=== PATIENT | male | born 1950 | race Caucasian/White ===

== ENCOUNTER → 2020-01-07 10:24 | Outpatient (BNVA) | payer MEDICARE, MEDICAID, SELFPAY | PROVIDERS: PCP Nurse Practitioner Family; Referring Provider Nurse Practitioner Family; Visit Provider Internal Medicine Cardiovascular Disease | DX: I48.0 Paroxysmal atrial fibrillation (principal); Z95.2 Presence of prosthetic heart valve; Z51.81 Encounter for therapeutic drug level monitoring; Z79.01 Long term (current) use of anticoagulants | CPT/HCPCS: 85610; 99211 ==

== ENCOUNTER → 2020-01-24 10:46 | Outpatient (BNVA) | payer MEDICARE, MEDICAID, SELFPAY | PROVIDERS: PCP Nurse Practitioner Family; Referring Provider Nurse Practitioner Family; Visit Provider Internal Medicine | DX: I48.0 Paroxysmal atrial fibrillation (principal); Z95.2 Presence of prosthetic heart valve; Z51.81 Encounter for therapeutic drug level monitoring; Z79.01 Long term (current) use of anticoagulants | CPT/HCPCS: 85610; 99211 ==

== ENCOUNTER → 2020-02-14 14:00 | Outpatient (REF) | payer MEDICARE, MEDICAID, SELFPAY ==
--- NOTE | 2020-02-14 12:16 | CA_ITS ---
Transthoracic Echocardiogram Patient (Last, First, Middle): Luca Hutson, Gender: Male Date of : 1950 Age: 69 Procedure Date: 02/14/2020 Procedure Type: Transthoracic Echocardiogram Location: OP Height: 175.26 cm Weight: 113.4 kg BSA: 2.27 m2 Heart Rate: bpm BP: 118 / 62 mmHg Hearing Health Technician: MARY Referring MD: Mario Esquivel MD Routing Clerk: Mario Esquivel MD Symptoms: Z95.2,I48.0 Study Quality: Technically Difficult ECG Rhythm: Sinus Conclusions: - 1. Normal LV systolic function with mild LVH 2. Mildly dilated left atrium 3. Stenosis of mechanical aortic prosthetic valve 4. Normally functioning mitral mechanical prosthesis 5. Normal RV systolic pressure 6. No gross pericardial effusion Findings Left Ventricle Normal left ventricular size and systolic function. There is mildly increased left ventricular wall thickness. The visually estimated ejection fraction is between 60-65%. Diastolic function is indeterminate on the basis of available data. Right Ventricle Normal right ventricular cavity size. There is low normal right ventricular systolic function. Atria The left atrium is mildly dilated. Interatrial shunt cannot be excluded. The right atrium was not well visualized. Aortic Valve A mechanical prosthetic aortic valve is present. The prosthetic aortic valve appears to be functioning abnormally. Echo findings are consistent with stenosis of the aortic valve prosthesis. The aortic valve was not well visualized. The mean gradient is 28 mmHg. The aortic valve area is 1.11 cm2. no valve leaflets are not well visualized, however the valve appears to be well seated without any abnormal rocking motion. There is no significant regurgitation noted. There is increased mean gradient of 28 mm of mercury across the mechanical prosthetic valve which is elevated, however compared to prior study this is lower. This could be secondary to underestimation. The calculated effective orifice area is 1.1 centimeters sq. There is also delayed aortic ejection time. Overall consistent with stenosis of the mechanical prosthesis. Mitral Valve A mechanical prosthetic mitral valve is present. The prosthetic mitral valve appears to be functioning normally. The mitral valve was not well visualized. The mean mitral valve gradient is 4.00 mmHg. Mechanical mitral prosthesis is well seated without abnormal rocking motion. Mitral regurgitation cannot be completely evaluated on this study. Mean gradient of 4 mm of mercury which is normal for a mechanical prosthesis Pulmonic Valve The pulmonic valve was not well visualized. Tricuspid Valve Likely normal tricuspid valve structure and function. There is mild tricuspid valve regurgitation. The right ventricular systolic pressure is normal. The right ventricular systolic pressure is 25 mmHg. There is no evidence of pulmonary hypertension. Great Vessels All visible segments of the aorta are normal in size. The pulmonary artery was not well visualized. Venous The inferior vena cava is normal in size and collapses greater than 50% with inspiration. Pericardium/Pleural There is no evidence of pericardial effusion. Prior Study Comparison Changes noted compared to prior study dated: 12/17/2018. RV systolic function has normalized on this study compared to prior study. Also the mean gradient across mechanical aortic prosthesis is lower, could be due to underestimation. LV systolic function appears to have normalized Measurements 2D Linear Measurements IVSd: 1.33 0.6-0.9/0.6-1.0 cm LVIDd: 4.59 3.9-5.3/4.2-5.9 cm LVIDd Index: 2.02 2.4-3.2/2.2-3.1 cm/m2 LVIDs: 3.11 2.0-3.6 cm LVPWd: 1.23 0.7-1.1 cm Ao Root: 2.90 2.1-3.5 cm LA Diam: 3.70 2.7-3.8/3.0-4.0 cm LAIDs Index: 1.63 1.5-2.3 cm/m2 LV Mass: 279.58 67-162/88-224 g LV Mass Index: 123.16 43-95/49-115 g/m2 LVOT Diam: 2.20 3.0+(-)1.3 cm 2D Systolic Function EF 4C: 73.70 >55% Mitral Valve MV VTI: 0.39 MV Pk Edgar: 1.62 MV Mn Edgar: 0.95 MV Pk Grad: 10.00 MV Mn Grad: 4.00 MV Pk E: 1.58 MV PK A: 0.74 MV Decel Time: 190.00 E/A: 2.10 E'Lateral: 7.25 E'Medial: 6.00 E/E' Med: 26.30 E/E' Lat: 21.80 PHT: 56.00 MVA PHT: 3.93 MVA Continuity: 1.93 Decel [place]: 8.30 Aortic Valve AoV Pk Edgar: 3.57 AoV Mn Edgar: 2.43 AoV VTI: 0.67 AoV Pk Grad: 51.00 Aov Mn Grad: 28.00 AIDEN Cont.VTI: 1.11 LVOT LVOT Pk Edgar: 0.91 LVOT Mn Edgar: 0.68 LVOT VTI: 0.20 LVOT Pk Grad: 3.00 LVOT Mn Grad: 2.00 LVOT Diam: 2.20 LVOT Area: 3.80 Diastolic Function MV Pk E: 1.58 MV Pk A: 0.74 E/A: 2.10 E'Medial: 6.00 E/E' Med: 26.30 E' Laterial: 7.25 E/E' Lat: 21.80 Tricuspid Valve TR Pk Edgar: 2.33 TR Pk Grad: 22.00 RA Press: 3.00 RVSP: 25.00 Great Vessels Aorta Ao Root-2D: 2.90 2.0-3.7 cm Ao Asc: 2.90 2.1-3.4 cm Updated in Other Vendor System with Status of Final Mario Esquivel MD electronically signed on 02/15/2020 11:47:08 AM with status of Final
== END ==
LOC: HO.CARD 14:00
PROVIDERS: Visit Provider Internal Medicine Cardiovascular Disease
DX: I48.0 Paroxysmal atrial fibrillation (principal); I10 Essential (primary) hypertension; Z95.2 Presence of prosthetic heart valve
CPT/HCPCS: 93306

== ENCOUNTER → 2020-02-21 11:05 | Outpatient (BNVA) | payer MEDICARE, MEDICAID, SELFPAY | PROVIDERS: PCP Nurse Practitioner Family; Visit Provider Internal Medicine | DX: I48.0 Paroxysmal atrial fibrillation (principal); Z95.2 Presence of prosthetic heart valve; Z51.81 Encounter for therapeutic drug level monitoring; Z79.01 Long term (current) use of anticoagulants | CPT/HCPCS: 85610; 99211 ==

== ENCOUNTER → 2020-03-07 10:38 | Outpatient (BNVA) | payer MEDICARE, MEDICAID, SELFPAY | PROVIDERS: Visit Provider Internal Medicine | DX: I48.0 Paroxysmal atrial fibrillation (principal); Z95.2 Presence of prosthetic heart valve; Z51.81 Encounter for therapeutic drug level monitoring; Z79.01 Long term (current) use of anticoagulants | CPT/HCPCS: 85610; 99211 ==

== ENCOUNTER → 2020-03-14 09:34 | Outpatient (BNVA) | payer MEDICARE, MEDICAID, SELFPAY | PROVIDERS: PCP Nurse Practitioner Family; Referring Provider Nurse Practitioner Family; Visit Provider Internal Medicine Cardiovascular Disease | DX: I50.9 Heart failure, unspecified (principal); I48.0 Paroxysmal atrial fibrillation; T82.09XA Other mechanical complication of heart valve prosthesis, initial encounter; Z95.2 Presence of prosthetic heart valve | CPT/HCPCS: 99212 ==

== ENCOUNTER → 2020-03-21 10:15 | Outpatient (BNVA) | payer MEDICARE, MEDICAID, SELFPAY | PROVIDERS: PCP Nurse Practitioner Family; Visit Provider Internal Medicine | DX: I48.0 Paroxysmal atrial fibrillation (principal); Z51.81 Encounter for therapeutic drug level monitoring; Z79.01 Long term (current) use of anticoagulants | CPT/HCPCS: 85610; 99211 ==

== ENCOUNTER → 2020-03-23 14:04 | Outpatient (BNVA) | payer MEDICARE, MEDICAID, SELFPAY | PROVIDERS: PCP Nurse Practitioner Family; Visit Provider Internal Medicine | DX: I48.0 Paroxysmal atrial fibrillation (principal); Z51.81 Encounter for therapeutic drug level monitoring; Z79.01 Long term (current) use of anticoagulants | CPT/HCPCS: 85610; 99211 ==

== ENCOUNTER → 2020-03-29 10:02 | Outpatient (BNVA) | payer MEDICARE, MEDICAID, SELFPAY | PROVIDERS: PCP Nurse Practitioner Family; Visit Provider Internal Medicine | DX: I48.0 Paroxysmal atrial fibrillation (principal); Z95.2 Presence of prosthetic heart valve; Z51.81 Encounter for therapeutic drug level monitoring; Z79.01 Long term (current) use of anticoagulants | CPT/HCPCS: 85610; 99211 ==

== ENCOUNTER → 2020-04-03 11:53 | Outpatient (BNVA) | payer MEDICARE, MEDICAID, SELFPAY | PROVIDERS: PCP Nurse Practitioner Family; Visit Provider Nurse Practitioner Gerontology | DX: E11.65 Type 2 diabetes mellitus with hyperglycemia (principal); E11.40 Type 2 diabetes mellitus with diabetic neuropathy, unspecified; Z79.4 Long term (current) use of insulin; E78.00 Pure hypercholesterolemia, unspecified; I10 Essential (primary) hypertension; E66.09 Other obesity due to excess calories; Z68.34 Body mass index [BMI] 34.0-34.9, adult | CPT/HCPCS: 82947; 99212 ==

== ENCOUNTER → 2020-04-13 10:16 | Outpatient (BNVA) | payer MEDICARE, MEDICAID, SELFPAY | PROVIDERS: PCP Nurse Practitioner Family; Visit Provider Internal Medicine | DX: I48.0 Paroxysmal atrial fibrillation (principal); Z51.81 Encounter for therapeutic drug level monitoring; Z79.01 Long term (current) use of anticoagulants | CPT/HCPCS: 85610; 99211 ==

== ENCOUNTER → 2020-04-27 10:32 | Outpatient (BNVA) | payer MEDICARE, MEDICAID, SELFPAY | PROVIDERS: PCP Nurse Practitioner Family; Visit Provider Internal Medicine | DX: I48.0 Paroxysmal atrial fibrillation (principal); Z95.2 Presence of prosthetic heart valve; Z51.81 Encounter for therapeutic drug level monitoring; Z79.01 Long term (current) use of anticoagulants | CPT/HCPCS: 85610; 99211 ==

== ENCOUNTER → 2020-05-11 10:40 | Outpatient (BNVA) | payer MEDICARE, MEDICAID, SELFPAY | PROVIDERS: PCP Nurse Practitioner Family; Visit Provider Internal Medicine | DX: I48.0 Paroxysmal atrial fibrillation (principal); Z51.81 Encounter for therapeutic drug level monitoring; Z79.01 Long term (current) use of anticoagulants | CPT/HCPCS: 85610; 99211 ==

== ENCOUNTER → 2020-05-19 13:05 | Outpatient (BNVA) | payer MEDICARE, MEDICAID, SELFPAY | PROVIDERS: PCP Nurse Practitioner Family; Visit Provider Internal Medicine | DX: I48.0 Paroxysmal atrial fibrillation (principal); Z95.2 Presence of prosthetic heart valve; Z51.81 Encounter for therapeutic drug level monitoring; Z79.01 Long term (current) use of anticoagulants | CPT/HCPCS: 85610; 99211 ==

== ENCOUNTER → 2020-05-31 11:19 | Outpatient (BNVA) | payer MEDICARE, MEDICAID, SELFPAY | PROVIDERS: PCP Nurse Practitioner Family; Visit Provider Internal Medicine | DX: I48.0 Paroxysmal atrial fibrillation (principal); Z95.2 Presence of prosthetic heart valve; Z51.81 Encounter for therapeutic drug level monitoring; Z79.01 Long term (current) use of anticoagulants | CPT/HCPCS: 85610; 99211 ==

== ENCOUNTER → 2020-06-05 07:21 | Outpatient (BNVA) | payer MEDICARE, MEDICAID, SELFPAY | PROVIDERS: PCP Nurse Practitioner Family; Visit Provider Nurse Practitioner Gerontology | DX: E11.65 Type 2 diabetes mellitus with hyperglycemia (principal); E11.40 Type 2 diabetes mellitus with diabetic neuropathy, unspecified; Z79.4 Long term (current) use of insulin; E78.00 Pure hypercholesterolemia, unspecified; I10 Essential (primary) hypertension; E66.09 Other obesity due to excess calories; Z68.34 Body mass index [BMI] 34.0-34.9, adult | CPT/HCPCS: 82947; 99212 ==

== ENCOUNTER 2020-06-05 08:41 | Outpatient (REF) | payer MEDICARE, MEDICAID, SELFPAY ==
[2020-06-05 11:39] LABS: Alanine Aminotransferase 22 U/L (0-40); Alkaline Phosphatase 77 U/L (39-117); Anion Gap 13 (12-20); Aspartate Amino Transferase 20 U/L (5-37); Bilirubin Total 0.8 mg/dL (0.0-1.0); Blood Urea Nitrogen 14 mg/dL (9-16); Carbon Dioxide 27 mmol/L (22-29); Chloride 104 mmol/L (96-108); Cholesterol 113 mg/dL; Estimated Average Glucose 192 mg/dL; Estimated Glomerular Filt Rate > 60; Glucose Fasting 122 mg/dL (60-99); HDL Cholesterol 34 mg/dL; Hemoglobin A1c % 8.3 %; LDL Cholesterol Calculated 62 mg/dl; Potassium 4.8 mmol/L (3.3-5.1); Sodium 139 mmol/L (135-145); Total Protein 7.1 g/dL (6.5-8.0); Triglycerides 85 mg/dL
== END 2020-06-05 08:42 | disposition home or self-care (01) ==
LOC: HO.10HDL 08:41
PROVIDERS: Visit Provider Nurse Practitioner Gerontology
DX: E11.65 Type 2 diabetes mellitus with hyperglycemia (principal); Z79.4 Long term (current) use of insulin
CPT/HCPCS: 36415; 80053; 80061; 83036

== ENCOUNTER → 2020-06-14 11:09 | Outpatient (BNVA) | payer MEDICARE, MEDICAID, SELFPAY | PROVIDERS: PCP Nurse Practitioner Family; Visit Provider Internal Medicine | DX: I48.0 Paroxysmal atrial fibrillation (principal); Z95.2 Presence of prosthetic heart valve; Z51.81 Encounter for therapeutic drug level monitoring; Z79.01 Long term (current) use of anticoagulants | CPT/HCPCS: 85610; 99211 ==

== ENCOUNTER → 2020-06-16 10:21 | Outpatient (BNVA) | payer MEDICARE, MEDICAID, SELFPAY | PROVIDERS: PCP Nurse Practitioner Family; Visit Provider Internal Medicine | DX: I48.0 Paroxysmal atrial fibrillation (principal); Z95.2 Presence of prosthetic heart valve; Z51.81 Encounter for therapeutic drug level monitoring; Z79.01 Long term (current) use of anticoagulants | CPT/HCPCS: 85610; 99211 ==

== ENCOUNTER → 2020-06-19 09:27 | Outpatient (BNVA) | payer MEDICARE, MEDICAID, SELFPAY | PROVIDERS: PCP Nurse Practitioner Family; Visit Provider Internal Medicine | DX: I48.0 Paroxysmal atrial fibrillation (principal); Z95.2 Presence of prosthetic heart valve; Z51.81 Encounter for therapeutic drug level monitoring; Z79.01 Long term (current) use of anticoagulants | CPT/HCPCS: 85610; 99211 ==

== ENCOUNTER → 2020-07-03 09:55 | Outpatient (BNVA) | payer MEDICARE, MEDICAID, SELFPAY | PROVIDERS: PCP Nurse Practitioner Family; Visit Provider Internal Medicine | DX: I48.0 Paroxysmal atrial fibrillation (principal); Z51.81 Encounter for therapeutic drug level monitoring; Z79.01 Long term (current) use of anticoagulants | CPT/HCPCS: 85610; 99211 ==

== ENCOUNTER → 2020-07-04 10:06 | Outpatient (BNVA) | payer MEDICARE, MEDICAID, SELFPAY | PROVIDERS: PCP Nurse Practitioner Family; Visit Provider Dietitian, Registered ==

== ENCOUNTER → 2020-07-19 09:54 | Outpatient (BNVA) | payer MEDICARE, MEDICAID, SELFPAY | PROVIDERS: PCP Nurse Practitioner Family; Visit Provider Internal Medicine | DX: I48.0 Paroxysmal atrial fibrillation (principal); Z95.2 Presence of prosthetic heart valve; Z79.01 Long term (current) use of anticoagulants; Z51.81 Encounter for therapeutic drug level monitoring | CPT/HCPCS: 85610; 99211 ==

== ENCOUNTER → 2020-08-02 10:13 | Outpatient (BNVA) | payer MEDICARE, MEDICAID, SELFPAY | PROVIDERS: PCP Nurse Practitioner Family; Visit Provider Internal Medicine | DX: I48.0 Paroxysmal atrial fibrillation (principal); Z95.2 Presence of prosthetic heart valve; Z51.81 Encounter for therapeutic drug level monitoring; Z79.01 Long term (current) use of anticoagulants | CPT/HCPCS: 85610; 99211 ==

== ENCOUNTER → 2020-08-03 10:42 | Outpatient (BNVA) | payer MEDICARE, MEDICAID, SELFPAY | PROVIDERS: PCP Nurse Practitioner Family; Visit Provider Dietitian, Registered | DX: E11.65 Type 2 diabetes mellitus with hyperglycemia (principal); Z79.4 Long term (current) use of insulin | CPT/HCPCS: 97803 ==

== ENCOUNTER → 2020-08-21 10:04 | Outpatient (BNVA) | payer MEDICARE, MEDICAID, SELFPAY | PROVIDERS: PCP Nurse Practitioner Family; Visit Provider Internal Medicine | DX: I48.0 Paroxysmal atrial fibrillation (principal); Z95.2 Presence of prosthetic heart valve; Z51.81 Encounter for therapeutic drug level monitoring; Z79.01 Long term (current) use of anticoagulants | CPT/HCPCS: 85610; 99211 ==

== ENCOUNTER → 2020-08-24 10:20 | Outpatient (BNVA) | payer MEDICARE, MEDICAID, SELFPAY | PROVIDERS: PCP Nurse Practitioner Family; Visit Provider Internal Medicine | DX: I48.0 Paroxysmal atrial fibrillation (principal); Z95.2 Presence of prosthetic heart valve; Z51.81 Encounter for therapeutic drug level monitoring; Z79.01 Long term (current) use of anticoagulants | CPT/HCPCS: 85610; 99211 ==

== ENCOUNTER → 2020-08-25 15:07 | Outpatient (BNVA) | payer MEDICARE, MEDICAID, SELFPAY | PROVIDERS: PCP Nurse Practitioner Family; Visit Provider Internal Medicine | DX: I48.0 Paroxysmal atrial fibrillation (principal); Z95.2 Presence of prosthetic heart valve; Z51.81 Encounter for therapeutic drug level monitoring; Z79.01 Long term (current) use of anticoagulants | CPT/HCPCS: 85610; 99211 ==

== ENCOUNTER → 2020-09-05 09:50 | Outpatient (BNVA) | payer MEDICARE, MEDICAID, SELFPAY | PROVIDERS: PCP Nurse Practitioner Family; Visit Provider Internal Medicine | DX: I48.0 Paroxysmal atrial fibrillation (principal); Z95.2 Presence of prosthetic heart valve; Z51.81 Encounter for therapeutic drug level monitoring; Z79.01 Long term (current) use of anticoagulants | CPT/HCPCS: 85610; 99211 ==

== ENCOUNTER → 2020-09-08 10:31 | Outpatient (BNVA) | payer MEDICARE, MEDICAID, SELFPAY | PROVIDERS: PCP Nurse Practitioner Family; Visit Provider Internal Medicine | DX: I48.0 Paroxysmal atrial fibrillation (principal); Z51.81 Encounter for therapeutic drug level monitoring; Z79.01 Long term (current) use of anticoagulants | CPT/HCPCS: 85610; 99211 ==

== ENCOUNTER → 2020-09-11 09:36 | Outpatient (BNVA) | payer MEDICARE, MEDICAID, SELFPAY | PROVIDERS: PCP Nurse Practitioner Family; Visit Provider Internal Medicine | DX: I48.0 Paroxysmal atrial fibrillation (principal); Z95.2 Presence of prosthetic heart valve; Z51.81 Encounter for therapeutic drug level monitoring; Z79.01 Long term (current) use of anticoagulants | CPT/HCPCS: 85610; 99211 ==

== ENCOUNTER → 2020-09-18 10:13 | Outpatient (BNVA) | payer MEDICARE, MEDICAID, SELFPAY | PROVIDERS: PCP Nurse Practitioner Family; Visit Provider Internal Medicine | DX: I48.0 Paroxysmal atrial fibrillation (principal); Z95.2 Presence of prosthetic heart valve; Z51.81 Encounter for therapeutic drug level monitoring; Z79.01 Long term (current) use of anticoagulants | CPT/HCPCS: 85610; 99211 ==

== ENCOUNTER → 2020-09-21 10:13 | Outpatient (BNVA) | payer MEDICARE, MEDICAID, SELFPAY | PROVIDERS: PCP Nurse Practitioner Family; Referring Provider Nurse Practitioner Family; Visit Provider Internal Medicine Cardiovascular Disease | DX: I50.9 Heart failure, unspecified (principal); I48.0 Paroxysmal atrial fibrillation; T82.09XA Other mechanical complication of heart valve prosthesis, initial encounter; Z95.2 Presence of prosthetic heart valve | CPT/HCPCS: 93005; 99212 ==

== ENCOUNTER → 2020-10-02 09:55 | Outpatient (BNVA) | payer MEDICARE, MEDICAID, SELFPAY | PROVIDERS: PCP Nurse Practitioner Family; Visit Provider Internal Medicine | DX: I48.0 Paroxysmal atrial fibrillation (principal); Z95.2 Presence of prosthetic heart valve; Z51.81 Encounter for therapeutic drug level monitoring; Z79.01 Long term (current) use of anticoagulants | CPT/HCPCS: 85610; 99211 ==

== ENCOUNTER → 2020-10-12 10:01 | Outpatient (BNVA) | payer MEDICARE, MEDICAID, SELFPAY | PROVIDERS: PCP Nurse Practitioner Family; Visit Provider Internal Medicine | DX: I48.0 Paroxysmal atrial fibrillation (principal); Z95.2 Presence of prosthetic heart valve; Z51.81 Encounter for therapeutic drug level monitoring; Z79.01 Long term (current) use of anticoagulants | CPT/HCPCS: 85610; 99211 ==

== ENCOUNTER → 2020-10-26 10:30 | Outpatient (BNVA) | payer MEDICARE, MEDICAID, SELFPAY | PROVIDERS: PCP Nurse Practitioner Family; Visit Provider Internal Medicine | DX: I48.20 Chronic atrial fibrillation, unspecified (principal); Z95.2 Presence of prosthetic heart valve; Z51.81 Encounter for therapeutic drug level monitoring; Z79.01 Long term (current) use of anticoagulants | CPT/HCPCS: 85610; 99211 ==

== ENCOUNTER → 2020-10-27 12:52 | Outpatient (BNVA) | payer MEDICARE, MEDICAID, SELFPAY | PROVIDERS: PCP Nurse Practitioner Family; Visit Provider Nurse Practitioner Gerontology | DX: E11.65 Type 2 diabetes mellitus with hyperglycemia (principal); E11.40 Type 2 diabetes mellitus with diabetic neuropathy, unspecified; E78.00 Pure hypercholesterolemia, unspecified; I10 Essential (primary) hypertension; E66.09 Other obesity due to excess calories; Z68.34 Body mass index [BMI] 34.0-34.9, adult; Z79.4 Long term (current) use of insulin | CPT/HCPCS: 82947; 99212 ==

== ENCOUNTER 2020-10-30 08:01 | Outpatient (REF) | payer MEDICARE, MEDICAID, SELFPAY ==
[2020-10-30 11:24] LABS: Estimated Average Glucose 194 mg/dL; Hemoglobin A1c % 8.4 %
[2020-10-30 11:37] LABS: Creatinine Urine 80.03 mg/dL; Microalbum/Creatinine Ratio Ur 113.7 ug/mg cr
[2020-10-30 11:43] LABS: Alanine Aminotransferase 29 U/L (0-40); Albumin Level 3.9 g/dL (3.5-5.0); Alkaline Phosphatase 78 U/L (39-117); Anion Gap 13 (12-20); Aspartate Amino Transferase 31 U/L (5-37); Bilirubin Total 0.6 mg/dL (0.0-1.0); Blood Urea Nitrogen 28 mg/dL (9-16); Calcium 8.8 mg/dL (8.4-10.2); Carbon Dioxide 22 mmol/L (22-29); Chloride 107 mmol/L (96-108); Cholesterol 135 mg/dL; Estimated Glomerular Filt Rate > 60; Glucose Fasting 133 mg/dL (60-99); HDL Cholesterol 37 mg/dL; LDL Cholesterol Calculated 79 mg/dl; Potassium 4.7 mmol/L (3.3-5.1); Sodium 137 mmol/L (135-145); Total Protein 7.3 g/dL (6.5-8.0); Triglycerides 98 mg/dL
[2020-10-30 11:47] LABS: TSH reflex Free T4 1.73 uIU/mL (0.32-4.0)
== END 2020-10-30 08:02 | disposition home or self-care (01) ==
LOC: HO.HMGCLDS 08:01
PROVIDERS: Nurse Practitioner Gerontology; PCP Nurse Practitioner Family; Visit Provider Nurse Practitioner Family
DX: Z12.5 Encounter for screening for malignant neoplasm of prostate (principal); E11.65 Type 2 diabetes mellitus with hyperglycemia; Z79.4 Long term (current) use of insulin
CPT/HCPCS: 36415; 80053; 80061; 82043; 83036; 84153; 84443

== ENCOUNTER → 2020-11-09 11:06 | Outpatient (BNVA) | payer MEDICARE, MEDICAID, SELFPAY | PROVIDERS: PCP Nurse Practitioner Family; Visit Provider Internal Medicine | DX: I48.0 Paroxysmal atrial fibrillation (principal); Z51.81 Encounter for therapeutic drug level monitoring; Z79.01 Long term (current) use of anticoagulants | CPT/HCPCS: 85610; 99211 ==

== ENCOUNTER → 2020-11-16 09:24 | Outpatient (BNVA) | payer MEDICARE, MEDICAID, SELFPAY | PROVIDERS: PCP Nurse Practitioner Family; Visit Provider Internal Medicine | DX: I48.0 Paroxysmal atrial fibrillation (principal); Z79.01 Long term (current) use of anticoagulants; Z51.81 Encounter for therapeutic drug level monitoring | CPT/HCPCS: 85610; 99211 ==

== ENCOUNTER → 2020-11-29 10:56 | Outpatient (BNVA) | payer MEDICARE, MEDICAID, SELFPAY | PROVIDERS: PCP Nurse Practitioner Family; Visit Provider Internal Medicine | DX: I48.0 Paroxysmal atrial fibrillation (principal); Z51.81 Encounter for therapeutic drug level monitoring; Z79.01 Long term (current) use of anticoagulants | CPT/HCPCS: 85610; 99211 ==

== ENCOUNTER → 2020-12-13 10:25 | Outpatient (BNVA) | payer MEDICARE, MEDICAID, SELFPAY | PROVIDERS: PCP Nurse Practitioner Family; Visit Provider Internal Medicine | DX: I48.0 Paroxysmal atrial fibrillation (principal); Z51.81 Encounter for therapeutic drug level monitoring; Z79.01 Long term (current) use of anticoagulants | CPT/HCPCS: 85610; 99211 ==

== ENCOUNTER → 2021-01-29 13:47 | Outpatient (BNVA) | payer MEDICARE, MEDICAID, SELFPAY | PROVIDERS: PCP Nurse Practitioner Family; Visit Provider Internal Medicine | DX: I48.0 Paroxysmal atrial fibrillation (principal); Z51.81 Encounter for therapeutic drug level monitoring; Z79.01 Long term (current) use of anticoagulants | CPT/HCPCS: 85610; 99211 ==

== ENCOUNTER → 2021-01-30 07:22 | Outpatient (BNVA) | payer MEDICARE, MEDICAID, SELFPAY | PROVIDERS: PCP Nurse Practitioner Family; Visit Provider Nurse Practitioner Gerontology | DX: E11.65 Type 2 diabetes mellitus with hyperglycemia (principal); E11.40 Type 2 diabetes mellitus with diabetic neuropathy, unspecified; E78.00 Pure hypercholesterolemia, unspecified; I10 Essential (primary) hypertension; E66.09 Other obesity due to excess calories; Z79.4 Long term (current) use of insulin; Z68.34 Body mass index [BMI] 34.0-34.9, adult | CPT/HCPCS: 82947; 99212 ==

== ENCOUNTER → 2021-02-02 07:52 | Outpatient (BNVA) | payer MEDICARE, MEDICAID, SELFPAY | PROVIDERS: PCP Nurse Practitioner Family; Visit Provider Registered Nurse Diabetes Educator | DX: E11.65 Type 2 diabetes mellitus with hyperglycemia (principal); Z79.4 Long term (current) use of insulin | CPT/HCPCS: 99211 ==

== ENCOUNTER → 2021-02-09 10:42 | Outpatient (BNVA) | payer MEDICARE, MEDICAID, SELFPAY | PROVIDERS: PCP Nurse Practitioner Family; Visit Provider Internal Medicine | DX: I48.0 Paroxysmal atrial fibrillation (principal); Z51.81 Encounter for therapeutic drug level monitoring; Z79.01 Long term (current) use of anticoagulants | CPT/HCPCS: 85610; 99211 ==

== ENCOUNTER → 2021-02-23 09:21 | Outpatient (BNVA) | payer MEDICARE, MEDICAID, SELFPAY | PROVIDERS: PCP Nurse Practitioner Family; Visit Provider Internal Medicine | DX: I48.0 Paroxysmal atrial fibrillation (principal); Z51.81 Encounter for therapeutic drug level monitoring; Z79.01 Long term (current) use of anticoagulants | CPT/HCPCS: 85610; 99211 ==

== ENCOUNTER → 2021-03-12 08:57 | Outpatient (BNVA) | payer MEDICARE, MEDICAID, SELFPAY | PROVIDERS: PCP Nurse Practitioner Family; Visit Provider Registered Nurse Diabetes Educator | DX: E11.9 Type 2 diabetes mellitus without complications (principal) | CPT/HCPCS: 99211 ==

== ENCOUNTER → 2021-03-15 13:54 | Outpatient (REF) | payer MEDICARE, MEDICAID, SELFPAY ==
--- NOTE | 2021-03-15 13:56 | CA_ITS ---
Transthoracic Echocardiogram Patient (Last, First, Middle): Luca Hutson, Gender: Male Date of : 1950 Age: 70 Procedure Date: 03/15/2021 Procedure Type: Transthoracic Echocardiogram Location: OP Height: 175.26 cm Weight: 107.5 kg BSA: 2.22 m2 Heart Rate: bpm BP: 120 / 70 mmHg Wheel Alignment Mechanic: JAROD Referring MD: Mario Esquivel MD Cabinet Finisher: Mario Esquivel MD Symptoms: T82.09XA - Other mechanical complication of heart valve p... Study Quality: Fair/Contrast ECG Rhythm: Sinus Conclusions: - 1. Normal LV systolic function 2. Mildly dilated left atrium 3. Normally functioning mechanical prosthesis in mitral position with mean gradient of 4 mmHg 4. Normally functioning mechanical prosthesis in aortic position with mean gradient of 32 mmHg consistent with patient prosthesis mismatch 5. Mildly dilated right ventricle with reduced systolic function 6. Normal RV systolic pressure 7. No gross pericardial effusion Findings Procedure Information Contrast agent, definity, is being given per protocol without apparent complications. Left Ventricle Normal left ventricular size, thickness, and systolic function. The visually estimated ejection fraction is between 60-65%. There is no evidence of regional wall motion abnormalities. There is paradoxical septal motion consistent with post-operative status. Diastolic function is indeterminate on the basis of available data. Right Ventricle Mildly increased right ventricular cavity size. There is moderately decreased right ventricular systolic function. Atria The left atrium is mildly dilated. Interatrial shunt cannot be excluded. The right atrium is likely dilated. Aortic Valve A mechanical prosthetic aortic valve is present. The mean gradient is 32 mmHg. There is no aortic valve regurgitation. Mean gradient across aortic valve are 32 mmHg, similar to past study last year with aortic ejection time at 69 milliseconds, findings most consistent with patient prosthesis mismatch. Calculated effective orifice area is 1.31 centimeters sq which is in reasonable range for a prosthetic aortic valve Mitral Valve A mechanical prosthetic mitral valve is present. The prosthetic mitral valve appears to be functioning normally. The mean mitral valve gradient is 4.00 mmHg. The valve is well seated without abnormal rocking motion. The leaflet mobility is not well visualized Pulmonic Valve The pulmonic valve is likely normal. Tricuspid Valve Likely normal tricuspid valve structure and function. There is trace tricuspid valve regurgitation. The right ventricular systolic pressure is normal. The right ventricular systolic pressure is 19 mmHg. Normal right atrial pressure. There is no evidence of pulmonary hypertension. Great Vessels All visible segments of the aorta are normal in size. The pulmonary artery was not well visualized. Venous The inferior vena cava is normal in size and collapses greater than 50% with inspiration. Pericardium/Pleural There is no evidence of pericardial effusion. Prior Study Comparison No significant change compared to prior study dated: 02/14/2020. Measurements 2D Linear Measurements IVSd: 1.15 0.6-0.9/0.6-1.0 cm LVIDd: 4.70 3.9-5.3/4.2-5.9 cm LVIDd Index: 2.12 2.4-3.2/2.2-3.1 cm/m2 LVIDs: 3.27 2.0-3.6 cm LVPWd: 1.06 0.7-1.1 cm LA Diam: 4.90 2.7-3.8/3.0-4.0 cm LAIDs Index: 2.21 1.5-2.3 cm/m2 LV Mass: 235.16 67-162/88-224 g LV Mass Index: 105.93 43-95/49-115 g/m2 LVOT Diam: 2.20 3.0+(-)1.3 cm 2D Systolic Function EF 4C: 57.10 >55% EF 2C: 61.10 >55% EF BiP: 60.40 >55% Mitral Valve MV VTI: 0.37 MV Pk Edgar: 1.44 MV Mn Edgar: 1.04 MV Pk Grad: 8.00 MV Mn Grad: 5.00 MV Pk E: 1.31 MV PK A: 0.80 MV Decel Time: 264.00 E/A: 1.60 E'Lateral: 7.40 E'Medial: 5.22 E/E' Med: 25.10 E/E' Lat: 17.70 PHT: 89.00 MVA PHT: 2.47 MVA Continuity: 2.15 Decel [place]: 4.15 Aortic Valve AoV Pk Edgar: 3.77 AoV Mn Edgar: 2.71 AoV VTI: 0.62 AoV Pk Grad: 57.00 Aov Mn Grad: 32.00 AIDEN Cont.VTI: 1.31 LVOT LVOT Pk Edgar: 1.09 LVOT Mn Edgar: 0.81 LVOT VTI: 0.21 LVOT Pk Grad: 5.00 LVOT Mn Grad: 3.00 LVOT Diam: 2.20 LVOT Area: 3.80 Diastolic Function MV Pk E: 1.31 MV Pk A: 0.80 E/A: 1.60 E'Medial: 5.22 E/E' Med: 25.10 E' Laterial: 7.40 E/E' Lat: 17.70 Right Ventricle TAPSE (mm): 1.16 TVS' Edgar: 5.77 Tricuspid Valve TR Pk Edgar: 2.01 TR Pk Grad: 16.00 RA Press: 3.00 RVSP: 19.00 Great Vessels Aorta Ao Asc: 2.90 2.1-3.4 cm Updated in Other Vendor System with Status of Final Mario Esquivel MD electronically signed on 03/15/2021 4:36:47 PM with status of Final
== END ==
LOC: HO.CARD 13:54
PROVIDERS: PCP Nurse Practitioner Family; Visit Provider Internal Medicine Cardiovascular Disease
DX: T82.09XD Other mechanical complication of heart valve prosthesis, subsequent encounter (principal)
CPT/HCPCS: 93306; Q9957

== ENCOUNTER → 2021-03-20 09:39 | Outpatient (BNVA) | payer MEDICARE, MEDICAID, SELFPAY | PROVIDERS: PCP Nurse Practitioner Family; Visit Provider Internal Medicine | DX: I48.0 Paroxysmal atrial fibrillation (principal); Z51.81 Encounter for therapeutic drug level monitoring; Z79.01 Long term (current) use of anticoagulants | CPT/HCPCS: 85610; 99211 ==

== ENCOUNTER → 2021-04-03 10:27 | Outpatient (BNVA) | payer MEDICARE, MEDICAID, SELFPAY | PROVIDERS: PCP Nurse Practitioner Family; Visit Provider Internal Medicine | DX: I48.0 Paroxysmal atrial fibrillation (principal); Z51.81 Encounter for therapeutic drug level monitoring; Z79.01 Long term (current) use of anticoagulants | CPT/HCPCS: 85610; 99211 ==

== ENCOUNTER → 2021-04-11 13:02 | Outpatient (BNVA) | payer MEDICARE, MEDICAID, SELFPAY | PROVIDERS: PCP Nurse Practitioner Family; Referring Provider Nurse Practitioner Family; Visit Provider Nurse Practitioner Family | DX: I48.0 Paroxysmal atrial fibrillation (principal); I11.0 Hypertensive heart disease with heart failure; I50.9 Heart failure, unspecified; Z95.2 Presence of prosthetic heart valve; Z79.01 Long term (current) use of anticoagulants | CPT/HCPCS: 99212 ==

== ENCOUNTER 2021-04-25 13:25 | Emergency (ER) | payer MEDICARE, MEDICAID, SELFPAY ==
[2021-04-25 14:45] VITALS: BP 189/97; PULSE 90; RESP 18; TEMP 36.8; O2SAT 98; BMI 28.6
--- NOTE | 2021-04-25 16:44 | ED.MALEGU ---
HPI - Male Genitourinary General Chief complaint: Urogenital-Male Stated complaint: Genital pain/swelling Time Seen by Provider: 04/25/21 15:32 Source: patient Mode of arrival: ambulatory Limitations: no limitations History of Present Illness HPI Narrative: 70-year-old male with a history of IDDM here with reports of irritation to the end of his penis with some scant light discoloration noted for the last 4-5 days. Patient denies any dysuria, urinary frequency, testicular pain, abdominal pain, back pain, fevers, chills. Related Data Home Medications Medication Instructions Recorded Confirmed albuterol sulfate 90 mcg/actuation 2 puff INHALATION Q6H PRN 03/14/20 04/11/21 aerosol inhaler glucagon 3 mg/actuation nasal spray mg INTRANASAL ONCE 04/03/20 04/11/21 blood sugar diagnostic #10 ea 04/10/20 04/11/21 lisinopril 20 mg tablet 20 mg PO DAILY 06/05/20 04/11/21 insulin lispro protamine-lispro See Rx Instructions SUBCUT BID ml 04/11/21 04/11/21 100 unit/mL (75-25) subcutaneous pen Previous Rx's Medication Instructions Recorded blood sugar diagnostic (OneTouch 1 strip MISCELLANEOUS BID 50 Days 05/17/20 Verio test strips) #100 strip atorvastatin 40 mg tablet 40 mg PO DAILY 90 Days #90 tab 10/16/20 lancets 33 gauge (OneTouch Delica #100 ea 01/30/21 Lancets) pen needle, diabetic 31 gauge x #100 ea 02/08/2108/20 levothyroxine 50 mcg tablet 50 mcg PO DAILY #90 tab 02/15/21 empagliflozin 25 mg tablet 25 mg PO QAM #30 tab 03/19/21 (Jardiance) allopurinol 100 mg tablet 100 mg PO BID 90 Days #180 tab 03/20/21 warfarin 2 mg tablet 2 mg PO .COMPLEX 90 Days #360 tab 04/17/21 clotrimazole 1 % topical cream 1 appl TOPICAL BID #45 g 04/25/21 mupirocin 2 % topical ointment 1 appl TOPICAL BID #22 g 04/25/21 nystatin 100,000 unit/gram topical 1 appl TOPICAL BID #60 g 04/25/21 powder Allergies Allergy/AdvReac Type Severity Reaction Status Date / Time exenatide [From BYETTA] Allergy Intermediate AFFECTED Verified 04/11/21 13:14 PANCREAS Review of Systems Review of Systems: Yes all other systems are reviewed and are negative Constitutional: Constitutional: Reports no additional constitutional complaints, Denies body ache(s), Denies chills, Denies fever(s), Denies headache(s) and Denies weakness Eyes: Eyes: Reports no additional eye complaints and Denies change in vision ENT: Reports system reviewed and no additional complaints, except as documented, Denies dizziness, Denies headache(s), Denies nasal congestion, Denies nasal discharge and Denies neck pain Cardiovascular: Cardiovascular: Reports no additional cardiovascular complaints, Denies chest pain, Denies leg edema and Denies dyspnea Respiratory: Respiratory: Reports no additional respiratory complaints, Denies cough and Denies dyspnea Gastrointestinal: Gastrointestinal: Reports no additional gastrointestinal complaints, Denies abdominal pain, Denies diarrhea, Denies nausea and Denies vomiting Genitourinary: Genitourinary: Denies urinary incontinence Musculoskeletal: Musculoskeletal: Reports no additional musculoskeletal complaints, Denies back pain, Denies arthralgias, Denies joint swelling, Denies neck pain, Denies numbness and Denies tingling Integumentary/Breasts: Skin/Breast: Reports system reviewed and no additional complaints, except as docu and Reports rash Neurologic: Reports system reviewed and no additional complaints, except as documented, Denies Abnormal speech present, Denies dizziness, Denies headache(s), Denies numbness, Denies tingling and Denies weakness PMFSH Past Medical History Attestation statement: The following information was validated with the patient. Source: old records reviewed and nursing notes reviewed Medical History BMI 34.0-34.9,adult BPH (benign prostatic hyperplasia) Chronic kidney disease Diabetes mellitus Gallstones Gout Heart failure, unspecified HTN (hypertension) Hyperlipidemia Obesity due to excess calories Osteomyelitis Paroxysmal atrial fibrillation Prosthetic valve dysfunction Spinal stenosis, lumbar Type 2 diabetes mellitus with diabetic neuropathy, unspecified Type 2 diabetes mellitus with hyperglycemia, with long-term current use of insulin Surgical History Hx of aortic valve replacement Hx of colonoscopy Hx of endoscopy Hx of exploratory laparotomy Hx of laparoscopy Mitral valve replaced Family History Family History Father CVD (cardiovascular disease) Mother CVD (cardiovascular disease) Social History Social History Household Members: None Alcohol intake: never Patient Tobacco Use Status: Never used Tobacco Advance Directives: No Advance Directives Information Provided: No Physical Exam Vital Signs: Vital Signs: Last Vital Signs Temp 98.2 F 04/25/21 14:45 Pulse 90 04/25/21 14:45 Resp 18 04/25/21 14:45 BP 189/97 H 04/25/21 14:45 Pulse Ox 98 04/25/21 14:45 BMI result Body Mass Index 28.6 Const: General: cooperative, healthy appearing, comfortable and no acute distress Orientation/consciousness: patient oriented x3 Limitations: no limitations HENMT: Head: Yes normal to inspection Ears: hearing grossly normal bilaterally General nose exam: Normal external nose present Face and sinus: Yes normal facial exam Mouth: Normal oral and palatal mucosa present Throat: Yes posterior oropharynx normal Eyes: General: appearance normal, both eyes and all related structures Pupils: Equal, round and reactive pupils present Neck: Neck: Yes normal visual inspection Chest: Chest palpation & inspection: normal inspection of the chest Resp: Effort & Inspection: normal respiratory effort Auscultation: clear to auscultation bilaterally Cardio: Rate: regular rate Rhythm: regular rhythm Peripheral pulses: Peripheral pulses 2+ throughout GI: Inspection: Yes normal to inspection Palpation (GI): Soft to palpation and nontender Auscultation: normal bowel sounds : Other: To the glans, meatus and around the urethra there is erythema, irritation, mild swelling To the folds of the skin groin there is irritation with erythema Penis: uncircumcised Scrotum: scrotum normal Testes: Testes normal Back/Spine/Pelvis: Thoracic/Lumbar Spine: thoracic and lumbar spine normal to inspection Skin: General skin exam: no rashes or lesions noted Neuro: General: patient oriented x3, no focal motor deficits and normal sensation to monofilament Cranial nerves: Yes Equal, round and reactive pupils present Cognition (Neuro): normal cognition Speech: No Abnormal speech present Gait exam (Neuro): Normal gait present Motor exam (neuro): 5/5 motor strength present throughout Extrem: General: Yes normal to inspection Course Course Course Narrative: Exam is consistent with balanitis. Will treat with topical antifungal and antibacterial. We discussed hygiene at home. On exam the patient also has some mild skin Sonja of the folds of the groin. Prescribe topical nystatin for this. Reviewed worrisome signs and symptoms of when to return to the emergency department. Comfortable discharge home. MDM - Male Genitourinary Medical Records Attestation: I reviewed the patient's medical records. Lab Data Attestation: I reviewed the patient's lab results. Discharge Plan Discharge Clinical Impression: Balanitis, Candidiasis Patient Disposition: Home, Self-Care Instructions: Balanitis (ED) Additional Instructions: Use the powder in the folds of the groin Mix both creams to gather and applied to the penis twice daily Follow-up with your primary care doctor as needed Daily retract the foreskin and clean the end of your penis with soap and water gently. Pat dry Prescriptions: New nystatin 100,000 unit/gram powder 1 appl topical BID Qty: 60 RF: 0 clotrimazole 1 % cream 1 appl topical BID Qty: 45 RF: 0 mupirocin 2 % ointment 1 appl topical BID Qty: 22 RF: 0 No Action (DME) blood sugar diagnostic Strip See Rx Instructions ea Not Applicable BID Qty: 10 RF: 0 blood sugar diagnostic [OneTouch Verio test strips] Strip 1 strip miscellaneous BID 50 Days Qty: 100 RF: 7 atorvastatin 40 mg tablet 40 mg PO DAILY 90 Days Qty: 90 RF: 4 (DME) lancets [OneTouch Delica Lancets] 33 gauge misc See Rx Instructions .ROUTE .MEDSUPPLY Qty: 100 RF: 11 (DME) pen needle, diabetic 31 gauge x 5/16 needle See Rx Instructions ea subcut BID Qty: 100 RF: 11 levothyroxine 50 mcg tablet 50 mcg PO DAILY Qty: 90 RF: 0 Jardiance 25 mg tablet 25 mg PO QAM Qty: 30 RF: 4 allopurinol 100 mg tablet 100 mg PO BID 90 Days Qty: 180 RF: 1 warfarin 2 mg tablet 2 mg PO .COMPLEX 90 Days Qty: 360 RF: 0 Baqsimi 3 mg/actuation spray,non-aerosol intranasal ONCE RF: 0 albuterol sulfate 90 mcg/actuation HFA aerosol inhaler 2 puff inhalation Q6H PRNRF: 0 lisinopril 20 mg tablet 20 mg PO DAILY RF: 0 insulin lispro protamin-lispro 100 unit/mL (75-25) insulin pen See Rx Instructions subcut BID RF: 0 Referrals: Matt Avendaño FNP-BARI [Primary Care Provider] - 2 days Interventions: ED Discharge Assessment Last Done: 04/25/21 16:54 Discharge Date/Time: 04/25/21 16:54
== END 2021-04-25 16:54 | disposition home or self-care (01) ==
PROVIDERS: Emergency Provider Emergency Medicine Emergency Medical Services; PCP Nurse Practitioner Family
DX: B37.42 Candidal balanitis (principal); R30.0 Dysuria; Z79.899 Other long term (current) drug therapy
CPT/HCPCS: 99283

== ENCOUNTER 2021-05-01 11:44 | Emergency (ER) | payer MEDICARE, MEDICAID, SELFPAY ==
--- NOTE | ~2021-05-01 | XR_ITS ---
EXAMINATION: XR CHEST CLINICAL INFORMATION: Covid positive COMPARISON: Previous chest x-rays most recent 05/06/2019 TECHNIQUE: Frontal view of the chest was obtained. FINDINGS: The cardiac silhouette is slightly enlarged but stable. There are 2 heart valve rings and median sternotomy wires. There is blunting at the left lateral costophrenic angle suggestive of small left pleural effusion or pleural thickening and round masslike density adjacent to the lateral sixth rib that measures approximately 1.5 x 3 cm that appears unchanged. There is atelectasis or consolidation in the left lower lobe that appears unchanged. The right lung is clear. There is no right pleural effusion. There are degenerative changes of the spine. XR/XR chest 1V IMPRESSION: Stable pleural and parenchymal disease at the left lung base. Stable enlargement of the cardiac silhouette and postoperative change.
[2021-05-01 11:49] VITALS: BP 142/75; PULSE 89; RESP 19; TEMP 36.6; O2SAT 96; BMI 36.9
[2021-05-01 12:14] LABS: MANUAL DIFF FLAG NO
[2021-05-01 12:15] LABS: Basophils Percent Auto 0.4 % (0-2); Eosinophils Absolute Auto 0.1 X10*3/uL (0.0-0.4); Eosinophils Percent Auto 0.7 % (0-4); Hematocrit 43.7 % (42.0-52.0); Hemoglobin 14.5 g/dl (14.0-18.0); Imm Gran Abs Auto 0.02 X10*3/uL (0.00-0.03); Imm Gran Pct Auto 0.2 % (0.0-0.4); Lymphocytes Absolute Auto 1.3 X10*3/uL (1.2-4.9); Lymphocytes Percent Auto 15.1 % (20-40); Mean Corpuscular HGB Conc 33.2 g/dl (31.0-36.0); Mean Corpuscular Volume 93.6 fL (80.0-98.0); Mean Platelet Volume 10.3 fL (9.4-12.4); Monocytes Absolute Auto 1.1 X10*3/uL (0.1-1.2); Monocytes Percent Auto 12.4 % (2-11); Neutrophils Absolute Auto 6.1 x10*3/uL (2.0-8.3); Neutrophils Percent Auto 71.2 % (45-73); Platelet Count 238 X10*3/uL (160-400); Red Blood Count 4.67 X10*6/uL (4.60-5.80); Red Cell Distribution Width 15.1 % (11.0-16.0); White Blood Count 8.6 X10*3/uL (4.8-10.8)
[2021-05-01 12:16] LABS: Appearance Urine CLEAR; Color Urine YELLOW; Glucose Urine UA >=1000 MG/DL (NEG); Leukocyte Esterase Urine NEG (NEG); Nitrite Urine NEG (NEG); Specific Gravity - Urine 1.025 (1.005-1.025); UACC Culture Trigger NO; Urine Blood 2+ (NEG); Urine Ketones NEG (NEG); Urine Protein 2+ MG/DL (NEG-TRACE)
[2021-05-01 12:23] LABS: COVID-19 Test Positive (Negative)
[2021-05-01 12:31] LABS: Alanine Aminotransferase 21 U/L (0-40); Alkaline Phosphatase 72 U/L (39-117); Anion Gap 11 (12-20); Aspartate Amino Transferase 27 U/L (5-37); Bilirubin Direct 0.5 mg/dL (0.0-0.5); Bilirubin Total 1.3 mg/dL (0.0-1.0); Blood Urea Nitrogen 20 mg/dL (9-16); Calcium 9.5 mg/dL (8.4-10.2); Carbon Dioxide 25 mmol/L (22-29); Chloride 105 mmol/L (96-108); Creatinine Clr Calc Pharmacy 78.9; Estimated Glomerular Filt Rate > 60; Glucose Random 142 mg/dL (60-115); Lipase 121 U/L (8-78); Potassium 4.1 mmol/L (3.3-5.1); Sodium 137 mmol/L (135-145); Total Protein 7.5 g/dL (6.5-8.0)
[2021-05-01 12:36] LABS: RBC Urine 0-2 /HPF (0); WBC Urine 0-2 /HPF (0-4)
[2021-05-01 15:28] VITALS: BP 169/79; PULSE 95; RESP 15; TEMP 36.9; O2SAT 99
[2021-05-01 16:09] VITALS: BP 172/76; PULSE 89; RESP 16; TEMP 37; O2SAT 99
--- NOTE | 2021-05-01 16:46 | ED_ITS ---
HPI - General Adult General Chief complaint: Nausea/Vomiting/Diarrhea <BRIGETTE Gates - Last Filed: 05/01/21 18:17> Stated complaint: Lightheaded-multiple complaints <BRIGETTE Gates - Last Filed: 05/01/21 18:17> Time Seen by Provider: 05/01/21 16:46 <BRIGETTE Gates - Last Filed: 05/01/21 18:17> Source: patient <BRIGETTE Gates Last Filed: 05/01/21 18:17> Mode of arrival: ambulatory <BRIGETTE Gates - Last Filed: 05/01/21 18:17> Limitations: no limitations <BRIGETTE Gates Last Filed: 05/01/21 18:17> History of Present Illness HPI narrative: Patient is a 70 year old male presenting to the emergency department today feeling generally unwell. Patient states that the last few days, he has been feeling unwell. Patient denies any current dizziness, lightheadedness, abdominal pain, nausea, vomiting, fever, chills, blurry vision, double vision, loss of vision, chest pain, difficulty breathing, shortness of breath, back pain, night sweats, pain with urination, increased urinary frequency, increased urinary urgency, blood in his urine or stool, syncope or a near syncopal episode, recent trauma or falls, bowel incontinence, bladder incontinence, bowel retention, bladder retention, or any other complaints at this time. <BRIGETTE Gates - Last Filed: 05/01/21 18:17> Onset (ago): day(s) <BRIGETTE Gates - Last Filed: 05/01/21 18:17> Severity: mild <BRIGETTE Gates - Last Filed: 05/01/21 18:17> Relieving factors: none <BRIGETTE Gates Last Filed: 05/01/21 18:17> Exacerbating factors: none <BRIGETTE Gates Last Filed: 05/01/21 18:17> Associated symptoms: denies other symptoms <BRIGETTE Gates Last Filed: 05/01/21 18:17> Related Data Home medications: Home Medications Medication Instructions Recorded Confirmed albuterol sulfate 90 2 puff INHALATION Q6H PRN 03/14/20 04/11/21 mcg/actuation aerosol inhaler glucagon 3 mg/actuation mg INTRANASAL ONCE 04/03/20 04/11/21 nasal spray blood sugar diagnostic #10 ea 04/10/20 04/11/21 lisinopril 20 mg tablet 20 mg PO DAILY 06/05/20 04/11/21 insulin lispro See Rx Instructions SUBCUT 04/11/21 04/11/21 protamine-lispro BID ml 100 unit/mL (75-25) subcutaneous pen Previous Rx's Medication Instructions Recorded blood sugar diagnostic (OneTouch 1 strip MISCELLANEOUS BID 50 Days 05/17/20 Verio test strips) #100 strip atorvastatin 40 mg tablet 40 mg PO DAILY 90 Days #90 tab 10/16/20 lancets 33 gauge (OneTouch Delica #100 ea 01/30/21 Lancets) pen needle, diabetic 31 gauge x #100 ea 02/08/2108/20 levothyroxine 50 mcg tablet 50 mcg PO DAILY #90 tab 02/15/21 empagliflozin 25 mg tablet 25 mg PO QAM #30 tab 03/19/21 (Jardiance) allopurinol 100 mg tablet 100 mg PO BID 90 Days #180 tab 03/20/21 warfarin 2 mg tablet 2 mg PO .COMPLEX 90 Days #360 tab 04/17/21 clotrimazole 1 % topical cream 1 appl TOPICAL BID #45 g 04/25/21 mupirocin 2 % topical ointment 1 appl TOPICAL BID #22 g 04/25/21 nystatin 100,000 unit/gram topical 1 appl TOPICAL BID #60 g 04/25/21 powder <BRIGETTE Gates - Last Filed: 05/01/21 18:17> Allergies/adverse reactions: Allergies Allergy/AdvReac Type Severity Reaction Status Date / Time exenatide [From Allergy Intermediate AFFECTED Verified 04/11/21 13:14 BYETTA] PANCREAS <BRIGETTE Gates - Last Filed: 05/01/21 18:17> Review of Systems Verdana 4l Constitutional: Verdana 4d Verdana 4d Constitutional: Verdana 4d Reports no additional constitutional complaints, Denies chills, Denies fever(s) and Denies night sweats Verdana 4Il <BRIGETTE Gates - Last Filed: 05/01/21 18:17> Verdana 4d Verdana 4l Eyes: Verdana 4d Verdana 4d Eyes: Verdana 4d Reports no additional eye complaints, Denies blurry vision, Denies change in vision, Denies diplopia, Denies eye discharge, Denies loss of vision and Denies eye pain Verdana 4Il <BRIGETTE Gates - Last Filed: 18:17> ENT: Denies dizziness <BRIGETTE Gates - Last Filed: 05/01/21 18:17> Cardiovascular: Cardiovascular: Reports no additional cardiovascular complaints, Denies chest pain, Denies lightheadedness, Denies Loss of Consciousness and Denies dyspnea <BRIGETTE Gates - Last Filed: 05/01/21 18:17> Respiratory: Respiratory: Reports no additional respiratory complaints and Denies dyspnea <BRIGETTE Gates - Last Filed: 05/01/21 18:17> Gastrointestinal: Gastrointestinal: Reports no additional gastrointestinal complaints, Denies abdominal pain, Denies melena, Denies hematochezia, Denies change in bowel habits and Denies change in stool character <BRIGETTE Gates - Last Filed: 05/01/21 18:17> Genitourinary: Genitourinary: Reports no additional male genitourinary complaints, Denies hematuria, Denies oliguria, Denies difficulty urinating, Denies dysuria, Denies urinary frequency, Denies urinary hesitancy, Denies urinary incontinence and Denies urinary urgency <BRIGETTE Gates - Last Filed: 05/01/21 18:17> Musculoskeletal: Musculoskeletal: Reports no additional musculoskeletal complaints, Denies numbness and Denies tingling <BRIGETTE Gates - Last Filed: 05/01/21 18:17> Neurologic: Denies dizziness, Denies loss of vision, Denies numbness and Denies tingling <BRIGETTE Gates - Last Filed: 05/01/21 18:17> Psychiatric: Psychiatric: Reports no additional psychiatric complaints <BRIGETTE Gates - Last Filed: 05/01/21 18:17> Endocrine: Endocrine: Reports no additional endocrine complaints <BRIGETTE Gates - Last Filed: 05/01/21 18:17> Hematologic/Lymphatic: Hematologic/Lymphatic: Reports no additional hematologic/lymphatic complaints <BRIGETTE Gates - Last Filed: 05/01/21 18:17> Allergic/Immunologic: Allergic/Immunologic: Reports no additional allergic/immunologic complaints <BRIGETTE Gates - Last Filed: 05/01/21 18:17> [facility] Past Medical History Attestation statement: The following information was validated with the patient. <BRIGETTE Gates - Last Filed: 05/01/21 18:17> Source: old records reviewed <BRIGETTE Gates - Last Filed: 05/01/21 18:17> Medical History: Medical History BMI 34.0-34.9,adult BPH (benign prostatic hyperplasia) Chronic kidney disease Diabetes mellitus Gallstones Gout Heart failure, unspecified HTN (hypertension) Hyperlipidemia Obesity due to excess calories Osteomyelitis Paroxysmal atrial fibrillation Prosthetic valve dysfunction Spinal stenosis, lumbar Type 2 diabetes mellitus with diabetic neuropathy, unspecified Type 2 diabetes mellitus with hyperglycemia, with long-term current use of insulin <BRIGETTE Gates - Last Filed: 05/01/21 18:17> Surgical History: Surgical History Hx of aortic valve replacement Hx of colonoscopy Hx of endoscopy Hx of exploratory laparotomy Hx of laparoscopy Mitral valve replaced <BRIGETTE Gates - Last Filed: 05/01/21 18:17> Family History Family History: Family History Father CVD (cardiovascular disease) Mother CVD (cardiovascular disease) <BRIGETTE Gates - Last Filed: 05/01/21 18:17> Social History Social History: Social History Household Members: None Alcohol intake: never Patient Tobacco Use Status: Never used Tobacco Smoked in Last 30 Days: No Use of substances other than those prescribed or required for medical reasons: No Advance Directives: No Advance Directives Information Provided: No <BRIGETTE Gates - Last Filed: 05/01/21 18:17> Physical Exam Verdana 4l Vital Signs: Verdana 4d Verdana 4d Vital Signs: Verdana 4d Verdana 4Bd Last Vital Signs Verdana 4d Structural Designer New 4d Structural Designer New 4d Temp 98.6 F 05/01/21 16:09 Structural Designer New 4d Pulse 89 05/01/21 16:09 Structural Designer New 4d Resp 16 05/01/21 16:09 BP 172/76 H 05/01/21 16:09 Pulse Ox 99 05/01/21 16:09 BMI result Body Mass Index 36.9 <BRIGETTE Gates - Last Filed: 05/01/21 18:17> Const: General: cooperative, no acute distress, alert and awake <BRIGETTE Gates - Last Filed: 05/01/21 18:17> Nutritional Appearance: well nourished <BRIGETTE Gates - Last Filed: 05/01/21 18:17> Orientation/consciousness: patient oriented x3 <BRIGETTE Gates - Last Filed: 05/01/21 18:17> Limitations: no limitations <BRIGETTE Gates - Last Filed: 05/01/21 18:17> HENMT: Head: Yes normal to inspection and Yes atraumatic <Ellen Coley PA - Last Filed: 05/01/21 18:17> Ears: hearing grossly normal bilaterally and external ears normal <BRIGETTE Gates - Last Filed: 05/01/21 18:17> General nose exam: Normal external nose present, no nasal discharge noted and no epistaxis <BRIGETTE Gates - Last Filed: 05/01/21 18:17> Face and sinus: Yes normal facial exam, No abrasion and No laceration <BRIGETTE Gates - Last Filed: 05/01/21 18:17> Mouth: Normal oral and palatal mucosa present, no drooling and no muffled voice <BRIGETTE Gates - Last Filed: 05/01/21 18:17> Eyes: General: appearance normal, both eyes and all related structures <BRIGETTE Gates - Last Filed: 05/01/21 18:17> Periorbital: periorbital findings normal <BRIGETTE Gates - Last Filed: 05/01/21 18:17> Eyelids: Yes eyelids normal <BRIGETTE Gates - Last Filed: 05/01/21 18:17> Conjunctivae: conjunctivae normal <Ellen Coley PA - Last Filed: 18:17> Pupils: Equal, round and reactive pupils present <Ellen Coley PA - Last Filed: 05/01/21 18:17> EOM: EOMs intact bilaterally <Ellen Coley PA - Last Filed: 05/01/21 18:17> Neck: Neck: Yes normal visual inspection, Yes full ROM and Yes no lymphadenopathy <Ellen Coley, PA - Last Filed: 05/01/21 18:17> Chest: Chest palpation & inspection: normal inspection of the chest <Ellen Coley PA - Last Filed: 05/01/21 18:17> Resp: Effort & Inspection: normal respiratory effort and able to speak in complete sentences <Ellen Coley, PA - Last Filed: 05/01/21 18:17> Auscultation: clear to auscultation bilaterally <Ellen Coley PA - Last Filed: 05/01/21 18:17> Cardio: Rate: regular rate <Ellen Coley PA - Last Filed: 05/01/21 18:17> Rhythm: regular rhythm <Ellen Coley PA - Last Filed: 05/01/21 18:17> GI: Inspection: Yes normal to inspection <Ellen Coley PA - Last Filed: 05/01/21 18:17> Neuro: General: patient oriented x3 and moves all extremities <Ellen Coley PA - Last Filed: 05/01/21 18:17> Cranial nerves: Yes Equal, round and reactive pupils present <Ellen Coley PA - Last Filed: 05/01/21 18:17> Cognition (Neuro): normal cognition <Ellen Coley PA - Last Filed: 05/01/21 18:17> Motor exam (neuro): 5/5 motor strength present throughout <Ellen Coley, PA - Last Filed: 05/01/21 18:17> Sensory Exam: Normal double simultaneous stimulation for sensation <Ellen Coley PA - Last Filed: 05/01/21 18:17> Coordination: [id number] test normal <Ellen Coley PA - Last Filed: 05/01/21 18:17> Extrem: General: Yes normal to inspection, Yes full ROM and Yes capillary refill normal <Ellen ColeyBRIGETTE - Last Filed: 05/01/21 18:17> Psych: Appearance: grossly normal <Ellen ColeyBRIGETTE - Last Filed: 05/01/21 18:17> Mental Status: mental status grossly normal <Ellen ColeyBRIGETTE - Last Filed: 05/01/21 18:17> Affect: normal affect <Ellen ColeyBRIGETTE - Last Filed: 05/01/21 18:17> Attitude: cooperative <Ellen ColeyBRIGETTE - Last Filed: 05/01/21 18:17> Thought process: Normal thought process present <Ellen ColeyBRIGETTE - Last Filed: 05/01/21 18:17> Thought content: Normal thought content present <Ellen ColeyBRIGETTE - Last Filed: 05/01/21 18:17> Insight: Good insight present (Psych) <Ellen ColeyBRIGETTE - Last Filed: 05/01/21 18:17> Course Course Course Narrative: Patient's chest x-ray was interpreted by the radiologist as stable pleural and parenchymal disease the left lung base with a stable enlargement of the cardiac silhouette and postoperative change. <Ellen ColeyBRIGETTE - Last Filed: 05/01/21 18:17> Medical Decision Making MDM Narrative Medical decision making narrative: Patient is a 70 year old male presenting to the emergency department today feeling generally unwell. Patient's physical exam was unremarkable. Patient's blood work was unremarkable. Patient's chest x-ray showed stable pleural and parenchymal disease the left lung base with stable margin of the cardiac silhouette and positive change. Patient's rapid COVID test was positive. I explained my physical exam findings as well as all test results to the patient. I answered all questions asked by the patient. I stressed the importance of the patient taking his medication as prescribed. I stressed the importance of the patient following all quarantine and isolation guidelines, per the CDC. I s tressed the importance of the patient following up with his primary care provider. I stressed the importance of the patient returning to the emergency department immediately if his symptoms were to worsen or if he were to develop any dizziness, shortness of breath, difficulty breathing, chest pain, blurry vision, loss of vision, nausea, vomiting, abdominal pain, fever, chills, back pain, or any other complaints. Patient verbalized agreement and understanding with this treatment plan and discharge. <BRIGETTE Gates - Last Filed: 05/01/21 18:17> Differential Diagnosis Differential Diagnosis: COVID-19, generalized weakness, medical examination <BRIGETTE Gates - Last Filed: 05/01/21 18:17> Medical Records Medical records reviewed: Yes I reviewed the patient's medical records. <BRIGETTE Gates - Last Filed: 05/01/21 18:17> Lab Data Lab results reviewed: Yes I reviewed the patient's lab results. <BRIGETTE Gates - Last Filed: 05/01/21 18:17> Result diagrams: : 05/01/21 12:06 05/01/21 12:06 <BRIGETTE Gates - Last Filed: 05/01/21 18:17> Labs: Lab Results 05/01/21 05/01/21 05/01/21 Range/Units 12:06 12:06 12:06 WBC 8.6 (4.8-10.8) X10*3/uL RBC 4.67 (4.60-5.80) X10*6/uL Hgb 14.5 (14.0-18.0) g/dl Hct 43.7 (42.0-52.0) % MCV 93.6 (80.0-98.0) fL MCH 31.0 (27.0-33.0) pg MCHC 33.2 (31.0-36.0) g/dl RDW 15.1 (11.0-16.0) % Plt Count 238 (160-400) X10*3/uL MPV 10.3 (9.4-12.4) fL Immature Gran % (Auto) 0.2 (0.0-0.4) % Neut % (Auto) 71.2 (45-73) % Lymph % (Auto) 15.1 L (20-40) % Denali % (Auto) 12.4 H (2-11) % Eos % (Auto) 0.7 (0-4) % Baso % (Auto) 0.4 (0-2) % Lymph # (Auto) 1.3 (1.2-4.9) X10*3/uL Den[place] # (Auto) 1.1 (0.1-1.2) X10*3/uL Eos # (Auto) 0.1 (0.0-0.4) X10*3/uL Baso # (Auto) 0.0 (0.0-0.2) X10*3/uL Abs Immat Gran (auto) 0.02 (0.00-0.03) X10*3/uL Absolute Neuts (auto) 6.1 (2.0-8.3) x10*3/uL Absolute Nucleated RBC 0.000 (0.0-0.012) X10*3/uL Nucleated RBC % (auto) 0.0 (0.0-0.2) /100WBC Sodium 137 (135-145) mmol/L Potassium 4.1 (3.3-5.1) mmol/L Chloride 105 (96-108) mmol/L Carbon Dioxide 25 (22-29) mmol/L Anion Gap 11 L (12-20) BUN 20 H (9-16) mg/dL Creatinine 1.05 (0.5-1.4) mg/dL Estim Creat Clear Calc 78.9 Estimated GFR > 60 Random Glucose 142 H (60-115) mg/dL Calcium 9.5 D (8.4-10.2) mg/dL Total Bilirubin 1.3 H (0.0-1.0) mg/dL Direct Bilirubin 0.5 (0.0-0.5) mg/dL AST 27 (5-37) U/L ALT 21 (0-40) U/L Alkaline Phosphatase 72 (39-117) U/L Total Protein 7.5 (6.5-8.0) g/dL Albumin 4.0 (3.5-5.0) g/dL Lipase 121 H (8-78) U/L Urine Color Urine Appearance Urine pH (5.0-8.0) Ur Specific [place] (1.005-1.025) Urine Protein (NEG-TRACE) MG/DL Urine Glucose (UA) (NEG) MG/DL Urine Ketones (NEG) MG/DL Urine Blood (NEG) Urine Nitrite (NEG) Ur Leukocyte Esterase (NEG) Urine RBC (0) /HPF Urine WBC (0-4) /HPF Ur Squamous Epith Cells /LPF Urine Bacteria /LPF COVID-19 (DYLAN) Positive A (Negative) COVID-19 Clin Com See Note 05/01/21 Range/Units 12:06 WBC (4.8-10.8) X10*3/uL RBC (4.60-5.80) X10*6/uL Hgb (14.0-18.0) g/dl Hct (42.0-52.0) % MCV (80.0-98.0) fL MCH (27.0-33.0) pg MCHC (31.0-36.0) g/dl RDW (11.0-16.0) % Plt Count (160-400) X10*3/uL MPV (9.4-12.4) fL Immature Gran % (Auto) (0.0-0.4) % Neut % (Auto) (45-73) % Lymph % (Auto) (20-40) % Den[place] % (Auto) (2-11) % Eos % (Auto) (0-4) % Baso % (Auto) (0-2) % Lymph # (Auto) (1.2-4.9) X10*3/uL Denali # (Auto) (0.1-1.2) X10*3/uL Eos # (Auto) (0.0-0.4) X10*3/uL Baso # (Auto) (0.0-0.2) X10*3/uL Abs Immat Gran (auto) (0.00-0.03) X10*3/uL Absolute Neuts (auto) (2.0-8.3) x10*3/uL Absolute Nucleated RBC (0.0-0.012) X10*3/uL Nucleated RBC % (auto) (0.0-0.2) /100WBC Sodium (135-145) mmol/L Potassium (3.3-5.1) mmol/L Chloride (96-108) mmol/L Carbon Dioxide (22-29) mmol/L Anion Gap (12-20) BUN (9-16) mg/dL Creatinine (0.5-1.4) mg/dL Estim Creat Clear Calc Estimated GFR Random Glucose (60-115) mg/dL Calcium (8.4-10.2) mg/dL Total Bilirubin (0.0-1.0) mg/dL Direct Bilirubin (0.0-0.5) mg/dL AST (5-37) U/L ALT (0-40) U/L Alkaline Phosphatase (39-117) U/L Total Protein (6.5-8.0) g/dL Albumin (3.5-5.0) g/dL Lipase (8-78) U/L Urine Color YELLOW Urine Appearance CLEAR Urine pH 6.0 (5.0-8.0) Ur Specific [place] 1.025 (1.005-1.025) Urine Protein 2+ H (NEG-TRACE) MG/DL Urine Glucose (UA) >=1000 H (NEG) MG/DL Urine Ketones NEG (NEG) MG/DL Urine Blood 2+ H (NEG) Urine Nitrite NEG (NEG) Ur Leukocyte Esterase NEG (NEG) Urine RBC 0-2 (0) /HPF Urine WBC 0-2 (0-4) /HPF Ur Squamous Epith Cells NONE /LPF Urine Bacteria NONE /LPF COVID-19 (DYLAN) (Negative) COVID-19 Clin Com <BRIGETTE Gates - Last Filed: 05/01/21 18:17> Discharge Plan Discharge Clinical Impression: COVID-19 <BRIGETTE Gates - Last Filed: 05/01/21 18:17> Patient Disposition: Home, Self-Care <BRIGETTE Gates - Last Filed: 05/01/21 18:17> Instructions: COVID-19 (Coronavirus Disease 2019) (ED) <BRIGETTE Gates - Last Filed: 05/01/21 18:17> Prescriptions: No Action (DME) blood sugar diagnostic Strip See Rx Instructions ea Not Applicable BID Qty: 10 0RF Rx Instructions: one touch verio test strips, check sugar twice a day blood sugar diagnostic [OneTouch Verio test strips] Strip 1 strip miscellaneous BID 50 Days Qty: 100 7RF atorvastatin 40 mg tablet 40 mg PO DAILY 90 Days Qty: 90 4RF (DME) lancets [OneTouch Delica Lancets] 33 gauge misc See Rx Instructions .ROUTE .MEDSUPPLY Qty: 100 11RF Rx Instructions: Three times a day (DME) pen needle, diabetic 31 gauge x 5/16 needle See Rx Instructions ea subcut BID Qty: 100 11RF Rx Instructions: As directed levothyroxine 50 mcg tablet 50 mcg PO DAILY Qty: 90 0RF Jardiance 25 mg tablet 25 mg PO QAM Qty: 30 4RF allopurinol 100 mg tablet 100 mg PO BID 90 Days Qty: 180 1RF warfarin 2 mg tablet 2 mg PO .COMPLEX 90 Days Qty: 360 0RF Protocol: Dose Management Condition: Friday (Week One) Dose/Route: 4 mg Instruction: 2 x 2 mg tablets Condition: Friday Dose/Route: 4 mg Instruction: 2 x 2 mg tablets Condition: Friday Dose/Route: 4 mg Instruction: 2 x 2 mg tablets Condition: Friday Dose/Route: 6 mg Instruction: 3 x 2 mg tablets Condition: Dose/Route: 4 mg Instruction: 2 x 2 mg tablets Condition: Friday Dose/Route: 4 mg Instruction: 2 x 2 mg tablets Condition: Friday Dose/Route: 4 mg Instruction: 2 x 2 mg tablets Condition: Friday (Week Two) Dose/Route: 4 mg Instruction: 2 x 2 mg tablets Condition: Friday Dose/Route: 4 mg Instruction: 2 x 2 mg tablets Condition: Friday Dose/Route: 4 mg Instruction: 2 x 2 mg tablets Condition: Friday Dose/Route: 6 mg Instruction: 3 x 2 mg tablets Condition: Dose/Route: 4 mg Instruction: 2 x 2 mg tablets Condition: Friday Dose/Route: 4 mg Instruction: 2 x 2 mg tablets Condition: Friday Dose/Route: 4 mg Instruction: 2 x 2 mg tablets Protocol Text: Adjustment Start Date: Friday04/03/21 INR Value: 3.6 INR Date: 04/03/21 Recheck Date: 04/13/21 Additional Instructions: CONT REG DOSING EAT DARK [place] TO LOWER INR Rx Instructions: 2 mg PO 2 to 4 tablets adjust according to inr; nystatin 100,000 unit/gram powder 1 appl topical BID Qty: 60 0RF clotrimazole 1 % cream 1 appl topical BID Qty: 45 0RF mupirocin 2 % ointment 1 appl topical BID Qty: 22 0RF Baqsimi 3 mg/actuation spray,non-aerosol intranasal ONCE 0RF albuterol sulfate 90 mcg/actuation HFA aerosol inhaler 2 puff inhalation Q6H PRN0RF lisinopril 20 mg tablet 20 mg PO DAILY 0RF insulin lispro protamin-lispro 100 unit/mL (75-25) insulin pen See Rx Instructions subcut BID 0RF Rx Instructions: 62 units in the morning, 44 units at nights subcut 2 times a day; <BRIGETTE Gates - Last Filed: 05/01/21 18:17> Referrals: Matt Avendaño, PRESS LEADER- [Primary Care Provider] - 2 days <BRIGETTE Gates - Last Filed: 05/01/21 18:17> Interventions: ED Discharge Assessment Last Done: 05/01/21 17:01 <BRIGETTE Gates - Last Filed: 05/01/21 18:17> Discharge Date/Time: 05/01/21 17:02 <BRIGETTE Gates - Last Filed: 05/01/21 18:17> Print Language: Welsh <BRIGETTE Gates - Last Filed: 05/01/21 18:17>
== END 2021-05-01 17:02 | disposition home or self-care (01) ==
PROVIDERS: Emergency Provider Emergency Medicine; PCP Nurse Practitioner Family
DX: U07.1 COVID-19 (principal); R11.2 Nausea with vomiting, unspecified; R42 Dizziness and giddiness; Z79.899 Other long term (current) drug therapy
CPT/HCPCS: 71045; 80048; 80076; 81001; 83690; 85025; 87635; 99283; 99284

== ENCOUNTER 2021-05-11 14:00 | Observation (INO) | payer MEDICARE, MEDICAID, SELFPAY ==
--- NOTE | ~2021-05-11 | XR_ITS ---
EXAMINATION: XR CHEST CLINICAL INFORMATION: Confusion COMPARISON: Chest radiograph 05/01/2021, CT chest 05/07/2019 TECHNIQUE: Frontal view of the chest was obtained. FINDINGS: There are chronic pleural parenchymal changes at the left base which are overall similar to the prior. No new focal opacities are identified. Cardiomediastinal contours are unchanged. Sternal wires remain intact. Structures of the chest wall are intact. XR/XR chest 1V IMPRESSION: Chronic left basilar changes without acute superimposed process.
--- NOTE | ~2021-05-11 | CT_ITS ---
EXAMINATION: CT HEAD WITHOUT CONTRAST CLINICAL INFORMATION: Increased confusion for 3 days COMPARISON: Head CT 12/01/2019 TECHNIQUE: Contiguous axial imaging was performed from the skull base to vertex without intravenous administration of contrast. This CT examination was performed using dose optimization techniques as appropriate, variously including the following: *Automated exposure control *Adjustment of mA and/or kV according to patient size (this includes techniques or standardized protocols for targeted exams where dose is matched to indication/reason for exam; i.e. extremities or head) *Use of iterative reconstruction technique DLP: 877 mGy-cm FINDINGS: There is no evidence of acute intracranial hemorrhage or territorial infarction. No abnormal mass effect or midline shift is seen. [place] to white matter differentiation is well preserved. No extra-axial fluid collections are identified. The ventricles are normal in size. There is no abnormal attenuation within the brain parenchyma. Mild basal ganglia calcifications are noted bilaterally. The osseous structures and soft tissues are normal. The mastoid air cells and visualized portions of the paranasal sinuses are well aerated. CT/CT head/brain wo con IMPRESSION: No acute intracranial pathology.
--- NOTE | 2021-05-11 14:04 | ED_ITS ---
HPI - Neuro Symptoms/Deficit General Chief Complaint: General Medical Stated Complaint: MEMORY LOSS X 2 DAYS Time Seen by Provider: 05/11/21 14:04 Source: patient Mode of arrival: EMS Limitations: no limitations History of Present Illness HPI Narrative: confusion - Onset (ago): week(s) (1) Timing confirmed by: family member Location: altered (confused thinks his daughter needs a ride who lives in [place], looking for things ) History of same: No Severity: moderate Quality: intermittent Relieving factors: none Exacerbating factors: none Context: gradual onset On Anticoagulants: Yes Associated symptoms: confusion Treatments Prior to Arrival: none Related Data Home Medications Medication Instructions Recorded Confirmed albuterol sulfate 90 2 puff INHALATION Q6H PRN 03/14/20 04/11/21 mcg/actuation aerosol inhaler glucagon 3 mg/actuation mg INTRANASAL ONCE 04/03/20 04/11/21 nasal spray blood sugar diagnostic #10 ea 04/10/20 04/11/21 lisinopril 20 mg tablet 20 mg PO DAILY 06/05/20 04/11/21 insulin lispro See Rx Instructions SUBCUT 04/11/21 04/11/21 protamine-lispro BID ml 100 unit/mL (75-25) subcutaneous pen Previous Rx's Medication Instructions Recorded atorvastatin 40 mg tablet 40 mg PO DAILY 90 Days #90 tab 10/16/20 lancets 33 gauge (OneTouch Delica #100 ea 01/30/21 Lancets) pen needle, diabetic 31 gauge x #100 ea 02/08/2108/20 levothyroxine 50 mcg tablet 50 mcg PO DAILY #90 tab 02/15/21 empagliflozin 25 mg tablet 25 mg PO QAM #30 tab 03/19/21 (Jardiance) allopurinol 100 mg tablet 100 mg PO BID 90 Days #180 tab 03/20/21 warfarin 2 mg tablet 2 mg PO .COMPLEX 90 Days #360 tab 04/17/21 clotrimazole 1 % topical cream 1 appl TOPICAL BID #45 g 04/25/21 mupirocin 2 % topical ointment 1 appl TOPICAL BID #22 g 04/25/21 nystatin 100,000 unit/gram topical 1 appl TOPICAL BID #60 g 04/25/21 powder blood sugar diagnostic (OneTouch 1 strip MISCELLANEOUS BID 50 Days 05/07/21 Verio test strips) #100 strip Allergies Allergy/AdvReac Type Severity Reaction Status Date / Time exenatide [From Allergy Intermediate AFFECTED Verified 04/11/21 13:14 BYETTA] PANCREAS Review of Systems Verdana 4l Review of Systems: Verdana 4d Verdana 4d Constitutional : No Weight loss, No Fever, No Chills, No Fatigue, No Malaise ENT/Mouth : No sore throat, No Rhinorrhea Eyes: No Eye Pain, No Swelling, No Redness Cardiovascular : No Chest Pain, No SOB, No Dyspnea on Exertion, No Orthopnea,, No Edema, No Palpitations Respiratory : No Cough, No Sputum, No Wheezing Gastrointestinal : No Nausea, No Vomiting, No Diarrhea, No Constipation, No abdominal Pain, No Hematochezia, No Melena Genitourinary : No Dysuria, No Urinary Frequency, No Hematuria, Musculoskeletal : No joint pain, No Myalgias, No Joint Swelling Skin : No Skin Lesions, No rash Neuro : No Weakness, No Numbness, No Dizziness, No Headache Psych : No Anxiety/Panic, No Depression Heme/Lymph: No Bruising, No Bleeding,No Lymphadenopathy Endocrine : No Polyuria, No Polydipsia All other systems reviewed and are negative [facility] Past Medical History Attestation statement: The following information was validated with the patient. Medical History BMI 34.0-34.9,adult BPH (benign prostatic hyperplasia) Chronic kidney disease Diabetes mellitus Gallstones Gout Heart failure, unspecified HTN (hypertension) Hyperlipidemia Obesity due to excess calories Osteomyelitis Paroxysmal atrial fibrillation Prosthetic valve dysfunction Spinal stenosis, lumbar Type 2 diabetes mellitus with diabetic neuropathy, unspecified Type 2 diabetes mellitus with hyperglycemia, with long-term current use of insulin Surgical History Hx of aortic valve replacement Hx of colonoscopy Hx of endoscopy Hx of exploratory laparotomy Hx of laparoscopy Mitral valve replaced Family History Family History Father CVD (cardiovascular disease) Mother CVD (cardiovascular disease) Social History Social History Household Members: None Alcohol intake: never Patient Tobacco Use Status: Never used Tobacco Use of substances other than those prescribed or required for medical reasons: No Advance Directives: No Advance Directives Information Provided: No Physical Exam Verdana 4l Vital Signs: Verdana 4d Verdana 4d Vital Signs: Verdana 4d Verdana 4Bd Last Vital Signs Verdana 4d Plastic Sheets Supervisor New 4d Plastic Sheets Supervisor New 4d Temp 98.1 F 05/11/21 14:13 Plastic Sheets Supervisor New 4d Pulse 84 05/11/21 14:13 Plastic Sheets Supervisor New 4d Resp 20 05/11/21 14:13 BP 139/70 05/11/21 14:13 Pulse Ox 98 05/11/21 14:13 BMI result Body Mass Index 35.4 Appearance: Alert. Oriented X2 (TIME). No acute distress. Eyes: [place] pupils ENT: Pharynx normal. Neck: Normal inspection. Neck supple. CVS: Normal heart rate and rhythm. Pulses normal. Respiratory: No respiratory distress. Breath sounds normal. Abdomen: Soft and non-tender. Skin: Skin warm and dry. Normal skin color. Normal skin turgor. Extremities: No lower extremity edema. No calf ttp Neuro: Oriented X 2 (time). No motor deficit. No sensory deficit. Course Course Course Narrative: [place] his friend that he lives with notes for 1 week - he has been getting more confused that he has to get his daughter but she lives in [place]. She notes that his booster from [employer] was a couple of weeks ago. After he was diagnosed with C OVID - 2 days after started to act unusual - did slip down the back stairs. Treated for gout recently but she does not think he was given any narcotics - she is not aware of him taking any narcotics. [place] does not seem to be able to take care of him right now as she is unwell herself at this moment. when asked about his drug screen he states I only took what was given to me. He denies heroin use, he is very vague and will not answer if he takes narcotics. Still has pinpoint pupils. May need to watch overnight until he clears. afebrile, WBC count normal INR 2.[address] and CXR normal, not retaining, UA negative - will hold overnight until clear, maybe involve case management in the AM Patient placed in physician observation at 417pm. The indication for observation is that the patient needs more time to see if his confusion improves and to monitor suspected opiate adverse reaction. At this time the patient is well developed well nourished, lungs clear, CV RRR, abd nontender, neuro is intact other than confusion around time. MDM - Neuro Symptoms/Deficit MDM Narrative Medical decision making narrative: 70 yo male with hx of mechanical heart valve on coumadin, DM, COVID -19 05/01, HLD, HTN here after his spouse notes increased confusion for 1 week - he comes in with confusion to time but otherwise no signs of trauma no infectious complaints. He denies injury. He has pinpoint pupils and was treated for gout but he denies narcotic use to me. Will obtain basic labs, UA, CXR for infection. CT head for ICH - dispo per results and findings. Lab Data Result diagrams: 05/11/21 14:55 05/11/21 14:55 Labs: Lab Results 05/11/21 05/11/21 05/11/21 Range/Units 14:44 14:45 14:45 WBC (4.8-10.8) X10*3/uL RBC (4.60-5.80) X10*6/uL Hgb (14.0-18.0) g/dl Hct (42.0-52.0) % MCV (80.0-98.0) fL MCH (27.0-33.0) pg MCHC (31.0-36.0) g/dl RDW (11.0-16.0) % Plt Count (160-400) X10*3/uL MPV (9.4-12.4) fL Immature Gran % (0.0-0.4) % (Auto) Neut % (Auto) (45-73) % Lymph % (Auto) (20-40) % [place] % (Auto) (2-11) % Eos % (Auto) (0-4) % Baso % (Auto) (0-2) % Lymph # (Auto) (1.2-4.9) X10*3/uL [place] # (Auto) (0.1-1.2) X10*3/uL Eos # (Auto) (0.0-0.4) X10*3/uL Baso # (Auto) (0.0-0.2) X10*3/uL Abs Immat Gran (auto) (0.00-0.03) X10*3/uL Absolute Neuts (auto) (2.0-8.3) x10*3/uL Absolute Nucleated (0.0-0.012) RBC X10*3/uL Nucleated RBC % (0.0-0.2) /100WBC (auto) PT (9.9-13.0) SEC INR (0.9-1.1) O2 Saturation % ABG pH at Pt Temp (7.35-7.45) ABG pH (Temp Correct) (7.35-7.45) ABG pCO2 at Pt Temp (32-45) mmHg ABG pO2 at Pt Temp (83-108) mmHg ABG HCO3 (22-26) mmol/L ABG Base Excess mmol/L (Actual) Sodium (135-145) mmol/L Potassium (3.3-5.1) mmol/L Chloride (96-108) mmol/L Carbon Dioxide (22-29) mmol/L Anion Gap (12-20) BUN (9-16) mg/dL Creatinine (0.5-1.4) mg/dL Estim Creat Clear Calc Estimated GFR Random Glucose (60-115) mg/dL Calcium (8.4-10.2) mg/dL Magnesium (1.6-2.6) mg/dL Total Bilirubin (0.0-1.0) mg/dL Direct Bilirubin (0.0-0.5) mg/dL AST (5-37) U/L ALT (0-40) U/L Alkaline Phosphatase (39-117) U/L Ammonia (13-55) umol/L Troponin I High Sens (<3.5-35.0) ng/L Total Protein (6.5-8.0) g/dL Albumin (3.5-5.0) g/dL Lipase (8-78) U/L Urine Color STRAW Urine Appearance CLEAR Urine pH 6.0 (5.0-8.0) Ur Specific [place] 1.010 (1.005-1.025) Urine Protein NEG (NEG-TRACE) MG/DL Urine Glucose (UA) >=1000 H (NEG) MG/DL Urine Ketones NEG (NEG) MG/DL Urine Blood NEG (NEG) Urine Nitrite NEG (NEG) Ur Leukocyte Esterase NEG (NEG) Urine RBC 0-2 (0) /HPF Urine WBC 0-2 (0-4) /HPF Ur Squamous Epith TRACE /LPF Cells Urine Bacteria NONE /LPF Urine Mucus 1+ /LPF Urine Opiates Screen POSITIVE H (Not Detect) Urine Fentanyl Screen Not Detected (Not Detect) Ur Barbiturates Not Detected (Not Detect) Screen Ur Phencyclidine Scrn Not Detected (Not Detect) Ur Amphetamines Not Detected (Not Detect) Screen U Benzodiazepines Not Detected (Not Detect) Scrn Urine Cocaine Screen Not Detected (Not Detect) U Marijuana (THC) Not Detected (Not Detect) Screen Ethyl Alcohol mg/dL COVID-19 (DYLAN) Negative (Negative) COVID-19 Clin Com See Note 05/11/21 05/11/21 05/11/21 Range/Units 14:55 14:55 14:55 WBC 9.3 (4.8-10.8) X10*3/uL RBC 3.96 L (4.60-5.80) X10*6/uL Hgb 12.4 L (14.0-18.0) g/dl Hct 36.5 L (42.0-52.0) % MCV 92.2 (80.0-98.0) fL MCH 31.3 (27.0-33.0) pg MCHC 34.0 (31.0-36.0) g/dl RDW 14.0 (11.0-16.0) % Plt Count 207 (160-400) X10*3/uL MPV 10.9 (9.4-12.4) fL Immature Gran % (Auto) 0.2 (0.0-0.4) % Neut % (Auto) 66.8 (45-73) % Lymph % (Auto) 18.9 L (20-40) % [place] % (Auto) 10.8 (2-11) % Eos % (Auto) 3.0 (0-4) % Baso % (Auto) 0.3 (0-2) % Lymph # (Auto) 1.8 (1.2-4.9) X10*3/uL [place] # (Auto) 1.0 (0.1-1.2) X10*3/uL Eos # (Auto) 0.3 (0.0-0.4) X10*3/uL Baso # (Auto) 0.0 (0.0-0.2) X10*3/uL Abs Immat Gran (auto) 0.02 (0.00-0.03) X10*3/uL Absolute Neuts (auto) 6.2 (2.0-8.3) x10*3/uL Absolute Nucleated RBC 0.000 (0.0-0.012) X10*3/uL Nucleated RBC % (auto) 0.0 (0.0-0.2) /100WBC PT (9.9-13.0) SEC INR (0.9-1.1) O2 Saturation % ABG pH at Pt Temp (7.35-7.45) ABG pH (Temp Correct) (7.35-7.45) ABG pCO2 at Pt Temp (32-45) mmHg ABG pO2 at Pt Temp (83-108) mmHg ABG HCO3 (22-26) mmol/L ABG Base Excess (Actual) mmol/L Sodium 134 L (135-145) mmol/L Potassium 4.3 (3.3-5.1) mmol/L Chloride 104 (96-108) mmol/L Carbon Dioxide 24 (22-29) mmol/L Anion Gap 10 L (12-20) BUN 13 (9-16) mg/dL Creatinine 0.89 (0.5-1.4) mg/dL Estim Creat Clear Calc 91.2 Estimated GFR > 60 Random Glucose 142 H (60-115) mg/dL Calcium 8.9 D (8.4-10.2) mg/dL Magnesium 1.9 (1.6-2.6) mg/dL Total Bilirubin 0.6 (0.0-1.0) mg/dL Direct Bilirubin 0.2 (0.0-0.5) mg/dL AST 28 (5-37) U/L ALT 24 (0-40) U/L Alkaline Phosphatase 72 (39-117) U/L Ammonia 42 (13-55) umol/L Troponin I High Sens (<3.5-35.0) ng/L Total Protein 6.7 (6.5-8.0) g/dL Albumin 3.6 (3.5-5.0) g/dL Lipase 39 (8-78) U/L Urine Color Urine Appearance Urine pH (5.0-8.0) Ur Specific [place] (1.005-1.025) Urine Protein (NEG-TRACE) MG/DL Urine Glucose (UA) (NEG) MG/DL Urine Ketones (NEG) MG/DL Urine Blood (NEG) Urine Nitrite (NEG) Ur Leukocyte Esterase (NEG) Urine RBC (0) /HPF Urine WBC (0-4) /HPF Ur Squamous Epith Cells /LPF Urine Bacteria /LPF Urine Mucus /LPF Urine Opiates Screen (Not Detect) Urine Fentanyl Screen (Not Detect) Ur Barbiturates Screen (Not Detect) Ur Phencyclidine Scrn (Not Detect) Ur Amphetamines Screen (Not Detect) U Benzodiazepines Scrn (Not Detect) Urine Cocaine Screen (Not Detect) U Marijuana (THC) Screen (Not Detect) Ethyl Alcohol mg/dL COVID-19 (DYLAN) (Negative) COVID-19 Clin Com 05/11/21 05/11/21 05/11/21 Range/Units 14:55 14:55 14:55 WBC (4.8-10.8) X10*3/uL RBC (4.60-5.80) X10*6/uL Hgb (14.0-18.0) g/dl Hct (42.0-52.0) % MCV (80.0-98.0) fL MCH (27.0-33.0) pg MCHC (31.0-36.0) g/dl RDW (11.0-16.0) % Plt Count (160-400) X10*3/uL MPV (9.4-12.4) fL Immature Gran % (Auto) (0.0-0.4) % Neut % (Auto) (45-73) % Lymph % (Auto) (20-40) % [place] % (Auto) (2-11) % Eos % (Auto) (0-4) % Baso % (Auto) (0-2) % Lymph # (Auto) (1.2-4.9) X10*3/uL [place] # (Auto) (0.1-1.2) X10*3/uL Eos # (Auto) (0.0-0.4) X10*3/uL Baso # (Auto) (0.0-0.2) X10*3/uL Abs Immat Gran (auto) (0.00-0.03) X10*3/uL Absolute Neuts (auto) (2.0-8.3) x10*3/uL Absolute Nucleated RBC (0.0-0.012) X10*3/uL Nucleated RBC % (auto) (0.0-0.2) /100WBC PT 30.1 H (9.9-13.0) SEC INR 2.6 H (0.9-1.1) O2 Saturation % ABG pH at Pt Temp (7.35-7.45) ABG pH (Temp Correct) (7.35-7.45) ABG pCO2 at Pt Temp (32-45) mmHg ABG pO2 at Pt Temp (83-108) mmHg ABG HCO3 (22-26) mmol/L ABG Base Excess (Actual) mmol/L Sodium (135-145) mmol/L Potassium (3.3-5.1) mmol/L Chloride (96-108) mmol/L Carbon Dioxide (22-29) mmol/L Anion Gap (12-20) BUN (9-16) mg/dL Creatinine (0.5-1.4) mg/dL Estim Creat Clear Calc Estimated GFR Random Glucose (60-115) mg/dL Calcium (8.4-10.2) mg/dL Magnesium (1.6-2.6) mg/dL Total Bilirubin (0.0-1.0) mg/dL Direct Bilirubin (0.0-0.5) mg/dL AST (5-37) U/L ALT (0-40) U/L Alkaline Phosphatase (39-117) U/L Ammonia (13-55) umol/L Troponin I High Sens 37.8 H (<3.5-35.0) ng/L Total Protein (6.5-8.0) g/dL Albumin (3.5-5.0) g/dL Lipase (8-78) U/L Urine Color Urine Appearance Urine pH (5.0-8.0) Ur Specific [place] (1.005-1.025) Urine Protein (NEG-TRACE) MG/DL Urine Glucose (UA) (NEG) MG/DL Urine Ketones (NEG) MG/DL Urine Blood (NEG) Urine Nitrite (NEG) Ur Leukocyte Esterase (NEG) Urine RBC (0) /HPF Urine WBC (0-4) /HPF Ur Squamous Epith Cells /LPF Urine Bacteria /LPF Urine Mucus /LPF Urine Opiates Screen (Not Detect) Urine Fentanyl Screen (Not Detect) Ur Barbiturates Screen (Not Detect) Ur Phencyclidine Scrn (Not Detect) Ur Amphetamines Screen (Not Detect) U Benzodiazepines Scrn (Not Detect) Urine Cocaine Screen (Not Detect) U Marijuana (THC) Screen (Not Detect) Ethyl Alcohol < 10 mg/dL COVID-19 (DYLAN) (Negative) COVID-19 Clin Com 05/11/21 Range/Units 15:02 WBC (4.8-10.8) X10*3/uL RBC (4.60-5.80) X10*6/uL Hgb (14.0-18.0) g/dl Hct (42.0-52.0) % MCV (80.0-98.0) fL MCH (27.0-33.0) pg MCHC (31.0-36.0) g/dl RDW (11.0-16.0) % Plt Count (160-400) X10*3/uL MPV (9.4-12.4) fL Immature Gran % (Auto) (0.0-0.4) % Neut % (Auto) (45-73) % Lymph % (Auto) (20-40) % [place] % (Auto) (2-11) % Eos % (Auto) (0-4) % Baso % (Auto) (0-2) % Lymph # (Auto) (1.2-4.9) X10*3/uL [place] # (Auto) (0.1-1.2) X10*3/uL Eos # (Auto) (0.0-0.4) X10*3/uL Baso # (Auto) (0.0-0.2) X10*3/uL Abs Immat Gran (auto) (0.00-0.03) X10*3/uL Absolute Neuts (auto) (2.0-8.3) x10*3/uL Absolute Nucleated RBC (0.0-0.012) X10*3/uL Nucleated RBC % (auto) (0.0-0.2) /100WBC PT (9.9-13.0) SEC INR (0.9-1.1) O2 Saturation 100.0 % ABG pH at Pt Temp 7.51 H (7.35-7.45) ABG pH (Temp Correct) (7.35-7.45) ABG pCO2 at Pt Temp 30 L (32-45) mmHg ABG pO2 at Pt Temp 141 H (83-108) mmHg ABG HCO3 24 (22-26) mmol/L ABG Base Excess (Actual) 2.7 mmol/L Sodium (135-145) mmol/L Potassium (3.3-5.1) mmol/L Chloride (96-108) mmol/L Carbon Dioxide (22-29) mmol/L Anion Gap (12-20) BUN (9-16) mg/dL Creatinine (0.5-1.4) mg/dL Estim Creat Clear Calc Estimated GFR Random Glucose (60-115) mg/dL Calcium (8.4-10.2) mg/dL Magnesium (1.6-2.6) mg/dL Total Bilirubin (0.0-1.0) mg/dL Direct Bilirubin (0.0-0.5) mg/dL AST (5-37) U/L ALT (0-40) U/L Alkaline Phosphatase (39-117) U/L Ammonia (13-55) umol/L Troponin I High Sens (<3.5-35.0) ng/L Total Protein (6.5-8.0) g/dL Albumin (3.5-5.0) g/dL Lipase (8-78) U/L Urine Color Urine Appearance Urine pH (5.0-8.0) Ur Specific [place] (1.005-1.025) Urine Protein (NEG-TRACE) MG/DL Urine Glucose (UA) (NEG) MG/DL Urine Ketones (NEG) MG/DL Urine Blood (NEG) Urine Nitrite (NEG) Ur Leukocyte Esterase (NEG) Urine RBC (0) /HPF Urine WBC (0-4) /HPF Ur Squamous Epith Cells /LPF Urine Bacteria /LPF Urine Mucus /LPF Urine Opiates Screen (Not Detect) Urine Fentanyl Screen (Not Detect) Ur Barbiturates Screen (Not Detect) Ur Phencyclidine Scrn (Not Detect) Ur Amphetamines Screen (Not Detect) U Benzodiazepines Scrn (Not Detect) Urine Cocaine Screen (Not Detect) U Marijuana (THC) Screen (Not Detect) Ethyl Alcohol mg/dL COVID-19 (DYLAN) (Negative) COVID-19 Clin Com ECG Data Attestation: I personally reviewed and interpreted this ECG as follows: ECG interpretation date: 05/11/21 ECG interpretation time: 15:21 Interpretation: Rate: 83 Rhythm: NSR Miles: normal Normal P waves. Normal YIN. Normal QRS complex. ST T wave : normal no SINCERE qTC: normal prior studies: no acute ischemia The study has been interpreted contemporaneously by me. . Discharge Plan Discharge Clinical Impression: Acute confusion, Adv eff opiates Patient Disposition: Still a Patient Prescriptions: No Action (DME) blood sugar diagnostic Strip See Rx Instructions ea Not Applicable BID Qty: 10 0RF Rx Instructions: one touch verio test strips, check sugar twice a day atorvastatin 40 mg tablet 40 mg PO DAILY 90 Days Qty: 90 4RF (DME) lancets [OneTouch Delica Lancets] 33 gauge misc See Rx Instructions .ROUTE .MEDSUPPLY Qty: 100 11RF Rx Instructions: Three times a day (DME) pen needle, diabetic 31 gauge x 5/16 needle See Rx Instructions ea subcut BID Qty: 100 11RF Rx Instructions: As directed levothyroxine 50 mcg tablet 50 mcg PO DAILY Qty: 90 0RF Jardiance 25 mg tablet 25 mg PO QAM Qty: 30 4RF allopurinol 100 mg tablet 100 mg PO BID 90 Days Qty: 180 1RF warfarin 2 mg tablet 2 mg PO .COMPLEX 90 Days Qty: 360 0RF Protocol: Dose Management Condition: Friday (Week One) Dose/Route: 4 mg Instruction: 2 x 2 mg tablets Condition: Friday Dose/Route: 4 mg Instruction: 2 x 2 mg tablets Condition: Friday Dose/Route: 4 mg Instruction: 2 x 2 mg tablets Condition: Friday Dose/Route: 6 mg Instruction: 3 x 2 mg tablets Condition: Dose/Route: 4 mg Instruction: 2 x 2 mg tablets Condition: Friday Dose/Route: 4 mg Instruction: 2 x 2 mg tablets Condition: Friday Dose/Route: 4 mg Instruction: 2 x 2 mg tablets Condition: Friday (Week Two) Dose/Route: 4 mg Instruction: 2 x 2 mg tablets Condition: Friday Dose/Route: 4 mg Instruction: 2 x 2 mg tablets Condition: Friday Dose/Route: 4 mg Instruction: 2 x 2 mg tablets Condition: Friday Dose/Route: 6 mg Instruction: 3 x 2 mg tablets Condition: Dose/Route: 4 mg Instruction: 2 x 2 mg tablets Condition: Friday Dose/Route: 4 mg Instruction: 2 x 2 mg tablets Condition: Friday Dose/Route: 4 mg Instruction: 2 x 2 mg tablets Protocol Text: Adjustment Start Date: Friday04/03/21 INR Value: 3.6 INR Date: 04/03/21 Recheck Date: 04/13/21 Additional Instructions: CONT REG DOSING EAT DARK [place] TO LOWER INR Rx Instructions: 2 mg PO 2 to 4 tablets adjust according to inr; OneTouch Verio test strips Strip 1 strip miscellaneous BID 50 Days Qty: 100 7RF nystatin 100,000 unit/gram powder 1 appl topical BID Qty: 60 0RF clotrimazole 1 % cream 1 appl topical BID Qty: 45 0RF mupirocin 2 % ointment 1 appl topical BID Qty: 22 0RF Baqsimi 3 mg/actuation spray,non-aerosol intranasal ONCE 0RF albuterol sulfate 90 mcg/actuation HFA aerosol inhaler 2 puff inhalation Q6H PRN0RF lisinopril 20 mg tablet 20 mg PO DAILY 0RF insulin lispro protamin-lispro 100 unit/mL (75-25) insulin pen See Rx Instructions subcut BID 0RF Rx Instructions: 62 units in the morning, 44 units at nights subcut 2 times a day;
[2021-05-11 14:13] VITALS: BP 139/70; BP 170/70; PULSE 84; PULSE 96; RESP 20; TEMP 36.7; O2SAT 98; BMI 35.4
--- NOTE | 2021-05-11 14:15 | ECG_ITS ---
Test Reason : confusion Blood Pressure : / mmHG Vent. Rate : 083 BPM Atrial Rate : 083 BPM P-R Int : 154 ms QRS Dur : 088 ms QT Int : 380 ms P-R-T Axes : 075 013 055 degrees QTc Int : 446 ms Normal sinus rhythm Normal ECG When compared with ECG of 01-DEC-2019 14:21, No significant change was found Referred By: Love Rodriguez Electronically Signed By:TAYLOR FELIPE
[2021-05-11 15:01] LABS: MANUAL DIFF FLAG NO
[2021-05-11 15:03] LABS: Venous Blood Gas Refer to POC result
[2021-05-11 15:05] LABS: Basophils Percent Auto 0.3 % (0-2); Eosinophils Absolute Auto 0.3 X10*3/uL (0.0-0.4); Hematocrit 36.5 % (42.0-52.0); Hemoglobin 12.4 g/dl (14.0-18.0); Imm Gran Abs Auto 0.02 X10*3/uL (0.00-0.03); Imm Gran Pct Auto 0.2 % (0.0-0.4); Lymphocytes Absolute Auto 1.8 X10*3/uL (1.2-4.9); Lymphocytes Percent Auto 18.9 % (20-40); Mean Corpuscular Hemoglobin 31.3 pg (27.0-33.0); Mean Corpuscular Volume 92.2 fL (80.0-98.0); Mean Platelet Volume 10.9 fL (9.4-12.4); Monocytes Percent Auto 10.8 % (2-11); Neutrophils Absolute Auto 6.2 x10*3/uL (2.0-8.3); Neutrophils Percent Auto 66.8 % (45-73); Platelet Count 207 X10*3/uL (160-400); Red Blood Count 3.96 X10*6/uL (4.60-5.80); White Blood Count 9.3 X10*3/uL (4.8-10.8)
[2021-05-11 15:07] LABS: Appearance Urine CLEAR; Color Urine STRAW; Glucose Urine UA >=1000 MG/DL (NEG); Leukocyte Esterase Urine NEG (NEG); Nitrite Urine NEG (NEG); Urine Blood NEG (NEG); Urine Ketones NEG (NEG); Urine Protein NEG (NEG-TRACE)
[2021-05-11 15:08] LABS: ABG Base Excess 2.7 mmol/L; ABG HCO3 24 mmol/L (22-26); ABG pCO2 30 mmHg (32-45); ABG pH 7.51 (7.35-7.45); ABG pO2 141 mmHg (83-108)
[2021-05-11 15:10] LABS: INTERNATIONAL NORM RATIO 2.6 (0.9-1.1); Prothrombin Time 30.1 SEC (9.9-13.0)
[2021-05-11 15:13] LABS: Ammonia 42 umol/L (13-55)
[2021-05-11 15:23] LABS: Amphetamine Screen Urine Not Detected (Not Detect); Barbiturates, Urine Not Detected (Not Detect); Benzodiazepines Screen Urine Not Detected (Not Detect); Cannabinoid Screen Urine Not Detected (Not Detect); Cocaine Screen Urine Not Detected (Not Detect); Fentanyl, urine Not Detected (Not Detect); Opiate Screen Urine POSITIVE (Not Detect); Phencyclidine Screen Urine Not Detected (Not Detect)
[2021-05-11 15:23] LABS: Ethanol < 10 mg/dL
[2021-05-11 15:25] LABS: Troponin-I High Sensitivity 37.8 ng/L (<3.5-35.0)
[2021-05-11 15:26] LABS: Mucus Urine 1+ /LPF; RBC Urine 0-2 /HPF (0); Squamous Epithelial Cell Urine TRACE /LPF; WBC Urine 0-2 /HPF (0-4)
[2021-05-11 15:27] LABS: Alanine Aminotransferase 24 U/L (0-40); Albumin Level 3.6 g/dL (3.5-5.0); Alkaline Phosphatase 72 U/L (39-117); Anion Gap 10 (12-20); Aspartate Amino Transferase 28 U/L (5-37); Bilirubin Direct 0.2 mg/dL (0.0-0.5); Bilirubin Total 0.6 mg/dL (0.0-1.0); Blood Urea Nitrogen 13 mg/dL (9-16); Calcium 8.9 mg/dL (8.4-10.2); Carbon Dioxide 24 mmol/L (22-29); Chloride 104 mmol/L (96-108); Creatinine Clr Calc Pharmacy 91.2; Estimated Glomerular Filt Rate > 60; Glucose Random 142 mg/dL (60-115); Lipase 39 U/L (8-78); Magnesium 1.9 mg/dL (1.6-2.6); Potassium 4.3 mmol/L (3.3-5.1); Sodium 134 mmol/L (135-145); Total Protein 6.7 g/dL (6.5-8.0)
[2021-05-11 15:30] LABS: COVID-19 Test Negative (Negative); IDNOW Serial# 9DD0AD1C
--- NOTE | 2021-05-11 16:11 | MHC.CM.PN ---
Addendum entered by Kierra Frederick 05/11/21 16:25: CM CALLED PTS , PAOLA ([phone]) WHO REPORTS SHE WAS JUST WORRIED ABOUT THE PT DUE TO HIS MEMORY ISSUES OVER THE LAST WEEK OR TWO AND WANTED HIM TO STAY OVERNIGHT JUST TO MAKE SURE HE WAS OK. SHE REPORTS SHE HOPES THAT HE IMPROVES AND CAN COME HOME TOMORROW Original Note: PT LIKELY TO NEED PLACEMENT, WILL HAVE PHYSICAL THERAPY EVAL Friday.
[2021-05-11 16:18] VITALS: BP 153/79; PULSE 85; RESP 16; TEMP 36.7; O2SAT 98
[2021-05-11 16:47] LABS: TSH reflex Free T4 0.82 uIU/mL (0.32-4.0)
[2021-05-11 17:39] LABS: Troponin-I High Sensitivity 37.9 ng/L (<3.5-35.0)
--- NOTE | 2021-05-11 17:47 | ED_ITS ---
HPI - General Adult General Chief complaint: General Medical Stated complaint: MEMORY LOSS X 2 DAYS Time Seen by Provider: 05/11/21 14:04 Source: patient Mode of arrival: EMS Limitations: no limitations Related Data Home Medications Medication Instructions Recorded Confirmed albuterol sulfate 90 2 puff INHALATION Q6H PRN 03/14/20 05/11/21 mcg/actuation aerosol inhaler lisinopril 20 mg tablet 20 mg PO DAILY 06/05/20 05/11/21 insulin lispro See Rx Instructions SUBCUT 04/11/21 05/11/21 protamine-lispro BID ml 100 unit/mL (75-25) subcutaneous pen atorvastatin 40 mg tablet 40 mg PO BEDTIME 05/11/21 05/11/21 warfarin 2 mg tablet 4 mg PO DAILY 05/11/21 05/11/21 Previous Rx's Medication Instructions Recorded pen needle, diabetic 31 gauge x #100 ea 02/08/2108/20 levothyroxine 50 mcg tablet 50 mcg PO DAILY #90 tab 02/15/21 empagliflozin 25 mg tablet 25 mg PO QAM #30 tab 03/19/21 (Jardiance) warfarin 2 mg tablet 2 mg PO .COMPLEX 90 Days #360 tab 04/17/21 clotrimazole 1 % topical cream 1 appl TOPICAL BID #45 g 04/25/21 mupirocin 2 % topical ointment 1 appl TOPICAL BID #22 g 04/25/21 nystatin 100,000 unit/gram topical 1 appl TOPICAL BID #60 g 04/25/21 powder Allergies Allergy/AdvReac Type Severity Reaction Status Date / Time exenatide [From Allergy Intermediate AFFECTED Verified 04/11/21 13:14 BYETTA] PANCREAS [facility] Past Medical History Medical History BMI 34.0-34.9,adult BPH (benign prostatic hyperplasia) Chronic kidney disease Diabetes mellitus Gallstones Gout Heart failure, unspecified HTN (hypertension) Hyperlipidemia Obesity due to excess calories Osteomyelitis Paroxysmal atrial fibrillation Prosthetic valve dysfunction Spinal stenosis, lumbar Type 2 diabetes mellitus with diabetic neuropathy, unspecified Type 2 diabetes mellitus with hyperglycemia, with long-term current use of insulin Surgical History Hx of aortic valve replacement Hx of colonoscopy Hx of endoscopy Hx of exploratory laparotomy Hx of laparoscopy Mitral valve replaced Family History Family History Father CVD (cardiovascular disease) Mother CVD (cardiovascular disease) Social History Social History Household Members: None Alcohol intake: never Patient Tobacco Use Status: Never used Tobacco Use of substances other than those prescribed or required for medical reasons: No Advance Directives: No Advance Directives Information Provided: No Physical Exam Verdana 4l Vital Signs: Verdana 4d Verdana 4d Vital Signs: Verdana 4d Verdana 4Bd Last Vital Signs Verdana 4d Refined Syrup Operator New 4d Refined Syrup Operator New 4d Temp 98.0 F 05/11/21 20:00 Refined Syrup Operator New 4d Pulse 107 H 05/11/21 20:00 Refined Syrup Operator New 4d Resp 18 05/11/21 20:00 BP 128/69 05/11/21 20:00 Pulse Ox 100 05/11/21 20:00 BMI result Body Mass Index 35.4 Course Reevaluation(s) Reevaluation #1: Patient's TSH within normal limit, troponin flat. Patient alert to person not time or situation, I noted that patient is having hard time putting words together to make a sentence, he slow to respond he tells me that this is new in making him very frustrated. On exam he is noted to have a shuffling gait he has a normal [id number], [id number]. At this time I do not feel as though an emergent MRI is necessary however I do feel as though patient should be admited for observation and [facility] neuro consult with MRI. Time: 21:37 Medical Decision Making Lab Data Result diagrams: 05/11/21 14:55 05/11/21 14:55 Labs: Lab Results 05/11/21 05/11/21 05/11/21 Range/Units 14:44 14:45 14:45 WBC (4.8-10.8) X10*3/uL RBC (4.60-5.80) X10*6/uL Hgb (14.0-18.0) g/dl Hct (42.0-52.0) % MCV (80.0-98.0) fL MCH (27.0-33.0) pg MCHC (31.0-36.0) g/dl RDW (11.0-16.0) % Plt Count (160-400) X10*3/uL MPV (9.4-12.4) fL Immature Gran % (0.0-0.4) % (Auto) Neut % (Auto) (45-73) % Lymph % (Auto) (20-40) % Carlton % (Auto) (2-11) % Eos % (Auto) (0-4) % Baso % (Auto) (0-2) % Lymph # (Auto) (1.2-4.9) X10*3/uL Carlton # (Auto) (0.1-1.2) X10*3/uL Eos # (Auto) (0.0-0.4) X10*3/uL Baso # (Auto) (0.0-0.2) X10*3/uL Abs Immat Gran (auto) (0.00-0.03) X10*3/uL Absolute Neuts (auto) (2.0-8.3) x10*3/uL Absolute Nucleated (0.0-0.012) RBC X10*3/uL Nucleated RBC % (0.0-0.2) /100WBC (auto) PT (9.9-13.0) SEC INR (0.9-1.1) O2 Saturation % ABG pH at Pt Temp (7.35-7.45) ABG pH (Temp Correct) (7.35-7.45) ABG pCO2 at Pt Temp (32-45) mmHg ABG pO2 at Pt Temp (83-108) mmHg ABG HCO3 (22-26) mmol/L ABG Base Excess mmol/L (Actual) Sodium (135-145) mmol/L Potassium (3.3-5.1) mmol/L Chloride (96-108) mmol/L Carbon Dioxide (22-29) mmol/L Anion Gap (12-20) BUN (9-16) mg/dL Creatinine (0.5-1.4) mg/dL Estim Creat Clear Calc Estimated GFR Random Glucose (60-115) mg/dL Calcium (8.4-10.2) mg/dL Magnesium (1.6-2.6) mg/dL Total Bilirubin (0.0-1.0) mg/dL Direct Bilirubin (0.0-0.5) mg/dL AST (5-37) U/L ALT (0-40) U/L Alkaline Phosphatase (39-117) U/L Ammonia (13-55) umol/L Troponin I High Sens (<3.5-35.0) ng/L Total Protein (6.5-8.0) g/dL Albumin (3.5-5.0) g/dL Lipase (8-78) U/L TSH (0.32-4.0) uIU/mL Urine Color STRAW Urine Appearance CLEAR Urine pH 6.0 (5.0-8.0) Ur Specific Henderson 1.010 (1.005-1.025) Urine Protein NEG (NEG-TRACE) MG/DL Urine Glucose (UA) >=1000 H (NEG) MG/DL Urine Ketones NEG (NEG) MG/DL Urine Blood NEG (NEG) Urine Nitrite NEG (NEG) Ur Leukocyte Esterase NEG (NEG) Urine RBC 0-2 (0) /HPF Urine WBC 0-2 (0-4) /HPF Ur Squamous Epith TRACE /LPF Cells Urine Bacteria NONE /LPF Urine Mucus 1+ /LPF Urine Opiates Screen POSITIVE H (Not Detect) Urine Fentanyl Screen Not Detected (Not Detect) Ur Barbiturates Not Detected (Not Detect) Screen Ur Phencyclidine Scrn Not Detected (Not Detect) Ur Amphetamines Not Detected (Not Detect) Screen U Benzodiazepines Not Detected (Not Detect) Scrn Urine Cocaine Screen Not Detected (Not Detect) U Marijuana (THC) Not Detected (Not Detect) Screen Ethyl Alcohol mg/dL COVID-19 (DYLAN) Negative (Negative) COVID-19 Clin Com See Note 05/11/21 05/11/21 05/11/21 Range/Units 14:55 14:55 14:55 WBC 9.3 (4.8-10.8) X10*3/uL RBC 3.96 L (4.60-5.80) X10*6/uL Hgb 12.4 L (14.0-18.0) g/dl Hct 36.5 L (42.0-52.0) % MCV 92.2 (80.0-98.0) fL MCH 31.3 (27.0-33.0) pg MCHC 34.0 (31.0-36.0) g/dl RDW 14.0 (11.0-16.0) % Plt Count 207 (160-400) X10*3/uL MPV 10.9 (9.4-12.4) fL Immature Gran % (Auto) 0.2 (0.0-0.4) % Neut % (Auto) 66.8 (45-73) % Lymph % (Auto) 18.9 L (20-40) % Carlton % (Auto) 10.8 (2-11) % Eos % (Auto) 3.0 (0-4) % Baso % (Auto) 0.3 (0-2) % Lymph # (Auto) 1.8 (1.2-4.9) X10*3/uL Carlton # (Auto) 1.0 (0.1-1.2) X10*3/uL Eos # (Auto) 0.3 (0.0-0.4) X10*3/uL Baso # (Auto) 0.0 (0.0-0.2) X10*3/uL Abs Immat Gran (auto) 0.02 (0.00-0.03) X10*3/uL Absolute Neuts (auto) 6.2 (2.0-8.3) x10*3/uL Absolute Nucleated RBC 0.000 (0.0-0.012) X10*3/uL Nucleated RBC % (auto) 0.0 (0.0-0.2) /100WBC PT (9.9-13.0) SEC INR (0.9-1.1) O2 Saturation % ABG pH at Pt Temp (7.35-7.45) ABG pH (Temp Correct) (7.35-7.45) ABG pCO2 at Pt Temp (32-45) mmHg ABG pO2 at Pt Temp (83-108) mmHg ABG HCO3 (22-26) mmol/L ABG Base Excess (Actual) mmol/L Sodium 134 L (135-145) mmol/L Potassium 4.3 (3.3-5.1) mmol/L Chloride 104 (96-108) mmol/L Carbon Dioxide 24 (22-29) mmol/L Anion Gap 10 L (12-20) BUN 13 (9-16) mg/dL Creatinine 0.89 (0.5-1.4) mg/dL Estim Creat Clear Calc 91.2 Estimated GFR > 60 Random Glucose 142 H (60-115) mg/dL Calcium 8.9 D (8.4-10.2) mg/dL Magnesium 1.9 (1.6-2.6) mg/dL Total Bilirubin 0.6 (0.0-1.0) mg/dL Direct Bilirubin 0.2 (0.0-0.5) mg/dL AST 28 (5-37) U/L ALT 24 (0-40) U/L Alkaline Phosphatase 72 (39-117) U/L Ammonia 42 (13-55) umol/L Troponin I High Sens (<3.5-35.0) ng/L Total Protein 6.7 (6.5-8.0) g/dL Albumin 3.6 (3.5-5.0) g/dL Lipase 39 (8-78) U/L TSH 0.82 (0.32-4.0) uIU/mL Urine Color Urine Appearance Urine pH (5.0-8.0) Ur Specific Henderson (1.005-1.025) Urine Protein (NEG-TRACE) MG/DL Urine Glucose (UA) (NEG) MG/DL Urine Ketones (NEG) MG/DL Urine Blood (NEG) Urine Nitrite (NEG) Ur Leukocyte Esterase (NEG) Urine RBC (0) /HPF Urine WBC (0-4) /HPF Ur Squamous Epith Cells /LPF Urine Bacteria /LPF Urine Mucus /LPF Urine Opiates Screen (Not Detect) Urine Fentanyl Screen (Not Detect) Ur Barbiturates Screen (Not Detect) Ur Phencyclidine Scrn (Not Detect) Ur Amphetamines Screen (Not Detect) U Benzodiazepines Scrn (Not Detect) Urine Cocaine Screen (Not Detect) U Marijuana (THC) Screen (Not Detect) Ethyl Alcohol mg/dL COVID-19 (DYLAN) (Negative) COVID-19 Clin Com 05/11/21 05/11/21 05/11/21 Range/Units 14:55 14:55 14:55 WBC (4.8-10.8) X10*3/uL RBC (4.60-5.80) X10*6/uL Hgb (14.0-18.0) g/dl Hct (42.0-52.0) % MCV (80.0-98.0) fL MCH (27.0-33.0) pg MCHC (31.0-36.0) g/dl RDW (11.0-16.0) % Plt Count (160-400) X10*3/uL MPV (9.4-12.4) fL Immature Gran % (Auto) (0.0-0.4) % Neut % (Auto) (45-73) % Lymph % (Auto) (20-40) % Carlton % (Auto) (2-11) % Eos % (Auto) (0-4) % Baso % (Auto) (0-2) % Lymph # (Auto) (1.2-4.9) X10*3/uL Carlton # (Auto) (0.1-1.2) X10*3/uL Eos # (Auto) (0.0-0.4) X10*3/uL Baso # (Auto) (0.0-0.2) X10*3/uL Abs Immat Gran (auto) (0.00-0.03) X10*3/uL Absolute Neuts (auto) (2.0-8.3) x10*3/uL Absolute Nucleated RBC (0.0-0.012) X10*3/uL Nucleated RBC % (auto) (0.0-0.2) /100WBC PT 30.1 H (9.9-13.0) SEC INR 2.6 H (0.9-1.1) O2 Saturation % ABG pH at Pt Temp (7.35-7.45) ABG pH (Temp Correct) (7.35-7.45) ABG pCO2 at Pt Temp (32-45) mmHg ABG pO2 at Pt Temp (83-108) mmHg ABG HCO3 (22-26) mmol/L ABG Base Excess (Actual) mmol/L Sodium (135-145) mmol/L Potassium (3.3-5.1) mmol/L Chloride (96-108) mmol/L Carbon Dioxide (22-29) mmol/L Anion Gap (12-20) BUN (9-16) mg/dL Creatinine (0.5-1.4) mg/dL Estim Creat Clear Calc Estimated GFR Random Glucose (60-115) mg/dL Calcium (8.4-10.2) mg/dL Magnesium (1.6-2.6) mg/dL Total Bilirubin (0.0-1.0) mg/dL Direct Bilirubin (0.0-0.5) mg/dL AST (5-37) U/L ALT (0-40) U/L Alkaline Phosphatase (39-117) U/L Ammonia (13-55) umol/L Troponin I High Sens 37.8 H (<3.5-35.0) ng/L Total Protein (6.5-8.0) g/dL Albumin (3.5-5.0) g/dL Lipase (8-78) U/L TSH (0.32-4.0) uIU/mL Urine Color Urine Appearance Urine pH (5.0-8.0) Ur Specific Henderson (1.005-1.025) Urine Protein (NEG-TRACE) MG/DL Urine Glucose (UA) (NEG) MG/DL Urine Ketones (NEG) MG/DL Urine Blood (NEG) Urine Nitrite (NEG) Ur Leukocyte Esterase (NEG) Urine RBC (0) /HPF Urine WBC (0-4) /HPF Ur Squamous Epith Cells /LPF Urine Bacteria /LPF Urine Mucus /LPF Urine Opiates Screen (Not Detect) Urine Fentanyl Screen (Not Detect) Ur Barbiturates Screen (Not Detect) Ur Phencyclidine Scrn (Not Detect) Ur Amphetamines Screen (Not Detect) U Benzodiazepines Scrn (Not Detect) Urine Cocaine Screen (Not Detect) U Marijuana (THC) Screen (Not Detect) Ethyl Alcohol < 10 mg/dL COVID-19 (DYLAN) (Negative) COVID-19 Clin Com 05/11/21 05/11/21 Range/Units 15:02 16:59 WBC (4.8-10.8) X10*3/uL RBC (4.60-5.80) X10*6/uL Hgb (14.0-18.0) g/dl Hct (42.0-52.0) % MCV (80.0-98.0) fL MCH (27.0-33.0) pg MCHC (31.0-36.0) g/dl RDW (11.0-16.0) % Plt Count (160-400) X10*3/uL MPV (9.4-12.4) fL Immature Gran % (Auto) (0.0-0.4) % Neut % (Auto) (45-73) % Lymph % (Auto) (20-40) % Carlton % (Auto) (2-11) % Eos % (Auto) (0-4) % Baso % (Auto) (0-2) % Lymph # (Auto) (1.2-4.9) X10*3/uL Carlton # (Auto) (0.1-1.2) X10*3/uL Eos # (Auto) (0.0-0.4) X10*3/uL Baso # (Auto) (0.0-0.2) X10*3/uL Abs Immat Gran (auto) (0.00-0.03) X10*3/uL Absolute Neuts (auto) (2.0-8.3) x10*3/uL Absolute Nucleated RBC (0.0-0.012) X10*3/uL Nucleated RBC % (auto) (0.0-0.2) /100WBC PT (9.9-13.0) SEC INR (0.9-1.1) O2 Saturation 100.0 % ABG pH at Pt Temp 7.51 H (7.35-7.45) ABG pH (Temp Correct) (7.35-7.45) ABG pCO2 at Pt Temp 30 L (32-45) mmHg ABG pO2 at Pt Temp 141 H (83-108) mmHg ABG HCO3 24 (22-26) mmol/L ABG Base Excess (Actual) 2.7 mmol/L Sodium (135-145) mmol/L Potassium (3.3-5.1) mmol/L Chloride (96-108) mmol/L Carbon Dioxide (22-29) mmol/L Anion Gap (12-20) BUN (9-16) mg/dL Creatinine (0.5-1.4) mg/dL Estim Creat Clear Calc Estimated GFR Random Glucose (60-115) mg/dL Calcium (8.4-10.2) mg/dL Magnesium (1.6-2.6) mg/dL Total Bilirubin (0.0-1.0) mg/dL Direct Bilirubin (0.0-0.5) mg/dL AST (5-37) U/L ALT (0-40) U/L Alkaline Phosphatase (39-117) U/L Ammonia (13-55) umol/L Troponin I High Sens 37.9 H (<3.5-35.0) ng/L Total Protein (6.5-8.0) g/dL Albumin (3.5-5.0) g/dL Lipase (8-78) U/L TSH (0.32-4.0) uIU/mL Urine Color Urine Appearance Urine pH (5.0-8.0) Ur Specific Henderson (1.005-1.025) Urine Protein (NEG-TRACE) MG/DL Urine Glucose (UA) (NEG) MG/DL Urine Ketones (NEG) MG/DL Urine Blood (NEG) Urine Nitrite (NEG) Ur Leukocyte Esterase (NEG) Urine RBC (0) /HPF Urine WBC (0-4) /HPF Ur Squamous Epith Cells /LPF Urine Bacteria /LPF Urine Mucus /LPF Urine Opiates Screen (Not Detect) Urine Fentanyl Screen (Not Detect) Ur Barbiturates Screen (Not Detect) Ur Phencyclidine Scrn (Not Detect) Ur Amphetamines Screen (Not Detect) U Benzodiazepines Scrn (Not Detect) Urine Cocaine Screen (Not Detect) U Marijuana (THC) Screen (Not Detect) Ethyl Alcohol mg/dL COVID-19 (DYLAN) (Negative) COVID-19 Clin Com Critical Care Time Critical Care Time Critical Care Time: No Discharge Plan Discharge Clinical Impression: Acute confusion, Adv eff opiates Patient Disposition: Still a Patient Prescriptions: No Action (DME) pen needle, diabetic 31 gauge x 5/16 needle See Rx Instructions ea subcut BID Qty: 100 11RF Rx Instructions: As directed levothyroxine 50 mcg tablet 50 mcg PO DAILY Qty: 90 0RF Jardiance 25 mg tablet 25 mg PO QAM Qty: 30 4RF warfarin 2 mg tablet 2 mg PO .COMPLEX 90 Days Qty: 360 0RF Protocol: Dose Management Condition: Friday (Week One) Dose/Route: 4 mg Instruction: 2 x 2 mg tablets Condition: Friday Dose/Route: 4 mg Instruction: 2 x 2 mg tablets Condition: Friday Dose/Route: 4 mg Instruction: 2 x 2 mg tablets Condition: Friday Dose/Route: 6 mg Instruction: 3 x 2 mg tablets Condition: Dose/Route: 4 mg Instruction: 2 x 2 mg tablets Condition: Friday Dose/Route: 4 mg Instruction: 2 x 2 mg tablets Condition: Friday Dose/Route: 4 mg Instruction: 2 x 2 mg tablets Condition: Friday (Week Two) Dose/Route: 4 mg Instruction: 2 x 2 mg tablets Condition: Friday Dose/Route: 4 mg Instruction: 2 x 2 mg tablets Condition: Friday Dose/Route: 4 mg Instruction: 2 x 2 mg tablets Condition: Friday Dose/Route: 6 mg Instruction: 3 x 2 mg tablets Condition: Dose/Route: 4 mg Instruction: 2 x 2 mg tablets Condition: Friday Dose/Route: 4 mg Instruction: 2 x 2 mg tablets Condition: Friday Dose/Route: 4 mg Instruction: 2 x 2 mg tablets Protocol Text: Adjustment Start Date: Friday04/03/21 INR Value: 3.6 INR Date: 04/03/21 Recheck Date: 04/13/21 Additional Instructions: CONT REG DOSING EAT [place] TO LOWER INR Rx Instructions: 2 mg PO 2 to 4 tablets adjust according to inr; nystatin 100,000 unit/gram powder 1 appl topical BID Qty: 60 0RF clotrimazole 1 % cream 1 appl topical BID Qty: 45 0RF mupirocin 2 % ointment 1 appl topical BID Qty: 22 0RF warfarin 2 mg Tablet 4 mg PO DAILY 0RF atorvastatin 40 mg tablet 40 mg PO BEDTIME 0RF albuterol sulfate 90 mcg/actuation HFA aerosol inhaler 2 puff inhalation Q6H PRN (Reason: Wheezing) 0RF lisinopril 20 mg tablet 20 mg PO DAILY 0RF insulin lispro protamin-lispro 100 unit/mL (75-25) insulin pen See Rx Instructions subcut BID 0RF Rx Instructions: 62 units in the morning, 44 units at nights subcut 2 times a day;
[2021-05-11 18:49] VITALS: BP 130/96; PULSE 107; RESP 18; TEMP 36.7; O2SAT 100
[2021-05-11 20:00] VITALS: BP 128/69; PULSE 107; RESP 18; TEMP 36.7; O2SAT 100
--- NOTE | 2021-05-11 20:25 | PHA.MEDREC ---
Pharmacy Consult ? Medication Reconciliation Pharmacy has completed the medication reconciliation. Patient no longer takes allopurinol. He reports taking warfarin 4mg daily (dose adjusted from 4mg QD; 6 mg on friday) Thanks Cj Calloway
[2021-05-11 21:56] VITALS: BP 142/74; PULSE 95; RESP 16; TEMP 37.1; O2SAT 96
[2021-05-11 22:00] VITALS: BP 142/74; PULSE 90; RESP 20; O2SAT 98
[2021-05-11] MEDS: Warfarin Sodium 4 MG TABLET PO (22:58)
--- NOTE | 2021-05-11 23:05 | P.HPHOSP_ITS ---
History of Present Illness Date of Service: 05/11/21 Chief Complaint: confusion 70-year-old male with a past medical history of hypertension, hyperlipidemia, diabetes, CHF, obesity, paroxysmal AFib, history of off mitral valve replacement/ aortic valve replacement-on Coumadin; history of COVID-19 infection; presented to the hospital today with a chief complaint of confusion. Most of the history obtained from the records and patient's. At the time of my interview patient is more alert and awake, answering most of the questions fairly okay. Patient denies any chest pain or palpitations. He reports he has been little spaced out Today. Denies any fever chills cough. Denies any urinary symptoms. Denies taking drugs or excessive pain medications. Denies taking any oxycodone. Review of all other systems is negative except mentioned above ER course: Per ER team patient on presentation noted to be confused, noted to have pinpoint pupils, U tox positive for opiates; exam was nonfocal, CT head showed no acute findings, labs essentially benign, urinalysis negative, chest x-ray negative. When they tried to walk the patient patient had shuffling gait. ER team mentioned that the also discussed with Neurology. Admitted to the hospital for further management., [facility] Medical History BMI 34.0-34.9,adult BPH (benign prostatic hyperplasia) Chronic kidney disease Diabetes mellitus Gallstones Gout Heart failure, unspecified HTN (hypertension) Hyperlipidemia Obesity due to excess calories Osteomyelitis Paroxysmal atrial fibrillation Prosthetic valve dysfunction Spinal stenosis, lumbar Type 2 diabetes mellitus with diabetic neuropathy, unspecified Type 2 diabetes mellitus with hyperglycemia, with long-term current use of insulin Family History Father CVD (cardiovascular disease) Mother CVD (cardiovascular disease) Surgical History Hx of aortic valve replacement Hx of colonoscopy Hx of endoscopy Hx of exploratory laparotomy Hx of laparoscopy Mitral valve replaced Social History Household Members: None Alcohol intake: never Patient Tobacco Use Status: Never used Tobacco Use of substances other than those prescribed or required for medical reasons: No Advance Directives: No Advance Directives Information Provided: No Meds Allergies Allergy/AdvReac Type Severity Reaction Status Date / Time exenatide [From Allergy Intermediate AFFECTED Verified 04/11/21 13:14 BYETTA] PANCREAS Active Medications: Current Medications Acetaminophen (Acetaminophen 325 Mg Tablet) 650 mg PO Q6H PRN PRN Reason: Pain, Mild (Pain Scale 1-3) Albuterol Sulfate (Albuterol Sulfate 90 Mcg 8 Gm Inhaler) 2 puff INHALE Q6H PRN PRN Reason: Wheezing Atorvastatin Calcium (Atorvastatin Calcium 40 Mg Tablet) 40 mg PO BEDTIME LOPEZ Clotrimazole (Clotrimazole 1 % Cream 15 Gm Tube) 1 appl TOPICAL BID [facility]; Protocol Glucose (Glucose Gel 15 Gm Gel..Gram.) 15 gm PO Q15M PRN; Protocol PRN Reason: per Hypoglycemia Standing Ord. Insulin Human Lispro (Insulin Lispro 100 Unit/Ml 3 Ml Vial) 0 unit SUBCUT QIDACHS [facility]; Protocol Levothyroxine Sodium (Levothyroxine Sodium 50 Mcg Tablet) 50 mcg PO DAILY@0600 [facility] Lisinopril (Lisinopril 20 Mg Tablet) 20 mg PO DAILY [facility]; Protocol Melatonin (Melatonin 3 Mg Tablet) 6 mg PO BEDTIME PRN PRN Reason: Insomnia Mupirocin (Mupirocin 2 % Oint 22 Gm Tube) 1 appl TOPICAL BID [facility]; Protocol Non-Formulary Medication (Empagliflozin [Jardiance]) 25 mg PO DAILY [facility] Nystatin (Nystatin Powder 15 Gm Bottle) 1 appl TOPICAL BID [facility]; Protocol Pharmacy Consult (Consult Rx Perform Med Rec) 1 each MISCELLANE ONCE PRN PRN Reason: Consult order Senna (Sennosides 8.6 Mg Tablet) 17.2 mg PO BEDTIME PRN PRN Reason: Constipation Sodium Chloride (0.9 % Sodium Chloride Flush 3 Ml Syringe) 3 ml IVFLUSH QSHIFT [facility] Warfarin Sodium (Warfarin Sodium 4 Mg Tablet) 4 mg PO DAILY@1800 [facility] Home Medications Medication Instructions Recorded Confirmed Last Taken Type albuterol sulfate 2 puff 03/14/20 05/11/21 Unknown History 90 mcg/actuation INHALATION Q6H PRN aerosol inhaler lisinopril 20 mg 20 mg PO DAILY 06/05/20 05/11/21 05/10/21 History tablet insulin lispro See Rx 04/11/21 05/11/21 05/11/21 History protamine-lispro Instructions SUBCUT BID ml 100 unit/mL (75-25) subcutaneous pen atorvastatin 40 40 mg PO BEDTIME 05/11/21 05/11/21 05/10/21 History mg tablet warfarin 2 mg 4 mg PO DAILY 05/11/21 05/11/21 05/10/21 History tablet Physical Exam Verdana 4l Vital Signs and Narrative: Verdana 4d Verdana 4d Vital Signs: Verdana 4d Verdana 4Bd Last Vital Signs Verdana 4d [employer] New 4d [employer]ician New 4d Temp 98.7 F 05/11/21 21:56 [employer] Technician New 4d Pulse 90 05/11/21 22:00 [employer] Technician New 4d Resp 20 05/11/21 22:00 BP 142/74 H 05/11/21 22:00 Pulse Ox 98 05/11/21 22:00 BMI result Body Mass Index 35.4 Gen: Appears be in no acute distress HEENT: NCAT, Moist mucosa. Pulmonary: Vesicular breath sounds, fair air entry CVS: Normal S1-S2 Abdomen: BS+, Soft, Nontender Extremities: Warm well perfused Neuro: Alert and awake. Oriented times 2-3 ;grossly nonfocal Results Labs CBC and Chem 7: 05/11/21 14:55 05/11/21 14:55 Labs: Laboratory Results - last 24 hr 05/11/21 05/11/21 05/11/21 14:44 14:45 14:45 MCV MCH MCHC RDW Plt Count MPV Immature Gran % (Auto) Neut % (Auto) Lymph % (Auto) Stokes % (Auto) Eos % (Auto) Baso % (Auto) Lymph # (Auto) Stokes # (Auto) Eos # (Auto) Baso # (Auto) Abs Immat Gran (auto) Absolute Neuts (auto) Absolute Nucleated RBC Nucleated RBC % (auto) PT INR O2 Saturation ABG pH at Pt Temp ABG pH (Temp Correct) ABG pCO2 at Pt Temp ABG pO2 at Pt Temp ABG HCO3 ABG Base Excess (Actual) Anion Gap Estim Creat Clear Calc Estimated GFR Random Glucose Calcium Magnesium Total Bilirubin Direct Bilirubin AST ALT Alkaline Phosphatase Ammonia Total Protein Albumin Lipase TSH Urine Color STRAW Urine Appearance CLEAR Urine pH 6.0 Ur Specific [place] 1.010 Urine Protein NEG Urine Glucose (UA) >=1000 H Urine Ketones NEG Urine Blood NEG Urine Nitrite NEG Ur Leukocyte Esterase NEG Urine RBC 0-2 Urine WBC 0-2 Ur Squamous Epith Cells TRACE Urine Bacteria NONE Urine Mucus 1+ Urine Opiates Screen POSITIVE H Urine Fentanyl Screen Not Detected Ur Barbiturates Screen Not Detected Ur Phencyclidine Scrn Not Detected Ur Amphetamines Screen Not Detected U Benzodiazepines Scrn Not Detected Urine Cocaine Screen Not Detected U Marijuana (THC) Screen Not Detected Ethyl Alcohol COVID-19 (DYLAN) Negative COVID-19 Clin Com See Note 05/11/21 05/11/21 05/11/21 14:55 14:55 14:55 MCV 92.2 MCH 31.3 MCHC 34.0 RDW 14.0 Plt Count 207 MPV 10.9 Immature Gran % (Auto) 0.2 Neut % (Auto) 66.8 Lymph % (Auto) 18.9 L Stokes % (Auto) 10.8 Eos % (Auto) 3.0 Baso % (Auto) 0.3 Lymph # (Auto) 1.8 Stokes # (Auto) 1.0 Eos # (Auto) 0.3 Baso # (Auto) 0.0 Abs Immat Gran (auto) 0.02 Absolute Neuts (auto) 6.2 Absolute Nucleated RBC 0.000 Nucleated RBC % (auto) 0.0 PT INR O2 Saturation ABG pH at Pt Temp ABG pH (Temp Correct) ABG pCO2 at Pt Temp ABG pO2 at Pt Temp ABG HCO3 ABG Base Excess (Actual) Anion Gap 10 L Estim Creat Clear Calc 91.2 Estimated GFR > 60 Random Glucose 142 H Calcium 8.9 D Magnesium 1.9 Total Bilirubin 0.6 Direct Bilirubin 0.2 AST 28 ALT 24 Alkaline Phosphatase 72 Ammonia 42 Total Protein 6.7 Albumin 3.6 Lipase 39 TSH 0.82 Urine Color Urine Appearance Urine pH Ur Specific [place] Urine Protein Urine Glucose (UA) Urine Ketones Urine Blood Urine Nitrite Ur Leukocyte Esterase Urine RBC Urine WBC Ur Squamous Epith Cells Urine Bacteria Urine Mucus Urine Opiates Screen Urine Fentanyl Screen Ur Barbiturates Screen Ur Phencyclidine Scrn Ur Amphetamines Screen U Benzodiazepines Scrn Urine Cocaine Screen U Marijuana (THC) Screen Ethyl Alcohol COVID-19 (DYLAN) COVID-19 Clin Com 05/11/21 05/11/21 05/11/21 14:55 14:55 15:02 MCV MCH MCHC RDW Plt Count MPV Immature Gran % (Auto) Neut % (Auto) Lymph % (Auto) Stokes % (Auto) Eos % (Auto) Baso % (Auto) Lymph # (Auto) Stokes # (Auto) Eos # (Auto) Baso # (Auto) Abs Immat Gran (auto) Absolute Neuts (auto) Absolute Nucleated RBC Nucleated RBC % (auto) PT 30.1 H INR 2.6 H O2 Saturation 100.0 ABG pH at Pt Temp 7.51 H ABG pH (Temp Correct) ABG pCO2 at Pt Temp 30 L ABG pO2 at Pt Temp 141 H ABG HCO3 24 ABG Base Excess (Actual) 2.7 Anion Gap Estim Creat Clear Calc Estimated GFR Random Glucose Calcium Magnesium Total Bilirubin Direct Bilirubin AST ALT Alkaline Phosphatase Ammonia Total Protein Albumin Lipase TSH Urine Color Urine Appearance Urine pH Ur Specific [place] Urine Protein Urine Glucose (UA) Urine Ketones Urine Blood Urine Nitrite Ur Leukocyte Esterase Urine RBC Urine WBC Ur Squamous Epith Cells Urine Bacteria Urine Mucus Urine Opiates Screen Urine Fentanyl Screen Ur Barbiturates Screen Ur Phencyclidine Scrn Ur Amphetamines Screen U Benzodiazepines Scrn Urine Cocaine Screen U Marijuana (THC) Screen Ethyl Alcohol < 10 COVID-19 (DYLAN) COVID-19 Clin Com Imaging Radiologist's Impressions: Impressions Chest X-Ray 05/11/21 14:32 IMPRESSION: Chronic left basilar changes without acute superimposed process. Head CT 05/11/21 14:40 IMPRESSION: No acute intracranial pathology. Assessment and Plan (1) Confusion: Status: Acute Plan 70-year-old male with a past medical history of hypertension, hyperlipidemia, diabetes, CHF, obesity, paroxysmal AFib, history of off mitral valve replacement/ aortic valve replacement-on Coumadin; history of COVID-19 infection; presented to the hospital today with a chief complaint of confusion. confusion: Unclear etiology. No obvious signs of infection. Will obtain folate B12, TSH, RPR. Neurology for further recommendations Mental status up appears to be slightly creating. Patient on presentation noted to have pinpoint pupils but improved. History of diabetes: Insulin sliding scale History of AFib / metal replacement: Patient on Coumadin. INR 2.6. Continue home Coumadin. will defer to the day team to confirm the patient's Coumadin dose with [facility]. History of hypertension /hyperlipidemia: Continue home medications. DVT prophylaxis: Patient on Coumadin Code status: Full code Quality Stroke Does the patient have a stroke diagnosis?: No VTE Prior VTE?: No VTE Risk Level:: Medical - moderate - high VTE Device Contraindication: Treatment Not Indicated VTE Drug Contraindication: N/A - Med Ordered
[2021-05-12] VITALS: BP 177/85; PULSE 91; RESP 18; TEMP 36.2; O2SAT 96
[2021-05-12 00:15] VITALS: BMI 33.3
[2021-05-12] MEDS: 0.9 % Sodium Chloride Flush 3 ML SYRINGE IVFLUSH ×4 (00:29→20:02)
[2021-05-12 04:00] VITALS: BP 152/75; PULSE 83; RESP 18; TEMP 36.2; O2SAT 98
[2021-05-12 04:22] VITALS: BMI 33.3
[2021-05-12] MEDS: Levothyroxine Sodium 50 MCG TABLET PO (05:33)
[2021-05-12 06:20] LABS: MANUAL DIFF FLAG NO
[2021-05-12 06:27] LABS: Basophils Percent Auto 0.3 % (0-2); Eosinophils Absolute Auto 0.3 X10*3/uL (0.0-0.4); Eosinophils Percent Auto 2.7 % (0-4); Hematocrit 36.4 % (42.0-52.0); Hemoglobin 12.2 g/dl (14.0-18.0); Imm Gran Abs Auto 0.03 X10*3/uL (0.00-0.03); Imm Gran Pct Auto 0.3 % (0.0-0.4); Lymphocytes Absolute Auto 2.2 X10*3/uL (1.2-4.9); Lymphocytes Percent Auto 22.4 % (20-40); Mean Corpuscular HGB Conc 33.5 g/dl (31.0-36.0); Mean Corpuscular Hemoglobin 31.6 pg (27.0-33.0); Mean Corpuscular Volume 94.3 fL (80.0-98.0); Mean Platelet Volume 11.2 fL (9.4-12.4); Monocytes Absolute Auto 1.2 X10*3/uL (0.1-1.2); Monocytes Percent Auto 12.3 % (2-11); Neutrophils Absolute Auto 5.9 x10*3/uL (2.0-8.3); Platelet Count 206 X10*3/uL (160-400); Red Blood Count 3.86 X10*6/uL (4.60-5.80); Red Cell Distribution Width 14.2 % (11.0-16.0); White Blood Count 9.6 X10*3/uL (4.8-10.8)
[2021-05-12 06:40] LABS: Anion Gap 10 (12-20); Blood Urea Nitrogen 13 mg/dL (9-16); Calcium 9.1 mg/dL (8.4-10.2); Carbon Dioxide 27 mmol/L (22-29); Chloride 104 mmol/L (96-108); Creatinine Clr Calc Pharmacy 92.6; Estimated Glomerular Filt Rate > 60; Glucose Random 126 mg/dL (60-115); Potassium 4.1 mmol/L (3.3-5.1); Sodium 137 mmol/L (135-145)
[2021-05-12 07:22] VITALS: BP 139/63; PULSE 83; RESP 18; TEMP 36.7; O2SAT 97
[2021-05-12] MEDS: lisinopriL 20 MG TABLET PO (07:51)
[2021-05-12 07:53] LABS: Glucose, Whole Blood 122 mg/dL (60-115)
[2021-05-12 10:19] LABS: INTERNATIONAL NORM RATIO 2.6 (0.9-1.1); Prothrombin Time 30.1 SEC (9.9-13.0)
--- NOTE | 2021-05-12 11:08 | P.PNIM_ITS ---
Subjective Subjective Date of Service: 05/13/21 Interval History: patient presented to emergency room with confusion, offers no other complaints of headache, lightheadedness, dizziness, no weakness, no slurred speech, no word-finding difficulty, as per patient's symptoms are going on for several months, denies fever chills no urinary frequency or urgency no cough or sputum production recently diagnosed to have COVID-19 infection. Review of Systems Review of Systems: Yes all other systems are reviewed and are negative Physical Exam Verdana 4l Vital Signs: Verdana 4d Verdana 4d Vital Signs: Verdana 4d Verdana 4Bd Last Vital Signs Verdana 4d [facility] Nurse Practitioner New 4d [facility] Nurse Practitioner New 4d Temp 98.1 F 05/12/21 07:22 Women'S [facility] Care Nurse Practitioner New 4d Pulse 83 05/12/21 07:22 Women'S [facility] Care Nurse Practitioner New 4d Resp 18 05/12/21 07:22 BP 139/63 05/12/21 07:22 Pulse Ox 97 05/12/21 07:22 BMI result Body Mass Index 33.3 Const: Other: General Sitting comfortably, in no acute distress. oral mucosa moist Neck supple no JVD. CVS regular rate rhythm, Respiratory lungs clear to auscultation, no respiratory distress, no wheeze, no rhonchi. Gastrointestinal abdomen soft, nontender, bowel sounds audible, no no guarding , no rigidity. Extremities no edema. Neuro nonfocal ,speech clear, cranial nerve 2-12 intact. no pronator drift, gait not assessed, not aware of place or time Skin no rash Objective Data Active Medications Acetaminophen (Acetaminophen 325 Mg Tablet) 650 mg PO Q6H PRN PRN Reason: Pain, Mild (Pain Scale 1-3) Albuterol Sulfate (Albuterol Sulfate 90 Mcg 8 Gm Inhaler) 2 puff INHALE Q6H PRN PRN Reason: Wheezing Atorvastatin Calcium (Atorvastatin Calcium 40 Mg Tablet) 40 mg PO BEDTIME [facility] Clotrimazole (Clotrimazole 1 % Cream 15 Gm Tube) 1 appl TOPICAL BID [facility]; Protocol Last Admin: 05/12/21 07:51 Dose: Not Given Documented by: ROMEO Non-Admin Reason: not available Dextrose (Dextrose 50 % 25 Gm/50 Ml Syringe) 25 gm IVPUSH Q15M PRN; Protocol PRN Reason: per Hypoglycemia Standing Ord. Glucose (Glucose Gel 15 Gm Gel..Gram.) 15 gm PO Q15M PRN; Protocol PRN Reason: per Hypoglycemia Standing Ord. Insulin Human Lispro (Insulin Lispro 100 Unit/Ml 3 Ml Vial) 0 unit SUBCUT QIDACHS PENDING SALE TO [facility]; Protocol Last Admin: 05/12/21 07:50 Dose: Not Given Documented by: ROMEO Non-Admin Reason: No Insulin Coverage Levothyroxine Sodium (Levothyroxine Sodium 50 Mcg Tablet) 50 mcg PO DAILY@0600 [facility] Last Admin: 05/12/21 05:33 Dose: 50 mcg Documented by: DUKE Lisinopril (Lisinopril 20 Mg Tablet) 20 mg PO DAILY [facility]; Protocol Last Admin: 05/12/21 07:51 Dose: 20 mg Documented by: ROMEO Melatonin (Melatonin 3 Mg Tablet) 6 mg PO BEDTIME PRN PRN Reason: Insomnia Mupirocin (Mupirocin 2 % Oint 22 Gm Tube) 1 appl TOPICAL BID [facility]; Protocol Last Admin: 05/12/21 07:52 Dose: Not Given Documented by: ROMEO Non-Admin Reason: not available Non-Formulary Medication (Empagliflozin [Jardiance]) 25 mg PO DAILY [facility] Nystatin (Nystatin Powder 15 Gm Bottle) 1 appl TOPICAL BID [facility]; Protocol Last Admin: 05/12/21 07:52 Dose: Not Given Documented by: ROMEO Non-Admin Reason: not available Pharmacy Consult (Consult Rx Perform Med Rec) 1 each MISCELLANE ONCE PRN PRN Reason: Consult order Senna (Sennosides 8.6 Mg Tablet) 17.2 mg PO BEDTIME PRN PRN Reason: Constipation Sodium Chloride (0.9 % Sodium Chloride Flush 3 Ml Syringe) 3 ml IVFLUSH QSHIFT [facility] Last Admin: 05/12/21 07:51 Dose: 3 ml Documented by: ROMEO Warfarin Sodium (Warfarin Sodium 4 Mg Tablet) 4 mg PO DAILY@1800 [facility] Labs CBC & Chem 7: 05/12/21 05:56 05/12/21 05:56 Labs: Laboratory Results - last 24 hr 05/11/21 05/11/21 05/11/21 14:44 14:45 14:45 MCV MCH MCHC RDW Plt Count MPV Immature Gran % (Auto) Neut % (Auto) Lymph % (Auto) [place] % (Auto) Eos % (Auto) Baso % (Auto) Lymph # (Auto) [place] # (Auto) Eos # (Auto) Baso # (Auto) Abs Immat Gran (auto) Absolute Neuts (auto) Absolute Nucleated RBC Nucleated RBC % (auto) PT INR O2 Saturation ABG pH at Pt Temp ABG pH (Temp Correct) ABG pCO2 at Pt Temp ABG pO2 at Pt Temp ABG HCO3 ABG Base Excess (Actual) Anion Gap Estim Creat Clear Calc Estimated GFR POC Glucose Random Glucose Calcium Magnesium Total Bilirubin Direct Bilirubin AST ALT Alkaline Phosphatase Ammonia Total Protein Albumin Lipase TSH Urine Color STRAW Urine Appearance CLEAR Urine pH 6.0 Ur Specific [place] 1.010 Urine Protein NEG Urine Glucose (UA) >=1000 H Urine Ketones NEG Urine Blood NEG Urine Nitrite NEG Ur Leukocyte Esterase NEG Urine RBC 0-2 Urine WBC 0-2 Ur Squamous Epith Cells TRACE Urine Bacteria NONE Urine Mucus 1+ Urine Opiates Screen POSITIVE H Urine Fentanyl Screen Not Detected Ur Barbiturates Screen Not Detected Ur Phencyclidine Scrn Not Detected Ur Amphetamines Screen Not Detected U Benzodiazepines Scrn Not Detected Urine Cocaine Screen Not Detected U Marijuana (THC) Screen Not Detected Ethyl Alcohol COVID-19 (DYLAN) Negative COVID-19 Clin Com See Note 05/11/21 05/11/21 05/11/21 14:55 14:55 14:55 MCV 92.2 MCH 31.3 MCHC 34.0 RDW 14.0 Plt Count 207 MPV 10.9 Immature Gran % (Auto) 0.2 Neut % (Auto) 66.8 Lymph % (Auto) 18.9 L [place] % (Auto) 10.8 Eos % (Auto) 3.0 Baso % (Auto) 0.3 Lymph # (Auto) 1.8 [place] # (Auto) 1.0 Eos # (Auto) 0.3 Baso # (Auto) 0.0 Abs Immat Gran (auto) 0.02 Absolute Neuts (auto) 6.2 Absolute Nucleated RBC 0.000 Nucleated RBC % (auto) 0.0 PT INR O2 Saturation ABG pH at Pt Temp ABG pH (Temp Correct) ABG pCO2 at Pt Temp ABG pO2 at Pt Temp ABG HCO3 ABG Base Excess (Actual) Anion Gap 10 L Estim Creat Clear Calc 91.2 Estimated GFR > 60 POC Glucose Random Glucose 142 H Calcium 8.9 D Magnesium 1.9 Total Bilirubin 0.6 Direct Bilirubin 0.2 AST 28 ALT 24 Alkaline Phosphatase 72 Ammonia 42 Total Protein 6.7 Albumin 3.6 Lipase 39 TSH 0.82 Urine Color Urine Appearance Urine pH Ur Specific [place] Urine Protein Urine Glucose (UA) Urine Ketones Urine Blood Urine Nitrite Ur Leukocyte Esterase Urine RBC Urine WBC Ur Squamous Epith Cells Urine Bacteria Urine Mucus Urine Opiates Screen Urine Fentanyl Screen Ur Barbiturates Screen Ur Phencyclidine Scrn Ur Amphetamines Screen U Benzodiazepines Scrn Urine Cocaine Screen U Marijuana (THC) Screen Ethyl Alcohol COVID-19 (DYLAN) COVID-19 [facility] 05/11/21 05/11/21 05/11/21 14:55 14:55 15:02 MCV MCH MCHC RDW Plt Count MPV Immature Gran % (Auto) Neut % (Auto) Lymph % (Auto) [place] % (Auto) Eos % (Auto) Baso % (Auto) Lymph # (Auto) [place] # (Auto) Eos # (Auto) Baso # (Auto) Abs Immat Gran (auto) Absolute Neuts (auto) Absolute Nucleated RBC Nucleated RBC % (auto) PT 30.1 H INR 2.6 H O2 Saturation 100.0 ABG pH at Pt Temp 7.51 H ABG pH (Temp Correct) ABG pCO2 at Pt Temp 30 L ABG pO2 at Pt Temp 141 H ABG HCO3 24 ABG Base Excess (Actual) 2.7 Anion Gap Estim Creat Clear Calc Estimated GFR POC Glucose Random Glucose Calcium Magnesium Total Bilirubin Direct Bilirubin AST ALT Alkaline Phosphatase Ammonia Total Protein Albumin Lipase TSH Urine Color Urine Appearance Urine pH Ur Specific [place] Urine Protein Urine Glucose (UA) Urine Ketones Urine Blood Urine Nitrite Ur Leukocyte Esterase Urine RBC Urine WBC Ur Squamous Epith Cells Urine Bacteria Urine Mucus Urine Opiates Screen Urine Fentanyl Screen Ur Barbiturates Screen Ur Phencyclidine Scrn Ur Amphetamines Screen U Benzodiazepines Scrn Urine Cocaine Screen U Marijuana (THC) Screen Ethyl Alcohol < 10 COVID-19 (DYLAN) COVID-19 Tidal 05/12/21 05/12/21 05/12/21 05:56 05:56 07:21 MCV 94.3 MCH 31.6 MCHC 33.5 RDW 14.2 Plt Count 206 MPV 11.2 Immature Gran % (Auto) 0.3 Neut % (Auto) 62.0 Lymph % (Auto) 22.4 [place] % (Auto) 12.3 H Eos % (Auto) 2.7 Baso % (Auto) 0.3 Lymph # (Auto) 2.2 [place] # (Auto) 1.2 Eos # (Auto) 0.3 Baso # (Auto) 0.0 Abs Immat Gran (auto) 0.03 Absolute Neuts (auto) 5.9 Absolute Nucleated RBC 0.000 Nucleated RBC % (auto) 0.0 PT INR O2 Saturation ABG pH at Pt Temp ABG pH (Temp Correct) ABG pCO2 at Pt Temp ABG pO2 at Pt Temp ABG HCO3 ABG Base Excess (Actual) Anion Gap 10 L Estim Creat Clear Calc 92.6 Estimated GFR > 60 POC Glucose 122 H Random Glucose 126 H Calcium 9.1 Magnesium Total Bilirubin Direct Bilirubin AST ALT Alkaline Phosphatase Ammonia Total Protein Albumin Lipase TSH Urine Color Urine Appearance Urine pH Ur Specific [place] Urine Protein Urine Glucose (UA) Urine Ketones Urine Blood Urine Nitrite Ur Leukocyte Esterase Urine RBC Urine WBC Ur Squamous Epith Cells Urine Bacteria Urine Mucus Urine Opiates Screen Urine Fentanyl Screen Ur Barbiturates Screen Ur Phencyclidine Scrn Ur Amphetamines Screen U Benzodiazepines Scrn Urine Cocaine Screen U Marijuana (THC) Screen Ethyl Alcohol COVID-19 (DYLAN) COVID-19 Clin Com 05/12/21 08:47 MCV MCH MCHC RDW Plt Count MPV Immature Gran % (Auto) Neut % (Auto) Lymph % (Auto) [place] % (Auto) Eos % (Auto) Baso % (Auto) Lymph # (Auto) [place] # (Auto) Eos # (Auto) Baso # (Auto) Abs Immat Gran (auto) Absolute Neuts (auto) Absolute Nucleated RBC Nucleated RBC % (auto) PT 30.1 H INR 2.6 H O2 Saturation ABG pH at Pt Temp ABG pH (Temp Correct) ABG pCO2 at Pt Temp ABG pO2 at Pt Temp ABG HCO3 ABG Base Excess (Actual) Anion Gap Estim Creat Clear Calc Estimated GFR POC Glucose Random Glucose Calcium Magnesium Total Bilirubin Direct Bilirubin AST ALT Alkaline Phosphatase Ammonia Total Protein Albumin Lipase TSH Urine Color Urine Appearance Urine pH Ur Specific [place] Urine Protein Urine Glucose (UA) Urine Ketones Urine Blood Urine Nitrite Ur Leukocyte Esterase Urine RBC Urine WBC Ur Squamous Epith Cells Urine Bacteria Urine Mucus Urine Opiates Screen Urine Fentanyl Screen Ur Barbiturates Screen Ur Phencyclidine Scrn Ur Amphetamines Screen U Benzodiazepines Scrn Urine Cocaine Screen U Marijuana (THC) Screen Ethyl Alcohol COVID-19 (DYLAN) COVID-19 Clin Com Assessment and Plan (1) Hx of aortic valve replacement: Status: Acute (2) Type 2 diabetes mellitus with hyperglycemia, with long-term current use of insulin: Status: Acute (3) Cognitive impairment: Status: Acute Plan 70-year-old male with a past medical history of hypertension, hyperlipidemia, diabetes, CHF, obesity, paroxysmal AFib, history of off mitral valve replacement/ aortic valve replacement-on Coumadin; history of COVID-19 infecti on; presented to the hospital today with a chief complaint of confusion.? Cognitive impairment likely undiagnosed dementia? worsening confusion likely due to use of opiates, however patient unable to recall if he took oxycodone,but urine toxicology positive for opiates, he did receive a prescription of oxycodone several months ago question related to recent COVID infection May 01 no head injury or trauma, no fevers normal WBC no neck stiffness/ troponin are flat CT head unremarkable no evidence of vascular events/ no evidence of infection with normal urine analysis, normal chest x-ray, normal renal function LFTs TSH normal,folate/ B12, pending TSH patient unable to recall the name of place /name of current and past president/ not aware of all of his medication/ as per patient has been forgetful for > 6 months will try to talk to patient's friend Orlandonataliya Wrightner [phone] Neurology for further recommendations History of diabetes:? blood sugars stable around 120 , on Jardiance 25 mg daily, continue insulin sliding scale and diabetic diet History of AFib / status post mitral and aortic valve replacement, goal of INR 2.5-3.5 continue Coumadin 4 mg daily inr 2.6 History of hypertension BP stable on Zestril hyperlipidemia: Continue Lipitor hypothyroidism continue Synthroid? DVT prophylaxis:? Patient on Coumadin Code status: Full code disposition will observe patient for clearance of confusion, await Neurology input for further recommendation Quality Stroke Does the patient have a stroke diagnosis?: No VTE Prior VTE?: No VTE Risk Level:: Medical - moderate - high VTE Device Contraindication: Treatment Not Indicated VTE Drug Contraindication: N/A - Med Ordered
[2021-05-12 11:09] VITALS: BP 125/60; PULSE 82; RESP 18; TEMP 37.1; O2SAT 93
--- NOTE | 2021-05-12 11:40 | P.CNNE_ITS ---
History of Present Illness Data of Consult Service Date: 05/12/21 Primary Care Provider: Unknown Physician HPI Reason for consult: Confusion 70 years old man came to hospital with confusion. Underlying history was positive for atrial fibrillation but he was anticoagulated. He said that he enjoyed a spiritual group in the past but was unable to join that group due to COVID related restrictions. Recently he developed gout related symptoms and was prescribed a medicine. He said that that medicine might have caused the problem. He denied taking any drug of abuse or any medicine other than prescription medicine but his tox screen was put positive for opiates. He was also noted to have pinpoint pupil in emergency room. He did not have recollection of what had happened. There was no focal weakness or any sign of infection in emergency room. Review of Systems Verdana 4l Review of Systems: Verdana 4d No recent cold or flu-like Verdana 4d illness Verdana 4d PMFSH Past Medical History Medical History BMI 34.0-34.9,adult BPH (benign prostatic hyperplasia) Chronic kidney disease Diabetes mellitus Gallstones Gout Heart failure, unspecified HTN (hypertension) Hyperlipidemia Obesity due to excess calories Osteomyelitis Paroxysmal atrial fibrillation Prosthetic valve dysfunction Spinal stenosis, lumbar Type 2 diabetes mellitus with diabetic neuropathy, unspecified Type 2 diabetes mellitus with hyperglycemia, with long-term current use of insulin Family History Family History Father CVD (cardiovascular disease) Mother CVD (cardiovascular disease) Surgical History Surgical History Hx of aortic valve replacement Hx of colonoscopy Hx of endoscopy Hx of exploratory laparotomy Hx of laparoscopy Mitral valve replaced Social History Social History Household Members: None Alcohol intake: never Patient Tobacco Use Status: Never used Tobacco Use of substances other than those prescribed or required for medical reasons: No Advance Directives: No Advance Directives Information Provided: No Meds Allergies Allergy/AdvReac Type Severity Reaction Status Date / Time exenatide [From Allergy Intermediate AFFECTED Verified 04/11/21 13:14 BYETTA] PANCREAS Active Medications: Current Medications Acetaminophen (Acetaminophen 325 Mg Tablet) 650 mg PO Q6H PRN PRN Reason: Pain, Mild (Pain Scale 1-3) Albuterol Sulfate (Albuterol Sulfate 90 Mcg 8 Gm Inhaler) 2 puff INHALE Q6H PRN PRN Reason: Wheezing Atorvastatin Calcium (Atorvastatin Calcium 40 Mg Tablet) 40 mg PO BEDTIME [facility] Clotrimazole (Clotrimazole 1 % Cream 15 Gm Tube) 1 appl TOPICAL BID [facility]; Protocol Last Admin: 05/12/21 07:51 Dose: Not Given Documented by: Dextrose (Dextrose 50 % 25 Gm/50 Ml Syringe) 25 gm IVPUSH Q15M PRN; Protocol PRN Reason: per Hypoglycemia Standing Ord. Glucose (Glucose Gel 15 Gm Gel..Gram.) 15 gm PO Q15M PRN; Protocol PRN Reason: per Hypoglycemia Standing Ord. Insulin Human Lispro (Insulin Lispro 100 Unit/Ml 3 Ml Vial) 0 unit SUBCUT QIDACHS [facility]; Protocol Last Admin: 05/12/21 07:50 Dose: Not Given Documented by: Levothyroxine Sodium (Levothyroxine Sodium 50 Mcg Tablet) 50 mcg PO DAILY@0600 [facility] Last Admin: 05/12/21 05:33 Dose: 50 mcg Documented by: Lisinopril (Lisinopril 20 Mg Tablet) 20 mg PO DAILY [facility]; Protocol Last Admin: 05/12/21 07:51 Dose: 20 mg Documented by: Melatonin (Melatonin 3 Mg Tablet) 6 mg PO BEDTIME PRN PRN Reason: Insomnia Mupirocin (Mupirocin 2 % Oint 22 Gm Tube) 1 appl TOPICAL BID [facility]; Protocol Last Admin: 05/12/21 07:52 Dose: Not Given Documented by: Non-Formulary Medication (Empagliflozin [Jardiance]) 25 mg PO DAILY [facility] Nystatin (Nystatin Powder 15 Gm Bottle) 1 appl TOPICAL BID [facility]; Protocol Last Admin: 05/12/21 07:52 Dose: Not Given Documented by: Pharmacy Consult (Consult Rx Perform Med Rec) 1 each MISCELLANE ONCE PRN PRN Reason: Consult order Senna (Sennosides 8.6 Mg Tablet) 17.2 mg PO BEDTIME PRN PRN Reason: Constipation Sodium Chloride (0.9 % Sodium Chloride Flush 3 Ml Syringe) 3 ml IVFLUSH QSHIFT [facility] Last Admin: 05/12/21 07:51 Dose: 3 ml Documented by: Warfarin Sodium (Warfarin Sodium 4 Mg Tablet) 4 mg PO DAILY@1800 [facility] Home Medications Medication Instructions Recorded Confirmed Last Taken Type albuterol sulfate 2 puff 03/14/20 05/11/21 Unknown History 90 mcg/actuation INHALATION Q6H PRN aerosol inhaler lisinopril 20 mg 20 mg PO DAILY 06/05/20 05/11/21 05/10/21 History tablet insulin lispro See Rx 04/11/21 05/11/21 05/11/21 History protamine-lispro Instructions SUBCUT BID ml 100 unit/mL (75-25) subcutaneous pen atorvastatin 40 40 mg PO BEDTIME 05/11/21 05/11/21 05/10/21 History mg tablet warfarin 2 mg 4 mg PO DAILY 05/11/21 05/11/21 05/10/21 History tablet Physical Exam Verdana 4l Vital Signs: Verdana 4d Verdana 4d Vital Signs: Verdana 4d Verdana 4Bd Last Vital Signs Verdana 4d Zone Manager New 4d Zone Manager New 4d Temp 98.7 F 05/12/21 11:09 Zone Manager New 4d Pulse 82 05/12/21 11:09 Zone Manager New 4d Resp 18 05/12/21 11:09 BP 125/60 05/12/21 11:09 Pulse Ox 93 05/12/21 11:09 BMI result Body Mass Index 33.3 Neuro: Other: He is alert and awake with normal spontaneity of speech fluency comprehension and affect. Face is symmetrical. There is no tremor. Deep tendon reflexes are absent. Extraocular muscles were intact. Visual briones are full. Results Labs CBC & Chem 7: 05/12/21 05:56 05/12/21 05:56 Labs: Short CBC 05/11/21 05/12/21 Range/Units 14:55 05:56 WBC 9.3 9.6 (4.8-10.8) X10*3/uL Hgb 12.4 L 12.2 L (14.0-18.0) g/dl Hct 36.5 L 36.4 L (42.0-52.0) % Plt Count 207 206 (160-400) X10*3/uL BMP 05/11/21 05/12/21 14:55 05:56 Sodium 134 L 137 Potassium 4.3 4.1 Chloride 104 104 Carbon Dioxide 24 27 BUN 13 13 Creatinine 0.89 0.85 Calcium 8.9 D 9.1 Liver Function 05/11/21 Range/Units 14:55 Total Bilirubin 0.6 (0.0-1.0) mg/dL Direct Bilirubin 0.2 (0.0-0.5) mg/dL AST 28 (5-37) U/L ALT 24 (0-40) U/L Alkaline Phosphatase 72 (39-117) U/L Albumin 3.6 (3.5-5.0) g/dL Urine 05/11/21 Range/Units 14:45 Urine Color STRAW Urine Appearance CLEAR Urine pH 6.0 (5.0-8.0) Ur Specific [place] 1.010 (1.005-1.025) Urine Protein NEG (NEG-TRACE) MG/DL Urine Glucose (UA) >=1000 H (NEG) MG/DL Noncontrast head CT did not reveal any acute abnormality. Mild diffuse cerebral atrophy was noted Assessment and Plan (1) Encephalopathy: Status: Acute Encephalopathy that might have been triggered by a medicine. Differential mayra gnosis may also include complex partial seizure disorder or a stroke but for stroke he was already anticoagulated with having history of atrial fibrillation. At this time my recommendation is to guide him about complications of different medicines including opioids, and arrange an outpatient EEG. As far as the possibility of stroke is concerned, even if you find it on MRI, it will not change the management of continuing anticoagulation Procedures Date of Service Date of Service: 05/12/21
[2021-05-12 11:46] LABS: Glucose, Whole Blood 182 mg/dL (60-115)
[2021-05-12 12:07] LABS: Folate 14.7 ng/mL (> or = 4.0); Vitamin B12 405 pg/mL (200-900)
[2021-05-12] MEDS: Insulin Lispro 100 UNIT/ML 3 ML VIAL SUBCUT ×3 (12:11→20:35)
--- NOTE | 2021-05-12 15:21 | MHC.CM.PN ---
Addendum entered by Joceline Waite 05/12/21 15:44: UPON REVISIT TO ROOM ,PATIENT STATES THAT HE IS BEING DISCHARGED HOME TOMORROW. NO NEED FOR DEBIT CARD TO BE MAILED PATIENT'S FRIEND WILL PROVIDE TRANSPORTATION Original Note: THIS DRIER OPERATOR HELPER RECEIVED REQUEST FOR PATIENT TO RETURN A DEBIT CARD TO AN ADDRESS THAT WAS GIVEN TO THIS DRIER OPERATOR HELPER (PATIENT'S GIRLFRIEND PAOLA BRAND. WHEN THIS DRIER OPERATOR HELPER ASKED PATIENT, HE DECLINED, STATING I WILL CALL HER WITH THE NUMBER. SHE WANTS TO ORDER FOOD PATIENT HAS HIS WALLET AND WAS MAKING THE PHONE CALL CASE MANAGEMENT TO RETURN IN THE EVENT THAT HE DOES WANT THE DEBIT CARD MAILED ADDRESS WOULD BE [address] [place] [id number]
[2021-05-12 15:55] VITALS: BP 132/67; PULSE 87; RESP 17; TEMP 36.9; O2SAT 95
[2021-05-12 16:32] LABS: Glucose, Whole Blood 209 mg/dL (60-115)
[2021-05-12] MEDS: Warfarin Sodium 4 MG TABLET PO (16:55)
[2021-05-12] MEDS: Nystatin Powder 15 GM BOTTLE 1 APPL TOPICAL ×2 (16:56→20:02)
[2021-05-12 19:26] VITALS: BP 153/72; PULSE 76; RESP 17; TEMP 36.4; O2SAT 97
[2021-05-12] MEDS: Atorvastatin Calcium 40 MG TABLET PO (20:02)
[2021-05-12] MEDS: Mupirocin 2 % Oint 22 GM TUBE 1 APPL TOPICAL (20:02)
[2021-05-12] MEDS: Clotrimazole 1 % Cream 15 GM TUBE 1 APPL TOPICAL (20:02)
[2021-05-12 20:04] LABS: Glucose, Whole Blood 206 mg/dL (60-115)
[2021-05-13] VITALS (7 sets, daily range): BP systolic 123–161; BP diastolic 56–74; PULSE 73–88; RESP 16–18; TEMP 36.4–37; O2SAT 95–97
--- NOTE | 2021-05-13 | EEG_ITS ---
This is a 16-channel EEG with an EKG lead. The patient is reported awake and drowsy during the tracing. Background EEG rhythm is low to medium amplitude, mixed theta, beta with no obvious asymmetry or paroxysmal tendency. Photic stimulation does not produce any significant driving. Hyperventilation is not performed. Cardiac lead does not reveal any significant abnormality. No sharp wave spikes or paroxysmal tendency noted. IMPRESSION: Generalized slowing with no evidence of seizure disorder. MD GOVIND Whelan/MAGGIE / [id number]
[2021-05-13] MEDS: Levothyroxine Sodium 50 MCG TABLET PO (05:14)
[2021-05-13 06:12] LABS: INTERNATIONAL NORM RATIO 3.2 (0.9-1.1); Prothrombin Time 36.9 SEC (9.9-13.0)
[2021-05-13] MEDS: Insulin Lispro 100 UNIT/ML 3 ML VIAL SUBCUT ×4 (07:52→22:49)
[2021-05-13] MEDS: lisinopriL 20 MG TABLET PO (07:52)
[2021-05-13] MEDS: Clotrimazole 1 % Cream 15 GM TUBE 1 APPL TOPICAL ×2 (07:53→19:51)
[2021-05-13] MEDS: Nystatin Powder 15 GM BOTTLE 1 APPL TOPICAL ×2 (07:53→19:52)
[2021-05-13] MEDS: Mupirocin 2 % Oint 22 GM TUBE 1 APPL TOPICAL ×2 (07:54→19:52)
[2021-05-13] MEDS: 0.9 % Sodium Chloride Flush 3 ML SYRINGE IVFLUSH ×3 (07:54→19:50)
[2021-05-13 08:44] LABS: Glucose, Whole Blood 165 mg/dL (60-115)
--- NOTE | 2021-05-13 12:06 | P.PNIM_ITS ---
Subjective Subjective Date of Service: 05/13/21 Interval History: more awake alert this morning, aware of place person and time, vague historian feels symptoms started 1-2 weeks ago after starting a new medication, unable to recall the name of the medication that was given to him by his PCP, he denies headache lightheadedness dizziness no chest pain, no fever, no chills, no other acute issues overnight, denies history of seizures, or seizure-like activity at home. Physical Exam Verdana 4l Vital Signs: Verdana 4d Verdana 4d Vital Signs: Verdana 4d Verdana 4Bd Last Vital Signs Verdana 4d Non Destructive Testing Specialist New 4d Non Destructive Testing Specialist New 4d Temp 98.4 F 05/13/21 11:23 Non Destructive Testing Specialist New 4d Pulse 79 05/13/21 11:23 Non Destructive Testing Specialist New 4d Resp 18 05/13/21 11:23 BP 161/74 H 05/13/21 11:23 Pulse Ox 96 05/13/21 11:23 BMI result Body Mass Index 33.3 Const: Other: General ?no acute distress. oral mucosa moist Neck? supple no JVD. CVS? regular rate rhythm, Respiratory lungs clear to auscultation, no respiratory distress, no wheeze, no rhonchi. Gastrointestinal abdomen soft, nontender, bowel sounds audible, no no guarding , no rigidity. Extremities no? edema. Neuro nonfocal ,speech clear, cranial nerve 2-12 intact. no pronator drift, gait not assessed, awake alert x3 Skin no rash Objective Data Active Medications Acetaminophen (Acetaminophen 325 Mg Tablet) 650 mg PO Q6H PRN PRN Reason: Pain, Mild (Pain Scale 1-3) Albuterol Sulfate (Albuterol Sulfate 90 Mcg 8 Gm Inhaler) 2 puff INHALE Q6H PRN PRN Reason: Wheezing Atorvastatin Calcium (Atorvastatin Calcium 40 Mg Tablet) 40 mg PO BEDTIME [facility] Last Admin: 05/12/21 20:02 Dose: 40 mg Documented by: DUKE Clotrimazole (Clotrimazole 1 % Cream 15 Gm Tube) 1 appl TOPICAL BID [facility]; Protocol Last Admin: 05/13/21 07:53 Dose: 1 appl Documented by: ROMEO Dextrose (Dextrose 50 % 25 Gm/50 Ml Syringe) 25 gm IVPUSH Q15M PRN; Protocol PRN Reason: per Hypoglycemia Standing Ord. Glucose (Glucose Gel 15 Gm Gel..Gram.) 15 gm PO Q15M PRN; Protocol PRN Reason: per Hypoglycemia Standing Ord. Insulin Human Lispro (Insulin Lispro 100 Unit/Ml 3 Ml Vial) 0 unit SUBCUT QIDACHS [facility]; Protocol Last Admin: 05/13/21 07:52 Dose: 2 unit Documented by: ROMEO Levothyroxine Sodium (Levothyroxine Sodium 50 Mcg Tablet) 50 mcg PO DAILY@0600 [facility] Last Admin: 05/13/21 05:14 Dose: 50 mcg Documented by: DUKE Lisinopril (Lisinopril 20 Mg Tablet) 20 mg PO DAILY [facility]; Protocol Last Admin: 05/13/21 07:52 Dose: 20 mg Documented by: ROMEO Melatonin (Melatonin 3 Mg Tablet) 6 mg PO BEDTIME PRN PRN Reason: Insomnia Mupirocin (Mupirocin 2 % Oint 22 Gm Tube) 1 appl TOPICAL BID [facility]; Protocol Last Admin: 05/13/21 07:54 Dose: 1 appl Documented by: ROMEO Non-Formulary Medication (Empagliflozin [Jardiance]) 25 mg PO DAILY [facility] Nystatin (Nystatin Powder 15 Gm Bottle) 1 appl TOPICAL BID [facility]; Protocol Last Admin: 05/13/21 07:53 Dose: 1 appl Documented by: ROMEO Pharmacy Consult (Consult Rx Perform Med Rec) 1 each MISCELLANE ONCE PRN PRN Reason: Consult order Senna (Sennosides 8.6 Mg Tablet) 17.2 mg PO BEDTIME PRN PRN Reason: Constipation Sodium Chloride (0.9 % Sodium Chloride Flush 3 Ml Syringe) 3 ml IVFLUSH QSHIFT [facility] Last Admin: 05/13/21 07:54 Dose: 3 ml Documented by: ROMEO Warfarin Sodium (Warfarin Sodium 4 Mg Tablet) 4 mg PO DAILY@1800 [facility] Last Admin: 05/12/21 16:55 Dose: 4 mg Documented by: ROMEO Labs CBC & Chem 7: 05/12/21 05:56 05/12/21 05:56 Labs: Laboratory Results - last 24 hr 05/11/21 05/12/21 05/12/21 22:24 15:57 19:30 PT INR POC Glucose 209 H 206 H Vitamin B12 405 Folate 14.7 05/13/21 05/13/21 05:13 07:43 PT 36.9 H INR 3.2 H POC Glucose 165 H Vitamin B12 Folate Assessment and Plan (1) Hx of aortic valve replacement: Status: Acute (2) Type 2 diabetes mellitus with hyperglycemia, with long-term current use of insulin: Status: Acute (3) Cognitive impairment: Status: Acute Plan 70-year-old male with a past medical history of hypertension, hyperlipidemia, diabetes, CHF, obesity, paroxysmal AFib, history of off mitral valve replaceme nt/ aortic valve replacement-on Coumadin; history of COVID-19 infection; presented to the hospital today with a chief complaint of confusion.? Acute metabolic encephalopathy confusion resolved patient awake alert answering questions appropriately remains weak and unable to recall what medicines he took at home likely mild underlying cognitive impairment worsening confusion likely due to use of opiates, however patient unable to recall if he took oxycodone,but urine toxicology positive for opiates, he did receive a prescription of oxycodone several months ago zahnna took it in place of other meds question related to recent COVID infection May 01 no head injury or trauma, no fevers normal WBC no neck stiffness/ troponin are flat CT head unremarkable no evidence of vascular events/ no evidence of infection with normal urine analysis, normal chest x-ray, normal renal function LFTs TSH normal,folate/ B12, TSH all within normal range spoke with patient's friend Orlando Nam [phone] she agrees that patient has been confused for last 1-2 weeks but denies any confusion prior to that she is not aware of patient's medications call patient pharmacy [facility] no new prescriptions were given to him in last 2 weeks ,last new prescriptions was Allopurinol in March seen by Neurology they rec EEG and medication managmenet to avoid use of narcotics. History of diabetes:? blood sugars stable around 120 , on Jardiance 25 mg daily, continue insulin sliding scale and diabetic diet History of AFib / status post mitral and aortic valve replacement, goal of INR 2.5-3.5 continue Coumadin 4 mg daily inr 3.2 today History of hypertension BP stable on Zestril hyperlipidemia: Continue Lipitor hypothyroidism continue Synthroid? DVT prophylaxis:? Patient on Coumadin Code status: Full code disposition observe for 24 hours obtain EEG at a.m. discharge patient home if mental status cleared, encourage out of bed and ambulation Quality Stroke Does the patient have a stroke diagnosis?: No VTE Prior VTE?: No VTE Risk Level:: Medical - moderate - high VTE Device Contraindication: Treatment Not Indicated VTE Drug Contraindication: N/A - Med Ordered
[2021-05-13 12:39] LABS: Glucose, Whole Blood 222 mg/dL (60-115)
[2021-05-13 16:27] LABS: Glucose, Whole Blood 179 mg/dL (60-115)
[2021-05-13] MEDS: Warfarin Sodium 4 MG TABLET PO (16:49)
[2021-05-13] MEDS: Atorvastatin Calcium 40 MG TABLET PO (19:50)
[2021-05-13 20:18] LABS: Glucose, Whole Blood 226 mg/dL (60-115)
[2021-05-14 03:59] VITALS: BP 129/48; PULSE 83; RESP 18; TEMP 36.7; O2SAT 99
[2021-05-14] MEDS: Levothyroxine Sodium 50 MCG TABLET PO (05:33)
[2021-05-14 06:18] LABS: INTERNATIONAL NORM RATIO 3.4 (0.9-1.1)
[2021-05-14 06:50] LABS: Cholesterol 144 mg/dL; HDL Cholesterol 41 mg/dL; LDL Cholesterol Calculated 86 mg/dl; Triglycerides 87 mg/dL
[2021-05-14 07:15] VITALS: BP 136/84; PULSE 94; RESP 20; TEMP 36; O2SAT 98
[2021-05-14 07:22] LABS: Glucose, Whole Blood 189 mg/dL (60-115)
[2021-05-14] MEDS: lisinopriL 20 MG TABLET PO (07:50)
[2021-05-14] MEDS: Clotrimazole 1 % Cream 15 GM TUBE 1 APPL TOPICAL (07:50)
[2021-05-14] MEDS: 0.9 % Sodium Chloride Flush 3 ML SYRINGE IVFLUSH (07:50)
[2021-05-14] MEDS: Insulin Lispro 100 UNIT/ML 3 ML VIAL SUBCUT ×2 (07:50→11:19)
[2021-05-14] MEDS: Nystatin Powder 15 GM BOTTLE 1 APPL TOPICAL (07:51)
[2021-05-14] MEDS: Mupirocin 2 % Oint 22 GM TUBE 1 APPL TOPICAL (07:52)
[2021-05-14 08:29] LABS: Syphilis Screen Nonreactive (Nonreactive)
[2021-05-14 11:03] VITALS: BP 138/68; PULSE 94; RESP 19; TEMP 36.6; O2SAT 96
[2021-05-14 11:10] LABS: Glucose, Whole Blood 248 mg/dL (60-115)
--- NOTE | 2021-05-14 11:48 | PC.NURSE ---
Skin assessment completed. Patient has fungal rash in groin and in armpits from moisture. Nystatin applied to areas.
--- NOTE | 2021-05-14 11:58 | MHC.CM.PN ---
PATIENT WAS ABLE TO IDENTIFY HIS FRIEND IRASEMA AND DAUGHTER AURELIO TWO PEOPLE HE TRUSTS TO BE HCP AGENTS. CALL TO DAUGHTER AURELIO WITH PATIENT ([phone] WHO IS AGREEABLE AND ASKS FOR A COPY TO BE MAILED TO HER ADDRESS. COPY TO BE MAILED.HCP UPLOADED INTO [employer] AND PLACED IN CHART
--- NOTE | 2021-05-14 13:50 | HO.PM.IMPN ---
Subjective Subjective Date of Service: 05/14/21 Interval History: patient awake alert this morning, he is aware that he is at [facility], waiting for EEG scheduled for this morning, offers no acute complaints, still very vague about his medications, unable to recall the name of his PCP, unable to recall what new medicines he was prescribed by PCP Review of Systems Review of Systems: Yes all other systems are reviewed and are negative Physical Exam Vital Signs: Vital Signs: Last Vital Signs Temp 97.8 F 05/14/21 11:03 Pulse 94 05/14/21 11:03 Resp 19 05/14/21 11:03 BP 138/68 05/14/21 11:03 Pulse Ox 96 05/14/21 11:03 BMI result Body Mass Index 33.3 Const: Other: General ?no acute distress. oral muc mindi moist Neck? dolan pple no JVD. CVS? regular rate rhyth m, Respiratory xiomy gs clear to auscul tation, no respira tory distress, no wheeze, no rhonchi . Gastrointestinal abdomen soft, non tender, bowel soun ds audible, no gua rding , no rigidit y. Extremities no? edema. Neuro nonf ocal ,speech clear , cranial nerve 2- 12 intact. no pron ator drift, gait n ot assessed,? awak e alert x3 Skin no rash Objective Data Active Medications Acetaminophen (Acetaminophen 325 Mg Tablet) 650 mg PO Q6H PRN PRN Reason: Pain, Mild (Pain Scale 1-3) Albuterol Sulfate (Albuterol Sulfate 90 Mcg 8 Gm Inhaler) 2 puff INHALE Q6H PRN PRN Reason: Wheezing Atorvastatin Calcium (Atorvastatin Calcium 40 Mg Tablet) 40 mg PO BEDTIME [facility] Last Admin: 05/13/21 19:50 Dose: 40 mg Documented by: CASTILM Clotrimazole (Clotrimazole 1 % Cream 15 Gm Tube) 1 appl TOPICAL BID [facility]; Protocol Last Admin: 05/14/21 07:50 Dose: 1 appl Documented by: COTEMA Dextrose (Dextrose 50 % 25 Gm/50 Ml Syringe) 25 gm IVPUSH Q15M PRN; Protocol PRN Reason: per Hypoglycemia Standing Ord. Glucose (Glucose Gel 15 Gm Gel..Gram.) 15 gm PO Q15M PRN; Protocol PRN Reason: per Hypoglycemia Standing Ord. Insulin Human Lispro (Insulin Lispro 100 Unit/Ml 3 Ml Vial) 0 unit SUBCUT QIDACHS [facility]; Protocol Last Admin: 05/14/21 11:19 Dose: 4 unit Documented by: COTEMA Levothyroxine Sodium (Levothyroxine Sodium 50 Mcg Tablet) 50 mcg PO DAILY@0600 [facility] Last Admin: 05/14/21 05:33 Dose: 50 mcg Documented by: CASTILM Lisinopril (Lisinopril 20 Mg Tablet) 20 mg PO DAILY [facility]; Protocol Last Admin: 05/14/21 07:50 Dose: 20 mg Documented by: KEVENEMA Melatonin (Melatonin 3 Mg Tablet) 6 mg PO BEDTIME PRN PRN Reason: Insomnia Mupirocin (Mupirocin 2 % Oint 22 Gm Tube) 1 appl TOPICAL BID [facility]; Protocol Last Admin: 05/14/21 07:52 Dose: 1 appl Documented by: COTEMA Non-Formulary Medication (Empagliflozin [Jardiance]) 25 mg PO DAILY [facility] Nystatin (Nystatin Powder 15 Gm Bottle) 1 appl TOPICAL BID [facility]; Protocol Last Admin: 05/14/21 07:51 Dose: 1 appl Documented by: STACI Pharmacy Consult (Consult Rx Perform Med Rec) 1 each MISCELLANE ONCE PRN PRN Reason: Consult order Senna (Sennosides 8.6 Mg Tablet) 17.2 mg PO BEDTIME PRN PRN Reason: Constipation Sodium Chloride (0.9 % Sodium Chloride Flush 3 Ml Syringe) 3 ml IVFLUSH QSHIFT [facility] Last Admin: 05/14/21 07:50 Dose: 3 ml Documented by: STACI Warfarin Sodium (Warfarin Sodium 3 Mg Tablet) 3 mg PO DAILY@1800 [facility] Labs CBC & Chem 7: 05/12/21 05:56 05/12/21 05:56 Labs: Laboratory Results - last 24 hr 05/11/21 05/13/21 05/13/21 22:24 15:43 19:45 PT INR POC Glucose 179 H 226 H Triglycerides Cholesterol LDL Cholesterol, Calc HDL Cholesterol T.pallidum Ab (EIA) Nonreactive 05/14/21 05/14/21 05/14/21 05:51 05:51 07:15 PT 40.0 H INR 3.4 H POC Glucose 189 H Triglycerides 87 Cholesterol 144 LDL Cholesterol, Calc 86 HDL Cholesterol 41 T.pallidum Ab (EIA) 05/14/21 11:03 PT INR POC Glucose 248 H Triglycerides Cholesterol LDL Cholesterol, Calc HDL Cholesterol T.pallidum Ab (EIA) Assessment and Plan (1) Hx of aortic valve replacement: Status: Acute (2) Type 2 diabetes mellitus with hyperglycemia, with long-term current use of insulin: Status: Acute (3) Cognitive impairment: Status: Acute Plan 70-year-old male with a past medical history of hypertension, hyperlipidemia, diabetes, CHF, obesity, paroxysmal AFib, history of off mitral valve replacement/ aortic valve replacement-on Coumadin; history of COVID-19 infection; presented to the hospital today with a chief complaint of confusion.? Acute metabolic encephalopathy confusion resolved patient awake alert answering questions appropriately remains weak and unable to recall what medicines he took at home, unable to recall name of his PCP likely mild underlying cognitive impairment worsening confusion likely due to use of opiates, however patient unable to recall if he took oxycodone,but urine toxicology positive for opiates, he did receive a prescription of oxycodone several months ago eufemiamita took it in place of other meds question related to recent COVID infection May 01 no head injury or trauma, no fevers normal WBC no neck stiffness/ troponin are flat CT head unremarkable no evidence of vascular events/ no evidence of infection with normal urine analysis, normal chest x-ray, normal renal function LFTs TSH normal,folate/ B12, TSH all within normal range lives with friend Orlando Nam [phone] she agrees that patient has been confused for last 1-2 weeks but denies any confusion prior to that she is not aware of patient's medications [facility] pharmacy verified no new prescriptions were given to him in last 2 weeks ,last new prescriptions was Allopurinol in March seen by Neurology they rec EEG patient scheduled for EEG today/ will arrange for home VNA for medication management recommend close outpatient follow-up with PCP History of diabetes:? blood sugars elevated on Jardiance 25 mg daily, take scheduled insulin at home, will resume home medications upon discharge continue insulin sliding scale and diabetic diet History of AFib / status post mitral and aortic valve replacement, goal of INR 2.5-3.5 continue Coumadin 4 mg daily inr 3.4 today History of hypertension BP stable on Zestril hyperlipidemia: Continue Lipitor hypothyroidism continue Synthroid? DVT prophylaxis:? on Coumadin Code status: Full code disposition EEG scheduled for today, dispo plan is Home with VNA. Quality Stroke Does the patient have a stroke diagnosis?: No VTE Prior VTE?: No VTE Risk Level:: Medical - moderate - high VTE Device Contraindication: Treatment Not Indicated VTE Drug Contraindication: N/A - Med Ordered
--- NOTE | 2021-05-14 14:43 | P.DS_ITS ---
DS: Providers Provider Date of Service: 05/14/21 Date of admission: 05/11/21 23:03 Primary care physician: EMERALD Street Consults: 05/12/21 11:03 Consult to Neurology Routine Consulting Provider: [facility] Reason for consultation: confusion Has provider been notified: No DS: Diagnosis Discharge Diagnosis (1) Hx of aortic valve replacement: Status: Acute (2) Type 2 diabetes mellitus with hyperglycemia, with long-term current use of insulin: Status: Acute (3) Cognitive impairment: Status: Acute DS: Summary Hospital Course Hospital Course: Chief Complaint:? confusion ?70-year-old male with a past medical history of hypertension, hyperlipidemia, diabetes, CHF, obesity, paroxysmal AFib, history of off mitral valve replacement/ aortic valve replacement-on Coumadin; history of COVID-19 infection; presented to the hospital today with a chief complaint of confusion.? Most of the history obtained from the records and patient's.? At the time of my interview patient is more alert and awake, answering most of the questions fairly okay.? Patient denies any chest pain or palpitations.? He reports he has been little spaced out? Today.? Denies any fever chills cough.? Denies any urinary symptoms.? Denies taking drugs or excessive pain medications.? Denies taking any oxycodone .? ? Review of all other systems is negative except mentioned above ER course: Per ER team patient on presentation noted to be confused, noted to have pinpoint pupils, U tox positive for opiates; exam was nonfocal, CT head showed no acute findings, labs essentially benign, urinalysis negative, chest x-ray negative.? When they tried to walk the patient patient had shuffling gait.? ER team mentioned that the also discussed with Neurology.? Admitted to the hospital for further management., hospital course 70-year-old male with a past medical history of hypertension, hyperlipidemia, diabetes, CHF, obesity, paroxysmal AFib, history of off mitral valve replacement/ aortic valve replacement-on Coumadin; history of COVID-19 infection; presented to the hospital today with a chief complaint of confusion.? Acute metabolic encephalopathy admitted with confusion question etiology likely related to use of opiates however patient unable to?recall if he took oxycodone,but urine toxicology positive for opiates, he did receive a prescription of oxycodone several months ago,zhanna took it in place of other meds,question related to recent COVID infection May 01,no head injury or trauma, no fevers normal WBC no neck stiffness/ troponin are flat,CT head unremarkable no evidence of vascular events/ no evidence of infection with normal urine analysis, normal chest x-ray, normal renal function LFTs TSH normal,folate/ B12, TSH? all within normal range,lives with friend Orlando Nam [phone] she agrees that patient has been confused for last 1-2 weeks but denies any confusion prior to that she is not aware of patient's medications,[facility]? pharmacy verified no new prescriptions were given to him in last 2 weeks ,last new prescriptions was Allopurinol in March, seen by neurology they recommended EEG has been obtained, since patient confusion has improved he is being discharged home to have close outpatient follow-up with PCP and to obtain result of EEG, patient is being discharged with VNA services for medication management. History of diabetes: Recommend to continue home medication History of AFib /? status post mitral and aortic valve replacement, goal of INR 2.5-3.5 continue Coumadin 4 mg daily inr 3.4 today, verify dose of [facility] patient takes 4 mg daily and 6 mg on Wednesdays will recommend to recheck INR in 2 days. History of hypertension BP stable on Zestril hyperlipidemia: Continue? Lipitor hypothyroidism continue Synthroid? Time Spent with Patient Time attestation: Total time spent providing and/or coordinating discharge services: Discharge coordination time: Greater than 30 minutes Quality: Stroke Does the patient have a stroke diagnosis?: No Physical Exam Verdana 4l Vital Signs: Verdana 4d Verdana 4d Vital Signs: Verdana 4d Verdana 4Bd Last Vital Signs Verdana 4d Lopper New 4d Lopper New 4d Temp 97.8 F 05/14/21 11:03 Lopper New 4d Pulse 94 05/14/21 11:03 Lopper New 4d Resp 19 05/14/21 11:03 BP 138/68 05/14/21 11:03 Pulse Ox 96 05/14/21 11:03 BMI result Body Mass Index 33.3 Const: Other: General ?no acute distress. oral mucosa moist Neck? supple no JVD. CVS? regular rate rhythm, Respiratory lungs clear to auscultation, no respiratory distress, no wheeze, no rhonchi. Gastrointestinal abdomen soft, nontender, bowel sounds audible, no no guarding , no rigidity. Extremities no? edema. Neuro nonfocal ,speech clear, cranial nerve 2-12 intact. no pronator drift, gait not assessed,? awake alert x3 Skin no rash DS: Data Data Completed and Pending Labs on day of discharge: Laboratory Results - last 24 hr 05/11/21 05/13/21 05/13/21 22:24 15:43 19:45 PT INR POC Glucose 179 H 226 H Triglycerides Cholesterol LDL Cholesterol, Calc HDL Cholesterol T.pallidum Ab (EIA) Nonreactive 05/14/21 05/14/21 05/14/21 05:51 05:51 07:15 PT 40.0 H INR 3.4 H POC Glucose 189 H Triglycerides 87 Cholesterol 144 LDL Cholesterol, Calc 86 HDL Cholesterol 41 T.pallidum Ab (EIA) 05/14/21 11:03 PT INR POC Glucose 248 H Triglycerides Cholesterol LDL Cholesterol, Calc HDL Cholesterol T.pallidum Ab (EIA) Discharge Plan Discharge Patient Disposition: Home Health Service Discharge Diagnosis: acute metabolic encephalopathy Referrals: Felix Gutierrez MD [Physician] - 1 Week Discharge Medications: Continued (DME) pen needle, diabetic 31 gauge x 5/16 needle See Rx Instructions ea subcut BID Qty: 100 11RF Rx Instructions: As directed levothyroxine 50 mcg tablet 50 mcg PO DAILY Qty: 90 0RF Jardiance 25 mg tablet 25 mg PO QAM Qty: 30 4RF nystatin 100,000 unit/gram powder 1 appl topical BID Qty: 60 0RF clotrimazole 1 % cream 1 appl topical BID Qty: 45 0RF mupirocin 2 % ointment 1 appl topical BID Qty: 22 0RF warfarin 2 mg Tablet 4 mg PO DAILY 0RF Protocol: Dose Management Condition: Friday Dose/Route: 4 mg Instruction: 2 x 2 mg tablets Condition: Friday Dose/Route: 4 mg Instruction: 2 x 2 mg tablets Condition: Friday Dose/Route: 4 mg Instruction: 2 x 2 mg tablets Condition: Friday Dose/Route: 4 mg Instruction: 2 x 2 mg tablets Condition: Dose/Route: 4 mg Instruction: 2 x 2 mg tablets Condition: Friday Dose/Route: 4 mg Instruction: 2 x 2 mg tablets Condition: Friday Dose/Route: 4 mg Instruction: 2 x 2 mg tablets Protocol Text: Adjustment Start Date: Friday05/14/21 INR Value: 3.4 INR Date: 05/14/21 Additional Instructions: pt d/c to home with VNA services will have repeat INR this week schedule for 05/17/21 atorvastatin 40 mg tablet 40 mg PO BEDTIME 0RF albuterol sulfate 90 mcg/actuation HFA aerosol inhaler 2 puff inhalation Q6H PRN (Reason: Wheezing) 0RF lisinopril 20 mg tablet 20 mg PO DAILY 0RF insulin lispro protamin-lispro 100 unit/mL (75-25) insulin pen See Rx Instructions subcut BID 0RF Rx Instructions: 62 units in the morning, 44 units at nights subcut 2 times a day; Discontinued warfarin 2 mg tablet 2 mg PO .COMPLEX 90 Days Qty: 360 0RF Protocol: Dose Management Condition: Friday Dose/Route: 4 mg Instruction: 2 x 2 mg tablets Condition: Friday Dose/Route: 4 mg Instruction: 2 x 2 mg tablets Condition: Friday Dose/Route: 4 mg Instruction: 2 x 2 mg tablets Condition: Friday Dose/Route: 4 mg Instruction: 2 x 2 mg tablets Condition: Dose/Route: 4 mg Instruction: 2 x 2 mg tablets Condition: Friday Dose/Route: 4 mg Instruction: 2 x 2 mg tablets Condition: Friday Dose/Route: 4 mg Instruction: 2 x 2 mg tablets Protocol Text: Adjustment Start Date: Friday05/14/21 INR Value: 3.4 INR Date: 05/14/21 Additional Instructions: pt d/c to home with VNA services will have repeat INR this week schedule for 05/17/21 Rx Instructions: 2 mg PO 2 to 4 tablets adjust according to inr; Discharge Orders: Discharge Order (Routine); Ordered 05/14/21 Ordered By: Vandana Abraham Diet: diabetic diet Activity on Discharge: As tolerated Stand Alone Forms: Patient Portal Discharge page Other Ambulatory Orders: Prothrombin Time INR (Routine) Timeframe: [id number] Facility: [facility] - Location: Laboratory Ordered By: Vandana Abraham Care Plan Goals: acute encephalopathy resolved question related to a opiate use, question early mild cognitive impairment, being discharged with VNA services for medication management Health Concerns: diabetes mellitus/hypertension / hyperlipidemia / mechanical mitral/aortic valve replacement continue to take Coumadin 4 mg by mouth daily and repeat PT INR on 05/17/21 and follow-up with Coumadin clinic Plan of Treatment: outpatient follow-up with PCP in 1 week Assessment: as per discharge summary
--- NOTE | 2021-05-14 15:23 | W.MHC.F2F ---
Service Date Service Date: 05/14/21 Encounter Date of encounter: 05/14/21 Encounter: acute encephalopathy Reasons for Services Signs and symptoms assessed: acute confusion improved, need to review all home medications, need close outpatient clinical follow-up with concern for mild cognitive impairment. Reason for senior living: diabetic teaching and medication management Homebound: Leaving the home is medically contraindicated at this time without the asist of a device and/or another person due th the listed conditions above and below. Reason homebound: weakness related to hospital stay Certification: Based on the above findings, I certify that this patient is confined to the home and needs intermittent senior living care, physical therapy and/or speech therapy, or continues to need occupational therapy. The patient is under my care, and I have initiated the establishment of the plan of care. The patient will be followed by a physician who will periodically review the plan of care.
--- NOTE | 2021-05-15 13:42 | MHC.CM.PN ---
POST DC NOTE- PATIENT CALLED THIS CLIENT SERVICE EXECUTIVE TO ASK ABOUT DISCHARGE MEDICATIONS. IT WAS EXPLAINED THAT HE HAS NO NEW MEDS. PATIENT THEN ASKED WHEN [facility] WOULD ARRIVE, AND [facility] PATIENT REPEATED [phone] TO THIS CLIENT SERVICE EXECUTIVE NO FURTHER QUESTIONS
--- NOTE | 2021-06-02 13:14 | MHC.CM.PN ---
Patient is here with Encephalopathy; CM left a message for Daughter/Alternate HCP at [phone] and CM spoke with Primary HCP/Trevon @ [phone]. Patient lives in a house with his Girlfriend/[place] and he has been driving and requiring no services nor DME [employer]PR[employer]ICE HAND. Patient has been experiencing some issues with Memory/confusion,for example, was unable to find his way to [place], where he goes often. Patient's Daughter/Risa will be in from [place] on 06/04/21. Home new services vs STR pending PT eval is the temporary plan and CM has initiated and will follow for dc planning.Patient has been Covid vaccinated and his PCP is DR. Matt Avendaño.
== END 2021-05-14 17:35 | disposition home health service (06) ==
LOC: HO.ED 22:07 → HO.EDOVER 23:07 → HO.S3 23:29
PROVIDERS: Physician Assistant; Admitting Provider Hospitalist; Emergency Provider Emergency Medicine; PCP Nurse Practitioner Family; Visit Provider Hospitalist
DX: G93.40 Encephalopathy, unspecified (principal); G31.84 Mild cognitive impairment of uncertain or unknown etiology; E11.65 Type 2 diabetes mellitus with hyperglycemia; E11.42 Type 2 diabetes mellitus with diabetic polyneuropathy; E11.22 Type 2 diabetes mellitus with diabetic chronic kidney disease; I13.0 Hypertensive heart and chronic kidney disease with heart failure and stage 1 through stage 4 chronic kidney disease, or unspecified chronic kidney disease; I50.9 Heart failure, unspecified; N18.9 Chronic kidney disease, unspecified; M86.9 Osteomyelitis, unspecified; E78.00 Pure hypercholesterolemia, unspecified; E78.5 Hyperlipidemia, unspecified; I48.0 Paroxysmal atrial fibrillation; R21 Rash and other nonspecific skin eruption; E66.01 Morbid (severe) obesity due to excess calories; T82.09XA Other mechanical complication of heart valve prosthesis, initial encounter; Z95.2 Presence of prosthetic heart valve; Z20.822 Contact with and (suspected) exposure to COVID-19; Z68.34 Body mass index [BMI] 34.0-34.9, adult; Z86.16 Personal history of COVID-19; Z88.8 Allergy status to other drugs, medicaments and biological substances; Z79.4 Long term (current) use of insulin; Z79.01 Long term (current) use of anticoagulants; Z79.899 Other long term (current) drug therapy
CPT/HCPCS: 36415; 70450; 71045; 80048; 80061; 80076; 80307; 81001; 82077; 82140; 82607; 82746; 82803; 82947; 83690; 83735; 84443; 84484; 85025; 85610; 86780; 87635; 93005; 95816; 96374; 99218; 99285

== ENCOUNTER → 2021-05-14 14:56 | Outpatient (BNVA) | payer MEDICARE, MEDICAID, SELFPAY | PROVIDERS: PCP Nurse Practitioner Family; Visit Provider Internal Medicine | DX: I48.0 Paroxysmal atrial fibrillation (principal); Z51.81 Encounter for therapeutic drug level monitoring; Z79.01 Long term (current) use of anticoagulants | CPT/HCPCS: Q3014 ==

== ENCOUNTER 2021-05-23 12:15 | Emergency (ER) | payer OTHER, SELFPAY ==
--- NOTE | ~2021-05-23 | CT_ITS ---
EXAMINATION: CT HEAD WITHOUT CONTRAST CLINICAL INFORMATION: Dizziness, off balance, rule out bleed, stroke, or mass effect. COMPARISON: CT head dated from 05/11/2021. TECHNIQUE: Contiguous axial imaging was performed from the skull base to vertex without intravenous administration of contrast. This CT examination was performed using dose optimization techniques as appropriate, variously including the following: *Automated exposure control *Adjustment of mA and/or kV according to patient size (this includes techniques or standardized protocols for targeted exams where dose is matched to indication/reason for exam; i.e. extremities or head) *Use of iterative reconstruction technique DLP: 771 mGy-cm FINDINGS: There is no evidence of acute intracranial hemorrhage or edematous territorial infarction. A few foci of hypoattenuation in the periventricular and deep white matter are consistent with mild microangiopathy. Daigle-white matter differentiation is preserved. Proportional prominence of the ventricles and sulcal spaces. No evidence for obstructive hydrocephalus. No abnormal mass effect or midline shift. No extra-axial fluid collections. No acute soft tissue or osseous abnormalities. The mastoid air cells and paranasal sinuses are clear. CT/CT head/brain wo con IMPRESSION: No evidence of acute intracranial hemorrhage or edematous territorial infarction. It is important to note that CT has decreased sensitivity for evaluation of small infarcts in the posterior fossa and midbrain for which correlation with an MR of the brain could be obtained if indicated.
--- NOTE | ~2021-05-23 | XR_ITS ---
EXAMINATION: XR CHEST CLINICAL INFORMATION: Weakness. Cough. COMPARISON: Chest x-ray 05/11/2021, 05/01/2021. CT chest 05/07/2019 TECHNIQUE: 2 views of the chest were obtained. FINDINGS: Persistent density at the left lung base. This is due to pleural and parenchymal disease that is chronic stable in appearance since CT chest 05/07/2019. No acute airspace disease. Status post median sternotomy for cardiac valve repair. No pulmonary vascular congestion. Embolization material in the upper abdomen. XR/XR chest 2V IMPRESSION: Chronic density at the left lung base unchanged since prior studies. No acute abnormality of chest.
[2021-05-23 12:46] VITALS: BP 130/67; PULSE 90; RESP 18; TEMP 36.6; O2SAT 99; BMI 37.2
[2021-05-23 15:43] VITALS: BP 149/76; PULSE 95; RESP 18; TEMP 36.8; O2SAT 100
--- NOTE | 2021-05-23 16:31 | ECG_ITS ---
Test Reason : DIZZINESS Blood Pressure : / mmHG Vent. Rate : 090 BPM Atrial Rate : 090 BPM P-R Int : 158 ms QRS Dur : 088 ms QT Int : 366 ms P-R-T Axes : 074 017 044 degrees QTc Int : 447 ms Normal sinus rhythm Normal ECG When compared with ECG of 11-MAY-2021 14:19, No significant change was found Referred By: Nilay Montejo Electronically Signed By:MARITA OLIVIER MD
--- NOTE | 2021-05-23 16:33 | ED.GENADULT ---
HPI - General Adult General Chief complaint: General Medical Stated complaint: HBS - 220 Time Seen by Provider: 05/23/21 15:27 Source: patient Mode of arrival: ambulatory Limitations: no limitations History of Present Illness HPI narrative: 70-year-old male who presents emergency department for evaluation lightheadedness and dizziness. He states he has been having the symptoms for approximately 4 months and they have been getting worse. He describes the dizziness as an off-balance situation and occasionally he feels like he is falling to the left. He states that the dizziness is constant and is worse with movement. He believes that the dizziness started when he started his new diabetic medication, Jardiance. States initially he was taking 10 mg daily and then his dose was up to 25 mg 2 months ago. He believes that this medication was making him dizzy and lethargic so he went back down to the 10 mg dose without consulting his provider. He denied headache, vomiting but he does have nausea. He denied abdominal pain. He states that he has an occasional cough. He denied chest pain. He states that he has noticed occasional black stools. States that he has diarrhea for many years any has 3-4 loose stools per day. The patient had 2 [employer] COVID-19 vaccinations and his booster shot. He states that he had a COVID test 10 days prior at an urgent care clinic and this was positive but he was asymptomatic. Related Data Home Medications Medication Instructions Recorded Confirmed albuterol sulfate 90 mcg/actuation 2 puff INHALATION Q6H PRN 03/14/20 05/11/21 aerosol inhaler lisinopril 20 mg tablet 20 mg PO DAILY 06/05/20 05/11/21 insulin lispro protamine-lispro See Rx Instructions SUBCUT BID ml 04/11/21 05/11/21 100 unit/mL (75-25) subcutaneous pen atorvastatin 40 mg tablet 40 mg PO BEDTIME 05/11/21 05/11/21 warfarin 2 mg tablet 4 mg PO DAILY 05/11/21 05/11/21 Previous Rx's Medication Instructions Recorded pen needle, diabetic 31 gauge x #100 ea 02/08/2108/20 empagliflozin 25 mg tablet 25 mg PO QAM #30 tab 03/19/21 (Jardiance) clotrimazole 1 % topical cream 1 appl TOPICAL BID #45 g 04/25/21 mupirocin 2 % topical ointment 1 appl TOPICAL BID #22 g 04/25/21 nystatin 100,000 unit/gram topical 1 appl TOPICAL BID #60 g 04/25/21 powder levothyroxine 50 mcg tablet 50 mcg PO DAILY #90 tab 05/15/21 Allergies Allergy/AdvReac Type Severity Reaction Status Date / Time exenatide [From BYETTA] Allergy Intermediate AFFECTED Verified 04/11/21 13:14 PANCREAS Review of Systems Review of Systems: Yes all other systems are reviewed and are negative [facility] Past Medical History Medical History BMI 34.0-34.9,adult BPH (benign prostatic hyperplasia) Chronic kidney disease Cognitive impairment Diabetes mellitus Gallstones Gout Heart failure, unspecified HTN (hypertension) Hyperlipidemia Obesity due to excess calories Osteomyelitis Paroxysmal atrial fibrillation Prosthetic valve dysfunction Spinal stenosis, lumbar Type 2 diabetes mellitus with diabetic neuropathy, unspecified Type 2 diabetes mellitus with hyperglycemia, with long-term current use of insulin Surgical History Hx of aortic valve replacement Hx of colonoscopy Hx of endoscopy Hx of exploratory laparotomy Hx of laparoscopy Mitral valve replaced Family History Family History Father CVD (cardiovascular disease) Mother CVD (cardiovascular disease) Social History Social History Household Members: None Alcohol intake: never Patient Tobacco Use Status: Never used Tobacco Advance Directives: Yes Advance Directives Information Provided: No Advance Directives on File: No Physical Exam ED Vital Signs: Vital Signs - 24 hr 05/23/21 12:46 05/23/21 15:43 05/23/21 18:19 Temperature 97.9 F 98.2 F 98.4 F Pulse Rate 90 95 77 Respiratory Rate 18 18 16 Blood Pressure 130/67 149/76 H 121/68 Pulse Oximetry 99 100 100 05/23/21 19:55 Temperature 98.2 F Pulse Rate 88 Respiratory Rate 18 Blood Pressure 123/84 Pulse Oximetry 98 BMI result Body Mass Index 37.2 Const General: cooperative and no acute distress Orientation/consciousness: oriented to person and oriented to place Limitations: no limitations HENMT Head: Yes normal to inspection, Yes normocephalic and Yes atraumatic Ears: external ears normal General nose exam: Normal external nose present Face and sinus: Yes normal facial exam Mouth: Normal oral and palatal mucosa present Throat: Yes posterior oropharynx normal Eyes General: appearance normal, both eyes and all related structures Pupils: Equal, round and reactive pupils present Neck Neck: Yes normal visual inspection, Yes no lymphadenopathy, Yes trachea midline and Yes supple Chest Chest palpation & inspection: normal inspection of the chest and normal palpation of entire chest wall Resp Effort & Inspection: normal respiratory effort and able to speak in complete sentences Auscultation: clear to auscultation bilaterally Cardio Rate: regular rate Rhythm: regular rhythm Heart sounds: S1 normal heart sound present, S2 normal heart sound present and no murmurs GI Inspection: Yes normal to inspection Palpation (GI): Soft to palpation, nontender and no guarding Auscultation: normal bowel sounds General: Yes no CVA tenderness Back/Spine/Pelvis Back: no CVA tenderness Skin General skin exam: no rashes or lesions noted Neuro General: oriented to person and oriented to place Cranial nerves: Yes CN's II-XII intact bilaterally and Yes Equal, round and reactive pupils present Cognition (Neuro): normal cognition Motor exam (neuro): 5/5 motor strength present throughout Coordination: esadic-xb-[id number] test normal, xjze-sd-[id number] test normal, sways with eyes open, Romberg test negative and other (Normal gait) Extrem General: Yes normal to inspection Psych Appearance: grossly normal Speech and movement: Normal speech and movement present Affect: normal affect Attitude: cooperative Thought process: Normal thought process present Thought content: Normal thought content present Course Course Course Narrative: 70-year-old male who presents emergency department for evaluation of dizziness and off balance sensation x4 months. He states that is gotten progressively worse. He also states that he feels weak, has had diarrhea and has also noticed dark stools. Patient attributes his symptoms to starting any new medication for his diabetes, Jardiance. He states that he started this medication 4 months ago at 10 mg and in 2 months prior he was increased to 25 mg. He states that he reduced his dose back to 10 mg since E felt that it was making him feel bad. Vital signs revealed an elevated blood pressure of 149/76 otherwise unremarkable. Patient's exam was unremarkable, he had a normal neurologi exam including a cerebellar exam. I did order laboratory evaluation to include CBC, CMP, troponin, EKG, chest x-ray, CT scan of the brain, urinalysis. Patient has hypothyroidism non also check a TSH on him. 1954: Patient's laboratory evaluation was unremarkable. Patient's COVID-[address] scan of the brain revealed no acute abnormality to explain the patient's symptoms. TSH was normal. Chest x-ray was unchanged from previous x-rays. This time I do not have a clear etiology for the patient's symptoms. I did advise him to contact his provider to discuss stopping his Jardiance for 1 month to see if this improves his symptoms. The patient was discharged home with printed and verbal instructions. Medical Decision Making Lab Data Result diagrams: 05/23/21 16:57 05/23/21 16:57 Labs: Lab Results 05/23/21 05/23/21 05/23/21 Range/Units 16:57 16:57 16:57 WBC 9.8 (4.8-10.8) X10*3/uL RBC 4.41 L (4.60-5.80) X10*6/uL Hgb 13.7 L (14.0-18.0) g/dl Hct 40.4 L (42.0-52.0) % MCV 91.6 (80.0-98.0) fL MCH 31.1 (27.0-33.0) pg MCHC 33.9 (31.0-36.0) g/dl RDW 14.0 (11.0-16.0) % Plt Count 245 (160-400) X10*3/uL MPV 10.7 (9.4-12.4) fL Immature Gran % (Auto) 0.5 H (0.0-0.4) % Neut % (Auto) 64.0 (45-73) % Lymph % (Auto) 18.7 L (20-40) % Runnels % (Auto) 11.7 H (2-11) % Eos % (Auto) 4.6 H (0-4) % Baso % (Auto) 0.5 (0-2) % Lymph # (Auto) 1.8 (1.2-4.9) X10*3/uL Runnels # (Auto) 1.1 (0.1-1.2) X10*3/uL Eos # (Auto) 0.5 H (0.0-0.4) X10*3/uL Baso # (Auto) 0.1 (0.0-0.2) X10*3/uL Abs Immat Gran (auto) 0.05 H (0.00-0.03) X10*3/uL Absolute Neuts (auto) 6.3 (2.0-8.3) x10*3/uL Absolute Nucleated RBC 0.000 (0.0-0.012) X10*3/uL Nucleated RBC % (auto) 0.0 (0.0-0.2) /100WBC Sodium 136 (135-145) mmol/L Potassium 4.6 (3.3-5.1) mmol/L Chloride 103 (96-108) mmol/L Carbon Dioxide 24 (22-29) mmol/L Anion Gap 14 (12-20) BUN 17 H (9-16) mg/dL Creatinine 1.01 (0.5-1.4) mg/dL Estim Creat Clear Calc 82.4 Estimated GFR > 60 Random Glucose 101 (60-115) mg/dL Lactic Acid 1.2 (0.5-2.0) mmol/L Calcium 9.5 (8.4-10.2) mg/dL Total Bilirubin 0.8 (0.0-1.0) mg/dL AST 29 (5-37) U/L ALT 24 (0-40) U/L Alkaline Phosphatase 77 (39-117) U/L Troponin I High Sens (<3.5-35.0) ng/L Total Protein 7.8 (6.5-8.0) g/dL Albumin 4.2 (3.5-5.0) g/dL Lipase 76 (8-78) U/L TSH (0.32-4.0) uIU/mL Urine Color Urine Appearance Urine pH (5.0-8.0) Ur Specific Jessup (1.005-1.025) Urine Protein (NEG-TRACE) MG/DL Urine Glucose (UA) (NEG) MG/DL Urine Ketones (NEG) MG/DL Urine Blood (NEG) Urine Nitrite (NEG) Ur Leukocyte Esterase (NEG) Urine RBC (0) /HPF Urine WBC (0-4) /HPF Ur Squamous Epith Cells /LPF Amorphous Sediment /LPF Urine Bacteria /LPF Urine Mucus /LPF COVID-19 (DYLAN) (Negative) COVID-19 Clin Com 05/23/21 05/23/21 05/23/21 Range/Units 16:57 16:57 16:57 WBC (4.8-10.8) X10*3/uL RBC (4.60-5.80) X10*6/uL Hgb (14.0-18.0) g/dl Hct (42.0-52.0) % MCV (80.0-98.0) fL MCH (27.0-33.0) pg MCHC (31.0-36.0) g/dl RDW (11.0-16.0) % Plt Count (160-400) X10*3/uL MPV (9.4-12.4) fL Immature Gran % (Auto) (0.0-0.4) % Neut % (Auto) (45-73) % Lymph % (Auto) (20-40) % Runnels % (Auto) (2-11) % Eos % (Auto) (0-4) % Baso % (Auto) (0-2) % Lymph # (Auto) (1.2-4.9) X10*3/uL Runnels # (Auto) (0.1-1.2) X10*3/uL Eos # (Auto) (0.0-0.4) X10*3/uL Baso # (Auto) (0.0-0.2) X10*3/uL Abs Immat Gran (auto) (0.00-0.03) X10*3/uL Absolute Neuts (auto) (2.0-8.3) x10*3/uL Absolute Nucleated RBC (0.0-0.012) X10*3/uL Nucleated RBC % (auto) (0.0-0.2) /100WBC Sodium (135-145) mmol/L Potassium (3.3-5.1) mmol/L Chloride (96-108) mmol/L Carbon Dioxide (22-29) mmol/L Anion Gap (12-20) BUN (9-16) mg/dL Creatinine (0.5-1.4) mg/dL Estim Creat Clear Calc Estimated GFR Random Glucose (60-115) mg/dL Lactic Acid (0.5-2.0) mmol/L Calcium (8.4-10.2) mg/dL Total Bilirubin (0.0-1.0) mg/dL AST (5-37) U/L ALT (0-40) U/L Alkaline Phosphatase (39-117) U/L Troponin I High Sens 12.8 D (<3.5-35.0) ng/L Total Protein (6.5-8.0) g/dL Albumin (3.5-5.0) g/dL Lipase (8-78) U/L TSH 0.91 (0.32-4.0) uIU/mL Urine Color Urine Appearance Urine pH (5.0-8.0) Ur Specific [place] (1.005-1.025) Urine Protein (NEG-TRACE) MG/DL Urine Glucose (UA) (NEG) MG/DL Urine Ketones (NEG) MG/DL Urine Blood (NEG) Urine Nitrite (NEG) Ur Leukocyte Esterase (NEG) Urine RBC (0) /HPF Urine WBC (0-4) /HPF Ur Squamous Epith Cells /LPF Amorphous Sediment /LPF Urine Bacteria /LPF Urine Mucus /LPF COVID-19 (DYLAN) Negative (Negative) COVID-19 Clin Com See Note 05/23/21 Range/Units 18:21 WBC (4.8-10.8) X10*3/uL RBC (4.60-5.80) X10*6/uL Hgb (14.0-18.0) g/dl Hct (42.0-52.0) % MCV (80.0-98.0) fL MCH (27.0-33.0) pg MCHC (31.0-36.0) g/dl RDW (11.0-16.0) % Plt Count (160-400) X10*3/uL MPV (9.4-12.4) fL Immature Gran % (Auto) (0.0-0.4) % Neut % (Auto) (45-73) % Lymph % (Auto) (20-40) % Runnels % (Auto) (2-11) % Eos % (Auto) (0-4) % Baso % (Auto) (0-2) % Lymph # (Auto) (1.2-4.9) X10*3/uL Runnels # (Auto) (0.1-1.2) X10*3/uL Eos # (Auto) (0.0-0.4) X10*3/uL Baso # (Auto) (0.0-0.2) X10*3/uL Abs Immat Gran (auto) (0.00-0.03) X10*3/uL Absolute Neuts (auto) (2.0-8.3) x10*3/uL Absolute Nucleated RBC (0.0-0.012) X10*3/uL Nucleated RBC % (auto) (0.0-0.2) /100WBC Sodium (135-145) mmol/L Potassium (3.3-5.1) mmol/L Chloride (96-108) mmol/L Carbon Dioxide (22-29) mmol/L Anion Gap (12-20) BUN (9-16) mg/dL Creatinine (0.5-1.4) mg/dL Estim Creat Clear Calc Estimated GFR Random Glucose (60-115) mg/dL Lactic Acid (0.5-2.0) mmol/L Calcium (8.4-10.2) mg/dL Total Bilirubin (0.0-1.0) mg/dL AST (5-37) U/L ALT (0-40) U/L Alkaline Phosphatase (39-117) U/L Troponin I High Sens (<3.5-35.0) ng/L Total Protein (6.5-8.0) g/dL Albumin (3.5-5.0) g/dL Lipase (8-78) U/L TSH (0.32-4.0) uIU/mL Urine Color YELLOW Urine Appearance CLEAR Urine pH 6.0 (5.0-8.0) Ur Specific [place] 1.015 (1.005-1.025) Urine Protein 1+ H (NEG-TRACE) MG/DL Urine Glucose (UA) >=1000 H (NEG) MG/DL Urine Ketones NEG (NEG) MG/DL Urine Blood 1+ H (NEG) Urine Nitrite NEG (NEG) Ur Leukocyte Esterase NEG (NEG) Urine RBC 0-2 (0) /HPF Urine WBC 0 (0-4) /HPF Ur Squamous Epith Cells TRACE /LPF Amorphous Sediment TRACE /LPF Urine Bacteria NONE /LPF Urine Mucus TRACE /LPF COVID-19 (DYLAN) (Negative) COVID-19 Clin Com ECG Data Interpretation: Seventeen 10: Normal sinus rhythm with a rate of 90, normal VA interval, QRS duration QTC interval, no ST segment elevation, no ST segment depression, no PACs, no PVCs, this is a normal EKG. Discharge Plan Discharge Clinical Impression: Dizziness Patient Disposition: Home, Self-Care Additional Instructions: The CT scan of your brain was normal. Your chest x-ray was unchanged from previous chest x-ray is with no findings to explain your dizziness. Your EKG was normal. Your laboratory evaluation included a complete blood count, comprehensive metabolic panel , TSH and troponin. These tests were all normal which is reassuring. Your COVID-19 test was negative. At this time, I do not have a good explanation for your dizziness. It is possible that your dizziness may be related to the Jardiance that you started 4 months ago. I suggest that you stop this medication for 1 month to see if your symptoms improve.. However, you should discuss this plan to stop the medication with the doctor that prescribed this medication to make sure that this provider agrees with the plan. Please return to the emergency department if your symptoms get worse or if you develop any symptoms that are concerning to you. Prescriptions: No Action (DME) pen needle, diabetic 31 gauge x 5/16 needle See Rx Instructions ea subcut BID Qty: 100 11RF Rx Instructions: As directed Jardiance 25 mg tablet 25 mg PO QAM Qty: 30 4RF levothyroxine 50 mcg tablet 50 mcg PO DAILY Qty: 90 0RF nystatin 100,000 unit/gram powder 1 appl topical BID Qty: 60 0RF clotrimazole 1 % cream 1 appl topical BID Qty: 45 0RF mupirocin 2 % ointment 1 appl topical BID Qty: 22 0RF warfarin 2 mg Tablet 4 mg PO DAILY 0RF Protocol: Dose Management Condition: Friday Dose/Route: 4 mg Instruction: 2 x 2 mg tablets Condition: Friday Dose/Route: 4 mg Instruction: 2 x 2 mg tablets Condition: Friday Dose/Route: 4 mg Instruction: 2 x 2 mg tablets Condition: Friday Dose/Route: 4 mg Instruction: 2 x 2 mg tablets Condition: Dose/Route: 4 mg Instruction: 2 x 2 mg tablets Condition: Friday Dose/Route: 4 mg Instruction: 2 x 2 mg tablets Condition: Friday Dose/Route: 4 mg Instruction: 2 x 2 mg tablets Protocol Text: Adjustment Start Date: Friday05/14/21 INR Value: 3.4 INR Date: 05/14/21 Additional Instructions: pt d/c to home with [facility] services will have repeat INR this week schedule for 05/17/21 atorvastatin 40 mg tablet 40 mg PO BEDTIME 0RF albuterol sulfate 90 mcg/actuation HFA aerosol inhaler 2 puff inhalation Q6H PRN (Reason: Wheezing) 0RF lisinopril 20 mg tablet 20 mg PO DAILY 0RF insulin lispro protamin-lispro 100 unit/mL (75-25) insulin pen See Rx Instructions subcut BID 0RF Rx Instructions: 62 units in the morning, 44 units at nights subcut 2 times a day;
[2021-05-23 17:03] LABS: MANUAL DIFF FLAG NO
[2021-05-23 17:07] LABS: Basophils Absolute Auto 0.1 X10*3/uL (0.0-0.2); Basophils Percent Auto 0.5 % (0-2); Eosinophils Absolute Auto 0.5 X10*3/uL (0.0-0.4); Eosinophils Percent Auto 4.6 % (0-4); Hematocrit 40.4 % (42.0-52.0); Hemoglobin 13.7 g/dl (14.0-18.0); Imm Gran Abs Auto 0.05 X10*3/uL (0.00-0.03); Imm Gran Pct Auto 0.5 % (0.0-0.4); Lymphocytes Absolute Auto 1.8 X10*3/uL (1.2-4.9); Lymphocytes Percent Auto 18.7 % (20-40); Mean Corpuscular HGB Conc 33.9 g/dl (31.0-36.0); Mean Corpuscular Hemoglobin 31.1 pg (27.0-33.0); Mean Corpuscular Volume 91.6 fL (80.0-98.0); Mean Platelet Volume 10.7 fL (9.4-12.4); Monocytes Absolute Auto 1.1 X10*3/uL (0.1-1.2); Monocytes Percent Auto 11.7 % (2-11); Neutrophils Absolute Auto 6.3 x10*3/uL (2.0-8.3); Platelet Count 245 X10*3/uL (160-400); Red Blood Count 4.41 X10*6/uL (4.60-5.80); White Blood Count 9.8 X10*3/uL (4.8-10.8)
[2021-05-23 17:14] LABS: Lactic Acid 1.2 mmol/L (0.5-2.0)
[2021-05-23 17:24] LABS: Alanine Aminotransferase 24 U/L (0-40); Albumin Level 4.2 g/dL (3.5-5.0); Alkaline Phosphatase 77 U/L (39-117); Anion Gap 14 (12-20); Aspartate Amino Transferase 29 U/L (5-37); Bilirubin Total 0.8 mg/dL (0.0-1.0); Blood Urea Nitrogen 17 mg/dL (9-16); Calcium 9.5 mg/dL (8.4-10.2); Carbon Dioxide 24 mmol/L (22-29); Chloride 103 mmol/L (96-108); Creatinine Clr Calc Pharmacy 82.4; Estimated Glomerular Filt Rate > 60; Glucose Random 101 mg/dL (60-115); Lipase 76 U/L (8-78); Potassium 4.6 mmol/L (3.3-5.1); Sodium 136 mmol/L (135-145); Total Protein 7.8 g/dL (6.5-8.0)
[2021-05-23 17:25] LABS: Troponin-I High Sensitivity 12.8 ng/L (<3.5-35.0)
[2021-05-23 17:44] LABS: COVID-19 Test Negative (Negative)
[2021-05-23 17:53] LABS: TSH reflex Free T4 0.91 uIU/mL (0.32-4.0)
[2021-05-23 18:19] VITALS: BP 121/68; PULSE 77; RESP 16; TEMP 36.9; O2SAT 100
[2021-05-23 18:29] LABS: Appearance Urine CLEAR; Color Urine YELLOW; Glucose Urine UA >=1000 MG/DL (NEG); Leukocyte Esterase Urine NEG (NEG); Nitrite Urine NEG (NEG); Specific Gravity - Urine 1.015 (1.005-1.025); UACC Culture Trigger NO; Urine Blood 1+ (NEG); Urine Ketones NEG (NEG); Urine Protein 1+ MG/DL (NEG-TRACE)
[2021-05-23 18:39] LABS: Amorphous Sediment Urine TRACE /LPF; Mucus Urine TRACE /LPF; RBC Urine 0-2 /HPF (0); Squamous Epithelial Cell Urine TRACE /LPF; WBC Urine 0 /HPF (0-4)
[2021-05-23 19:55] VITALS: BP 123/84; PULSE 88; RESP 18; TEMP 36.8; O2SAT 98
== END 2021-05-23 20:08 | disposition home or self-care (01) ==
PROVIDERS: Emergency Provider Emergency Medicine Emergency Medical Services; PCP Nurse Practitioner Family
DX: R42 Dizziness and giddiness (principal); Z20.822 Contact with and (suspected) exposure to COVID-19; E11.9 Type 2 diabetes mellitus without complications; I10 Essential (primary) hypertension; E78.5 Hyperlipidemia, unspecified; I48.0 Paroxysmal atrial fibrillation; Z79.02 Long term (current) use of antithrombotics/antiplatelets; Z79.4 Long term (current) use of insulin; Z79.01 Long term (current) use of anticoagulants; Z95.2 Presence of prosthetic heart valve
CPT/HCPCS: 36415; 70450; 71046; 80053; 81001; 83605; 83690; 84443; 84484; 85025; 87635; 93005; 99284

== ENCOUNTER 2021-05-31 10:45 | Inpatient (IN) | payer OTHER, SELFPAY ==
--- NOTE | ~2021-05-31 | CT_ITS ---
EXAMINATION: CT HEAD WITHOUT CONTRAST (STROKE PROTOCOL) CLINICAL INFORMATION: Stroke protocol. COMPARISON: May 23, 2021 and December 01, 2019 TECHNIQUE: Contiguous axial imaging was performed from the skull base to vertex without intravenous administration of contrast. This CT examination was performed using dose optimization techniques as appropriate, variously including the following: *Automated exposure control *Adjustment of mA and/or kV according to patient size (this includes techniques or standardized protocols for targeted exams where dose is matched to indication/reason for exam; i.e. extremities or head) *Use of iterative reconstruction technique DLP: 794 mGy-cm FINDINGS: There is no intracranial hemorrhage, hematoma, or extra-axial fluid collection. The ventricles are normal in size. There is no hydrocephalus, edema, or mass effect. The paulino-white matter differentiation appears symmetric. There is no acute infarct or mass lesion. The calvarium appears intact. There is no pneumocephalus or orbital emphysema. The visualized sinuses and middle ears and mastoid air cells show no significant mucosal thickening. There are no air-fluid levels. CT/CT head for stroke IMPRESSION: No acute intracranial pathology. This critical result was discussed with Dr. Ken at 11:15 AM hours on May 31, 2021. It was ascertained that the content and urgency of the report was understood at the time of direct communication.
--- NOTE | ~2021-05-31 | CT_ITS ---
EXAMINATION: CT CHEST, ABDOMEN PELVIS WITHOUT CONTRAST. CLINICAL INFORMATION: Paraneoplastic process. COMPARISON: CT chest 05/07/2019 TECHNIQUE: 5 mm thin axial and reformatted 3 mm thin sagittal and coronal images of chest, abdomen and pelvis were obtained without contrast. DLP 892. FINDINGS: Chest: The lungs are well-expanded with left lower lobe rounded atelectasis with punctate calcification. No acute pneumonic consolidation seen. There are scattered 1 mm calcified nodules throughout the right lung likely calcified granulomas. There are a few scattered 4 mm groundglass nodules right upper lobe axial image 230/6, 211/6, 8mm groundglass nodule superior segment right lower lobe. No large mass or new consolidation seen. There is a loculated left along the lung base and I lateral lower chest. Punctate calcifications within the pleura unchanged. There is no right pleural effusion. Heart size and great vessels are normal caliber. There are coronary artery calcifications. No pericardial effusion seen. There is mitral valve prosthesis. The thyroid lobes are symmetrical and normal. The axilla and chest wall appears unremarkable. Abdomen and pelvis: Is the liver is normal size, shape and density. No focal lesion or intrahepatic ductal dilatation seen. There are dependent radiopaque gallstones without wall thickening. Visualized spleen, pancreas and bilateral adrenal glands are unremarkable. There is bilateral perinephric stranding with an exophytic cyst upper pole left kidney. Both kidneys are normal size, shape and position. There are extensive vascular calcifications in the renal hilum. The abdominal aorta is of normal caliber. No aneurysmal dilatation seen. No retroperitoneal lymph nodes or mass. There are postsurgical mahesh in the peripancreatic bed from previous intervention. There is scattered stool and gas seen throughout the colon with moderate constipation. The small bowel loops are normal caliber. Appendix is not visualized with certainty. The stomach and the GE junction is normal. Abdominal wall appears unremarkable. Imaging to the pelvis reveals normal prostate gland with central gland calcification. The urinary bladder is nondistended and appears unremarkable. Bone windows reveal no lytic or sclerotic process. There is mild ventral spondylosis lower dorsal spine. CT/CT abdomen pelvis wo con IMPRESSION: Loculated left pleural effusion with left lower lobe round atelectasis and/or chronic scarring is stable. Scattered small calcified pulmonary nodules are stable. There are few new groundglass nodules in the upper lobe but no new consolidation or mass seen. No abnormal mediastinal or axillary lymphadenopathy. Cholelithiasis without wall thickening. Moderate to severe constipation. Bilateral moderate perinephric stranding with left renal exophytic cysts. Postsurgical coils/embolization changes are noted along the peripancreatic soft tissues/mesentery from previous intervention. They are stable to previous study.
--- NOTE | ~2021-05-31 | FL_ITS ---
EXAMINATION: FLUOROSCOPY GUIDED LUMBAR PUNCTURE CLINICAL INFORMATION: Encephalopathy COMPARISON: None TECHNIQUE: Following explaining fluoroscopy-guided lumbar puncture procedure, benefits and risks, a written consent was obtained. Patient was placed prone on fluoroscopy table and low back area was cleaned and draped in usual sterile manner. 1% lidocaine was injected at the puncture site. A 22-gauge short spinal needle was advanced from the skin intrathecally at the L3-L4 disc level in the left para midline pathway. The stylet was removed and CSF return was noted. Fluid was then collected in 4 test tubes. Postprocedure stylet was reintroduced and needle withdrawn. Complete hemostasis achieved at puncture site. Patient tolerated procedure extremely well. FINDINGS: On the visualized images there is normal lumbar lordosis. The vertebral heights from L3 through L5 vertebra is normal. The alignment is normal. The disc spaces are maintained normal. Approximately 4.5 mL of clear CSF fluid was collected. The first tube may be blood tinged due to initial traumatic tap. It cleared with time. FLUOROSCOPY TIME: 1.7 minutes DOSE AREA PRODUCT: 21.6-0 Gycm2 (microgray-meter squared) FL/FL guided lumbar puncture LP IMPRESSION: Successful fluoroscopy-guided L3-L4 lumbar puncture performed without immediate complications.
--- NOTE | ~2021-05-31 | XR_ITS ---
EXAMINATION: XR CHEST CLINICAL INFORMATION: Change in mental status COMPARISON: May 23, 2021 and studies dating back to CT scan of May 07, 2019 TECHNIQUE: AP portable view of the chest was obtained. FINDINGS: There are are chronic changes in the left hemithorax with the appearance of loculated effusion and lobular densities. No new acute parenchymal disease is appreciated. No pneumothorax. Heart normal size. No evidence of pulmonary edema. Status post previous mitral and what appears to be aortic valve surgery. Status post median sternotomy. XR/XR chest 1V IMPRESSION: Left hemithorax chronic disease with no definite acute parenchymal disease.
--- NOTE | ~2021-05-31 | MR_ITS ---
EXAMINATION: MR BRAIN WITHOUT CONTRAST CLINICAL INFORMATION: Right arm weakness. Encephalopathy. COMPARISON: Head CT from 05/31/2021. TECHNIQUE: Multiplanar, multisequence imaging of the brain was performed without contrast. Slightly limited study with motion artifacts. FINDINGS: There is cortically-based diffusion signal abnormality and T2 hyperintensity within the right hippocampus laterally abutting the temporal horn of the right lateral ventricle. No evidence of hydrocephalus. No mass effect or midline shift is seen. Mild scattered white matter signal changes may be due to chronic microangiopathy. There are small chronic lacunar infarcts in the cerebellum. Mild to moderate small vessel ischemic changes evident within the esthela. Small chronic cortically-based infarct in the left occipital lobe noted. No extra-axial fluid collections are seen. The gradient refocused acquisition is normal. The craniovertebral junction, marrow signal, and midline structures are normal. The left vertebral artery flow-void is not well visualized. The remaining major intracranial flow voids at the level of the makah of [place] are preserved. The dural venous sinus flow voids are maintained. The mastoid air cells are well aerated. There is mild mucosal thickening in the maxillary ethmoid sinuses. MR/MR head/brain wo con IMPRESSION: Diffusion signal abnormality and mild edema in the right hippocampus which can be seen in the setting of post ictal changes. Autoimmune encephalitis, though typically more common with bilateral imaging findings is a differential diagnostic consideration. Clinically correlate. Scattered small chronic infarcts and mild to moderate chronic white matter microangiopathy. Poor visualization of the left vertebral artery flow-void which is otherwise age indeterminate.
--- NOTE | ~2021-05-31 | MR_ITS ---
EXAMINATION: MRI BRAIN WITH CONTRAST CLINICAL INFORMATION: Encephalopathy. COMPARISON: Recent MRI dated 06/01/2021. TECHNIQUE: Following intravenous administration of 10 mL of Gadavist, axial and coronal T1 postcontrast images acquired. FINDINGS: There is no pathologic parenchymal or leptomeningeal enhancement. No new mass effect or midline shift. Small chronic infarct in the left cerebellar hemisphere again noted. No hydrocephalus or extra-axial fluid collections. Clear paranasal sinuses and mastoid air cells. MR/MR head/brain w con IMPRESSION: No abnormal enhancement with particular attention to the sites of signal abnormality on prior MRI in the right hippocampus.
--- NOTE | 2021-05-31 10:54 | ECG_ITS ---
Test Reason : STROKE Blood Pressure : / mmHG Vent. Rate : 095 BPM Atrial Rate : 095 BPM P-R Int : 120 ms QRS Dur : 098 ms QT Int : 374 ms P-R-T Axes : 086 013 072 degrees QTc Int : 469 ms Sinus rhythm with Premature supraventricular complexes Otherwise normal ECG When compared with ECG of 23-MAY-2021 17:10, Premature supraventricular complexes are now Present Referred By: Chel Ken Electronically Signed By:TAYLOR FELIPE
[2021-05-31 11:05] LABS: Prothrombin Time Whole Bld POC 59.9 sec (11.1-13.5)
[2021-05-31 11:14] VITALS: BP 114/49; PULSE 93; RESP 17; TEMP 36.6; O2SAT 98; BMI 31.1
[2021-05-31 11:19] LABS: Glucose, Whole Blood 50 mg/dL (60-115)
--- NOTE | 2021-05-31 11:23 | PC.NURSE ---
patient glucose noted to be low at this time. patient provided oral OJ. patient took without issue. no distress. denies any additional needs. alert and oriented
[2021-05-31 11:34] LABS: Basophils Percent Auto 0.3 % (0-2); Eosinophils Absolute Auto 0.1 X10*3/uL (0.0-0.4); Eosinophils Percent Auto 0.9 % (0-4); Hemoglobin 12.7 g/dl (14.0-18.0); Imm Gran Abs Auto 0.07 X10*3/uL (0.00-0.03); Imm Gran Pct Auto 0.5 % (0.0-0.4); Lymphocytes Absolute Auto 2.8 X10*3/uL (1.2-4.9); Lymphocytes Percent Auto 21.7 % (20-40); MANUAL DIFF FLAG SCAN; Mean Corpuscular HGB Conc 34.3 g/dl (31.0-36.0); Mean Corpuscular Hemoglobin 31.6 pg (27.0-33.0); Mean Platelet Volume 10.3 fL (9.4-12.4); Monocytes Absolute Auto 1.6 X10*3/uL (0.1-1.2); Monocytes Percent Auto 12.3 % (2-11); Neutrophils Absolute Auto 8.2 x10*3/uL (2.0-8.3); Neutrophils Percent Auto 64.3 % (45-73); Platelet Count 283 X10*3/uL (160-400); Red Blood Count 4.02 X10*6/uL (4.60-5.80); Red Cell Distribution Width 14.2 % (11.0-16.0); SCAN SMEAR FLAG 1; White Blood Count 12.8 X10*3/uL (4.8-10.8)
[2021-05-31 11:35] LABS: Partial Thromboplastin Time 58.9 SEC (24.1-38.0)
[2021-05-31 11:39] LABS: Prothrombin Time 61.8 SEC (9.9-13.0)
[2021-05-31 11:40] LABS: INTERNATIONAL NORM RATIO 5.2 (0.9-1.1)
[2021-05-31 11:41] LABS: Stroke Lab Use COMPLETE
--- NOTE | 2021-05-31 11:42 | ED_ITS ---
HPI - Altered Mental Status General Chief Complaint: Altered Mental Status Stated Complaint: L WEAKNESS,STROKE ALERT Time Seen by Provider: 05/31/21 10:53 Source: patient, EMS and old records reviewed Mode of arrival: EMS Limitations: no limitations History of Present Illness HPI narrative: 70 years old male came in by EMS as a stroke alert. Past medical history of hypertension, hyperlipidemia, CHF, paroxysmal AFib, mitral/aortic valve replacement on Coumadin. Came in by EMS for acute change mental status for the past couple days, and possible left upper extremity weakness. Patient also found to be aggressive and belligerent with his neighbor 2 days ago, patient in the emergency department is calm and cooperative. Patient stated that he noted for the past 2 days slight weakness of his left side, but patient is able to still walk and function at home as he normally does (patient live independently). Patient stated that he realized that he is not taking his medication for the past 2 days. Related Data Home Medications Medication Instructions Recorded Confirmed lisinopril 20 mg tablet 20 mg PO DAILY 06/05/20 05/31/21 insulin lispro protamine-lispro 62 unit SUBCUT DAILY ml 04/11/21 05/31/21 100 unit/mL (75-25) subcutaneous pen atorvastatin 40 mg tablet 40 mg PO BEDTIME 05/11/21 05/31/21 warfarin 2 mg tablet 4 mg PO DAILY 05/11/21 05/31/21 insulin lispro protamine-lispro 44 unit SUBCUT BEDTIME 05/31/21 05/31/21 100 unit/mL (75-25) subcutaneous pen (Humalog Mix 75-25 KwikPen) Previous Rx's Medication Instructions Recorded pen needle, diabetic 31 gauge x #100 ea 02/08/2108/20 empagliflozin 25 mg tablet 25 mg PO QAM #30 tab 03/19/21 (Jardiance) levothyroxine 50 mcg tablet 50 mcg PO DAILY #90 tab 05/15/21 Allergies Allergy/AdvReac Type Severity Reaction Status Date / Time exenatide [From BYETTA] Allergy Intermediate AFFECTED Verified 04/11/21 13:14 PANCREAS Review of Systems Review of Systems: All other systems are reviewed and are negative Constitutional: Reports as per HPI and Reports no additional constitutional co mplaints Eyes: Reports as per HPI and Reports no additional eye complaints Reports system reviewed and no additional complaints, except as documented Cardiovascular: Reports as per HPI and Reports no additional cardiovascular complaints Respiratory: Reports as per HPI and Reports no additional respiratory complaints Gastrointestinal: Reports as per HPI and Reports no additional gastrointestinal complaints Genitourinary: Reports no additional female genitourinary complaints Musculoskeletal: Reports no additional musculoskeletal complaints Skin/Breast: Reports system reviewed and no additional complaints, except as docu Psychiatric: Reports no additional psychiatric complaints Endocrine: Reports no additional endocrine complaints Hematologic/Lymphatic: Reports no additional hematologic/lymphatic complaints Allergic/Immunologic: Reports no additional allergic/immunologic complaints Reports system reviewed and no additional complaints, except as documented and Reports Abnormal speech present [facility] Past Medical History Medical History BMI 34.0-34.9,adult BPH (benign prostatic hyperplasia) Chronic kidney disease Cognitive impairment Diabetes mellitus Gallstones Gout Heart failure, unspecified HTN (hypertension) Hyperlipidemia Obesity due to excess calories Osteomyelitis Paroxysmal atrial fibrillation Prosthetic valve dysfunction Spinal stenosis, lumbar Type 2 diabetes mellitus with diabetic neuropathy, unspecified Type 2 diabetes mellitus with hyperglycemia, with long-term current use of insulin Surgical History Hx of aortic valve replacement Hx of colonoscopy Hx of endoscopy Hx of exploratory laparotomy Hx of laparoscopy Mitral valve replaced Family History Family History Father CVD (cardiovascular disease) Mother CVD (cardiovascular disease) Social History Social History Household Members: None Alcohol intake: never Patient Tobacco Use Status: Never used Tobacco Advance Directives: No Advance Directives Information Provided: No Physical Exam ED Vital Signs: Vital Signs - 24 hr 05/31/21 11:14 05/31/21 13:57 Temperature 98 F Pulse Rate 93 99 Respiratory Rate 17 18 Blood Pressure 114/49 L 125/60 Pulse Oximetry 98 96 BMI result Body Mass Index 31.1 Vital signs have been reviewed as appeared to be correct. Blood pressure normal. Heart rate normal. Respiration rate normal. Temperature normal. Oxygen saturation normal. Appearance: Alert. Oriented X3. No acute distress. Head: Normal external exam. Normocephalic. Atraumatic. No Medrano signs noted. No raccoon eyes noted Eyes: PERRLA. EOMI. Conjunctiva and sclera normal. Eyelids normal. ENT: TM's Normal. Pharynx normal. Uvula midline. Moist mucous membranes. No trismus noted. No drooling noted. No muffled voice noted. Neck: Normal inspection. Neck supple. FROM. No adenopathy. Thyroid Normal. No meningeal signs. No neck mass noted. CVS: Normal heart rate and rhythm. Heart sound normal. No murmurs noted. Pulses normal throughout. Respiratory: No respiratory distress. Painless inspiration. Breath sounds normal. No wheezes/rales/rhonchi noted. Chest nontender. No accessory muscle usage noted or decreased air movement noted. Abdomen: Soft and nontender. Bowel sounds normal in all 4 quadrants. No distention noted. No organomegaly noted. No visible injury noted. Back: No CVA tenderness. Full range of motion noted. Skin: Skin warm and dry. Normal skin color. Normal skin turgor. No rashes/lesions/lacerations noted. Extremities: No lower extremity edema. Extremities exhibit normal range of motion. Extremities nontender. Neuro: Oriented X 3. Cranial nerve exam: II-XII are grossly intact No motor deficit. No sensory deficit. Reflexes normal. Patient is able to walk with a walker in the emergency department at his normal gait, as documented in the old records patient has shuffling gait. NIH Stroke Scale Internal: Initial- Upon Arrival Level of Consciousness: Alert Level of Consciousness Questions: Answers both questions correctly Level of Consciousness Commands: Performs both tasks correctly Best Gaze: Normal Visual: No visual loss Facial Palsy: Normal Motor Arm (Right): No drift Motor Arm (Left): Drift Motor Leg (Right): No drift Motor Leg (Left): Drift Limb Ataxia: Absent Sensory: Normal Best Language: No aphasia Dysarthia: Normal Extinction and Inattention: No abnormality Score: 2 Course Course Course Narrative: Assessment and plan. 70 years old male history of insulin-dependent diabetes came in for 2 days of change of mental status, and today noticed to have left-sided weakness, most of the patient's symptoms has improved. Patient also found to be hypoglycemic improved with D50 IV administration. Admit the patient for overnight monitoring. MDM - Altered Mental Status Medical Records Attestation: I reviewed the patient's medical records. Lab Data Attestation: I reviewed the patient's lab results. Result diagrams: 05/31/21 11:19 05/31/21 11:19 Labs: Lab Results 05/31/21 05/31/21 05/31/21 Range/Units 11:00 11:15 11:19 WBC 12.8 H (4.8-10.8) X10*3/uL RBC 4.02 L (4.60-5.80) X10*6/uL Hgb 12.7 L (14.0-18.0) g/dl Hct 37.0 L (42.0-52.0) % MCV 92.0 (80.0-98.0) fL MCH 31.6 (27.0-33.0) pg MCHC 34.3 (31.0-36.0) g/dl RDW 14.2 (11.0-16.0) % Plt Count 283 (160-400) X10*3/uL MPV 10.3 (9.4-12.4) fL Immature Gran % (Auto) 0.5 H (0.0-0.4) % Neut % (Auto) 64.3 (45-73) % Lymph % (Auto) 21.7 (20-40) % Patrick % (Auto) 12.3 H (2-11) % Eos % (Auto) 0.9 (0-4) % Baso % (Auto) 0.3 (0-2) % Lymph # (Auto) 2.8 (1.2-4.9) X10*3/uL Patrick # (Auto) 1.6 H (0.1-1.2) X10*3/uL Eos # (Auto) 0.1 (0.0-0.4) X10*3/uL Baso # (Auto) 0.0 (0.0-0.2) X10*3/uL Abs Immat Gran (auto) 0.07 H (0.00-0.03) X10*3/uL Absolute Neuts (auto) 8.2 (2.0-8.3) x10*3/uL Absolute Nucleated RBC 0.000 (0.0-0.012) X10*3/uL Nucleated RBC % (auto) 0.0 (0.0-0.2) /100WBC Smear Tech's Comments VERIFIED PT (9.9-13.0) SEC Whole Blood PT 59.9 H (11.1-13.5) sec INR (0.9-1.1) Whole Blood INR 5.0 H* (0.9-1.1) APTT (24.1-38.0) SEC Sodium (135-145) mmol/L Potassium (3.3-5.1) mmol/L Chloride (96-108) mmol/L Carbon Dioxide (22-29) mmol/L Anion Gap (12-20) BUN (9-16) mg/dL Creatinine (0.5-1.4) mg/dL Estim Creat Clear Calc Estimated GFR POC Glucose 50 L* (60-115) mg/dL Random Glucose (60-115) mg/dL Calcium (8.4-10.2) mg/dL Total Creatine Kinase (38-174) U/L Troponin I High Sens (<3.5-35.0) ng/L COVID-19 (DYLAN) (Negative) COVID-19 Clin Com 05/31/21 05/31/21 05/31/21 Range/Units 11:19 11:19 11:19 WBC (4.8-10.8) X10*3/uL RBC (4.60-5.80) X10*6/uL Hgb (14.0-18.0) g/dl Hct (42.0-52.0) % MCV (80.0-98.0) fL MCH (27.0-33.0) pg MCHC (31.0-36.0) g/dl RDW (11.0-16.0) % Plt Count (160-400) X10*3/uL MPV (9.4-12.4) fL Immature Gran % (Auto) (0.0-0.4) % Neut % (Auto) (45-73) % Lymph % (Auto) (20-40) % Patrick % (Auto) (2-11) % Eos % (Auto) (0-4) % Baso % (Auto) (0-2) % Lymph # (Auto) (1.2-4.9) X10*3/uL Patrick # (Auto) (0.1-1.2) X10*3/uL Eos # (Auto) (0.0-0.4) X10*3/uL Baso # (Auto) (0.0-0.2) X10*3/uL Abs Immat Gran (auto) (0.00-0.03) X10*3/uL Absolute Neuts (auto) (2.0-8.3) x10*3/uL Absolute Nucleated RBC (0.0-0.012) X10*3/uL Nucleated RBC % (auto) (0.0-0.2) /100WBC Smear Tech's Comments PT 61.8 H (9.9-13.0) SEC Whole Blood PT (11.1-13.5) sec INR 5.2 H* (0.9-1.1) Whole Blood INR (0.9-1.1) APTT 58.9 H (24.1-38.0) SEC Sodium 135 (135-145) mmol/L Potassium 3.5 D (3.3-5.1) mmol/L Chloride 103 (96-108) mmol/L Carbon Dioxide 23 (22-29) mmol/L Anion Gap 13 (12-20) BUN 13 (9-16) mg/dL Creatinine 1.11 (0.5-1.4) mg/dL Estim Creat Clear Calc 75.0 Estimated GFR > 60 POC Glucose (60-115) mg/dL Random Glucose 46 L* (60-115) mg/dL Calcium 9.1 (8.4-10.2) mg/dL Total Creatine Kinase 269 H (38-174) U/L Troponin I High Sens 10.7 (<3.5-35.0) ng/L COVID-19 (DYLAN) (Negative) COVID-19 Clin Com 05/31/21 05/31/21 05/31/21 Range/Units 11:19 11:56 12:18 WBC (4.8-10.8) X10*3/uL RBC (4.60-5.80) X10*6/uL Hgb (14.0-18.0) g/dl Hct (42.0-52.0) % MCV (80.0-98.0) fL MCH (27.0-33.0) pg MCHC (31.0-36.0) g/dl RDW (11.0-16.0) % Plt Count (160-400) X10*3/uL MPV (9.4-12.4) fL Immature Gran % (Auto) (0.0-0.4) % Neut % (Auto) (45-73) % Lymph % (Auto) (20-40) % Patrick % (Auto) (2-11) % Eos % (Auto) (0-4) % Baso % (Auto) (0-2) % Lymph # (Auto) (1.2-4.9) X10*3/uL Patrick # (Auto) (0.1-1.2) X10*3/uL Eos # (Auto) (0.0-0.4) X10*3/uL Baso # (Auto) (0.0-0.2) X10*3/uL Abs Immat Gran (auto) (0.00-0.03) X10*3/uL Absolute Neuts (auto) (2.0-8.3) x10*3/uL Absolute Nucleated RBC (0.0-0.012) X10*3/uL Nucleated RBC % (auto) (0.0-0.2) /100WBC Smear Tech's Comments PT (9.9-13.0) SEC Whole Blood PT (11.1-13.5) sec INR (0.9-1.1) Whole Blood INR (0.9-1.1) APTT (24.1-38.0) SEC Sodium (135-145) mmol/L Potassium (3.3-5.1) mmol/L Chloride (96-108) mmol/L Carbon Dioxide (22-29) mmol/L Anion Gap (12-20) BUN (9-16) mg/dL Creatinine (0.5-1.4) mg/dL Estim Creat Clear Calc Estimated GFR POC Glucose 63 (60-115) mg/dL Random Glucose (60-115) mg/dL Calcium (8.4-10.2) mg/dL Total Creatine Kinase (38-174) U/L Troponin I High Sens (<3.5-35.0) ng/L COVID-19 (DYLAN) Invalid Negative (Negative) COVID-19 Clin Com See Note See Note 05/31/21 Range/Units 12:27 WBC (4.8-10.8) X10*3/uL RBC (4.60-5.80) X10*6/uL Hgb (14.0-18.0) g/dl Hct (42.0-52.0) % MCV (80.0-98.0) fL MCH (27.0-33.0) pg MCHC (31.0-36.0) g/dl RDW (11.0-16.0) % Plt Count (160-400) X10*3/uL MPV (9.4-12.4) fL Immature Gran % (Auto) (0.0-0.4) % Neut % (Auto) (45-73) % Lymph % (Auto) (20-40) % Patrick % (Auto) (2-11) % Eos % (Auto) (0-4) % Baso % (Auto) (0-2) % Lymph # (Auto) (1.2-4.9) X10*3/uL Patrick # (Auto) (0.1-1.2) X10*3/uL Eos # (Auto) (0.0-0.4) X10*3/uL Baso # (Auto) (0.0-0.2) X10*3/uL Abs Immat Gran (auto) (0.00-0.03) X10*3/uL Absolute Neuts (auto) (2.0-8.3) x10*3/uL Absolute Nucleated RBC (0.0-0.012) X10*3/uL Nucleated RBC % (auto) (0.0-0.2) /100WBC Smear Tech's Comments PT (9.9-13.0) SEC Whole Blood PT (11.1-13.5) sec INR (0.9-1.1) Whole Blood INR (0.9-1.1) APTT (24.1-38.0) SEC Sodium (135-145) mmol/L Potassium (3.3-5.1) mmol/L Chloride (96-108) mmol/L Carbon Dioxide (22-29) mmol/L Anion Gap (12-20) BUN (9-16) mg/dL Creatinine (0.5-1.4) mg/dL Estim Creat Clear Calc Estimated GFR POC Glucose 78 (60-115) mg/dL Random Glucose (60-115) mg/dL Calcium (8.4-10.2) mg/dL Total Creatine Kinase (38-174) U/L Troponin I High Sens (<3.5-35.0) ng/L COVID-19 (DYLAN) (Negative) COVID-19 Clin Com Imaging Data Chest x-ray: Attestation: I personally reviewed and interpreted this imaging study as follows: Radiologist's impression: Left hemithorax chronic disease with no definite acute parenchymal disease. ? CT scan - head: Attestation: I personally reviewed and interpreted this imaging study as follows: Radiologist's impression: No acute intracranial pathology. ECG Data ECG #1: Attestation: I personally reviewed and interpreted this ECG as follows: Interpretation: Sinus rhythm at 95 beats per minutes with PACs, normal intervals, no ST-T changes. Discharge Plan Discharge Clinical Impression: Brain TIA, Hypoglycemia Patient Disposition: Admitted As Inpatient Prescriptions: No Action (DME) pen needle, diabetic 31 gauge x 5/16 needle See Rx Instructions ea subcut BID Qty: 100 11RF Rx Instructions: As directed Jardiance 25 mg tablet 25 mg PO QAM Qty: 30 4RF levothyroxine 50 mcg tablet 50 mcg PO DAILY Qty: 90 0RF warfarin 2 mg Tablet 4 mg PO DAILY 0RF Protocol: Dose Management Condition: Friday Dose/Route: 4 mg Instruction: 2 x 2 mg tablets Condition: Friday Dose/Route: 4 mg Instruction: 2 x 2 mg tablets Condition: Friday Dose/Route: 4 mg Instruction: 2 x 2 mg tablets Condition: Friday Dose/Route: 4 mg Instruction: 2 x 2 mg tablets Condition: Dose/Route: 4 mg Instruction: 2 x 2 mg tablets Condition: Friday Dose/Route: 4 mg Instruction: 2 x 2 mg tablets Condition: Friday Dose/Route: 4 mg Instruction: 2 x 2 mg tablets Protocol Text: Adjustment Start Date: Friday05/14/21 INR Value: 3.4 INR Date: 05/14/21 Additional Instructions: pt d/c to home with VNA services will have repeat INR this week schedule for 05/17/21 atorvastatin 40 mg tablet 40 mg PO BEDTIME 0RF insulin lispro protamin-lispro [Humalog Mix 75-25 KwikPen] 100 unit/mL (75-25) insulin pen 44 unit subcut BEDTIME 0RF lisinopril 20 mg tablet 20 mg PO DAILY 0RF insulin lispro protamin-lispro 100 unit/mL (75-25) insulin pen 62 unit subcut DAILY 0RF
[2021-05-31 11:49] LABS: Troponin-I High Sensitivity 10.7 ng/L (<3.5-35.0)
[2021-05-31 11:58] LABS: Anion Gap 13 (12-20); Blood Urea Nitrogen 13 mg/dL (9-16); Calcium 9.1 mg/dL (8.4-10.2); Carbon Dioxide 23 mmol/L (22-29); Chloride 103 mmol/L (96-108); Estimated Glomerular Filt Rate > 60; Glucose Random 46 mg/dL (60-115); Potassium 3.5 mmol/L (3.3-5.1); Sodium 135 mmol/L (135-145)
[2021-05-31 12:02] LABS: Glucose, Whole Blood 63 mg/dL (60-115)
[2021-05-31 12:03] LABS: COVID-19 Test Invalid (Negative)
--- NOTE | 2021-05-31 12:06 | MHC.STROKE ---
Addendum entered by Tammy Palumbo RN 05/31/21 13:44: ROUNDED ON PATIENT AND PROVIDE STROKE EDUCATION TO THE PATIENT DUE TO ALL OF HIS STROKE RISK FACTORS. HE ALSO PASSED THE NURSING SWALLOW SCREEN PRIOR TO PO. Original Note: [address] [facility] PRE-NOTIFIED STROKE ALERT , ARRIVED AT 1045, EXAMINED BY DR AGUILAR NIHSS = 2 FOR MILD LEFT WEAKNESS, PATIENT SAID HE FELT WEAK FOR 2 DAYS. WHEN I ASKED HIM HE WAS VAGUE MAYBE 2 DAYS SINCE FRIDAY, HE SAID HE WAS ON WARFARIN BUT DIDN'T KNOW WHY. HE SAID HE HASN'T BEEN TAKING HIS PILLS REGULARLY, HE TOOK WARFARIN THIS AM. STROKE PROTOCOL ACTIVATED DUE TO WARFARIN USE, ?BLEED. POC INR 5.0. STAT CT HEAD, NO BLEED. SEE DR AGUILAR'S NOTE, SIGNIFICANT MEDICAL HISTORY. I WILL CONTINUE TO FOLLOW.
[2021-05-31 12:09] LABS: SLIDE REVIEW VERIFIED
[2021-05-31 12:31] LABS: Glucose, Whole Blood 78 mg/dL (60-115)
[2021-05-31 12:38] LABS: COVID-19 Test Negative (Negative)
--- NOTE | 2021-05-31 13:41 | PHA.MEDREC ---
Pharmacy Consult ? Medication Reconciliation Pharmacy has completed the medication reconciliation. Patient had a note book with all medication adminstered each day. Confirm with coag clinic note on 05/14/21 that current warfarin dose is 4 mg daily. Farida Mcguire, SaiD
[2021-05-31 13:57] VITALS: BP 125/60; PULSE 99; RESP 18; O2SAT 96
--- NOTE | 2021-05-31 14:30 | PM.EVENT ---
Event Note Date of Service: 05/31/21 Event Note: Patient is seen and examined-patient seems to be confuse and unable to give much history but otherwise awake, knows his name and his care management associate ?, seems noncompliant to meds? answers few questions Found to have hypoglycemia from 30-[address] head negative INR is around 5 Denies any trauma or any new neurological symptom but there is questionable left upper extremity mild weakness Physical exam: Please see H&P. Lab imaging reviewed, EKG sinus rhythm Chest x-ray looks similar as before. Assessment and plan coordinated in H&P note-agree with APC note in addition Toxic metabolic encephalopathy -multifactorial possible related to hypoglycemia versus ? Use of any medication( opiods) versus possible cognitive impairment Urine drug screen UA Neuro checks Neurology evaluation
[2021-05-31 14:44] LABS: Glucose, Whole Blood 30 mg/dL (60-115)
[2021-05-31] MEDS: Dextrose 50 % 25 GM/50 ML SYRINGE IVPUSH (14:45)
[2021-05-31 14:47] LABS: Alanine Aminotransferase 19 U/L (0-40); Albumin Level 3.8 g/dL (3.5-5.0); Alkaline Phosphatase 69 U/L (39-117); Aspartate Amino Transferase 25 U/L (5-37); Bilirubin Direct 0.4 mg/dL (0.0-0.5); Total Protein 6.9 g/dL (6.5-8.0)
--- NOTE | 2021-05-31 14:48 | PM.IMHP ---
History of Present Illness Date of Service: 05/31/21 <BRIGETTE Feliz - Last Filed: 05/31/21 15:22> Attending physician on admission: Margot Ring <BRIGETTE Feliz - Last Filed: 05/31/21 15:22> Chief Complaint: confusion <BRIGETTE Feliz - Last Filed: 05/31/21 15:22> This is a 70-year-old male who presents to the emergency department with confusion and question of left-sided weakness. He is awake, alert but is a vague historian and unable to provide any significant history including why he came to the emergency room. He is unsure if he has been taking his medication. He has no specific complaints at this time. Brain CT was obtained showing no acute intracranial abnormalities. Lab work was significant for leukocytosis of 12.8, point of care glucose of 50. He was given OJ and repeat POCs were obtained and were 63, 78. Chest xray showed chronic changes and no UA was obtained at this time. The hospitalists were asked to see him for evaluation and admission for further management. <BRIGETTE Feliz - Last Filed: 05/31/21 15:22> Review of Systems Review of Systems: Yes Unobtainable due to mental condition <BRIGETTE Feliz - Last Filed: 05/31/21 15:22> [facility] Medical History: Medical History BMI 34.0-34.9,adult BPH (benign prostatic hyperplasia) Chronic kidney disease Cognitive impairment Diabetes mellitus Gallstones Gout Heart failure, unspecified HTN (hypertension) Hyperlipidemia Obesity due to excess calories Osteomyelitis Paroxysmal atrial fibrillation Prosthetic valve dysfunction Spinal stenosis, lumbar Type 2 diabetes mellitus with diabetic neuropathy, unspecified Type 2 diabetes mellitus with hyperglycemia, with long-term current use of insulin <BRIGETTE Feliz - Last Filed: 05/31/21 15:22> Family History: Family History Father CVD (cardiovascular disease) Mother CVD (cardiovascular disease) <BRIGETTE Feliz - Last Filed: 05/31/21 15:22> Surgical History: Surgical History Hx of aortic valve replacement Hx of colonoscopy Hx of endoscopy Hx of exploratory laparotomy Hx of laparoscopy Mitral valve replaced <BRIGETTE Feliz - Last Filed: 05/31/21 15:22> Social History: Social History Household Members: None Alcohol intake: never Patient Tobacco Use Status: Never used Tobacco Advance Directives: No Advance Directives Information Provided: No <BRIGETTE Feliz - Last Filed: 05/31/21 15:22> Meds Allergies/Adverse reactions: Allergies Allergy/AdvReac Type Severity Reaction Status Date / Time exenatide [From BYETTA] Allergy Intermediate AFFECTED Verified 04/11/21 13:14 PANCREAS <BRIGETTE Feliz - Last Filed: 05/31/21 15:22> Active Medications: Current Medications Acetaminophen (Acetaminophen 325 Mg Tablet) 650 mg PO Q6H PRN PRN Reason: Pain, Mild (Pain Scale 1-3) Atorvastatin Calcium (Atorvastatin Calcium 40 Mg Tablet) 40 mg PO BEDTIME [facility] Dextrose (Dextrose 50 % 25 Gm/50 Ml Syringe) 25 gm IVPUSH Q15M PRN; Protocol PRN Reason: per Hypoglycemia Standing Ord. Docusate Sodium (Docusate Sodium 100 Mg Capsule) 100 mg PO DAILY PRN PRN Reason: Constipation Glucose (Glucose Gel 15 Gm Gel..Gram.) 15 gm PO Q15M PRN; Protocol PRN Reason: per Hypoglycemia Standing Ord. Dextrose/Sodium Chloride (D5ns) 1,000 mls @ 80 mls/hr IVCONT .[id number] LOPEZ Levothyroxine Sodium (Levothyroxine Sodium 50 Mcg Tablet) 50 mcg PO DAILY [facility] Lisinopril (Lisinopril 20 Mg Tablet) 20 mg PO DAILY LOPEZ; Protocol Ondansetron HCl (Ondansetron Hcl 4 Mg/2 Ml Vial) 4 mg IVPUSH Q8H PRN PRN Reason: Nausea and Vomiting Sodium Chloride (0.9 % Sodium Chloride Flush 3 Ml Syringe) 3 ml IVFLUSH QSHIFT LOPEZ <BRIGETTE Feliz - Last Filed: 05/31/21 15:22> Home medications: Home Medications Medication Instructions Recorded Confirmed Last Taken Type lisinopril 20 mg tablet 20 mg PO DAILY 06/05/20 05/31/21 05/31/21 History insulin lispro protamine-lispro 62 unit SUBCUT DAILY ml 04/11/21 05/31/21 05/31/21 History 100 unit/mL (75-25) subcutaneous pen atorvastatin 40 mg tablet 40 mg PO BEDTIME 05/11/21 05/31/21 05/10/21 History warfarin 2 mg tablet 4 mg PO DAILY 05/11/21 05/31/21 05/31/21 History insulin lispro protamine-lispro 44 unit SUBCUT BEDTIME 05/31/21 05/31/21 Unknown History 100 unit/mL (75-25) subcutaneous pen (Humalog Mix 75-25 KwikPen) <BRIGETTE Feliz - Last Filed: 05/31/21 15:22> Physical Exam Vital Signs and Narrative: Vital Signs: Last Vital Signs Temp 98 F 05/31/21 11:14 Pulse 99 05/31/21 13:57 Resp 18 05/31/21 13:57 BP 125/60 05/31/21 13:57 Pulse Ox 96 05/31/21 13:57 BMI result Body Mass Index 31.1 <BRIGETTE Feliz - Last Filed: 05/31/21 15:22> Const: General: cooperative, comfortable, no acute distress, alert and awake <BRIGETTE Feliz Last Filed: 05/31/21 15:22> Nutritional Appearance: overweight <BRIGETTE Feliz - Last Filed: 05/31/21 15:22> Resp: Effort & Inspection: normal respiratory effort and able to speak in complete sentences <BRIGETTE Feliz Last Filed: 05/31/21 15:22> Cardio: Rate: regular rate <BRIGETTE Feliz Last Filed: 05/31/21 15:22> Rhythm: regular rhythm <BRIGETTE Feliz Last Filed: 05/31/21 15:22> Heart sounds: Clicking heart sound present and Murmur heart sound present <BRIGETTE Feliz Last Filed: 05/31/21 15:22> GI: Inspection: No distended <BRIGETTE Feliz - Last Filed: 05/31/21 15:22> Palpation (GI): Soft to palpation and nontender <BRIGETTE Feliz - Last Filed: 05/31/21 15:22> Neuro: Other: mild left side arm, soft top installer weakness as compared to right tongue midline, face symmetrical <BRIGETTE Feliz - Last Filed: 05/31/21 15:22> Extrem: Other: moving all 4 extremities spontaneously <BRIGETTE Feliz - Last Filed: 05/31/21 15:22> Results Labs CBC and Chem 7: : 06/01/21 07:37 06/01/21 07:37 <BRIGETTE Feliz - Last Filed: 05/31/21 15:22> Labs: Laboratory Results - last 24 hr 05/31/21 05/31/21 05/31/21 11:00 11:15 11:19 MCV 92.0 MCH 31.6 MCHC 34.3 RDW 14.2 Plt Count 283 MPV 10.3 Immature Gran % (Auto) 0.5 H Neut % (Auto) 64.3 Lymph % (Auto) 21.7 [place] % (Auto) 12.3 H Eos % (Auto) 0.9 Baso % (Auto) 0.3 Lymph # (Auto) 2.8 [place] # (Auto) 1.6 H Eos # (Auto) 0.1 Baso # (Auto) 0.0 Abs Immat Gran (auto) 0.07 H Absolute Neuts (auto) 8.2 Absolute Nucleated RBC 0.000 Nucleated RBC % (auto) 0.0 Smear Tech's Comments VERIFIED PT Whole Blood PT 59.9 H INR Whole Blood INR 5.0 H* APTT Anion Gap Estim Creat Clear Calc Estimated GFR POC Glucose 50 L* Random Glucose Calcium Total Bilirubin Direct Bilirubin AST ALT Alkaline Phosphatase Total Creatine Kinase Total Protein Albumin COVID-19 (DYLAN) COVID-19 Clin Com 05/31/21 05/31/21 05/31/21 11:19 11:19 11:19 MCV MCH MCHC RDW Plt Count MPV Immature Gran % (Auto) Neut % (Auto) Lymph % (Auto) [place] % (Auto) Eos % (Auto) Baso % (Auto) Lymph # (Auto) [place] # (Auto) Eos # (Auto) Baso # (Auto) Abs Immat Gran (auto) Absolute Neuts (auto) Absolute Nucleated RBC Nucleated RBC % (auto) Smear Tech's Comments PT 61.8 H Whole Blood PT INR 5.2 H* Whole Blood INR APTT 58.9 H Anion Gap 13 Estim Creat Clear Calc 75.0 Estimated GFR > 60 POC Glucose Random Glucose 46 L* Calcium 9.1 Total Bilirubin 1.0 Direct Bilirubin 0.4 AST 25 ALT 19 Alkaline Phosphatase 69 Total Creatine Kinase 269 H Total Protein 6.9 Albumin 3.8 COVID-19 (DYLAN) Invalid COVID-19 Clin Com See Note 05/31/21 05/31/21 05/31/21 11:56 12:18 12:27 MCV MCH MCHC RDW Plt Count MPV Immature Gran % (Auto) Neut % (Auto) Lymph % (Auto) [place] % (Auto) Eos % (Auto) Baso % (Auto) Lymph # (Auto) [place] # (Auto) Eos # (Auto) Baso # (Auto) Abs Immat Gran (auto) Absolute Neuts (auto) Absolute Nucleated RBC Nucleated RBC % (auto) Smear Tech's Comments PT Whole Blood PT INR Whole Blood INR APTT Anion Gap Estim Creat Clear Calc Estimated GFR POC Glucose 63 78 Random Glucose Calcium Total Bilirubin Direct Bilirubin AST ALT Alkaline Phosphatase Total Creatine Kinase Total Protein Albumin COVID-19 (DYLAN) Negative COVID-[facility] Clin Com See Note 05/31/21 14:40 MCV MCH MCHC RDW Plt Count MPV Immature Gran % (Auto) Neut % (Auto) Lymph % (Auto) [place] % (Auto) Eos % (Auto) Baso % (Auto) Lymph # (Auto) [place] # (Auto) Eos # (Auto) Baso # (Auto) Abs Immat Gran (auto) Absolute Neuts (auto) Absolute Nucleated RBC Nucleated RBC % (auto) Smear Tech's Comments PT Whole Blood PT INR Whole Blood INR APTT Anion Gap Estim Creat Clear Calc Estimated GFR POC Glucose 30 L* Random Glucose Calcium Total Bilirubin Direct Bilirubin AST ALT Alkaline Phosphatase Total Creatine Kinase Total Protein Albumin COVID-19 (DYLAN) COVID-[facility] Clin Com <BRIGETTE Feliz - Last Filed: 05/31/21 15:22> Imaging Radiologist's Impressions: Impressions Head CT 05/31/21 11:09 IMPRESSION: No acute intracranial pathology. This critical result was discussed with Dr. Ken at 11:15 AM hours on May 31, 2021. It was ascertained that the content and urgency of the report was understood at the time of direct communication. Chest X-Ray 05/31/21 11:25 IMPRESSION: Left hemithorax chronic disease with no definite acute parenchymal disease. <BRIGETTE Feliz - Last Filed: 05/31/21 15:22> Assessment and Plan (1) Hypoglycemia: Status: Acute <BRIGETTE Feliz - Last Filed: 05/31/21 15:22> (2) Encephalopathy: Status: Acute <BRIGETTE Feliz - Last Filed: 05/31/21 15:22> Plan This is a 70-year-old male with a past medical history of hypertension, hyperlipidemia, diabetes, CHF, obesity, paroxysmal AFib, history of off mitral valve replacement/ aortic valve replacement-on Coumadin; history of COVID-19 infection who presented to the hospital today with a chief complaint of confusion found to have hypoglycemia. Encephalopathy likely metabolic r/t hypoglycemia. Repeat POC 30 - treated with dextrose, OJ although mild left arm weakness, seems less likely acute stroke given that is he fully anticoagulated with coumadin brain CT negative previous admission for encephalopathy earlier this month, TSH wnl; eeg showed generalized slowing no seizure activity -treat hypoglycemia -neurology consult -tele monitoring type 2 DM with hypoglycemia unclear if pt eating or taking meds appropriately at home outpatient notes indicated inconsistent insulin use pt d/c with [facility] on last admission - but pt declined their services -hold home insulin -q1h POC until POC stable, hold off on sliding scale until POC stable -D5NS for now Coagulopathy secondary to Coumadin use INR 5.2, no evidence acute bleeding -hold Coumadin -monitor INR daily Mechanical mitral/aortic valves INR supratherapeutic goal INR 2-3 -hold coumadin -follow INR daily HLD continue statin Hypothyroidism TSH within normal limits Continue levothyroxine Hypertension Blood pressure control Continue lisinopril dvt ppx - coumadin (inr elevated) boots code status - presumed full code attending - dr. ring <BRIGETTE Feliz - Last Filed: 05/31/21 15:22> Quality Stroke Does the patient have a stroke diagnosis?: No <BRIGETTE Feliz Last Filed: 05/31/21 15:22> VTE Prior VTE?: No <BRIGETTE Feliz - Last Filed: 05/31/21 15:22> VTE Risk Level:: Medical - moderate - high <BRIGETTE Feliz - Last Filed: 05/31/21 15:22> VTE Device Contraindication: N/A - Device Ordered <BRIGETTE Feliz - Last Filed: 05/31/21 15:22> VTE Drug Contraindication: N/A - Med Ordered <BRIGETTE Feliz - Last Filed: 05/31/21 15:22>
[2021-05-31 15:29] LABS: Glucose, Whole Blood 132 mg/dL (60-115)
[2021-05-31 16:17] LABS: Folate 11.4 ng/mL (> or = 4.0); Vitamin B12 440 pg/mL (200-900)
[2021-05-31 16:38] LABS: Glucose, Whole Blood 90 mg/dL (60-115)
[2021-05-31 18:20] VITALS: BP 141/72; PULSE 102; RESP 12; TEMP 37.1; O2SAT 99
[2021-05-31] MEDS: Dextrose 5 % and 0.9 % NaCl 1,000 ML 80 ML IVCONT (18:22)
[2021-05-31 18:28] LABS: Glucose, Whole Blood 99 mg/dL (60-115)
[2021-05-31] MEDS: Atorvastatin Calcium 40 MG TABLET PO (21:45)
[2021-06-01 00:03] VITALS: BP 124/78; PULSE 92; RESP 16; TEMP 36.3; O2SAT 99
[2021-06-01 06:25] VITALS: BP 124/60; PULSE 88; RESP 14; TEMP 36.4; O2SAT 96
--- NOTE | 2021-06-01 07:41 | PC.NURSE ---
Pt recevied from date night caregiver: Pt AOX4 and offers no complaints. NSR noted and lungs diminished. Pt abd soft and non-tender. Pt sitting up and eating breakfast independantly.
[2021-06-01 07:51] LABS: Hematocrit 37.6 % (42.0-52.0); Hemoglobin 12.7 g/dl (14.0-18.0); Mean Corpuscular HGB Conc 33.8 g/dl (31.0-36.0); Mean Corpuscular Hemoglobin 31.7 pg (27.0-33.0); Mean Corpuscular Volume 93.8 fL (80.0-98.0); Mean Platelet Volume 10.4 fL (9.4-12.4); Platelet Count 232 X10*3/uL (160-400); Red Blood Count 4.01 X10*6/uL (4.60-5.80); Red Cell Distribution Width 14.6 % (11.0-16.0); White Blood Count 9.3 X10*3/uL (4.8-10.8)
[2021-06-01 08:03] LABS: Prothrombin Time 73.9 SEC (9.9-13.0)
[2021-06-01 08:06] LABS: INTERNATIONAL NORM RATIO 6.2 (0.9-1.1)
[2021-06-01 08:08] LABS: Anion Gap 10 (12-20); Blood Urea Nitrogen 14 mg/dL (9-16); Calcium 8.9 mg/dL (8.4-10.2); Carbon Dioxide 24 mmol/L (22-29); Chloride 104 mmol/L (96-108); Creatinine Clr Calc Pharmacy 99.1; Estimated Glomerular Filt Rate > 60; Glucose Random 153 mg/dL (60-115); Potassium 4.7 mmol/L (3.3-5.1); Sodium 133 mmol/L (135-145)
[2021-06-01] MEDS: Levothyroxine Sodium 50 MCG TABLET PO (08:15)
[2021-06-01] MEDS: lisinopriL 20 MG TABLET PO (08:16)
[2021-06-01 08:30] LABS: Appearance Urine CLEAR; Color Urine YELLOW; Glucose Urine UA 500 MG/DL (NEG); Leukocyte Esterase Urine NEG (NEG); Nitrite Urine NEG (NEG); UACC Culture Trigger NO; Urine Blood TRACE (NEG); Urine Ketones NEG (NEG); Urine Protein TRACE MG/DL (NEG-TRACE)
[2021-06-01 08:41] LABS: Amphetamine Screen Urine Not Detected (Not Detect); Barbiturates, Urine Not Detected (Not Detect); Benzodiazepines Screen Urine Not Detected (Not Detect); Cannabinoid Screen Urine Not Detected (Not Detect); Cocaine Screen Urine Not Detected (Not Detect); Fentanyl, urine Not Detected (Not Detect); Opiate Screen Urine Not Detected (Not Detect); Phencyclidine Screen Urine Not Detected (Not Detect)
[2021-06-01 08:42] LABS: WBC Urine 0 /HPF (0-4)
[2021-06-01 10:37] VITALS: BP 133/76; PULSE 86; RESP 18; O2SAT 97
[2021-06-01 12:33] LABS: Glucose, Whole Blood 159 mg/dL (60-115)
[2021-06-01 12:33] LABS: Glucose, Whole Blood 58 mg/dL (60-115)
[2021-06-01 12:33] LABS: Glucose, Whole Blood 87 mg/dL (60-115)
[2021-06-01 12:33] LABS: Glucose, Whole Blood 136 mg/dL (60-115)
--- NOTE | 2021-06-01 14:32 | PC.NURSE ---
Pt update status given to pt's gf Kali Nam, with pt's permission. Gene currently at rehab facility in [place], and can be reached directly: [phone]
[2021-06-01 15:01] VITALS: BP 107/73; PULSE 100; RESP 16; O2SAT 94
--- NOTE | 2021-06-01 15:42 | HO.PM.IMPN ---
Subjective Subjective Date of Service: 06/01/21 Interval History: seen and examined this morning pleasantly confused knows his name and who he lives with but otherwise unable to provide any history no specific complaints at this time Review of Systems Review of Systems: Yes all other systems are reviewed and are negative Constitutional Constitutional: Denies chills and Denies fever(s) Cardiovascular Cardiovascular: Denies chest pain, Denies palpitations and Denies dyspnea Respiratory Respiratory: Denies cough and Denies dyspnea Gastrointestinal Gastrointestinal: Denies abdominal pain and Denies vomiting Endocrine Endocrine: Denies palpitations Physical Exam Vital Signs: Vital Signs: Last Vital Signs Temp 97.6 F 06/01/21 06:25 Pulse 100 06/01/21 15:01 Resp 16 06/01/21 15:01 BP 107/73 06/01/21 15:01 Pulse Ox 94 06/01/21 15:01 BMI result Body Mass Index 31.1 Const: General: cooperative, comfortable, no acute distress, alert and awake Nutritional Appearance: overweight Resp: Effort & Inspection: normal respiratory effort and able to speak in complete sentences Cardio: Rate: regular rate Rhythm: regular rhythm Heart sounds: Clicking heart sound present and Murmur heart sound present GI: Inspection: No distended Palpation (GI): Soft to palpation and nontender Neuro: Other: mild left side arm, configuration management specialist weakness as compared to right tongue midline, face symmetrical Extrem: Other: moving all 4 extremities spontaneously Objective Data Active Medications Acetaminophen (Acetaminophen 325 Mg Tablet) 650 mg PO Q6H PRN PRN Reason: Pain, Mild (Pain Scale 1-3) Atorvastatin Calcium (Atorvastatin Calcium 40 Mg Tablet) 40 mg PO BEDTIME [facility] Last Admin: 05/31/21 21:45 Dose: 40 mg Documented by: SMITHA Dextrose (Dextrose 50 % 25 Gm/50 Ml Syringe) 25 gm IVPUSH Q15M PRN; Protocol PRN Reason: per Hypoglycemia Standing Ord. Docusate Sodium (Docusate Sodium 100 Mg Capsule) 100 mg PO DAILY PRN PRN Reason: Constipation Glucose (Glucose Gel 15 Gm Gel..Gram.) 15 gm PO Q15M PRN; Protocol PRN Reason: per Hypoglycemia Standing Ord. Levothyroxine Sodium (Levothyroxine Sodium 50 Mcg Tablet) 50 mcg PO DAILY [facility] Last Admin: 06/01/21 08:15 Dose: 50 mcg Documented by: THIERNO Lisinopril (Lisinopril 20 Mg Tablet) 20 mg PO DAILY [facility]; Protocol Last Admin: 06/01/21 08:16 Dose: 20 mg Documented by: THIERNO Ondansetron HCl (Ondansetron Hcl 4 Mg/2 Ml Vial) 4 mg IVPUSH Q8H PRN PRN Reason: Nausea and Vomiting Sodium Chloride (0.9 % Sodium Chloride Flush 3 Ml Syringe) 3 ml IVFLUSH QSHIFT [facility] Last Admin: 06/01/21 07:25 Dose: Not Given Documented by: THIERNO Non-Admin Reason: Med Not Available Labs CBC & Chem 7: 06/01/21 07:37 06/01/21 07:37 Labs: Laboratory Results - last 24 hr 05/31/21 05/31/21 05/31/21 11:19 16:33 18:25 MCV MCH MCHC RDW Plt Count MPV Absolute Nucleated RBC Nucleated RBC % (auto) PT INR Anion Gap Estim Creat Clear Calc Estimated GFR POC Glucose 90 99 Random Glucose Calcium Vitamin B12 440 Folate 11.4 Urine Color Urine Appearance Urine pH Ur Specific [place] Urine Protein Urine Glucose (UA) Urine Ketones Urine Blood Urine Nitrite Ur Leukocyte Esterase Urine RBC Urine WBC Ur Squamous Epith Cells Urine Bacteria Urine Opiates Screen Urine Fentanyl Screen Ur Barbiturates Screen Ur Phencyclidine Scrn Ur Amphetamines Screen U Benzodiazepines Scrn Urine Cocaine Screen U Marijuana (THC) Screen 06/01/21 06/01/21 06/01/21 03:17 03:49 07:07 MCV MCH MCHC RDW Plt Count MPV Absolute Nucleated RBC Nucleated RBC % (auto) PT INR Anion Gap Estim Creat Clear Calc Estimated GFR POC Glucose 58 L* 87 159 H Random Glucose Calcium Vitamin B12 Folate Urine Color Urine Appearance Urine pH Ur Specific [place] Urine Protein Urine Glucose (UA) Urine Ketones Urine Blood Urine Nitrite Ur Leukocyte Esterase Urine RBC Urine WBC Ur Squamous Epith Cells Urine Bacteria Urine Opiates Screen Urine Fentanyl Screen Ur Barbiturates Screen Ur Phencyclidine Scrn Ur Amphetamines Screen U Benzodiazepines Scrn Urine Cocaine Screen U Marijuana (THC) Screen 06/01/21 06/01/21 06/01/21 07:37 07:37 07:37 MCV 93.8 MCH 31.7 MCHC 33.8 RDW 14.6 Plt Count 232 MPV 10.4 Absolute Nucleated RBC 0.000 Nucleated RBC % (auto) 0.0 PT 73.9 H INR 6.2 H* Anion Gap 10 L Estim Creat Clear Calc 99.1 Estimated GFR > 60 POC Glucose Random Glucose 153 H D Calcium 8.9 Vitamin B12 Folate Urine Color Urine Appearance Urine pH Ur Specific [place] Urine Protein Urine Glucose (UA) Urine Ketones Urine Blood Urine Nitrite Ur Leukocyte Esterase Urine RBC Urine WBC Ur Squamous Epith Cells Urine Bacteria Urine Opiates Screen Urine Fentanyl Screen Ur Barbiturates Screen Ur Phencyclidine Scrn Ur Amphetamines Screen U Benzodiazepines Scrn Urine Cocaine Screen U Marijuana (THC) Screen 06/01/21 06/01/21 06/01/21 08:21 08:21 12:08 MCV MCH MCHC RDW Plt Count MPV Absolute Nucleated RBC Nucleated RBC % (auto) PT INR Anion Gap Estim Creat Clear Calc Estimated GFR POC Glucose 136 H Random Glucose Calcium Vitamin B12 Folate Urine Color YELLOW Urine Appearance CLEAR Urine pH 6.0 Ur Specific [place] 1.020 Urine Protein TRACE Urine Glucose (UA) 500 H Urine Ketones NEG Urine Blood TRACE Urine Nitrite NEG Ur Leukocyte Esterase NEG Urine RBC 5-9 H Urine WBC 0 Ur Squamous Epith Cells NONE Urine Bacteria NONE Urine Opiates Screen Not Detected Urine Fentanyl Screen Not Detected Ur Barbiturates Screen Not Detected Ur Phencyclidine Scrn Not Detected Ur Amphetamines Screen Not Detected U Benzodiazepines Scrn Not Detected Urine Cocaine Screen Not Detected U Marijuana (THC) Screen Not Detected Assessment and Plan (1) Encephalopathy: Status: Acute (2) Hypoglycemia: Status: Acute Plan This is a 70-year-old male with a past medical history of hypertension, hyperlipidemia, diabetes, CHF, obesity, paroxysmal AFib, history of off mitral valve replacement/ aortic valve replacement-on Coumadin; history of COVID-19 infection who presented to the hospital today with a chief complaint of confusion found to have hypoglycemia. Encephalopathy possible dementia rather than encephalopathy initially thought to be related to encephalopathy related to hypoglycemia, but sugar has improved, pt remains the same. mild left arm weakness, seems less likely acute stroke given that is he fully anticoagulated with coumadin no evidence of infection, UA, CXR negative brain CT negative tox screen negative previous admission for encephalopathy earlier this month, TSH, B12, folate wnl; eeg showed generalized slowing no seizure activity d/w neurology, plan for brain MRI, repeat EEG -will try to get in touch with patient's friend and roommate for collateral information type 2 DM with hypoglycemia unclear if pt eating or taking meds appropriately at home outpatient notes indicated inconsistent insulin use pt d/c with [facility] on last admission - but pt declined their services -hold home insulin -POC stable overnight, will d/c D5NS -follow POC hyponatremia, mild likely r/t IVf -d/c IVF -follow BMP Coagulopathy secondary to Coumadin use INR 6.2, no evidence acute bleeding -hold Coumadin -monitor INR daily Mechanical mitral/aortic valves INR supratherapeutic goal INR 2-3 -hold coumadin -follow INR daily HLD continue statin Hypothyroidism TSH within normal limits Continue levothyroxine Hypertension Blood pressure control Continue lisinopril dvt ppx - coumadin (inr elevated) boots code status - presumed full code attending - dr. Marte Quality Stroke Does the patient have a stroke diagnosis?: No VTE Prior VTE?: No VTE Risk Level:: Medical - moderate - high VTE Device Contraindication: N/A - Device Ordered VTE Drug Contraindication: N/A - Med Ordered
[2021-06-01 16:18] LABS: Glucose, Whole Blood 249 mg/dL (60-115)
--- NOTE | 2021-06-01 16:48 | PC.NURSE ---
Pt becoming increasingly more confused- pulled out IV and continuously takes off hospital gown and redown home clothes, stating he needs to make sometype of appointment. Pt easily redirectable and placed back in bed after having all home belongings moved from pt's bedside. BRIGETTE Faria made aware. BRIGETTE states MRI will continue to be attempted, and if pt cannot tolerate, IM haldol can be given, but would rather not be used. Pt remains plesantly confused but stays in bed. Pt at MRI now with PCT. RN will continue to monitor.
--- NOTE | 2021-06-01 19:30 | PC.NURSE ---
pt is alert and oriented to self. Pt does not know the appropriate year, president, or month. Pt has pleasant affect. Strength equal bilaterally. pupils are perrl. LS are clear no difficulty breathing. pt is PWD and normal sinus on the monitor. Resp even unlabored. abd is soft non-tender. pt states he is going to the bathroom ok, states no pain.
[2021-06-01 19:50] VITALS: BP 133/65; PULSE 91; RESP 14; TEMP 37.3; O2SAT 95
[2021-06-01] MEDS: Insulin Lispro 100 UNIT/ML 3 ML VIAL SUBCUT (20:18)
[2021-06-01] MEDS: Atorvastatin Calcium 40 MG TABLET PO (20:19)
[2021-06-01] MEDS: 0.9 % Sodium Chloride Flush 3 ML SYRINGE IVFLUSH (23:57)
[2021-06-02 01:15] VITALS: BP 139/74; PULSE 88; RESP 18; TEMP 36.6; O2SAT 95
[2021-06-02 05:57] VITALS: BP 161/87; PULSE 95; RESP 17; TEMP 36.8; O2SAT 98
[2021-06-02 07:57] LABS: INTERNATIONAL NORM RATIO 4.5 (0.9-1.1)
[2021-06-02 08:09] LABS: Anion Gap 13 (12-20); Blood Urea Nitrogen 14 mg/dL (9-16); Carbon Dioxide 26 mmol/L (22-29); Chloride 100 mmol/L (96-108); Creatinine Clr Calc Pharmacy 95.7; Estimated Glomerular Filt Rate > 60; Glucose Random 198 mg/dL (60-115); Potassium 4.5 mmol/L (3.3-5.1); Sodium 134 mmol/L (135-145)
--- NOTE | 2021-06-02 09:30 | PC.NURSE ---
pt a&ox3, vss, pt reports that he spoke with sister who is planning on picking him up today, resting comfortably, medicated per provider order.
[2021-06-02] MEDS: Insulin Lispro 100 UNIT/ML 3 ML VIAL SUBCUT ×4 (09:32→20:56)
[2021-06-02] MEDS: lisinopriL 20 MG TABLET PO (09:33)
[2021-06-02] MEDS: levETIRAcetam 500 MG TABLET PO ×2 (09:33→20:56)
[2021-06-02] MEDS: Levothyroxine Sodium 50 MCG TABLET PO (09:33)
[2021-06-02] MEDS: 0.9 % Sodium Chloride Flush 3 ML SYRINGE IVFLUSH ×2 (09:34→14:58)
--- NOTE | 2021-06-02 11:25 | PC.NURSE ---
pt alert and oriented to place, but seems confused as to his situation, pt attempting to get out of bed and walking around, vss, will continue to monitor.
[2021-06-02 11:29] VITALS: BP 119/75; PULSE 93; RESP 16; TEMP 36.5; O2SAT 97
--- NOTE | 2021-06-02 11:29 | HO.PM.IMPN ---
Subjective Subjective Date of Service: 06/02/21 Interval History: seen and examined this morning no overnight events no complaints this morning continues to be confused. thinks his sister is coming to pick him up. easily redirectable at this time. Review of Systems Review of Systems: Yes all other systems are reviewed and are negative Constitutional Constitutional: Denies chills and Denies fever(s) Cardiovascular Cardiovascular: Denies chest pain and Denies dyspnea Respiratory Respiratory: Denies dyspnea Gastrointestinal Gastrointestinal: Denies abdominal pain Physical Exam Vital Signs: Vital Signs: Last Vital Signs Temp 98.3 F 06/02/21 05:57 Pulse 95 06/02/21 05:57 Resp 17 06/02/21 05:57 BP 161/87 H 06/02/21 05:57 Pulse Ox 98 06/02/21 05:57 BMI result Body Mass Index 31.1 Const: General: cooperative, comfortable, no acute distress, alert and awake Nutritional Appearance: overweight Resp: Effort & Inspection: normal respiratory effort and able to speak in complete sentences Cardio: Rate: regular rate Rhythm: regular rhythm Heart sounds: Clicking heart sound present and Murmur heart sound present GI: Inspection: No distended Palpation (GI): Soft to palpation and nontender Neuro: Other: strength seems equal bilaterally in upper and lower extremities Extrem: Other: moving all 4 extremities spontaneously Objective Data Active Medications Acetaminophen (Acetaminophen 325 Mg Tablet) 650 mg PO Q6H PRN PRN Reason: Pain, Mild (Pain Scale 1-3) Atorvastatin Calcium (Atorvastatin Calcium 40 Mg Tablet) 40 mg PO BEDTIME [facility] Last Admin: 06/01/21 20:19 Dose: 40 mg Documented by: TERRANCE Dextrose (Dextrose 50 % 25 Gm/50 Ml Syringe) 25 gm IVPUSH Q15M PRN; Protocol PRN Reason: per Hypoglycemia Standing Ord. Docusate Sodium (Docusate Sodium 100 Mg Capsule) 100 mg PO DAILY PRN PRN Reason: Constipation Glucose (Glucose Gel 15 Gm Gel..Gram.) 15 gm PO Q15M PRN; Protocol PRN Reason: per Hypoglycemia Standing Ord. Insulin Human Lispro (Insulin Lispro 100 Unit/Ml 3 Ml Vial) [facility]; Protocol Last Admin: 06/02/21 09:32 Dose: 4 unit Documented by: COTY Levetiracetam (Levetiracetam 500 Mg Tablet) 500 mg PO BID [facility] Last Admin: 06/02/21 09:33 Dose: 500 mg Documented by: COTY Levothyroxine Sodium (Levothyroxine Sodium 50 Mcg Tablet) 50 mcg PO DAILY [facility] Last Admin: 06/02/21 09:33 Dose: 50 mcg Documented by: COTY Lisinopril (Lisinopril 20 Mg Tablet) 20 mg PO DAILY [facility]; Protocol Last Admin: 06/02/21 09:33 Dose: 20 mg Documented by: COTY Ondansetron HCl (Ondansetron Hcl 4 Mg/2 Ml Vial) 4 mg IVPUSH Q8H PRN PRN Reason: Nausea and Vomiting Sodium Chloride (0.9 % Sodium Chloride Flush 3 Ml Syringe) 3 ml IVFLUSH QSHIFT [facility] [place] Last Admin: 06/02/21 09:34 Dose: 3 ml Documented by: COTY Labs CBC & Chem 7: 06/01/21 07:37 06/02/21 07:25 Labs: Laboratory Results - last 24 hr 06/01/21 06/01/21 06/01/21 03:17 03:49 07:07 PT INR Anion Gap Estim Creat Clear Calc Estimated GFR POC Glucose 58 L* 87 159 H Random Glucose Calcium 06/01/21 06/01/21 06/02/21 12:08 16:14 07:25 PT 53.0 H INR 4.5 H Anion Gap Estim Creat Clear Calc Estimated GFR POC Glucose 136 H 249 H Random Glucose Calcium 06/02/21 07:25 PT INR Anion Gap 13 Estim Creat Clear Calc 95.7 Estimated GFR > 60 POC Glucose Random Glucose 198 H Calcium 9.0 Assessment and Plan (1) Encephalopathy: Status: Acute Plan This is a 70-year-old male with a past medical history of hypertension, hyperlipidemia, diabetes, CHF, obesity, paroxysmal AFib, history of off mitral valve replacement/ aortic valve replacement-on Coumadin; history of COVID-19 infection who presented to the hospital today with a chief complaint of confusion found to have hypoglycemia. Encephalopathy possible superimposed on underlying dementia initially thought to be related to hypoglycemia, but sugar has improved and pt remains the same. no evidence of infection, UA, CXR negative; brain CT negative for acute intracranial pathology tox screen negative previous admission for encephalopathy earlier this month, TSH, B12, folate wnl; eeg showed generalized slowing no seizure activity brain MRI showing ?post ictal changes vs autoimmune encephalitis as well as scattered small chronic infarcts and mild to moderate chronic microangiopathy d/w neurology, plan to start keprra 500 mg bid, repeat EEG and obtain LP -LP ordered tentatively for Friday (INR supratherapeutic at this time); will need menigoencephalitis panel and autoimmune panel in addition to regular LP labs -psych consult for competency evaluation Was able to speak with Patient's friend Trevon who reports change in pt behavior, confusion 2-3 weeks ago type 2 DM with hypoglycemia unclear if pt eating or taking meds appropriately at home outpatient notes indicated inconsistent insulin use pt d/c with [facility] on last admission - but pt declined their services -POC have been stable off IVF -hold home insulin -continue POCs, SSI hyponatremia, mild likely r/t IVf -follow BMP Coagulopathy secondary to Coumadin use INR 4.5, no evidence acute bleeding -hold Coumadin -monitor INR daily Mechanical mitral/aortic valves INR supratherapeutic goal INR 2-3 -hold coumadin -follow INR daily HLD continue statin Hypothyroidism TSH within normal limits Continue levothyroxine Hypertension Blood pressure control Continue lisinopril dvt ppx - coumadin (inr elevated) boots code status - presumed full code attending - dr. Rojas attempted to call roommate leyla Perry. HCP listed as Trevon (friend [phone]) & Risa (daughter [phone]) Called Trevon, he was not aware he was listed as HCP and prefers to have daughter make medical decisions if neccessary. Quality Stroke Does the patient have a stroke diagnosis?: No VTE Prior VTE?: No VTE Risk Level:: Medical - moderate - high VTE Device Contraindication: N/A - Device Ordered VTE Drug Contraindication: N/A - Med Ordered
--- NOTE | 2021-06-02 11:38 | PC.NURSE ---
patient confused and exit seeking, provider- africa hunt aware, pt stating his sister is coming to get him, provider attempted to call a phone number the patient gave her to call his sister and it was out of service, pts hcp was called and they stated they are unaware of a sister. provider placed a psych consult to determine if the patient has the capacity to make medical decisions. spoke with charge nurse and nursing airport skilled maintenance supervisor about potentially having a sitter for safety due to exit seeking, we have decided to move the patients bed to a room where he can ambulate in the room and watch tv in hopes to prevent exit seeking activity. patient is redirectable but insistent on going home.
--- NOTE | 2021-06-02 13:11 | PM.PSYCN ---
History of Present Illness Date of Service: 06/02/2021 Chief Complaint: encephalopathy Requesting physician: Mera Faria Discussed with referring provider: No Sources of Information: patient interviewed and chart reviewed HPI Narrative: Mr. Quijano is a 70-year-old, , man who was brought to the emergency room because of change in mental status examination and possible indications of stroke. He was diagnosed as having TIAs and appears to be confused. He is able to give very sketchy and disorganized account of his history. He is aware that he is in a hospital but does not know why. When questions about past history he is quite confused and unable to give much pertinent to reliable information. Current records were reviewed. A competency evaluation is being requested Past Psychiatric History: Unknown Medical Evaluation Reviewed: Yes Personal & Social History: He states that he has been for over 10 years and lives alone. He has 1 daughter who lives in [place]. He is unable to give me any information about other relatives who may be living locally. Apparently he does have a healthcare proxy in place reviewed by Dr. Faria. Review of Systems Review of Systems Yes Unobtainable due to mental condition [facility] Medical History BMI 34.0-34.9,adult BPH (benign prostatic hyperplasia) Chronic kidney disease Cognitive impairment Diabetes mellitus Gallstones Gout Heart failure, unspecified HTN (hypertension) Hyperlipidemia Obesity due to excess calories Osteomyelitis Paroxysmal atrial fibrillation Prosthetic valve dysfunction Spinal stenosis, lumbar Type 2 diabetes mellitus with diabetic neuropathy, unspecified Type 2 diabetes mellitus with hyperglycemia, with long-term current use of insulin Surgical History Hx of aortic valve replacement Hx of colonoscopy Hx of endoscopy Hx of exploratory laparotomy Hx of laparoscopy Mitral valve replaced Family History: Unknown Social History: No further detailed information available other than what he provided with regards to living alone, having been for 10 years and having a daughter in [place] Substance History: None known Trauma History: None known Diagnostics Vital Signs (24Hr): Vital Signs - 24 hr 06/01/21 15:01 06/01/21 19:50 06/02/21 01:15 Temperature 99.1 F 97.9 F Pulse Rate 100 91 88 Respiratory Rate 16 14 18 Blood Pressure 107/73 133/65 139/74 Pulse Oximetry 94 95 95 06/02/21 05:57 06/02/21 11:29 Temperature 98.3 F 97.7 F Pulse Rate 95 93 Respiratory Rate 17 16 Blood Pressure 161/87 H 119/75 Pulse Oximetry 98 97 BMI result Body Mass Index 31.1 Labs Results: 06/01/21 07:37 06/02/21 07:25 Labs: Laboratory Results - last 48 hr 05/31/21 05/31/21 05/31/21 11:19 11:19 14:40 WBC RBC Hgb Hct MCV MCH MCHC RDW Plt Count MPV Absolute Nucleated RBC Nucleated RBC % (auto) PT INR Sodium Potassium Chloride Carbon Dioxide Anion Gap BUN Creatinine Estim Creat Clear Calc Estimated GFR POC Glucose 30 L* Random Glucose Calcium Total Bilirubin 1.0 Direct Bilirubin 0.4 AST 25 ALT 19 Alkaline Phosphatase 69 Total Protein 6.9 Albumin 3.8 Vitamin B12 440 Folate 11.4 Urine Color Urine Appearance Urine pH Ur Specific [place] Urine Protein Urine Glucose (UA) Urine Ketones Urine Blood Urine Nitrite Ur Leukocyte Esterase Urine RBC Urine WBC Ur Squamous Epith Cells Urine Bacteria Urine Opiates Screen Urine Fentanyl Screen Ur Barbiturates Screen Ur Phencyclidine Scrn Ur Amphetamines Screen U Benzodiazepines Scrn Urine Cocaine Screen U Marijuana (THC) Screen 05/31/21 05/31/21 05/31/21 15:25 16:33 18:25 WBC RBC Hgb Hct MCV MCH MCHC RDW Plt Count MPV Absolute Nucleated RBC Nucleated RBC % (auto) PT INR Sodium Potassium Chloride Carbon Dioxide Anion Gap BUN Creatinine Estim Creat Clear Calc Estimated GFR POC Glucose 132 H 90 99 Random Glucose Calcium Total Bilirubin Direct Bilirubin AST ALT Alkaline Phosphatase Total Protein Albumin Vitamin B12 Folate Urine Color Urine Appearance Urine pH Ur Specific [place] Urine Protein Urine Glucose (UA) Urine Ketones Urine Blood Urine Nitrite Ur Leukocyte Esterase Urine RBC Urine WBC Ur Squamous Epith Cells Urine Bacteria Urine Opiates Screen Urine Fentanyl Screen Ur Barbiturates Screen Ur Phencyclidine Scrn Ur Amphetamines Screen U Benzodiazepines Scrn Urine Cocaine Screen U Marijuana (THC) Screen 06/01/21 06/01/21 06/01/21 03:17 03:49 07:07 WBC RBC Hgb Hct MCV MCH MCHC RDW Plt Count MPV Absolute Nucleated RBC Nucleated RBC % (auto) PT INR Sodium Potassium Chloride Carbon Dioxide Anion Gap BUN Creatinine Estim Creat Clear Calc Estimated GFR POC Glucose 58 L* 87 159 H Random Glucose Calcium Total Bilirubin Direct Bilirubin AST ALT Alkaline Phosphatase Total Protein Albumin Vitamin B12 Folate Urine Color Urine Appearance Urine pH Ur Specific [place] Urine Protein Urine Glucose (UA) Urine Ketones Urine Blood Urine Nitrite Ur Leukocyte Esterase Urine RBC Urine WBC Ur Squamous Epith Cells Urine Bacteria Urine Opiates Screen Urine Fentanyl Screen Ur Barbiturates Screen Ur Phencyclidine Scrn Ur Amphetamines Screen U Benzodiazepines Scrn Urine Cocaine Screen U Marijuana (THC) Screen 06/01/21 06/01/21 06/01/21 07:37 07:37 07:37 WBC 9.3 RBC 4.01 L Hgb 12.7 L Hct 37.6 L MCV 93.8 MCH 31.7 MCHC 33.8 RDW 14.6 Plt Count 232 MPV 10.4 Absolute Nucleated RBC 0.000 Nucleated RBC % (auto) 0.0 PT 73.9 H INR 6.2 H* Sodium 133 L Potassium 4.7 D Chloride 104 Carbon Dioxide 24 Anion Gap 10 L BUN 14 Creatinine 0.84 Estim Creat Clear Calc 99.1 Estimated GFR > 60 POC Glucose Random Glucose 153 H D Calcium 8.9 Total Bilirubin Direct Bilirubin AST ALT Alkaline Phosphatase Total Protein Albumin Vitamin B12 Folate Urine Color Urine Appearance Urine pH Ur Specific [place] Urine Protein Urine Glucose (UA) Urine Ketones Urine Blood Urine Nitrite Ur Leukocyte Esterase Urine RBC Urine WBC Ur Squamous Epith Cells Urine Bacteria Urine Opiates Screen Urine Fentanyl Screen Ur Barbiturates Screen Ur Phencyclidine Scrn Ur Amphetamines Screen U Benzodiazepines Scrn Urine Cocaine Screen U Marijuana (THC) Screen 06/01/21 06/01/21 06/01/21 08:21 08:21 12:08 WBC RBC Hgb Hct MCV MCH MCHC RDW Plt Count MPV Absolute Nucleated RBC Nucleated RBC % (auto) PT INR Sodium Potassium Chloride Carbon Dioxide Anion Gap BUN Creatinine Estim Creat Clear Calc Estimated GFR POC Glucose 136 H Random Glucose Calcium Total Bilirubin Direct Bilirubin AST ALT Alkaline Phosphatase Total Protein Albumin Vitamin B12 Folate Urine Color YELLOW Urine Appearance CLEAR Urine pH 6.0 Ur Specific [place] 1.020 Urine Protein TRACE Urine Glucose (UA) 500 H Urine Ketones NEG Urine Blood TRACE Urine Nitrite NEG Ur Leukocyte Esterase NEG Urine RBC 5-9 H Urine WBC 0 Ur Squamous Epith Cells NONE Urine Bacteria NONE Urine Opiates Screen Not Detected Urine Fentanyl Screen Not Detected Ur Barbiturates Screen Not Detected Ur Phencyclidine Scrn Not Detected Ur Amphetamines Screen Not Detected U Benzodiazepines Scrn Not Detected Urine Cocaine Screen Not Detected U Marijuana (THC) Screen Not Detected 06/01/21 06/02/21 06/02/21 16:14 07:25 07:25 WBC RBC Hgb Hct MCV MCH MCHC RDW Plt Count MPV Absolute Nucleated RBC Nucleated RBC % (auto) PT 53.0 H INR 4.5 H Sodium 134 L Potassium 4.5 Chloride 100 Carbon Dioxide 26 Anion Gap 13 BUN 14 Creatinine 0.87 Estim Creat Clear Calc 95.7 Estimated GFR > 60 POC Glucose 249 H Random Glucose 198 H Calcium 9.0 Total Bilirubin Direct Bilirubin AST ALT Alkaline Phosphatase Total Protein Albumin Vitamin B12 Folate Urine Color Urine Appearance Urine pH Ur Specific [place] Urine Protein Urine Glucose (UA) Urine Ketones Urine Blood Urine Nitrite Ur Leukocyte Esterase Urine RBC Urine WBC Ur Squamous Epith Cells Urine Bacteria Urine Opiates Screen Urine Fentanyl Screen Ur Barbiturates Screen Ur Phencyclidine Scrn Ur Amphetamines Screen U Benzodiazepines Scrn Urine Cocaine Screen U Marijuana (THC) Screen Imaging Radiology Impressions: ITS Impressions Head CT 05/31/21 11:09 IMPRESSION: No acute intracranial pathology. This critical result was discussed with Dr. Ken at 11:15 AM hours on May 31, 2021. It was ascertained that the content and urgency of the report was understood at the time of direct communication. Chest X-Ray 05/31/21 11:25 IMPRESSION: Left hemithorax chronic disease with no definite acute parenchymal disease. Brain MRI 06/01/21 17:09 IMPRESSION: Diffusion signal abnormality and mild edema in the right hippocampus which can be seen in the setting of post ictal changes. Autoimmune encephalitis, though typically more common with bilateral imaging findings is a differential diagnostic consideration. Clinically correlate. Scattered small chronic infarcts and mild to moderate chronic white matter microangiopathy. Poor visualization of the left vertebral artery flow-void which is otherwise age indeterminate. Mental Status Exam Mental Status Exam Narrative: In today's visit he is alert, oriented to person and vaguely to place. He states that today is Friday, the month October and the year 2014. He does admit that he has been having trouble with his memory. He is not able to remember any objects out of 3 in 2 minutes. He is quite tangential, circumstantial and disorganized in his thought processes. His judgment is impaired and he is not able to make informed decisions including medical needs. No suicidal ideations. Affect is appropriate and varied. No suicidal ideations upon inquiry. No signs of psychosis Medications Medications Current Medications Acetaminophen (Acetaminophen 325 Mg Tablet) 650 mg PO Q6H PRN PRN Reason: Pain, Mild (Pain Scale 1-3) Atorvastatin Calcium (Atorvastatin Calcium 40 Mg Tablet) 40 mg PO BEDTIME [facility] Last Admin: 06/01/21 20:19 Dose: 40 mg Documented by: Dextrose (Dextrose 50 % 25 Gm/50 Ml Syringe) 25 gm IVPUSH Q15M PRN; Protocol PRN Reason: per Hypoglycemia Standing Ord. Docusate Sodium (Docusate Sodium 100 Mg Capsule) 100 mg PO DAILY PRN PRN Reason: Constipation Glucose (Glucose Gel 15 Gm Gel..Gram.) 15 gm PO Q15M PRN; Protocol PRN Reason: per Hypoglycemia Standing Ord. Insulin Human Lispro (Insulin Lispro 100 Unit/Ml 3 Ml Vial) 0 unit SUBCUT QIDACHS [facility]; Protocol Last Admin: 06/02/21 09:32 Dose: 4 unit Documented by: Levetiracetam (Levetiracetam 500 Mg Tablet) 500 mg PO BID [facility] Last Admin: 06/02/21 09:33 Dose: 500 mg Documented by: Levothyroxine Sodium (Levothyroxine Sodium 50 Mcg Tablet) 50 mcg PO DAILY [facility] Last Admin: 06/02/21 09:33 Dose: 50 mcg Documented by: Lisinopril (Lisinopril 20 Mg Tablet) 20 mg PO DAILY [facility]; Protocol Last Admin: 06/02/21 09:33 Dose: 20 mg Documented by: Ondansetron HCl (Ondansetron Hcl 4 Mg/2 Ml Vial) 4 mg IVPUSH Q8H PRN PRN Reason: Nausea and Vomiting Sodium Chloride (0.9 % Sodium Chloride Flush 3 Ml Syringe) 3 ml IVFLUSH QSHIFT [facility] Last Admin: 06/02/21 09:34 Dose: 3 ml Documented by: Allergies Allergies Allergy/AdvReac Type Severity Reaction Status Date / Time exenatide [From [facility]] Allergy Intermediate AFFECTED Verified 04/11/21 13:14 PANCREAS Assessment & Plan Assessment & Plan (1) Encephalopathy: Status: Acute Code(s): G93.40 - Encephalopathy, unspecified Plan Based on review of records and my examination I see Mr. Quijano not to be competent to make informed decisions pertaining to his care and the HCP needs to be invoked Also according to the nurses he has been exit seeking and in light of his current mental status I suggest may be giving him some Risperdal 1 mg t.i.d. p.r.n. for anxiety and agitation. I spent minutes with the patient and/or on the patient floor today, greater than?50% of which was spent counseling/coordinating care.
--- NOTE | 2021-06-02 13:24 | MHC.CM.PN ---
Luca Hutson Male : 1950 Emr# [id number] 06/02/21 13:14 - Case Mgmt Progress Note by Kenna Moulton Acct Num: [id number] : 1950 Patient Age: 70 Patient is here with Encephalopathy; CM left a message for Daughter/Alternate HCP at [phone] and CM spoke with Primary HCP/Trevon @ [phone]. Patient lives in a house with his Girlfriend/[place] and he has been driving and requiring no services nor DME RN RESIDENTIAL. Patient has been experiencing some issues with Memory/confusion,for example, was unable to find his way to [place], where he goes often. Patient's Daughter/Risa will be in from [place] on 06/04/21. Home new services vs STR pending PT eval is the temporary plan and CM has initiated and will follow for dc planning.Patient has been Covid vaccinated and his PCP is DR. Matt Avendaño. Initialized on 06/02/21 13:14 - END OF NOTE
--- NOTE | 2021-06-02 13:38 | PC.NURSE ---
patient seen by psych provider dr. hernández- please see providers dictation. patient alert to person and place at this time, eating lunch, pt continues to be exit seeking, pt medicated per order, will continue to monitor.
[2021-06-02] MEDS: risperiDONE 1 MG TABLET PO ×2 (14:12→20:56)
--- NOTE | 2021-06-02 16:08 | PC.NURSE ---
pt alert and oriented to person and place, forgetful, needs to be continually redirected back to room and reminded of plan of care, denies pain. friend in room w pt. will continue to monitor.
--- NOTE | 2021-06-02 18:42 | PC.NURSE ---
patient continues to be exit seeking, he is redirectable, then attempts to leave again.
--- NOTE | 2021-06-02 18:54 | PC.NURSE ---
pt alert to person, confused and exit seeking, but can redirect back to room, vss.
[2021-06-02 20:00] VITALS: BP 130/67; PULSE 104; RESP 15; TEMP 36.1; O2SAT 96
[2021-06-02] MEDS: Atorvastatin Calcium 40 MG TABLET PO (20:56)
[2021-06-02 21:00] LABS: Glucose, Whole Blood 237 mg/dL (60-115)
[2021-06-02 23:26] VITALS: BP 126/73; PULSE 94; RESP 18; TEMP 36.4; O2SAT 98
[2021-06-03 04:00] VITALS: BP 126/69; PULSE 101; RESP 18; TEMP 36.2; O2SAT 96
[2021-06-03 07:07] VITALS: BP 120/76; PULSE 103; RESP 18; TEMP 36.3; O2SAT 97
[2021-06-03 07:12] LABS: INTERNATIONAL NORM RATIO 2.9 (0.9-1.1)
[2021-06-03 07:42] LABS: Glucose, Whole Blood 232 mg/dL (60-115)
[2021-06-03] MEDS: Insulin Lispro 100 UNIT/ML 3 ML VIAL SUBCUT ×4 (07:58→21:43)
[2021-06-03] MEDS: 0.9 % Sodium Chloride Flush 3 ML SYRINGE IVFLUSH ×3 (07:59→21:43)
[2021-06-03] MEDS: Levothyroxine Sodium 50 MCG TABLET PO (09:28)
[2021-06-03] MEDS: levETIRAcetam 500 MG TABLET PO ×2 (09:28→21:42)
[2021-06-03] MEDS: lisinopriL 20 MG TABLET PO (09:28)
--- NOTE | 2021-06-03 10:21 | HO.PM.IMPN ---
Subjective Subjective Date of Service: 06/03/21 <BRIGETTE Feliz - Last Filed: 06/03/21 10:40> 06/17/21 <Gio Rojas DO - Last Filed: 06/17/21 15:41> Interval History: seen and examined this morning no overnight events no complaints this morning. feels good <BRIGETTE Feliz - Last Filed: 06/03/21 10:40> Review of Systems Review of Systems: Yes all other systems are reviewed and are negative <BRIGETTE Feliz - Last Filed: 06/03/21 10:40> Constitutional Constitutional: Denies chills and Denies fever(s) <BRIGETTE Feliz - Last Filed: 06/03/21 10:40> Cardiovascular Cardiovascular: Denies chest pain, Denies palpitations and Denies dyspnea <BRIGETTE Feliz - Last Filed: 06/03/21 10:40> Respiratory Respiratory: Denies cough and Denies dyspnea <BRIGETTE Feliz - Last Filed: 06/03/21 10:40> Endocrine Endocrine: Denies palpitations <BRIGETTE Feliz - Last Filed: 06/03/21 10:40> Physical Exam Vital Signs: Vital Signs: Last Vital Signs Temp 97.4 F 06/03/21 07:07 Pulse 103 H 06/03/21 07:07 Resp 18 06/03/21 07:07 BP 120/76 06/03/21 07:07 Pulse Ox 97 06/03/21 07:07 BMI result Body Mass Index 31.1 <BRIGETTE Feliz - Last Filed: 06/03/21 10:40> Const: General: cooperative, comfortable, no acute distress, alert and awake <BRIGETTE Feliz - Last Filed: 06/03/21 10:40> Nutritional Appearance: overweight <BRIGETTE Feliz - Last Filed: 06/03/21 10:40> Resp: Effort & Inspection: normal respiratory effort and able to speak in complete sentences <BRIGETTE Feliz - Last Filed: 06/03/21 10:40> Cardio: Rate: regular rate <BRIGETTE Feliz - Last Filed: 06/03/21 10:40> Rhythm: regular rhythm <BRIGETTE Feliz - Last Filed: 06/03/21 10:40> Heart sounds: Clicking heart sound present and Murmur heart sound present <BRIGETTE Feliz - Last Filed: 06/03/21 10:40> GI: Inspection: No distended <BRIGETTE Feliz - Last Filed: 06/03/21 10:40> Palpation (GI): Soft to palpation and nontender <BRIGETTE Feliz - Last Filed: 06/03/21 10:40> Neuro: Other: strength seems equal bilaterally in upper and lower extremities <BRIGETTE Feliz Last Filed: 06/03/21 10:40> Extrem: Other: moving all 4 extremities spontaneously <BRIGETTE Feliz Last Filed: 06/03/21 10:40> Objective Data Active Medications Acetaminophen (Acetaminophen 325 Mg Tablet) 650 mg PO Q6H PRN PRN Reason: Pain, Mild (Pain Scale 1-3) Atorvastatin Calcium (Atorvastatin Calcium 40 Mg Tablet) 40 mg PO BEDTIME [facility] Last Admin: 06/02/21 20:56 Dose: 40 mg Documented by: MARA Dextrose (Dextrose 50 % 25 Gm/50 Ml Syringe) 25 gm IVPUSH Q15M PRN; Protocol PRN Reason: per Hypoglycemia Standing Ord. Docusate Sodium (Docusate Sodium 100 Mg Capsule) 100 mg PO DAILY PRN PRN Reason: Constipation Glucose (Glucose Gel 15 Gm Gel..Gram.) 15 gm PO Q15M PRN; Protocol PRN Reason: per Hypoglycemia Standing Ord. Insulin Human Lispro (Insulin Lispro 100 Unit/Ml 3 Ml Vial) 0 unit SUBCUT [facility]IDACHS [facility]; Protocol Last Admin: 06/03/21 07:58 Dose: 4 unit Documented by: INDRA Levetiracetam (Levetiracetam 500 Mg Tablet) 500 mg PO BID [facility] Last Admin: 06/03/21 09:28 Dose: 500 mg Documented by: INDRA Levothyroxine Sodium (Levothyroxine Sodium 50 Mcg Tablet) 50 mcg PO DAILY [facility] Last Admin: 06/03/21 09:28 Dose: 50 mcg Documented by: INDRA Lisinopril (Lisinopril 20 Mg Tablet) 20 mg PO DAILY [facility]; Protocol Last Admin: 06/03/21 09:28 Dose: 20 mg Documented by: INDRA Ondansetron HCl (Ondansetron Hcl 4 Mg/2 Ml Vial) 4 mg IVPUSH Q8H PRN PRN Reason: Nausea and Vomiting Risperidone (Risperidone 1 Mg Tablet) 1 mg PO TID PRN PRN Reason: anxiety/agitation Last Admin: 06/02/21 20:56 Dose: 1 mg Documented by: MARA Sodium Chloride (0.9 % Sodium Chloride Flush 3 Ml Syringe) [facility] Last Admin: 06/03/21 07:59 Dose: 3 ml Documented by: INDRA <BRIGETTE Feliz - Last Filed: 06/03/21 10:40> Labs CBC & Chem 7: : 06/06/21 16:04 06/06/21 16:04 <BRIGETTE Feliz - Last Filed: 06/03/21 10:40> Labs: Laboratory Results - last 24 hr 06/02/21 06/03/21 06/03/21 20:52 06:04 07:09 PT 34.0 H INR 2.9 H POC Glucose 237 H 232 H <BRIGETTE Feilz - Last Filed: 06/03/21 10:40> Assessment and Plan (1) Encephalopathy: Status: Acute <BRIGETTE Feliz - Last Filed: 06/03/21 10:40> Plan This is a 70-year-old male with a past medical history of hypertension, hyperlipidemia, diabetes, CHF, obesity, paroxysmal AFib, history of off mitral valve replacement/ aortic valve replacement-on Coumadin; history of COVID-19 infection who presented to the hospital today with a chief complaint of confusion found to have hypoglycemia. Encephalopathy. Family wonders if pt has dementia, but also noticed increase in confusion in the past 3-4 weeks uncertain cause, workup in progress possibly superimposed on underlying dementia initially thought to be related to hypoglycemia, but sugar has improved and pt remains the same. ?mild left arm weakness on admission now resolved; brain CT with no evidence of stroke no evidence of infection, UA, CXR negative; brain CT negative for acute intracranial pathology. tox screen negative previous admission for encephalopathy earlier this month, TSH, B12, folate wnl; eeg showed generalized slowing no seizure activity brain MRI showing ?post ictal changes vs autoimmune encephalitis as well as scattered small chronic infarcts and mild to moderate chronic microangiopathy d/w neurology, plan to start keprra 500 mg bid, repeat EEG and obtain LP seen by psych - NOT competent to make medical decisions, HCP invoked -LP ordered tentatively for Friday (INR supratherapeutic at this time); will need menigoencephalitis panel and autoimmune panel in addition to regular LP labs (d/w HCP, necessity for procedure and risks/complications were discussed including bleeding, infection etc and she agrees to proceed with LP) Mechanical mitral/aortic valves INR initially supratherapeutic. INR today 2.9 will continue to hold coumadin today in preparation for LP -follow INR daily -may need lovenox bridge after LP type 2 DM with hypoglycemia unclear if pt eating or taking meds appropriately at home outpatient notes indicated inconsistent insulin use pt d/c with [facility] on last admission - but pt declined their services -hold 75/25 insulin NF and initially on hold due to hypoglycemia, POCs starting to rebound, will resume long acting insulin at 50% of home dose; uptitrate prn -continue POCs, SSI hyponatremia, mild likely r/t IVf. improving -follow BMP Coagulopathy secondary to Coumadin use. Resolved. no evidence acute bleeding HLD continue statin Hypothyroidism TSH within normal limits Continue levothyroxine Hypertension Blood pressure control Continue lisinopril dvt ppx - coumadin (inr elevated); boots code status - presumed full code attending - dr. Rojas attempted to call roommate shoshana Perry. HCP listed as Trevon (friend [phone]) & Risa (daughter [phone], lives in [place] planning on flying in on Friday) Called Trevon, he was not aware he was listed as HCP and prefers to have daughter make medical decisions if necessary. Called daughter Risa and updated her, she is aware that Luca does not have capacity to make medical decisions and she is agreeable to be primary contact and HCP. She agrees to plan for LP early next week. <BRIGETTE Feliz - Last Filed: 06/03/21 10:40> This is a 70-year-old male with a past medical history of hypertension, hyperlipidemia, diabetes, CHF, obesity, paroxysmal AFib, history of off mitral valve replacement/ aortic valve replacement-on Coumadin; history of COVID-19 infection who presented to the hospital today with a chief complaint of confusion found to have hypoglycemia. Encephalopathy. Family wonders if pt has dementia, but also noticed increase in confusion in the past 3-4 weeks uncertain cause, workup in progress possibly superimposed on underlying dementia initially thought to be related to hypoglycemia, but sugar has improved and pt remains the same. ?mild left arm weakness on admission now resolved; brain CT with no evidence of stroke no evidence of infection, UA, CXR negative; brain CT negative for acute intracranial pathology. tox screen negative previous admission for encephalopathy earlier this month, TSH, B12, folate wnl; eeg showed generalized slowing no seizure activity brain MRI showing ?post ictal changes vs autoimmune encephalitis as well as scattered small chronic infarcts and mild to moderate chronic microangiopathy d/w neurology, plan to start keprra 500 mg bid, repeat EEG and obtain LP seen by psych - NOT competent to make medical decisions, HCP invoked -LP ordered tentatively for Friday (INR supratherapeutic at this time); will need menigoencephalitis panel and autoimmune panel in addition to regular LP labs (d/w HCP, necessity for procedure and risks/complications were discussed including bleeding, infection etc and she agrees to proceed with LP) Mechanical mitral/aortic valves INR initially supratherapeutic. INR today 2.9 will continue to hold coumadin today in preparation for LP -follow INR daily -may need lovenox bridge after LP type 2 DM with hypoglycemia unclear if pt eating or taking meds appropriately at home outpatient notes indicated inconsistent insulin use pt [facility]/c with [facility] on last admission - but pt declined their services -hold 75/25 insulin NF and initially on hold due to hypoglycemia, POCs starting to rebound, will resume long acting insulin at 50% of home dose; uptitrate prn -continue POCs, SSI hyponatremia, mild likely r/t IVf. improving -follow BMP Coagulopathy secondary to Coumadin use. Resolved. no evidence acute bleeding HLD continue statin Hypothyroidism TSH within normal limits Continue levothyroxine Hypertension Blood pressure control Continue lisinopril dvt ppx - coumadin (inr elevated); boots code status - presumed full code attending - dr. Rojas attempted to call roommate Orlandoshoshana. HCP listed as Trevon (friend [phone]) & Risa (daughter [phone], lives in [place] planning on flying in on Friday) Called Trevon, he was not aware he was listed as HCP and prefers to have daughter make medical decisions if necessary. Called daughter Risa and updated her, she is aware that Luca does not have capacity to make medical decisions and she is agreeable to be primary contact and HCP. She agrees to plan for LP early next week. Patient examined chart reviewed. Agree with history and physical as well as assessment and plan as outlined by Ms. Faria <Gio Rojas, DO - Last Filed: 06/17/21 15:41> Quality Stroke Does the patient have a stroke diagnosis?: No <BRIGETTE Feliz - Last Filed: 06/03/21 10:40> VTE Prior VTE?: No <BRIGETTE Feliz - Last Filed: 06/03/21 10:40> VTE Risk Level:: Medical - moderate - high <BRIGETTE Feliz - Last Filed: 06/03/21 10:40> VTE Device Contraindication: N/A - Device Ordered <BRIGETTE Feliz - Last Filed: 06/03/21 10:40> VTE Drug Contraindication: N/A - Med Ordered <BRIGETTE Feliz - Last Filed: 06/03/21 10:40>
[2021-06-03 11:05] VITALS: BP 118/62; PULSE 91; RESP 18; TEMP 36.1; O2SAT 97
[2021-06-03 11:19] LABS: Glucose, Whole Blood 285 mg/dL (60-115)
[2021-06-03 15:19] VITALS: BP 97/54; PULSE 92; RESP 18; TEMP 36.6; O2SAT 95
[2021-06-03 16:16] LABS: Glucose, Whole Blood 336 mg/dL (60-115)
[2021-06-03 19:53] VITALS: BP 105/61; PULSE 98; RESP 18; TEMP 36.6; O2SAT 96
[2021-06-03 20:40] LABS: Glucose, Whole Blood 276 mg/dL (60-115)
[2021-06-03] MEDS: Insulin Glargine,Hum.rec.anlog 100 UNIT/ML 10 ML VIAL 15 UNIT SUBCUT (21:42)
[2021-06-03] MEDS: Atorvastatin Calcium 40 MG TABLET PO (21:42)
[2021-06-03 23:18] VITALS: BP 119/74; PULSE 67; RESP 20; TEMP 36.7; O2SAT 97
[2021-06-04 04:00] VITALS: BP 101/57; PULSE 82; RESP 19; TEMP 37.3; O2SAT 92
[2021-06-04 06:23] LABS: INTERNATIONAL NORM RATIO 1.8 (0.9-1.1); Prothrombin Time 20.2 SEC (9.9-13.0)
[2021-06-04 06:25] LABS: Anion Gap 12 (12-20); Blood Urea Nitrogen 20 mg/dL (9-16); Calcium 9.3 mg/dL (8.4-10.2); Carbon Dioxide 29 mmol/L (22-29); Chloride 97 mmol/L (96-108); Creatinine Clr Calc Pharmacy 78.8; Estimated Glomerular Filt Rate > 60; Glucose Random 333 mg/dL (60-115); Potassium 4.8 mmol/L (3.3-5.1); Sodium 133 mmol/L (135-145)
[2021-06-04 06:31] LABS: Glucose, Whole Blood 265 mg/dL (60-115)
[2021-06-04 06:32] LABS: Glucose, Whole Blood 210 mg/dL (60-115)
[2021-06-04 06:32] LABS: Glucose, Whole Blood 204 mg/dL (60-115)
[2021-06-04 06:32] LABS: Glucose, Whole Blood 228 mg/dL (60-115)
[2021-06-04 07:35] LABS: Glucose, Whole Blood 297 mg/dL (60-115)
[2021-06-04 07:48] VITALS: BP 124/77; PULSE 106; RESP 16; TEMP 37.2; O2SAT 97
[2021-06-04] MEDS: Insulin Lispro 100 UNIT/ML 3 ML VIAL SUBCUT ×4 (07:53→20:40)
[2021-06-04] MEDS: Insulin Glargine,Hum.rec.anlog 100 UNIT/ML 10 ML VIAL 15 UNIT SUBCUT ×2 (07:53→20:40)
[2021-06-04] MEDS: lisinopriL 20 MG TABLET PO (07:54)
[2021-06-04] MEDS: levETIRAcetam 500 MG TABLET PO ×2 (07:54→20:40)
[2021-06-04] MEDS: Levothyroxine Sodium 50 MCG TABLET PO (07:54)
[2021-06-04] MEDS: 0.9 % Sodium Chloride Flush 3 ML SYRINGE IVFLUSH ×3 (07:57→20:41)
--- NOTE | 2021-06-04 10:09 | PM.NEUROCN ---
History of Present Illness Data of Consult Service Date: 06/04/21 Primary Care Provider: Matt Avendaño, [facility]- HPI Reason for consult: Encephalopathy 71 years old man who I was asked to see for change in mental status. He was brought to hospital with change in mental status and left-sided weakness though he was not able to provide any meaningful history per when I talked to him he started talking about his time in and then also saying that he went into spiritual life and was helping other people. He talked about somebody giving an injection in his bone and messing up his life. He did not volunteer any pain or any weakness. Review of Systems Review of Systems: No recent cold or flu-like illness no complaint of headache no seizure-like episode PMFSH Past Medical History Medical History BMI 34.0-34.9,adult BPH (benign prostatic hyperplasia) Chronic kidney disease Cognitive impairment Diabetes mellitus Gallstones Gout Heart failure, unspecified HTN (hypertension) Hyperlipidemia Obesity due to excess calories Osteomyelitis Paroxysmal atrial fibrillation Prosthetic valve dysfunction Spinal stenosis, lumbar Type 2 diabetes mellitus with diabetic neuropathy, unspecified Type 2 diabetes mellitus with hyperglycemia, with long-term current use of insulin Family History Family History Father CVD (cardiovascular disease) Mother CVD (cardiovascular disease) Surgical History Surgical History Hx of aortic valve replacement Hx of colonoscopy Hx of endoscopy Hx of exploratory laparotomy Hx of laparoscopy Mitral valve replaced Social History Social History Household Members: Friend(s) Housing: House Do you presently have visiting nurse or other home services: No Unable to assess alcohol history related to: Unknown Alcohol intake: never Patient Tobacco Use Status: Never used Tobacco service: Yes Current occupational status: retired Meds Allergies Allergy/AdvReac Type Severity Reaction Status Date / Time exenatide [From BYETTA] Allergy Intermediate AFFECTED Verified 04/11/21 13:14 PANCREAS Active Medications: Current Medications Acetaminophen (Acetaminophen 325 Mg Tablet) 650 mg PO Q6H PRN PRN Reason: Pain, Mild (Pain Scale 1-3) Atorvastatin Calcium (Atorvastatin Calcium 40 Mg Tablet) 40 mg PO BEDTIME [facility] Last Admin: 06/03/21 21:42 Dose: 40 mg Documented by: Dextrose (Dextrose 50 % 25 Gm/50 Ml Syringe) 25 gm IVPUSH Q15M PRN; Protocol PRN Reason: per Hypoglycemia Standing Ord. Docusate Sodium (Docusate Sodium 100 Mg Capsule) 100 mg PO DAILY PRN PRN Reason: Constipation Glucose (Glucose Gel 15 Gm Gel..Gram.) 15 gm PO Q15M PRN; Protocol PRN Reason: per Hypoglycemia Standing Ord. Insulin Glargine (Insulin Glargine,Hum.Rec.Anlog 100 Unit/Ml 10 Ml Vial) 15 unit SUBCUT BID [facility] Last Admin: 06/04/21 07:53 Dose: 15 unit Documented by: Insulin Human Lispro (Insulin Lispro 100 Unit/Ml 3 Ml Vial) 0 unit SUBCUT QIDACHS [facility]; Protocol Last Admin: 06/04/21 07:53 Dose: 6 unit Documented by: Levetiracetam (Levetiracetam 500 Mg Tablet) 500 mg PO BID [facility] Last Admin: 06/04/21 07:54 Dose: 500 mg Documented by: Levothyroxine Sodium (Levothyroxine Sodium 50 Mcg Tablet) 50 mcg PO DAILY [facility] Last Admin: 06/04/21 07:54 Dose: 50 mcg Documented by: Lisinopril (Lisinopril 20 Mg Tablet) 20 mg PO DAILY [facility]; Protocol Last Admin: 06/04/21 07:54 Dose: 20 mg Documented by: Ondansetron HCl (Ondansetron Hcl 4 Mg/2 Ml Vial) 4 mg IVPUSH Q8H PRN PRN Reason: Nausea and Vomiting Risperidone (Risperidone 1 Mg Tablet) 1 mg PO TID PRN PRN Reason: anxiety/agitation Last Admin: 06/02/21 20:56 Dose: 1 mg Documented by: Sodium Chloride (0.9 % Sodium Chloride Flush 3 Ml Syringe) [facility] Last Admin: 06/04/21 07:57 Dose: 3 ml Documented by: Home Medications Medication Instructions Recorded Confirmed Last Taken Type lisinopril 20 mg tablet 20 mg PO DAILY 06/05/20 05/31/21 05/31/21 History insulin lispro protamine-lispro 62 unit SUBCUT DAILY 04/11/21 05/31/21 05/31/21 History 100 unit/mL (75-25) subcutaneous pen atorvastatin 40 mg tablet 40 mg PO BEDTIME 05/11/21 05/31/21 05/10/21 History warfarin 2 mg tablet 4 mg PO DAILY 05/11/21 05/31/21 05/31/21 History insulin lispro protamine-lispro 44 unit SUBCUT BEDTIME 05/31/21 05/31/21 Unknown History 100 unit/mL (75-25) subcutaneous pen (Humalog Mix 75-25 KwikPen) Physical Exam Vital Signs: Vital Signs: Last Vital Signs Temp 99.0 F 06/04/21 07:48 Pulse 106 H 06/04/21 07:48 Resp 16 06/04/21 07:48 BP 124/77 06/04/21 07:48 Pulse Ox 97 06/04/21 07:48 BMI result Body Mass Index 31.1 Neuro: Other: He was alert and awake sitting comfortably with normal spontaneity of speech fluency comprehension and vague affect. Face was symmetrical. Visual briones are full. There was no sensory or visual extinction. Deep tendon reflexes are absent. There was no abnormal movement. He did not know exactly where he was. He knew the exact year. He was able to follow commands. He did not have recollection of what he had for dinner last night. Results Labs CBC & Chem 7: 06/01/21 07:37 06/04/21 05:14 Labs: BMP 06/04/21 05:14 Sodium 133 L Potassium 4.8 Chloride 97 Carbon Dioxide 29 BUN 20 H Creatinine 1.04 Calcium 9.[address] revealed mild diffuse cerebral atrophy but no obvious acute lesion. Noncontrast MRI of brain revealed a right temporal hyperintensity on FLAIR. There was also evidence of mild microvascular ischemic changes. INR was high ill and a lumbar puncture could not be done because of that. Assessment and Plan (1) Encephalitis: Status: Acute 71 years old man with clinical and imaging features of encephalitis of atypical nature. Potential diagnosis would include atypical infections inflammation or autoimmune etiology. I recommend a contrast enhanced MRI and a lumbar puncture. In lumbar puncture we should send for meningoencephalitis panel and also keep some CSF aside. If other tests would be negative, I would send for antibody testing to to rule out some autoimmune conditions. Paraneoplastic encephalomyelitis is another consideration. Screening workup for malignancy is also recommended. Procedures Date of Service Date of Service: 06/04/21
--- NOTE | 2021-06-04 10:51 | P.PNIM_ITS ---
Subjective Subjective Date of Service: 06/04/21 Interval History: Follow up encephalopathy No complaints of pain or discomfort sitting up in bed Physical Exam Vital Signs: Vital Signs: Last Vital Signs Temp 99.0 F 06/04/21 07:48 Pulse 106 H 06/04/21 07:48 Resp 16 06/04/21 07:48 BP 124/77 06/04/21 07:48 Pulse Ox 97 06/04/21 07:48 BMI result Body Mass Index 31.1 Appearing in no acute distress lung sounds are clear to auscultation heart regular rate rhythm, clear S1, S2 positive bowel sounds, abdomen is soft, nontender neuro superficial conversation patient is alert and oriented x3, no focal deficits Objective Data Active Medications Acetaminophen (Acetaminophen 325 Mg Tablet) 650 mg PO Q6H PRN PRN Reason: Pain, Mild (Pain Scale 1-3) Atorvastatin Calcium (Atorvastatin Calcium 40 Mg Tablet) 40 mg PO BEDTIME [facility] Last Admin: 06/03/21 21:42 Dose: 40 mg Documented by: LIANG Dextrose (Dextrose 50 % 25 Gm/50 Ml Syringe) 25 gm IVPUSH Q15M PRN; Protocol PRN Reason: per Hypoglycemia Standing Ord. Docusate Sodium (Docusate Sodium 100 Mg Capsule) 100 mg PO DAILY PRN PRN Reason: Constipation Glucose (Glucose Gel 15 Gm Gel..Gram.) 15 gm PO Q15M PRN; Protocol PRN Reason: per Hypoglycemia Standing Ord. Insulin Glargine (Insulin Glargine,Hum.Rec.Anlog 100 Unit/Ml 10 Ml Vial) 15 unit SUBCUT BID [facility] Last Admin: 06/04/21 07:53 Dose: 15 unit Documented by: MENDOZA Insulin Human Lispro (Insulin Lispro 100 Unit/Ml 3 Ml Vial) 0 unit SUBCUT QIDACHS [facility]; Protocol Last Admin: 06/04/21 07:53 Dose: 6 unit Documented by: MENDOZA Levetiracetam (Levetiracetam 500 Mg Tablet) 500 mg PO BID [facility] Last Admin: 06/04/21 07:54 Dose: 500 mg Documented by: MENDOZA Levothyroxine Sodium (Levothyroxine Sodium 50 Mcg Tablet) 50 mcg PO DAILY [facility] Last Admin: 06/04/21 07:54 Dose: 50 mcg Documented by: MENDOZA Lisinopril (Lisinopril 20 Mg Tablet) 20 mg PO DAILY [facility]; Protocol Last Admin: 06/04/21 07:54 Dose: 20 mg Documented by: MENDOZA Ondansetron HCl (Ondansetron Hcl 4 Mg/2 Ml Vial) 4 mg IVPUSH Q8H PRN PRN Reason: Nausea and Vomiting Risperidone (Risperidone 1 Mg Tablet) 1 mg PO TID PRN PRN Reason: anxiety/agitation Last Admin: 06/02/21 20:56 Dose: 1 mg Documented by: MARA Sodium Chloride (0.9 % Sodium Chloride Flush 3 Ml Syringe) 3 ml IVFLUSH QSHIFT [facility] Last Admin: 06/04/21 07:57 Dose: 3 ml Documented by: MENDOZA Labs CBC & Chem 7: 06/01/21 07:37 06/04/21 05:14 Labs: Laboratory Results - last 24 hr 06/01/21 06/02/21 06/02/21 20:03 07:30 13:18 PT INR Anion Gap Estim Creat Clear Calc Estimated GFR POC Glucose 265 H 204 H 210 H Random Glucose Calcium 06/02/21 06/03/21 06/03/21 17:51 11:06 16:08 PT INR Anion Gap Estim Creat Clear Calc Estimated GFR POC Glucose 228 H 285 H 336 H Random Glucose Calcium 06/03/21 06/04/21 06/04/21 20:27 05:14 05:14 PT 20.2 H INR 1.8 H Anion Gap 12 Estim Creat Clear Calc 78.8 Estimated GFR > 60 POC Glucose 276 H Random Glucose 333 H D Calcium 9.3 06/04/21 07:11 PT INR Anion Gap Estim Creat Clear Calc Estimated GFR POC Glucose 297 H Random Glucose Calcium Assessment and Plan (1) Encephalopathy: Status: Acute Plan This is a 70-year-old male with a past medical history of hypertension, hyperlipidemia, diabetes, CHF, obesity, paroxysmal AFib, history of off mitral valve replacement/ aortic valve replacement-on Coumadin; history of COVID-19 infection who presented to the hospital today with a chief complaint of confu abdias found to have hypoglycemia. Evaluated by psych team - NOT competent to make medical decisions, HCP invoked Encephalopathy. Increase in confusion in the past 3-4 weeks, uncertain cause, workup in progress, possibly superimposed underlying dementia no evidence of infection, UA, CXR negative; brain CT negative for acute intracranial pathology, tox screen negative, previous admission for encephalopathy earlier this month, TSH, B12, folate wnl; eeg showed generalized slowing no seizure activity brain MRI without contrast not showing anything acute, neuro rec MRI with contrast continue keprra 500 mg bid, repeat EEG pending LP ordered tentatively for today but INR still elevated at 1.8; will need menigoencephalitis panel and autoimmune panel in addition to regular LP labs Mechanical mitral/aortic valves will continue to hold coumadin in preparation for LP follow INR daily may need lovenox bridge after LP Chronic Diabetes with hypoglycemia that has resolved Continue POCs, SSI hyponatremia, mild likely r/t IVf. improving -follow BMP Coagulopathy secondary to Coumadin use. Resolved. no evidence acute bleeding HLD continue statin Hypothyroidism TSH within normal limits Continue levothyroxine Hypertension Blood pressure control Continue lisinopril dvt ppx - coumadin (inr elevated); boots code status - full code attendingDrMaximiliano Matty Daughter Risa [phone], HCP , she is aware that Luca does not have capacity to make medical decisions and she is agreeable to be primary contact and HCP. Quality Stroke Does the patient have a stroke diagnosis?: No VTE Prior VTE?: No VTE Risk Level:: Medical - moderate - high VTE Device Contraindication: N/A - Device Ordered VTE Drug Contraindication: N/A - Med Ordered
[2021-06-04 11:10] LABS: Glucose, Whole Blood 247 mg/dL (60-115)
--- NOTE | 2021-06-04 11:42 | MHC.CM.PN ---
Per ROUNDS discussion, Patient is not yet medically cleared for dc (LP & MRI With Contrast needed/ INR still high); Home with services vs str pending PT eval is the plan and CM will continue to follow.
[2021-06-04 11:43] LABS: Anion Gap 10 (12-20); Blood Urea Nitrogen 18 mg/dL (9-16); Calcium 9.1 mg/dL (8.4-10.2); Carbon Dioxide 29 mmol/L (22-29); Chloride 99 mmol/L (96-108); Creatinine Clr Calc Pharmacy 92.1; Estimated Glomerular Filt Rate > 60; Glucose Random 284 mg/dL (60-115); Potassium 4.6 mmol/L (3.3-5.1); Sodium 133 mmol/L (135-145)
[2021-06-04 11:48] VITALS: BP 118/63; PULSE 92; RESP 16; TEMP 36.8; O2SAT 97
[2021-06-04] MEDS: Enoxaparin Sodium 100 MG/ML SYRINGE SUBCUT (12:25)
[2021-06-04 13:01] LABS: INTERNATIONAL NORM RATIO 1.5 (0.9-1.1); Prothrombin Time 17.3 SEC (9.9-13.0)
[2021-06-04 13:04] LABS: Partial Thromboplastin Time 39.4 SEC (24.1-38.0)
[2021-06-04 15:20] VITALS: BP 120/68; PULSE 96; RESP 16; TEMP 36.6; O2SAT 99
[2021-06-04 16:31] LABS: Glucose, Whole Blood 264 mg/dL (60-115)
[2021-06-04 19:27] VITALS: BP 120/60; PULSE 93; RESP 15; TEMP 36.6; O2SAT 97
[2021-06-04 20:34] LABS: Glucose, Whole Blood 203 mg/dL (60-115)
[2021-06-04] MEDS: Atorvastatin Calcium 40 MG TABLET PO (20:40)
[2021-06-05] VITALS (7 sets, daily range): BP systolic 113–158; BP diastolic 55–75; PULSE 90–103; RESP 14–20; TEMP 35.6–38.4; O2SAT 90–100
--- NOTE | 2021-06-05 | EEG_ITS ---
This is a 16-channel EEG with an EKG lead. Patient is reported awake and drowsy during the tracing. Background EEG rhythm is mixed theta, beta, low to medium amplitude with no obvious asymmetry or paroxysmal tendency. Photic stimulation does not produce any significant abnormality. Hyperventilation is not performed. Cardiac lead does not reveal any significant abnormality. No sharp wave spikes or paroxysmal tendency or asymmetry noted. IMPRESSION: No significant abnormality noted on this EEG other than mild slowing. MD GOVIND Whelan/MAGGIE / [id number]
[2021-06-05 06:46] LABS: INTERNATIONAL NORM RATIO 1.3 (0.9-1.1)
[2021-06-05 07:41] LABS: Glucose, Whole Blood 238 mg/dL (60-115)
[2021-06-05] MEDS: Insulin Glargine,Hum.rec.anlog 100 UNIT/ML 10 ML VIAL 15 UNIT SUBCUT ×2 (07:54→21:03)
[2021-06-05] MEDS: Insulin Lispro 100 UNIT/ML 3 ML VIAL SUBCUT ×3 (07:54→21:02)
[2021-06-05] MEDS: Levothyroxine Sodium 50 MCG TABLET PO (07:55)
[2021-06-05] MEDS: 0.9 % Sodium Chloride Flush 3 ML SYRINGE IVFLUSH ×3 (07:55→21:03)
[2021-06-05] MEDS: lisinopriL 20 MG TABLET PO (07:55)
[2021-06-05] MEDS: levETIRAcetam 500 MG TABLET PO ×2 (07:55→21:02)
[2021-06-05 09:05] LABS: INTERNATIONAL NORM RATIO 1.3 (0.9-1.1); Prothrombin Time 14.3 SEC (9.9-13.0)
[2021-06-05 09:08] LABS: Partial Thromboplastin Time 34.1 SEC (24.1-38.0)
--- NOTE | 2021-06-05 11:05 | HO.PM.IMPN ---
Subjective Subjective Date of Service: 06/05/21 Review of Systems Follow up encephalopathy No complaints of pain or discomfort sitting up in chair Physical Exam Vital Signs: Vital Signs: Last Vital Signs Temp 96.0 F L 06/05/21 07:45 Pulse 97 06/05/21 07:45 Resp 16 06/05/21 07:45 BP 145/70 H 06/05/21 07:45 Pulse Ox 99 06/05/21 07:45 BMI result Body Mass Index 31.1 Appearing in no acute distress lung sounds are clear to auscultation heart regular rate rhythm, clear S1, S2 positive bowel sounds, abdomen is soft, nontender neuro patient is alert x3, no focal deficits Objective Data Active Medications Acetaminophen (Acetaminophen 325 Mg Tablet) 650 mg PO Q6H PRN PRN Reason: Pain, Mild (Pain Scale 1-3) Atorvastatin Calcium (Atorvastatin Calcium 40 Mg Tablet) 40 mg PO BEDTIME [facility] Last Admin: 06/04/21 20:40 Dose: 40 mg Documented by: LIANG Dextrose (Dextrose 50 % 25 Gm/50 Ml Syringe) 25 gm IVPUSH Q15M PRN; Protocol PRN Reason: per Hypoglycemia Standing Ord. Docusate Sodium (Docusate Sodium 100 Mg Capsule) 100 mg PO DAILY PRN PRN Reason: Constipation Enoxaparin Sodium (Enoxaparin Sodium 100 Mg/Ml Syringe) 100 mg SUBCUT ONCE ONE Stop: 06/05/21 12:26 Glucose (Glucose Gel 15 Gm Gel..Gram.) 15 gm PO Q15M PRN; Protocol PRN Reason: per Hypoglycemia Standing Ord. Insulin Glargine (Insulin Glargine,Hum.Rec.Anlog 100 Unit/Ml 10 Ml Vial) 15 unit SUBCUT BID [facility] Last Admin: 06/05/21 07:54 Dose: 15 unit Documented by: RANDOLPH Insulin Human Lispro (Insulin Lispro 100 Unit/Ml 3 Ml Vial) 0 unit SUBCUT QIDACHS [facility]; Protocol Last Admin: 06/05/21 07:54 Dose: 4 unit Documented by: RANDOLPH Levetiracetam (Levetiracetam 500 Mg Tablet) 500 mg PO BID [facility] Last Admin: 06/05/21 07:55 Dose: 500 mg Documented by: RANDLOPH Levothyroxine Sodium (Levothyroxine Sodium 50 Mcg Tablet) 50 mcg PO DAILY [facility] Last Admin: 06/05/21 07:55 Dose: 50 mcg Documented by: RANDOLPH Lisinopril (Lisinopril 20 Mg Tablet) 20 mg PO DAILY [facility]; Protocol Last Admin: 06/05/21 07:55 Dose: 20 mg Documented by: RANDOLPH Ondansetron HCl (Ondansetron Hcl 4 Mg/2 Ml Vial) 4 mg IVPUSH Q8H PRN PRN Reason: Nausea and Vomiting Risperidone (Risperidone 1 Mg Tablet) 1 mg PO TID PRN PRN Reason: anxiety/agitation Last Admin: 06/02/21 20:56 Dose: 1 mg Documented by: MARA Sodium Chloride (0.9 % Sodium Chloride Flush 3 Ml Syringe) 3 ml IVFLUSH QSHIFT [facility] Last Admin: 06/05/21 07:55 Dose: 3 ml Documented by: RANDOLPH Labs CBC & Chem 7: 06/01/21 07:37 06/04/21 10:45 Labs: Laboratory Results - last 24 hr 06/04/21 06/04/21 06/04/21 10:45 10:48 12:47 PT 17.3 H INR 1.5 H APTT 39.4 H D Anion Gap 10 L Estim Creat Clear Calc 92.1 Estimated GFR > 60 POC Glucose 247 H Random Glucose 284 H Calcium 9.1 06/04/21 06/04/21 06/05/21 16:21 20:31 06:09 PT 15.0 H INR 1.3 H APTT Anion Gap Estim Creat Clear Calc Estimated GFR POC Glucose 264 H 203 H Random Glucose Calcium 06/05/21 06/05/21 07:18 08:52 PT 14.3 H INR 1.3 H APTT 34.1 Anion Gap Estim Creat Clear Calc Estimated GFR POC Glucose 238 H Random Glucose Calcium Assessment and Plan (1) Encephalopathy: Status: Acute Plan This is a 70-year-old male with a past medical history of hypertension, hyperlipidemia, diabetes, CHF, obesity, paroxysmal AFib, history of off mitral valve replacement/ aortic valve replacement-on Coumadin; history of COVID-19 infection who presented to the hospital today with a chief complaint of confusion found to have hypoglycemia. Evaluated by psych team - NOT competent to make medical decisions, HCP invoked Encephalopathy. Increase in confusion in the past 3-4 weeks, uncertain cause, workup in progress, possibly superimposed underlying dementia no evidence of infection, UA, CXR negative; brain CT negative for acute intracranial pathology, tox screen negative, previous admission for encephalopathy earlier this month, TSH, B12, folate wnl; eeg showed generalized slowing no seizure activity brain MRI without contrast not showing anything acute, neuro rec MRI with contrast continue keprra 500 mg bid, repeat EEG pending LP ordered but INR still elevated; will need menigoencephalitis panel and autoimmune panel in addition to regular LP labs, hopefully INR to get to 1.2 by tomorrow Therapeutic lovenox daily for now prior to LP Mechanical mitral/aortic valves will continue to hold coumadin in preparation for LP follow INR daily may need lovenox bridge after LP Chronic Diabetes with hypoglycemia that has resolved Continue POCs, SSI hyponatremia, mild likely r/t IVf. improving -follow BMP Coagulopathy secondary to Coumadin use. Resolved. no evidence acute bleeding HLD continue statin Hypothyroidism TSH within normal limits Continue levothyroxine Hypertension Blood pressure control Continue lisinopril dvt ppx - coumadin (inr elevated); boots code status - full code attendingDrMaximiliano Tsarr Daughter Risa [phone], HCP , she is aware that Luca does not have capacity to make medical decisions and she is agreeable to be primary contact and HCP. Quality Stroke Does the patient have a stroke diagnosis?: No VTE Prior VTE?: No VTE Risk Level:: Medical - moderate - high VTE Device Contraindication: N/A - Device Ordered VTE Drug Contraindication: N/A - Med Ordered
[2021-06-05 11:16] LABS: Glucose, Whole Blood 317 mg/dL (60-115)
[2021-06-05] MEDS: Enoxaparin Sodium 100 MG/ML SYRINGE SUBCUT (15:29)
[2021-06-05 16:03] LABS: Glucose, Whole Blood 225 mg/dL (60-115)
[2021-06-05 20:20] LABS: Glucose, Whole Blood 351 mg/dL (60-115)
[2021-06-05] MEDS: risperiDONE 1 MG TABLET PO (21:02)
[2021-06-05] MEDS: Acetaminophen 325 MG TABLET 650 MG PO (21:02)
[2021-06-05] MEDS: Atorvastatin Calcium 40 MG TABLET PO (21:02)
[2021-06-06] VITALS (7 sets, daily range): BP systolic 96–136; BP diastolic 58–70; PULSE 96–106; RESP 16–20; TEMP 36.2–37.4; O2SAT 95–98
[2021-06-06 07:12] LABS: INTERNATIONAL NORM RATIO 1.1 (0.9-1.1)
[2021-06-06 07:25] LABS: Glucose, Whole Blood 249 mg/dL (60-115)
--- NOTE | 2021-06-06 09:32 | HO.PM.IMPN ---
Subjective Subjective Date of Service: 06/06/21 <Britni Robbins NP - Last Filed: 06/06/21 15:52> 06/07/21 <Flip Starr MD - Last Filed: 06/07/21 10:11> Review of Systems Follow up encephalopathy No complaints of pain or discomfort Resting in bed <Britni Robbins NP - Last Filed: 06/06/21 15:52> Physical Exam Vital Signs: Vital Signs: Last Vital Signs Temp 97.6 F 06/06/21 07:18 Pulse 98 06/06/21 07:18 Resp 18 06/06/21 07:18 BP 133/67 06/06/21 07:18 Pulse Ox 98 06/06/21 07:18 BMI result Body Mass Index 31.1 <Britni Robbins NP - Last Filed: 06/06/21 15:52> Appearing in no acute distress lung sounds are clear to auscultation heart regular rate rhythm, clear S1, S2 positive bowel sounds, abdomen is soft, nontender neuro patient is alert x3, some confusion, no focal deficits <Britni Robbins NP - Last Filed: 06/06/21 15:52> Objective Data Active Medications Acetaminophen (Acetaminophen 325 Mg Tablet) 650 mg PO Q6H PRN PRN Reason: Pain, Mild (Pain Scale 1-3) Last Admin: 06/05/21 21:02 Dose: 650 mg Documented by: LIANG Atorvastatin Calcium (Atorvastatin Calcium 40 Mg Tablet) 40 mg PO BEDTIME [facility] Last Admin: 06/05/21 21:02 Dose: 40 mg Documented by: LIANG Dextrose (Dextrose 50 % 25 Gm/50 Ml Syringe) 25 gm IVPUSH Q15M PRN; Protocol PRN Reason: per Hypoglycemia Standing Ord. Docusate Sodium (Docusate Sodium 100 Mg Capsule) 100 mg PO DAILY PRN PRN Reason: Constipation Glucose (Glucose Gel 15 Gm Gel..Gram.) 15 gm PO Q15M PRN; Protocol PRN Reason: per Hypoglycemia Standing Ord. Insulin Glargine (Insulin Glargine,Hum.Rec.Anlog 100 Unit/Ml 10 Ml Vial) 15 unit SUBCUT BID [facility] Last Admin: 06/05/21 21:03 Dose: 15 unit Documented by: LIANG Insulin Human Lispro (Insulin Lispro 100 Unit/Ml 3 Ml Vial) 0 unit SUBCUT QIDACHS [facility]; Protocol Last Admin: 06/05/21 21:02 Dose: 10 unit Documented by: LIANG Levetiracetam (Levetiracetam 500 Mg Tablet) 500 mg PO BID [facility] Last Admin: 06/05/21 21:02 Dose: 500 mg Documented by: LIANG Levothyroxine Sodium (Levothyroxine Sodium 50 Mcg Tablet) 50 mcg PO DAILY [facility] Last Admin: 06/05/21 07:55 Dose: 50 mcg Documented by: RANDOLPH Lisinopril (Lisinopril 20 Mg Tablet) 20 mg PO DAILY [facility]; Protocol Last Admin: 06/05/21 07:55 Dose: 20 mg Documented by: RANDOLPH Ondansetron HCl (Ondansetron Hcl 4 Mg/2 Ml Vial) 4 mg IVPUSH Q8H PRN PRN Reason: Nausea and Vomiting Risperidone (Risperidone 1 Mg Tablet) 1 mg PO TID PRN PRN Reason: anxiety/agitation Last Admin: 06/05/21 21:02 Dose: 1 mg Documented by: LIANG Sodium Chloride (0.9 % Sodium Chloride Flush 3 Ml Syringe) 3 ml IVFLUSH QSHIFT [facility] Last Admin: 06/05/21 21:03 Dose: 3 ml Documented by: LIANG <Britni Robbins NP - Last Filed: 06/06/21 15:52> Labs CBC & Chem 7: : 06/06/21 16:04 06/06/21 16:04 <Britni Robbins NP - Last Filed: 06/06/21 15:52> Labs: Laboratory Results - last 24 hr 06/05/21 06/05/21 06/05/21 11:08 15:58 20:05 PT INR POC Glucose 317 H 225 H 351 H* 06/06/21 06/06/21 06:10 07:08 PT 13.0 INR 1.1 POC Glucose 249 H <Britni Robbins NP - Last Filed: 06/06/21 15:52> Microbiology Microbiology Results: Microbiology 06/04/21 10:30 Blood Culture - Preliminary Blood - Venous No growth after 24 hours. 06/04/21 10:45 Blood Culture - Preliminary Blood - Venous No growth after 24 hours. <Britni Robbins NP - Last Filed: 06/06/21 15:52> Assessment and Plan (1) Encephalopathy: Status: Acute <Britni Robbins NP - Last Filed: 06/06/21 15:52> Plan This is a 70-year-old male with a past medical history of hypertension, hyperlipidemia, diabetes, CHF, obesity, paroxysmal AFib, history of off mitral valve replacement/ aortic valve replacement-on Coumadin; history of COVID-19 infection who presented to the hospital today with a chief complaint of confusion found to have hypoglycemia. Evaluated by psych team - NOT competent to make medical decisions, HCP invoked Encephalopathy. Increase in confusion in the past 3-4 weeks, uncertain cause, workup in progress, possibly superimposed underlying dementia no evidence of infection, UA, CXR negative; brain CT negative for acute intracranial pathology, tox screen negative, previous admission for encephalopathy earlier this month, TSH, B12, folate wnl; eeg showed generalized slowing no seizure activity , brain MRI with contrast not showing enhancement continue keprra 500 mg bid, repeat EEG pending LP essentially negative, EEG negative Waiting for Meningealencephalitis panel if that is negative At this point working for autoimmune versus paraneoplastic process LINDA pending Abdominal and chest CT pending Mechanical mitral/aortic valves will continue to hold coumadin in preparation for LP follow INR daily will need lovenox bridge after LP Chronic Diabetes with hypoglycemia that has resolved Continue POCs, SSI hyponatremia, mild likely r/t IVf. improving -follow BMP Coagulopathy secondary to Coumadin use. Resolved. no evidence acute bleeding HLD continue statin Hypothyroidism TSH within normal limits Continue levothyroxine Hypertension Blood pressure control Continue lisinopril dvt ppx - coumadin (inr elevated); boots code status - full code attendingDrMaximiliano Starr Daughter Risa [phone], HCP , she is aware that Luca does not have capacity to make medical decisions and she is agreeable to be primary contact and HCP. Patient requires continued hospitalization due to continued workup for acute encephalopathy, no definitive diagnosis. Patient did spike a fever overnight. <Britni Robbins NP - Last Filed: 06/06/21 15:52> Quality Stroke Does the patient have a stroke diagnosis?: No <Britni Robbins NP - Last Filed: 06/06/21 15:52> VTE Prior VTE?: No <Britni Robbins NP - Last Filed: 06/06/21 15:52> VTE Risk Level:: Medical - moderate - high <Britni Robbins NP - Last Filed: 06/06/21 15:52> VTE Device Contraindication: N/A - Device Ordered <Britni Robbins NP - Last Filed: 06/06/21 15:52> VTE Drug Contraindication: N/A - Med Ordered <Britni Robbins NP - Last Filed: 06/06/21 15:52>
[2021-06-06] MEDS: Insulin Lispro 100 UNIT/ML 3 ML VIAL SUBCUT ×3 (09:49→20:35)
[2021-06-06] MEDS: levETIRAcetam 500 MG TABLET PO ×2 (09:50→20:33)
[2021-06-06] MEDS: Levothyroxine Sodium 50 MCG TABLET PO (09:50)
[2021-06-06] MEDS: 0.9 % Sodium Chloride Flush 3 ML SYRINGE IVFLUSH ×3 (09:50→20:35)
[2021-06-06] MEDS: lisinopriL 20 MG TABLET PO (09:50)
[2021-06-06 10:50] LABS: Glucose, Whole Blood 218 mg/dL (60-115)
--- NOTE | 2021-06-06 11:44 | PC.NURSE ---
transported to radiology with transporter. consent needs to be obtained by Radiology MD (per Britni Robbins) given number for daughter HCP #[phone]. Sitter to go with patient to procedure.
--- NOTE | 2021-06-06 13:02 | PC.NURSE ---
Patient return from LP procedure. tolerated well per staff from radiology. Pt to remain flat bedrest for 3-4 hour. Sitter with patient and patient himself is aware. no complaints at this time. resting quietly with no complaints.
--- NOTE | 2021-06-06 13:27 | MHC.CM.PN ---
Per ROUNDS discussion, Patient is having a LP today. CM will continue to follow for dc planning (Home vs str pending pt eval).
[2021-06-06 13:36] LABS: Glucose CSF 131 mg/dL; Total Protein CSF 78.7 mg/dL (15-45)
[2021-06-06 13:50] LABS: Appearance CSF CLEAR; CSF Monos 0 %; CSF Other Cells % 0 %; CSF Tube # 4; Color CSF COLORLESS; Lymphocytes CSF 75 %; Neutrophils CSF 25 %; Red Blood Cell CSF 235 MM*3; White Blood Cell CSF 2 MM*3
[2021-06-06 14:56] LABS: CSF Appearance Clear, Colorless; CSF Tube # 2
[2021-06-06 16:15] LABS: Glucose, Whole Blood 152 mg/dL (60-115)
[2021-06-06 16:21] LABS: Hematocrit 38.9 % (42.0-52.0); Hemoglobin 13.1 g/dl (14.0-18.0); Mean Corpuscular HGB Conc 33.7 g/dl (31.0-36.0); Mean Corpuscular Hemoglobin 31.6 pg (27.0-33.0); Mean Corpuscular Volume 93.7 fL (80.0-98.0); Platelet Count 223 X10*3/uL (160-400); Red Blood Count 4.15 X10*6/uL (4.60-5.80); White Blood Count 8.4 X10*3/uL (4.8-10.8)
[2021-06-06 16:31] LABS: Anion Gap 11 (12-20); Blood Urea Nitrogen 19 mg/dL (9-16); Calcium 9.4 mg/dL (8.4-10.2); Carbon Dioxide 29 mmol/L (22-29); Chloride 102 mmol/L (96-108); Creatinine Clr Calc Pharmacy 97.6; Estimated Glomerular Filt Rate > 60; Glucose Random 179 mg/dL (60-115); Sodium 137 mmol/L (135-145)
[2021-06-06] MEDS: Warfarin Sodium 4 MG TABLET PO (19:25)
[2021-06-06 20:12] LABS: Glucose, Whole Blood 302 mg/dL (60-115)
[2021-06-06] MEDS: Enoxaparin Sodium 100 MG/ML SYRINGE SUBCUT (20:33)
[2021-06-06] MEDS: Atorvastatin Calcium 40 MG TABLET PO (20:33)
[2021-06-06] MEDS: Insulin Glargine,Hum.rec.anlog 100 UNIT/ML 10 ML VIAL 15 UNIT SUBCUT (20:34)
[2021-06-07] VITALS (7 sets, daily range): BP systolic 114–140; BP diastolic 58–78; PULSE 92–102; RESP 15–19; TEMP 36.6–37.2; O2SAT 95–100
[2021-06-07 01:11] LABS: Cryptococcus neoformans/gattii Not Detected (Not Detect.); Enterovirus Not Detected (Not Detect.); Escherichia coli K1 Not Detected (Not Detect.); Haemophilus influenzae Not Detected (Not Detect.); Herpes simplex virus 1 Not Detected (Not Detect.); Herpes simplex virus 2 Not Detected (Not Detect.); Human herpesvirus 6 Not Detected (Not Detect.); Human parechovirus Not Detected (Not Detect.); Listeria monocytogenes Not Detected (Not Detect.); Neisseria meningitidis Not Detected (Not Detect.); Streptococcus agalactiae Not Detected (Not Detect.); Streptococcus pneumoniae Not Detected (Not Detect.); Varicella zoster virus Not Detected (Not Detect.)
[2021-06-07 06:19] LABS: INTERNATIONAL NORM RATIO 1.1 (0.9-1.1); Prothrombin Time 12.8 SEC (9.9-13.0)
[2021-06-07 06:58] LABS: Glucose, Whole Blood 240 mg/dL (60-115)
[2021-06-07] MEDS: Insulin Lispro 100 UNIT/ML 3 ML VIAL SUBCUT ×4 (07:26→22:14)
[2021-06-07] MEDS: lisinopriL 20 MG TABLET PO (08:26)
[2021-06-07] MEDS: Insulin Glargine,Hum.rec.anlog 100 UNIT/ML 10 ML VIAL 15 UNIT SUBCUT ×2 (08:26→22:13)
[2021-06-07] MEDS: Levothyroxine Sodium 50 MCG TABLET PO (08:26)
[2021-06-07] MEDS: levETIRAcetam 500 MG TABLET PO ×2 (08:26→22:13)
[2021-06-07] MEDS: 0.9 % Sodium Chloride Flush 3 ML SYRINGE IVFLUSH ×3 (08:26→22:16)
[2021-06-07] MEDS: Enoxaparin Sodium 100 MG/ML SYRINGE SUBCUT ×2 (08:28→22:15)
[2021-06-07 11:23] LABS: Glucose, Whole Blood 298 mg/dL (60-115)
--- NOTE | 2021-06-07 13:22 | P.PNIM_ITS ---
Subjective Subjective Date of Service: 06/07/21 Interval History: seen and examined this morning no overnight events no complaints this morning still confused, knows he is in a hospital but doesn't know why; vague historian Review of Systems Review of Systems: Yes all other systems are reviewed and are negative Constitutional Constitutional: Denies chills and Denies fever(s) Cardiovascular Cardiovascular: Denies chest pain, Denies palpitations and Denies dyspnea Respiratory Respiratory: Denies cough and Denies dyspnea Gastrointestinal Gastrointestinal: Denies abdominal pain Endocrine Endocrine: Denies palpitations Physical Exam Vital Signs: Vital Signs: Last Vital Signs Temp 98.4 F 06/07/21 11:21 Pulse 97 06/07/21 12:01 Resp 16 06/07/21 11:21 BP 114/66 06/07/21 12:01 Pulse Ox 99 06/07/21 12:01 BMI result Body Mass Index 31.1 Const: General: cooperative, comfortable, no acute distress, alert and awake Nutritional Appearance: overweight Resp: Effort & Inspection: normal respiratory effort and able to speak in complete sentences Cardio: Rate: regular rate Rhythm: regular rhythm Heart sounds: Clicking heart sound present and Murmur heart sound present GI: Inspection: No distended Palpation (GI): Soft to palpation and nontender Neuro: Other: strength seems equal bilaterally in upper and lower extremities Extrem: Other: moving all 4 extremities spontaneously Objective Data Active Medications Acetaminophen (Acetaminophen 325 Mg Tablet) 650 mg PO Q6H PRN PRN Reason: Pain, Mild (Pain Scale 1-3) Last Admin: 06/05/21 21:02 Dose: 650 mg Documented by: LIANG Atorvastatin Calcium (Atorvastatin Calcium 40 Mg Tablet) 40 mg PO BEDTIME [facility] Last Admin: 06/06/21 20:33 Dose: 40 mg Documented by: FIDE Dextrose (Dextrose 50 % 25 Gm/50 Ml Syringe) 25 gm IVPUSH Q15M PRN; Protocol PRN Reason: per Hypoglycemia Standing Ord. Docusate Sodium (Docusate Sodium 100 Mg Capsule) 100 mg PO DAILY PRN PRN Reason: Constipation Enoxaparin Sodium (Enoxaparin Sodium 100 Mg/Ml Syringe) 100 mg SUBCUT Q12H [facility] Last Admin: 06/07/21 08:28 Dose: 100 mg Documented by: TRENTON Glucose (Glucose Gel 15 Gm Gel..Gram.) 15 gm PO Q15M PRN; Protocol PRN Reason: per Hypoglycemia Standing Ord. Insulin Glargine (Insulin Glargine,Hum.Rec.Anlog 100 Unit/Ml 10 Ml Vial) 15 unit SUBCUT BID [facility] Last Admin: 06/07/21 08:26 Dose: 15 unit Documented by: TRENTON Insulin Human Lispro (Insulin Lispro 100 Unit/Ml 3 Ml Vial) 0 unit SUBCUT QIDACHS [facility]; Protocol Last Admin: 06/07/21 11:53 Dose: 6 unit Documented by: TRENTNO Levetiracetam (Levetiracetam 500 Mg Tablet) 500 mg PO BID [facility] Last Admin: 06/07/21 08:26 Dose: 500 mg Documented by: TRENTON Levothyroxine Sodium (Levothyroxine Sodium 50 Mcg Tablet) 50 mcg PO DAILY [facility] Last Admin: 06/07/21 08:26 Dose: 50 mcg Documented by: TRENTON Lisinopril (Lisinopril 20 Mg Tablet) 20 mg PO DAILY [facility]; Protocol Last Admin: 06/07/21 08:26 Dose: 20 mg Documented by: TRENTON Ondansetron HCl (Ondansetron Hcl 4 Mg/2 Ml Vial) 4 mg IVPUSH Q8H PRN PRN Reason: Nausea and Vomiting Risperidone (Risperidone 1 Mg Tablet) 1 mg PO TID PRN PRN Reason: anxiety/agitation Last Admin: 06/05/21 21:02 Dose: 1 mg Documented by: LIANG Sodium Chloride (0.9 % Sodium Chloride Flush 3 Ml Syringe) 3 ml IVFLUSH QSHIFT [facility] Last Admin: 06/07/21 08:26 Dose: 3 ml Documented by: TERNTON Warfarin Sodium (Warfarin Sodium 4 Mg Tablet) 4 mg PO DAILY@1800 [facility] Last Admin: 06/06/21 19:25 Dose: 4 mg Documented by: FIORELLA Labs CBC & Chem 7: 06/06/21 16:04 06/06/21 16:04 Labs: Laboratory Results - last 24 hr 06/06/21 06/06/21 06/06/21 16:04 16:04 16:08 MCV 93.7 MCH 31.6 MCHC 33.7 RDW 14.0 Plt Count 223 MPV 11.0 Absolute Nucleated RBC 0.000 Nucleated RBC % (auto) 0.0 PT INR Anion Gap 11 L Estim Creat Clear Calc 97.6 Estimated GFR > 60 POC Glucose 152 H Random Glucose 179 H D Calcium 9.4 CSF Tube Number CSF Volume CSF Appearance CSF Color CSF WBC CSF RBC CSF Neutrophils CSF Lymphocytes CSF Monocytes % CSF Other Cells % CSF Appearance (b) CSF Glucose CSF Total Protein CSF C.neoform/gat PCR CSF CMV DNA (PCR) CSF Enterovirus (PCR) CSF E. coli K1 (PCR) CSF H. influenzae (PCR) CSF HSV I (PCR) CSF HSV II (PCR) CSF L.monocytogenes PCR CSF N. meningitidis PCR CSF Parechovirus (PCR) CSF S. agalactiae (PCR) CSF S. pneumoniae (PCR) CSF VZV (PCR) HHV-6 (PCR) 06/06/21 06/06/21 06/06/21 20:07 Unknown Unknown MCV MCH MCHC RDW Plt Count MPV Absolute Nucleated RBC Nucleated RBC % (auto) PT INR Anion Gap Estim Creat Clear Calc Estimated GFR POC Glucose 302 H Random Glucose Calcium CSF Tube Number 2 4 CSF Volume 2.0 CSF Appearance CLEAR CSF Color COLORLESS CSF WBC 2 CSF RBC 235 CSF Neutrophils 25 CSF Lymphocytes 75 CSF Monocytes % 0 CSF Other Cells % 0 CSF Appearance (b) Clear, Colorless CSF Glucose 131 CSF Total Protein 78.7 H CSF C.neoform/gat PCR CSF CMV DNA (PCR) CSF Enterovirus (PCR) CSF E. coli K1 (PCR) CSF H. influenzae (PCR) CSF HSV I (PCR) CSF HSV II (PCR) CSF L.monocytogenes PCR CSF N. meningitidis PCR CSF Parechovirus (PCR) CSF S. agalactiae (PCR) CSF S. pneumoniae (PCR) CSF VZV (PCR) HHV-6 (PCR) 06/06/21 06/07/21 06/07/21 Unknown 05:55 06:55 MCV MCH MCHC RDW Plt Count MPV Absolute Nucleated RBC Nucleated RBC % (auto) PT 12.8 INR 1.1 Anion Gap Estim Creat Clear Calc Estimated GFR POC Glucose 240 H Random Glucose Calcium CSF Tube Number CSF Volume CSF Appearance CSF Color CSF WBC CSF RBC CSF Neutrophils CSF Lymphocytes CSF Monocytes % CSF Other Cells % CSF Appearance (b) CSF Glucose CSF Total Protein CSF C.neoform/gat PCR Not Detected CSF CMV DNA (PCR) Not Detected CSF Enterovirus (PCR) Not Detected CSF E. coli K1 (PCR) Not Detected CSF H. influenzae (PCR) Not Detected CSF HSV I (PCR) Not Detected CSF HSV II (PCR) Not Detected CSF L.monocytogenes PCR Not Detected CSF N. meningitidis PCR Not Detected CSF Parechovirus (PCR) Not Detected CSF S. agalactiae (PCR) Not Detected CSF S. pneumoniae (PCR) Not Detected CSF VZV (PCR) Not Detected HHV-6 (PCR) Not Detected 06/07/21 11:18 MCV MCH MCHC RDW Plt Count MPV Absolute Nucleated RBC Nucleated RBC % (auto) PT INR Anion Gap Estim Creat Clear Calc Estimated GFR POC Glucose 298 H Random Glucose Calcium CSF Tube Number CSF Volume CSF Appearance CSF Color CSF WBC CSF RBC CSF Neutrophils CSF Lymphocytes CSF Monocytes % CSF Other Cells % CSF Appearance (b) CSF Glucose CSF Total Protein CSF C.neoform/gat PCR CSF CMV DNA (PCR) CSF Enterovirus (PCR) CSF E. coli K1 (PCR) CSF H. influenzae (PCR) CSF HSV I (PCR) CSF HSV II (PCR) CSF L.monocytogenes PCR CSF N. meningitidis PCR CSF Parechovirus (PCR) CSF S. agalactiae (PCR) CSF S. pneumoniae (PCR) CSF VZV (PCR) HHV-6 (PCR) Microbiology Microbiology Results: Microbiology 06/06/21 Unknown Gram Stain - Final Cerebrospinal Fluid CSF Examination - Final Fluid Description - Final CSF Culture - Preliminary No growth after 1 day 06/04/21 10:45 Blood Culture - Preliminary Blood - Venous No growth after 48 hours. 06/04/21 10:30 Blood Culture - Preliminary Blood - Venous No growth after 48 hours. Assessment and Plan (1) Encephalopathy: Status: Acute Plan This is a 70-year-old male with a past medical history of hypertension, hyperlipidemia, diabetes, CHF, obesity, paroxysmal AFib, history of off mitral valve replacement/ aortic valve replacement-on Coumadin; history of COVID-19 infection who presented to the hospital today with a chief complaint of confusion found to have hypoglycemia. Evaluated by psych team - NOT competent to make medical decisions, HCP invoked Encephalopathy. Increase in confusion in the past 3-4 weeks, uncertain cause, workup in progress, possibly superimposed underlying dementia no evidence of infection, UA, CXR negative; brain CT negative for acute intracranial pathology, tox screen negative, previous admission for encephalopathy earlier this month, TSH, B12, folate wnl; eeg showed generalized slowing no seizure activity , brain MRI with contrast not showing enhancement continue keprra 500 mg bid, repeat EEG pending LP essentially negative, EEG negative Meningealencephalitis negative work up for autoimmune versus paraneoplastic process LINDA pending Abdominal and chest CT pending Mechanical mitral/aortic valves coumadin resumed follow INR daily continue lovenox bridge until INR therapeutic Chronic Diabetes with hypoglycemia that has resolved Continue POCs, SSI hyponatremia. resolved Coagulopathy secondary to Coumadin use. Resolved. no evidence acute bleeding HLD continue statin Hypothyroidism TSH within normal limits Continue levothyroxine Hypertension Blood pressure control Continue lisinopril dvt ppx - coumadin (inr elevated); boots code status - full code attendingDr. Matty Daughter Risa [phone], HCP , she is aware that Luca does not have capacity to make medical decisions and she is agreeable to be primary contact and HCP. Patient requires continued hospitalization due to continued workup for acute encephalopathy, no definitive diagnosis. Quality Stroke Does the patient have a stroke diagnosis?: No VTE Prior VTE?: No VTE Risk Level:: Medical - moderate - high VTE Device Contraindication: N/A - Device Ordered VTE Drug Contraindication: N/A - Med Ordered
[2021-06-07 16:18] LABS: Glucose, Whole Blood 267 mg/dL (60-115)
[2021-06-07] MEDS: Warfarin Sodium 4 MG TABLET PO (18:06)
[2021-06-07 20:13] LABS: Glucose, Whole Blood 313 mg/dL (60-115)
[2021-06-07] MEDS: Atorvastatin Calcium 40 MG TABLET PO (22:13)
[2021-06-08] VITALS (7 sets, daily range): BP systolic 107–133; BP diastolic 57–81; PULSE 80–101; RESP 18–20; TEMP 36.2–36.9; O2SAT 97–99
[2021-06-08 06:52] LABS: INTERNATIONAL NORM RATIO 1.4 (0.9-1.1); Prothrombin Time 15.5 SEC (9.9-13.0)
[2021-06-08 07:02] LABS: Glucose, Whole Blood 222 mg/dL (60-115)
[2021-06-08] MEDS: Insulin Lispro 100 UNIT/ML 3 ML VIAL SUBCUT ×4 (07:58→20:49)
[2021-06-08] MEDS: Insulin Glargine,Hum.rec.anlog 100 UNIT/ML 10 ML VIAL 15 UNIT SUBCUT ×2 (07:59→20:49)
[2021-06-08] MEDS: Enoxaparin Sodium 100 MG/ML SYRINGE SUBCUT ×2 (08:00→20:49)
[2021-06-08] MEDS: polyethylene glycoL 3350 17 GM POWD.PACK PO (08:00)
[2021-06-08] MEDS: levETIRAcetam 500 MG TABLET PO ×2 (08:01→20:48)
[2021-06-08] MEDS: 0.9 % Sodium Chloride Flush 3 ML SYRINGE IVFLUSH ×3 (08:01→20:56)
[2021-06-08] MEDS: lisinopriL 20 MG TABLET PO (08:01)
[2021-06-08] MEDS: Docusate Sodium 100 MG CAPSULE PO (08:01)
[2021-06-08] MEDS: Levothyroxine Sodium 50 MCG TABLET PO (08:09)
[2021-06-08 10:58] LABS: Glucose, Whole Blood 257 mg/dL (60-115)
--- NOTE | 2021-06-08 14:15 | P.PNIM_ITS ---
Subjective Subjective Date of Service: 06/08/21 Interval History: seen and examined this morning no overnight events denies any specific complaints awake, alert; no change in mental status, pleasantly confused Review of Systems Review of Systems: Yes all other systems are reviewed and are negative Constitutional Constitutional: Denies chills and Denies fever(s) Respiratory Respiratory: Denies cough Gastrointestinal Gastrointestinal: Denies abdominal pain Physical Exam Vital Signs: Vital Signs: Last Vital Signs Temp 97.1 F 06/08/21 11:06 Pulse 96 06/08/21 11:06 Resp 18 06/08/21 11:06 BP 107/57 L 06/08/21 11:06 Pulse Ox 98 06/08/21 11:06 BMI result Body Mass Index 31.1 Const: General: cooperative, comfortable, no acute distress, alert and awake Nutritional Appearance: overweight Resp: Effort & Inspection: normal respiratory effort and able to speak in complete sentences Cardio: Rate: regular rate Rhythm: regular rhythm Heart sounds: Clicking heart sound present and Murmur heart sound present GI: Inspection: No distended Palpation (GI): Soft to palpation and nontender Neuro: Other: strength seems equal bilaterally in upper and lower extremities Extrem: Other: moving all 4 extremities spontaneously Objective Data Active Medications Acetaminophen (Acetaminophen 325 Mg Tablet) 650 mg PO Q6H PRN PRN Reason: Pain, Mild (Pain Scale 1-3) Last Admin: 06/05/21 21:02 Dose: 650 mg Documented by: LIANG Atorvastatin Calcium (Atorvastatin Calcium 40 Mg Tablet) 40 mg PO BEDTIME [facility] Last Admin: 06/07/21 22:13 Dose: 40 mg Documented by: FIDE Dextrose (Dextrose 50 % 25 Gm/50 Ml Vial) 25 gm IVPUSH Q15M PRN; Protocol PRN Reason: per Hypoglycemia Standing Ord. Docusate Sodium (Docusate Sodium 100 Mg Capsule) 100 mg PO DAILY [facility] Last Admin: 06/08/21 08:01 Dose: 100 mg Documented by: ROSHNI Enoxaparin Sodium (Enoxaparin Sodium 100 Mg/Ml Syringe) 100 mg SUBCUT Q12H [facility] Last Admin: 06/08/21 08:00 Dose: 100 mg Documented by: ROSHNI Glucose (Glucose Gel 15 Gm Gel..Gram.) 15 gm PO Q15M PRN; Protocol PRN Reason: per Hypoglycemia Standing Ord. Insulin Glargine (Insulin Glargine,Hum.Rec.Anlog 100 Unit/Ml 10 Ml Vial) 15 unit SUBCUT BID [facility] Last Admin: 06/08/21 07:59 Dose: 15 unit Documented by: ROSHNI Insulin Human Lispro (Insulin Lispro 100 Unit/Ml 3 Ml Vial) 0 unit SUBCUT QIDA CHS [facility]; Protocol Last Admin: 06/08/21 11:40 Dose: 6 unit Documented by: ROSHNI Levetiracetam (Levetiracetam 500 Mg Tablet) 500 mg PO BID [facility] Last Admin: 06/08/21 08:01 Dose: 500 mg Documented by: ROSHNI Levothyroxine Sodium (Levothyroxine Sodium 50 Mcg Tablet) 50 mcg PO DAILY [facility] Last Admin: 06/08/21 08:09 Dose: 50 mcg Documented by: ROSHNI Lisinopril (Lisinopril 20 Mg Tablet) 20 mg PO DAILY [facility]; Protocol Last Admin: 06/08/21 08:01 Dose: 20 mg Documented by: ROSHNI Ondansetron HCl (Ondansetron Hcl 4 Mg/2 Ml Vial) 4 mg IVPUSH Q8H PRN PRN Reason: Nausea and Vomiting Polyethylene Glycol (Polyethylene Glycol 3350 17 Gm Powd.Pack) 17 gm PO DAILY [facility] Last Admin: 06/08/21 08:00 Dose: 17 gm Documented by: ROSHNI Senna (Sennosides 8.6 Mg Tablet) 8.6 mg PO BEDTIME PRN PRN Reason: constipation Sodium Chloride (0.9 % Sodium Chloride Flush 3 Ml Syringe) 3 ml IVFLUSH QSHIFT [facility] Last Admin: 06/08/21 08:01 Dose: 3 ml Documented by: ROSHNI Warfarin Sodium (Warfarin Sodium 4 Mg Tablet) 4 mg PO DAILY@1800 [facility] Last Admin: 06/07/21 18:06 Dose: 4 mg Documented by: ROSHNI Labs CBC & Chem 7: 06/06/21 16:04 06/06/21 16:04 Labs: Laboratory Results - last 24 hr 06/07/21 06/07/21 06/08/21 16:08 20:07 05:56 PT 15.5 H INR 1.4 H POC Glucose 267 H 313 H 06/08/21 06/08/21 06:59 10:54 PT INR POC Glucose 222 H 257 H Microbiology Microbiology Results: Microbiology 06/06/21 Unknown Gram Stain - Final Cerebrospinal Fluid CSF Examination - Final Fluid Description - Final CSF Culture - Preliminary No growth after 2 days Assessment and Plan (1) Encephalopathy: Status: Acute Plan This is a 70-year-old male with a past medical history of hypertension, hyperlipidemia, diabetes, CHF, obesity, paroxysmal AFib, history of off mitral valve replacement/ aortic valve replacement-on Coumadin; history of COVID-19 infection who presented to the hospital today with a chief complaint of confusion found to have hypoglycemia. Evaluated by psych team - NOT competent to make medical decisions, HCP invoked Encephalopathy. Increase in confusion in the past 3-4 weeks, uncertain cause, workup in progress, possibly superimposed underlying dementia no evidence of infection, UA, CXR negative; brain CT negative for acute intracranial pathology, tox screen negative, previous admission for encephalopathy earlier this month, TSH, B12, folate wnl; eeg showed generalized slowing no seizure activity , brain MRI with contrast not showing enhancement continue keprra 500 mg bid, repeat EEG pending LP essentially negative, EEG negative Meningoencephalitis negative work up for autoimmune versus paraneoplastic process chest and abdominal CT negative for malignancy LINDA pending Mechanical mitral/aortic valves coumadin resumed follow INR daily continue lovenox bridge until INR therapeutic pulmonary nodules seen on chest CT outpatient followup Chronic Diabetes with hypoglycemia that has resolved Continue POCs, SSI hyponatremia. resolved Coagulopathy secondary to Coumadin use. Resolved. no evidence acute bleeding HLD continue statin Hypothyroidism TSH within normal limits Continue levothyroxine Hypertension Blood pressure control Continue lisinopril dvt ppx - coumadin (inr elevated); boots code status - full code attendingDrMaximiliano Starr Daughter Risa [phone], HCP , she is aware that Luca does not have capacity to make medical decisions and she is agreeable to be primary contact and HCP. Patient requires continued hospitalization due to continued workup for acute encephalopathy, no definitive diagnosis. Quality Stroke Does the patient have a stroke diagnosis?: No VTE Prior VTE?: No VTE Risk Level:: Medical - moderate - high VTE Device Contraindication: N/A - Device Ordered VTE Drug Contraindication: N/A - Med Ordered
--- NOTE | 2021-06-08 14:54 | PM.DS ---
DS: Providers Provider Date of admission: 05/31/21 14:37 Primary care physician: JENNY StreetP- Consults: 05/31/21 14:46 Consult to Neurology Routine Consulting Provider: [facility] Reason for consultation: encephalopathy; mild left arm weakness Has provider been notified: No 06/02/21 10:35 Consult to Psychiatry Routine Consulting Provider: Psych [facility] Reason for consultation: competency eval Has provider been notified: No DS: Diagnosis Discharge Diagnosis (1) Encephalopathy: Status: Acute (2) Type 2 diabetes mellitus with diabetic neuropathy, unspecified: Status: Acute (3) Mitral valve replaced: Status: Acute DS: Summary Hospital Course Hospital Course: From H&P on day of admission This is a 70-year-old male who presents to the emergency department with confusion and question of left-sided weakness.? He is awake, alert but is a vague historian and unable to provide any significant history including why he came to the emergency room.? He is unsure if he has been taking his medication.? He has no specific complaints at this time.? Brain CT was obtained showing no acute intracranial abnormalities.? Lab work was significant for leukocytosis of 12.8, point of care glucose of 50. He was given OJ and repeat POCs were obtained and were 63, 78. Chest xray showed chronic changes and no UA was obtained at this time. The hospitalists were asked to see him for evaluation and admission for further management. Encephalopathy. Patient was admitted to the hospital for an increase in confusion in the past 3-4 weeks. Encephalopathy like superimposed on some degree of underlying cognitive impairment. Patient had extensive workup during hospitalization. There was no evidence of infection, UA, CXR were negative. brain CT was negative for acute intracranial pathology, tox screen negative, previous admission for encephalopathy earlier TSH, B12, folate wnl; eeg showed generalized slowing no seizure activity. Patient was seen by neurology and started on keprra 500 mg bid, repeat EEG again showed generalized slowing but no seizure activity. Brain MRI showed mild edema in the hippocampus sometimes seen with postictal changes or autoimmune encephalitis although typically more common with bilateral imaging findings. He underwent LP which was essentially negative, protein was slightly elevated. Meningoencephalitis panel was negative. MRI was repeated with contrast and showed no abnormal enhancement even in the area of signal abnormality on prior MRI. Chest and abdominal CT showed no evidence of malignancy. LINDA pending at the time of discharge. CSF fluid for autoimmune panel was also sent out and is pending at the time of discharge. Patient was seen by psychiatric team who did not feel like he had capacity to make medical decisions. His daughter Risa will be taking him home and caring for him until she can find a care home care facility. ? Mechanical mitral/aortic valves. Initially patient's INR was elevated at 5.2. There was no evidence of any bleeding. His coumadin was held due to coagulopathy and then due to need for lumbar puncture. After LP he was started on lovenox bridge and coumadin was resumed. His INR today is 1.4. INR should be followed daily until therapeutic between 2.5-3.5. Therapeutic Lovenox bridge. INR up to 2.8 on day of DC. Then monitor INR per protocol with goal INR between 2.5 and 3.5. Monitor for signs of bleeding. Diabetes with hypoglycemia. Initially patient had hypoglycemic episodes with BS as low as 30. Unclear if patient was taking insulin appropriately as outpatient. Initially his insulin was placed on hold. Blood sugar with monitor closely and eventually rebounded. His 75/25 mix of insulin was non formulary and this was converted to Lantus while in the hospital. He was started at equivalent of approximately 50% of his outpatient insulin dose and covered with sliding scale. He will be discharged home on 50% of his outpatient 75/25 mix. This can be uptitrated as needed. Recommend close blood sugar monitoring. Constipation. Imaging of abdomen showed moderate to severe constipation although patient had no abdominal pain or bloating. He was started on a bowel regimen with good effect. mild hyponatremia note. improved to 137 at time of discharge. HLD. continued on statin Hypothyroidism. TSH within normal limits. Patient was Continued on his home dose of levothyroxine Hypertension. Blood pressure remained under control and he was continued on home dose of lisinopril pulmonary nodules. seen on chest CT. Recommend outpatient followup for monitoring. Time Spent with Patient Time attestation: Total time spent providing and/or coordinating discharge services: Discharge coordination time: Greater than 30 minutes Quality: Stroke Does the patient have a stroke diagnosis?: No Physical Exam Vital Signs: Vital Signs: Last Vital Signs Temp 97.1 F 06/08/21 11:06 Pulse 96 06/08/21 11:06 Resp 18 06/08/21 11:06 BP 107/57 L 06/08/21 11:06 Pulse Ox 98 06/08/21 11:06 BMI result Body Mass Index 31.1 Const: General: cooperative, comfortable, no acute distress, alert, awake and confusion Orientation/consciousness: confusion Resp: Effort & Inspection: normal respiratory effort and able to speak in complete sentences Cardio: Rate: regular rate Heart sounds: Clicking heart sound present and Murmur heart sound present GI: Inspection: No distended Palpation (GI): Soft to palpation and nontender Neuro: Other: non-focal General: confusion Extrem: Other: no leg edema DS: Data Data Completed and Pending Labs on day of discharge: Laboratory Results - last 24 hr 06/07/21 06/07/21 06/08/21 16:08 20:07 05:56 PT 15.5 H INR 1.4 H POC Glucose 267 H 313 H 06/08/21 06/08/21 06:59 10:54 PT INR POC Glucose 222 H 257 H Preliminary micro results at discharge 06/06/21 Unknown CSF Culture - Preliminary Cerebrospinal Fluid No growth after 2 days 06/04/21 10:45 Blood Culture - Preliminary Blood - Venous No growth after 48 hours. 06/04/21 10:30 Blood Culture - Preliminary Blood - Venous No growth after 48 hours. Discharge Plan Discharge Anticipated Discharge Date/Time: 06/11/21 15:07 Patient Disposition: Home Health Service Discharge Diagnosis: Encephalopathy Referrals: [facility] [Other] - 1 Week Matt Avendaño FNP-BC [Primary Care Provider] - 1 Week Ambar Davenport MD [Physician] - 1 Week Discharge Medications: New polyethylene glycol 3350 17 gram Powder In Packet 17 g PO DAILY Qty: 1 0RF levetiracetam 500 mg Tablet 500 mg PO BID Qty: 1 0RF docusate sodium 100 mg Capsule 100 mg PO DAILY Qty: 1 0RF Continued Jardiance 25 mg tablet 25 mg PO QAM Qty: 30 4RF levothyroxine 50 mcg tablet 50 mcg PO DAILY Qty: 90 0RF warfarin 2 mg Tablet 4 mg PO DAILY 0RF Protocol: Dose Management Condition: Friday Dose/Route: 4 mg Instruction: 2 x 2 mg tablets Condition: Friday Dose/Route: 4 mg Instruction: 2 x 2 mg tablets Condition: Friday Dose/Route: 4 mg Instruction: 2 x 2 mg tablets Condition: Friday Dose/Route: 4 mg Instruction: 2 x 2 mg tablets Condition: Dose/Route: 4 mg Instruction: 2 x 2 mg tablets Condition: Friday Dose/Route: 4 mg Instruction: 2 x 2 mg tablets Condition: Friday Dose/Route: 4 mg Instruction: 2 x 2 mg tablets Protocol Text: Adjustment Start Date: Friday05/14/21 INR Value: 3.4 INR Date: 05/14/21 Additional Instructions: pt d/c to home with VNA services will have repeat INR this week schedule for 05/17/21 atorvastatin 40 mg tablet 40 mg PO BEDTIME 0RF lisinopril 20 mg tablet 20 mg PO DAILY 0RF Changed insulin lispro protamin-lispro 100 unit/mL (75-25) insulin pen 30 unit subcut DAILY Qty: 0 0RF insulin lispro protamin-lispro [Humalog Mix 75-25 KwikPen] 100 unit/mL (75-25) insulin pen 20 unit subcut BEDTIME Qty: 0 0RF No Action (DME) pen needle, diabetic 31 gauge x 5/16 needle See Rx Instructions ea subcut BID Qty: 100 11RF Rx Instructions: As directed Discharge Orders: Discharge Order (Routine); Ordered 06/11/21 Ordered By: Britni Robbins Diet: advance to usual diet Activity on Discharge: As tolerated Stand Alone Forms: Patient Portal Discharge page Care Plan Goals: See below Health Concerns: Encephalopathy Plan of Treatment: patient does not have capacity to make medical decisions and HCP has been invoked Follow INR daily and continue coumadin as prescribed for anticoagulation due to mechanical aortic and mitral valve Camppra has been started as a new medication Call to schedule outpatient follow up with neurology Keep INR between 2.5-3.5. Assessment: See discharge summary Discharge Date/Time: 06/11/21 16:10
--- NOTE | 2021-06-08 14:54 | PM.NEUROCN ---
History of Present Illness Data of Consult Service Date: 06/08/21 Primary Care Provider: Matt Avendaño, [facility]- HPI Reason for consult: Encephalopathy 71 years old man with encephalopathy of unknown etiology. His brain MRI revealed right temporal FLAIR hyper intensity whose etiology was unclear. He CSF revealed high protein. On body imaging no definite malignancies noted. [facility] Past Medical History Medical History BMI 34.0-34.9,adult BPH (benign prostatic hyperplasia) Chronic kidney disease Cognitive impairment Diabetes mellitus Gallstones Gout Heart failure, unspecified HTN (hypertension) Hyperlipidemia Obesity due to excess calories Osteomyelitis Paroxysmal atrial fibrillation Prosthetic valve dysfunction Spinal stenosis, lumbar Type 2 diabetes mellitus with diabetic neuropathy, unspecified Type 2 diabetes mellitus with hyperglycemia, with long-term current use of insulin Family History Family History Father CVD (cardiovascular disease) Mother CVD (cardiovascular disease) Surgical History Surgical History Hx of aortic valve replacement Hx of colonoscopy Hx of endoscopy Hx of exploratory laparotomy Hx of laparoscopy Mitral valve replaced Social History Social History Household Members: Friend(s) Housing: House Do you presently have visiting nurse or other home services: No Unable to assess alcohol history related to: Unknown Alcohol intake: never Patient Tobacco Use Status: Never used Tobacco service: Yes Current occupational status: retired Meds Allergies Allergy/AdvReac Type Severity Reaction Status Date / Time exenatide [From BYETTA] Allergy Intermediate AFFECTED Verified 04/11/21 13:14 PANCREAS Active Medications: Current Medications Acetaminophen (Acetaminophen 325 Mg Tablet) 650 mg PO Q6H PRN PRN Reason: Pain, Mild (Pain Scale 1-3) Last Admin: 06/05/21 21:02 Dose: 650 mg Documented by: Atorvastatin Calcium (Atorvastatin Calcium 40 Mg Tablet) 40 mg PO BEDTIME [facility] Last Admin: 06/07/21 22:13 Dose: 40 mg Documented by: Dextrose (Dextrose 50 % 25 Gm/50 Ml Vial) 25 gm IVPUSH Q15M PRN; Protocol PRN Reason: per Hypoglycemia Standing Ord. Docusate Sodium (Docusate Sodium 100 Mg Capsule) 100 mg PO DAILY [facility] Last Admin: 06/08/21 08:01 Dose: 100 mg Documented by: Enoxaparin Sodium (Enoxaparin Sodium 100 Mg/Ml Syringe) 100 mg SUBCUT Q12H [facility] Last Admin: 06/08/21 08:00 Dose: 100 mg Documented by: Glucose (Glucose Gel 15 Gm Gel..Gram.) 15 gm PO Q15M PRN; Protocol PRN Reason: per Hypoglycemia Standing Ord. Insulin Glargine (Insulin Glargine,Hum.Rec.Anlog 100 Unit/Ml 10 Ml Vial) 15 unit SUBCUT BID [facility] Last Admin: 06/08/21 07:59 Dose: 15 unit Documented by: Insulin Human Lispro (Insulin Lispro 100 Unit/Ml 3 Ml Vial) 0 unit SUBCUT QIDACHS [facility]; Protocol Last Admin: 06/08/21 11:40 Dose: 6 unit Documented by: Levetiracetam (Levetiracetam 500 Mg Tablet) 500 mg PO BID [facility] Last Admin: 06/08/21 08:01 Dose: 500 mg Documented by: Levothyroxine Sodium (Levothyroxine Sodium 50 Mcg Tablet) 50 mcg PO DAILY [facility] Last Admin: 06/08/21 08:09 Dose: 50 mcg Documented by: Lisinopril (Lisinopril 20 Mg Tablet) 20 mg PO DAILY [facility]; Protocol Last Admin: 06/08/21 08:01 Dose: 20 mg Documented by: Ondansetron HCl (Ondansetron Hcl 4 Mg/2 Ml Vial) 4 mg IVPUSH Q8H PRN PRN Reason: Nausea and Vomiting Polyethylene Glycol (Polyethylene Glycol 3350 17 Gm Powd.Pack) 17 gm PO DAILY [facility] Last Admin: 06/08/21 08:00 Dose: 17 gm Documented by: Senna (Sennosides 8.6 Mg Tablet) 8.6 mg PO BEDTIME PRN PRN Reason: constipation Sodium Chloride (0.9 % Sodium Chloride Flush 3 Ml Syringe) 3 ml IVFLUSH QSHIFT [facility] Last Admin: 06/08/21 08:01 Dose: 3 ml Documented by: Warfarin Sodium (Warfarin Sodium 4 Mg Tablet) 4 mg PO DAILY@1800 [facility] Last Admin: 06/07/21 18:06 Dose: 4 mg Documented by: Home Medications Medication Instructions Recorded Confirmed Last Taken Type lisinopril 20 mg tablet 20 mg PO DAILY 06/05/20 05/31/21 05/31/21 History insulin lispro protamine-lispro 62 unit SUBCUT DAILY ml 04/11/21 05/31/21 05/31/21 History 100 unit/mL (75-25) subcutaneous pen atorvastatin 40 mg tablet 40 mg PO BEDTIME 05/11/21 05/31/21 05/10/21 History warfarin 2 mg tablet 4 mg PO DAILY 05/11/21 05/31/21 05/31/21 History insulin lispro protamine-lispro 44 unit SUBCUT BEDTIME 05/31/21 05/31/21 Unknown History 100 unit/mL (75-25) subcutaneous pen (Humalog Mix 75-25 KwikPen) Physical Exam Vital Signs: Vital Signs: Last Vital Signs Temp 97.1 F 06/08/21 11:06 Pulse 96 06/08/21 11:06 Resp 18 06/08/21 11:06 BP 107/57 L 06/08/21 11:06 Pulse Ox 98 06/08/21 11:06 BMI result Body Mass Index 31.1 Neuro: Other: He is alert and awake with normal spontaneity of speech fluency comprehension and affect. He knew where he was but he was still not sure where he lift. His daughter was sitting next to him stating that he was better but not completely back to baseline. Results Labs CBC & Chem 7: 06/06/21 16:04 06/06/21 16:04 Microbiology Microbiology Results: Microbiology 06/06/21 Unknown Cerebrospinal Fluid Gram Stain - Final 06/06/21 Unknown Cerebrospinal Fluid CSF Examination - Final 06/06/21 Unknown Cerebrospinal Fluid Fluid Description - Final 06/06/21 Unknown Cerebrospinal Fluid CSF Culture - Preliminary No growth after 2 days 06/04/21 10:45 Blood - Venous Blood Culture - Preliminary No growth after 48 hours. 06/04/21 10:30 Blood - Venous Blood Culture - Preliminary No growth after 48 hours. Assessment and Plan (1) Encephalopathy: Status: Acute 71 years old man with encephalopathy of unknown etiology with MRI of brain revealing right temporal FLAIR hyperintensity with moderately elevated CSF protein. Imaging for malignancy has not reveal any significant lesion. I recommend sending CSF for anti NMDAR antobdy titre. Otherwise, he can be discharged to rehab Procedures Date of Service Date of Service: 06/08/21
[2021-06-08 15:07] LABS: Anti Nuclear Antibody Screen NEGATIVE (NEGATIVE)
[2021-06-08 16:20] LABS: Glucose, Whole Blood 300 mg/dL (60-115)
[2021-06-08] MEDS: Sennosides 8.6 MG TABLET PO (16:32)
[2021-06-08] MEDS: Warfarin Sodium 4 MG TABLET PO (19:23)
[2021-06-08 20:04] LABS: Glucose, Whole Blood 247 mg/dL (60-115)
[2021-06-08] MEDS: Atorvastatin Calcium 40 MG TABLET PO (20:48)
[2021-06-09 03:51] VITALS: BP 142/75; PULSE 87; RESP 20; TEMP 36.4; O2SAT 94
[2021-06-09 06:54] LABS: INTERNATIONAL NORM RATIO 1.5 (0.9-1.1); Prothrombin Time 17.7 SEC (9.9-13.0)
[2021-06-09 07:46] VITALS: BP 140/83; PULSE 98; RESP 18; TEMP 37.4; O2SAT 97
[2021-06-09 07:53] LABS: Glucose, Whole Blood 218 mg/dL (60-115)
[2021-06-09] MEDS: Insulin Lispro 100 UNIT/ML 3 ML VIAL SUBCUT ×4 (08:17→20:54)
[2021-06-09] MEDS: Insulin Glargine,Hum.rec.anlog 100 UNIT/ML 10 ML VIAL 15 UNIT SUBCUT ×2 (08:17→20:54)
[2021-06-09] MEDS: Enoxaparin Sodium 100 MG/ML SYRINGE SUBCUT ×2 (08:17→20:53)
[2021-06-09] MEDS: levETIRAcetam 500 MG TABLET PO ×2 (08:18→20:53)
[2021-06-09] MEDS: 0.9 % Sodium Chloride Flush 3 ML SYRINGE IVFLUSH ×3 (08:18→20:54)
[2021-06-09] MEDS: Levothyroxine Sodium 50 MCG TABLET PO (08:18)
[2021-06-09] MEDS: Docusate Sodium 100 MG CAPSULE PO (08:18)
[2021-06-09] MEDS: lisinopriL 20 MG TABLET PO (08:18)
[2021-06-09] MEDS: polyethylene glycoL 3350 17 GM POWD.PACK PO (08:18)
--- NOTE | 2021-06-09 10:33 | P.PNIM_ITS ---
Subjective Subjective Date of Service: 06/09/21 <Britni Robbins NP - Last Filed: 06/09/21 10:51> 06/10/21 <Canelo Marte MD - Last Filed: 06/10/21 11:08> Review of Systems no overnight events denies any specific complaints awake, alert; no change in mental status, pleasantly confused Other systems reviewed and are negative <Britni Robbins NP - Last Filed: 06/09/21 10:51> Physical Exam Vital Signs: Vital Signs: Last Vital Signs Temp 99.4 F 06/09/21 07:46 Pulse 98 06/09/21 07:46 Resp 18 06/09/21 07:46 BP 140/83 H 06/09/21 07:46 Pulse Ox 97 06/09/21 07:46 BMI result Body Mass Index 31.1 <Britni Robbins NP - Last Filed: 06/09/21 10:51> Appearing in no acute distress lung sounds are clear to auscultation heart regular rate rhythm, clear S1, S2 positive bowel sounds, abdomen is soft, nontender neuro patient is alert, forgetful <Britni Robbins NP - Last Filed: 06/09/21 10:51> Objective Data Active Medications Acetaminophen (Acetaminophen 325 Mg Tablet) 650 mg PO Q6H PRN PRN Reason: Pain, Mild (Pain Scale 1-3) Last Admin: 06/05/21 21:02 Dose: 650 mg Documented by: LIANG Atorvastatin Calcium (Atorvastatin Calcium 40 Mg Tablet) 40 mg PO BEDTIME [facility] Last Admin: 06/08/21 20:48 Dose: 40 mg Documented by: LIANG Dextrose (Dextrose 50 % 25 Gm/50 Ml Vial) 25 gm IVPUSH Q15M PRN; Protocol PRN Reason: per Hypoglycemia Standing Ord. Docusate Sodium (Docusate Sodium 100 Mg Capsule) 100 mg PO DAILY [facility] Last Admin: 06/09/21 08:18 Dose: 100 mg Documented by: DOBROMarlin Enoxaparin Sodium (Enoxaparin Sodium 100 Mg/Ml Syringe) 100 mg SUBCUT Q12H [facility] Last Admin: 06/09/21 08:17 Dose: 100 mg Documented by: DOBROB Glucose (Glucose Gel 15 Gm Gel..Gram.) 15 gm PO Q15M PRN; Protocol PRN Reason: per Hypoglycemia Standing Ord. Insulin Glargine (Insulin Glargine,Hum.Rec.Anlog 100 Unit/Ml 10 Ml Vial) 15 unit SUBCUT BID [facility] Last Admin: 06/09/21 08:17 Dose: 15 unit Documented by: MITCH Insulin Human Lispro (Insulin Lispro 100 Unit/Ml 3 Ml Vial) 0 unit SUBCUT QIDACHS [facility]; Protocol Last Admin: 06/09/21 08:17 Dose: 4 unit Documented by: MITCH Levetiracetam (Levetiracetam 500 Mg Tablet) 500 mg PO BID [facility] Last Admin: 06/09/21 08:18 Dose: 500 mg Documented by: MITCH Levothyroxine Sodium (Levothyroxine Sodium 50 Mcg Tablet) 50 mcg PO DAILY [facility] Last Admin: 06/09/21 08:18 Dose: 50 mcg Documented by: MITCH Lisinopril (Lisinopril 20 Mg Tablet) 20 mg PO DAILY [facility]; Protocol Last Admin: 06/09/21 08:18 Dose: 20 mg Documented by: MITCH Ondansetron HCl (Ondansetron Hcl 4 Mg/2 Ml Vial) 4 mg IVPUSH Q8H PRN PRN Reason: Nausea and Vomiting Polyethylene Glycol (Polyethylene Glycol 3350 17 Gm Powd.Pack) 17 gm PO DAILY [facility] Last Admin: 06/09/21 08:18 Dose: 17 gm Documented by: MITCH Senna (Sennosides 8.6 Mg Tablet) 8.6 mg PO BEDTIME PRN PRN Reason: constipation Last Admin: 06/08/21 16:32 Dose: 8.6 mg Documented by: ROSHNI Sodium Chloride (0.9 % Sodium Chloride Flush 3 Ml Syringe) 3 ml IVFLUSH QSHIFT [facility] Last Admin: 06/09/21 08:18 Dose: 3 ml Documented by: MITCH Warfarin Sodium (Warfarin Sodium 5 Mg Tablet) 5 mg PO DAILY@1800 [facility] <Britni Robbins NP - Last Filed: 06/09/21 10:51> Labs CBC & Chem 7: : 06/06/21 16:04 06/06/21 16:04 <Britni Robbins NP - Last Filed: 06/09/21 10:51> Labs: Laboratory Results - last 24 hr 03/02/22 03/04/22 03/04/22 16:04 10:54 15:49 PT INR POC Glucose 257 H 300 H LINDA Screen NEGATIVE 06/08/21 06/09/21 06/09/21 20:01 06:01 07:49 PT 17.7 H INR 1.5 H POC Glucose 247 H 218 H LINDA Screen <Britni Robbins NP - Last Filed: 06/09/21 10:51> Microbiology Microbiology Results: Microbiology 06/06/21 Unknown Gram Stain - Final Cerebrospinal Fluid CSF Examination - Final Fluid Description - Final CSF Culture - Final No growth after 3 days. <Britni Robbnis NP - Last Filed: 06/09/21 10:51> Assessment and Plan (1) Encephalopathy: Status: Acute <Britni Robbins NP - Last Filed: 06/09/21 10:51> Plan This is a 70-year-old male with a past medical history of hypertension, hyperlipidemia, diabetes, CHF, obesity, paroxysmal AFib, history of off mitral valve replacement/ aortic valve replacement-on Coumadin; history of COVID-19 infection who presented to the hospital today with a chief complaint of confusion found to have hypoglycemia. Evaluated by psych team - NOT competent to make medical decisions, HCP invoked Encephalopathy. Increase in confusion in the past 3-4 weeks, uncertain cause, workup in progress, possibly superimposed underlying dementia no evidence of infection, UA, CXR negative; brain CT negative for acute intracranial pathology, tox screen negative, previous admission for encephalopathy earlier this month, TSH, B12, folate wnl; eeg showed generalized slowing no seizure activity , brain MRI with contrast not showing enhancement continue keprra 500 mg bid, repeat EEG pending LP essentially negative, EEG negative Meningoencephalitis negative work up for autoimmune versus paraneoplastic process chest and abdominal CT negative for malignancy LINDA negative, titer pending Mechanical mitral/aortic valves follow INR daily continue lovenox bridge with coumadin until INR therapeutic pulmonary nodules seen on chest CT outpatient followup Chronic Diabetes with hypoglycemia that has resolved Continue POCs, SSI hyponatremia. resolved Coagulopathy secondary to Coumadin use. Resolved. no evidence acute bleeding HLD continue statin Hypothyroidism TSH within normal limits Continue levothyroxine Hypertension Blood pressure control Continue lisinopril dvt ppx - coumadin (inr elevated); boots code status - full code attending Dr. Marte Daughter Risa [phone], HCP , she is aware that Luca does not have capacity to make medical decisions and she is agreeable to be primary contact and HCP. Patient requires continued hospitalization due to continued workup for acute encephalopathy, no definitive diagnosis. Awaiting results from LINDA titer and NMDAR. plan would be to sent to a PA facility however there is no ability to obtain a prior authorization over the weekend therefore Friday the attempt will be made. <Britni Robbins NP - Last Filed: 06/09/21 10:51> Quality Stroke Does the patient have a stroke diagnosis?: No <Britni Robbins NP - Last Filed: 06/09/21 10:51> VTE Prior VTE?: No <Britni Robbins NP - Last Filed: 06/09/21 10:51> VTE Risk Level:: Medical - moderate - high <Britni Robbins NP - Last Filed: 06/09/21 10:51> VTE Device Contraindication: N/A - Device Ordered <Britni Robbins NP - Last Filed: 06/09/21 10:51> VTE Drug Contraindication: N/A - Med Ordered <Britni Robbins NP - Last Filed: 06/09/21 10:51>
[2021-06-09 11:26] VITALS: BP 153/79; PULSE 93; RESP 18; TEMP 36.5; O2SAT 98
[2021-06-09 11:52] LABS: Glucose, Whole Blood 323 mg/dL (60-115)
[2021-06-09 15:34] VITALS: BP 106/64; PULSE 84; RESP 18; TEMP 37.1; O2SAT 98
[2021-06-09 16:25] LABS: Glucose, Whole Blood 271 mg/dL (60-115)
[2021-06-09] MEDS: Warfarin Sodium 5 MG TABLET PO (17:18)
[2021-06-09 20:00] VITALS: BP 122/68; PULSE 86; RESP 18; TEMP 37.1; O2SAT 98
[2021-06-09 20:37] LABS: Glucose, Whole Blood 258 mg/dL (60-115)
[2021-06-09] MEDS: Atorvastatin Calcium 40 MG TABLET PO (20:53)
[2021-06-09 23:14] VITALS: BP 164/71; PULSE 84; RESP 20; TEMP 37; O2SAT 96
--- NOTE | 2021-06-10 | ECG_ITS ---
Test Reason : cp Blood Pressure : / mmHG Vent. Rate : 091 BPM Atrial Rate : 091 BPM P-R Int : 164 ms QRS Dur : 090 ms QT Int : 366 ms P-R-T Axes : 064 037 040 degrees QTc Int : 450 ms Normal sinus rhythm Cannot rule out Anterior infarct , age undetermined Abnormal ECG When compared with ECG of 31-MAY-2021 11:05, Premature supraventricular complexes are no longer Present Referred By: Britni Robbins Electronically Signed By:MARITA OLIVIER MD
[2021-06-10 03:38] VITALS: BP 135/64; PULSE 83; RESP 20; TEMP 36.6; O2SAT 97
[2021-06-10 06:56] LABS: INTERNATIONAL NORM RATIO 2.1 (0.9-1.1); Prothrombin Time 24.3 SEC (9.9-13.0)
[2021-06-10 07:30] VITALS: BP 137/74; PULSE 87; RESP 18; TEMP 36.5; O2SAT 99
[2021-06-10 08:04] LABS: Glucose, Whole Blood 199 mg/dL (60-115)
[2021-06-10] MEDS: Insulin Lispro 100 UNIT/ML 3 ML VIAL SUBCUT ×4 (08:26→21:25)
[2021-06-10] MEDS: Insulin Glargine,Hum.rec.anlog 100 UNIT/ML 10 ML VIAL 15 UNIT SUBCUT ×2 (08:26→21:25)
[2021-06-10] MEDS: Enoxaparin Sodium 100 MG/ML SYRINGE SUBCUT ×2 (08:27→20:04)
[2021-06-10] MEDS: lisinopriL 20 MG TABLET PO (08:27)
[2021-06-10] MEDS: Docusate Sodium 100 MG CAPSULE PO (08:27)
[2021-06-10] MEDS: Levothyroxine Sodium 50 MCG TABLET PO (08:27)
[2021-06-10] MEDS: polyethylene glycoL 3350 17 GM POWD.PACK PO (08:27)
[2021-06-10] MEDS: levETIRAcetam 500 MG TABLET PO ×2 (08:27→20:04)
[2021-06-10] MEDS: 0.9 % Sodium Chloride Flush 3 ML SYRINGE IVFLUSH ×3 (08:27→20:04)
--- NOTE | 2021-06-10 10:35 | P.PNIM_ITS ---
Subjective Subjective Date of Service: 06/10/21 <Britni Robbins NP - Last Filed: 06/10/21 10:47> 06/11/21 <Canelo Marte MD - Last Filed: 07/07/21 14:07> Review of Systems no overnight events denies any specific complaints awake, alert; no change in mental status, pleasantly confused Other systems reviewed and are negative <Britni Robbins NP - Last Filed: 06/10/21 10:47> Physical Exam Vital Signs: Vital Signs: Last Vital Signs Temp 97.7 F 06/10/21 07:30 Pulse 87 06/10/21 07:30 Resp 18 06/10/21 07:30 BP 137/74 06/10/21 07:30 Pulse Ox 99 06/10/21 07:30 BMI result Body Mass Index 31.1 <Britni Robbins NP - Last Filed: 06/10/21 10:47> Appearing in no acute distress lung sounds are clear to auscultation heart regular rate rhythm, clear S1, S2 positive bowel sounds, abdomen is soft, nontender neuro patient is alert x3, no focal deficits <Britni Robbins NP - Last Filed: 06/10/21 10:47> Objective Data Active Medications Acetaminophen (Acetaminophen 325 Mg Tablet) 650 mg PO Q6H PRN PRN Reason: Pain, Mild (Pain Scale 1-3) Last Admin: 06/05/21 21:02 Dose: 650 mg Documented by: LIANG Atorvastatin Calcium (Atorvastatin Calcium 40 Mg Tablet) 40 mg PO BEDTIME [facility] Last Admin: 06/09/21 20:53 Dose: 40 mg Documented by: LIANG Dextrose (Dextrose 50 % 25 Gm/50 Ml Vial) 25 gm IVPUSH Q15M PRN; Protocol PRN Reason: per Hypoglycemia Standing Ord. Docusate Sodium (Docusate Sodium 100 Mg Capsule) 100 mg PO DAILY [facility] Last Admin: 06/10/21 08:27 Dose: 100 mg Documented by: DOBROMarlin Enoxaparin Sodium (Enoxaparin Sodium 100 Mg/Ml Syringe) 100 mg SUBCUT Q12H [facility] Last Admin: 06/10/21 08:27 Dose: 100 mg Documented by: DOBROB Glucose (Glucose Gel 15 Gm Gel..Gram.) 15 gm PO Q15M PRN; Protocol PRN Reason: per Hypoglycemia Standing Ord. Insulin Glargine (Insulin Glargine,Hum.Rec.Anlog 100 Unit/Ml 10 Ml Vial) 15 unit SUBCUT BID [facility] Last Admin: 06/10/21 08:26 Dose: 15 unit Documented by: MITCH Insulin Human Lispro (Insulin Lispro 100 Unit/Ml 3 Ml Vial) 0 unit SUBCUT QIDACHS [facility]; Protocol Last Admin: 06/10/21 08:26 Dose: 2 unit Documented by: MITCH Levetiracetam (Levetiracetam 500 Mg Tablet) 500 mg PO BID [facility] Last Admin: 06/10/21 08:27 Dose: 500 mg Documented by: MITCH Levothyroxine Sodium (Levothyroxine Sodium 50 Mcg Tablet) 50 mcg PO DAILY [facility] Last Admin: 06/10/21 08:27 Dose: 50 mcg Documented by: MITCH Lisinopril (Lisinopril 20 Mg Tablet) 20 mg PO DAILY [facility]; Protocol Last Admin: 06/10/21 08:27 Dose: 20 mg Documented by: MITCH Ondansetron HCl (Ondansetron Hcl 4 Mg/2 Ml Vial) 4 mg IVPUSH Q8H PRN PRN Reason: Nausea and Vomiting Polyethylene Glycol (Polyethylene Glycol 3350 17 Gm Powd.Pack) 17 gm PO DAILY [facility] Last Admin: 06/10/21 08:27 Dose: 17 gm Documented by: MITCH Senna (Sennosides 8.6 Mg Tablet) 8.6 mg PO BEDTIME PRN PRN Reason: constipation Last Admin: 06/08/21 16:32 Dose: 8.6 mg Documented by: ROSHNI Sodium Chloride (0.9 % Sodium Chloride Flush 3 Ml Syringe) 3 ml IVFLUSH QSHIFT [facility] Last Admin: 06/10/21 08:27 Dose: 3 ml Documented by: MITCH Warfarin Sodium (Warfarin Sodium 5 Mg Tablet) 5 mg PO DAILY@1800 [facility] Last Admin: 06/09/21 17:18 Dose: 5 mg Documented by: MITCH <Britni Robbins, [employer] - Last Filed: 06/10/21 10:47> Labs CBC & Chem 7: : 06/06/21 16:04 06/06/21 16:04 <Britni Robbins NP - Last Filed: 06/10/21 10:47> Labs: Laboratory Results - last 24 hr 06/06/21 06/09/21 06/09/21 16:04 11:30 16:20 PT INR POC Glucose 323 H 271 H LINDA Titer TNP LINDA Titer 2 TNP LINDA Titer 3 TNP LINDA Pattern TNP LINDA Pattern 2 TNP LINDA Pattern 3 TNP 06/09/21 06/10/21 06/10/21 20:31 06:30 07:32 PT 24.3 H INR 2.1 H POC Glucose 258 H 199 H LINDA Titer LINDA Titer 2 LINDA Titer 3 LINDA Pattern LINDA Pattern 2 LINDA Pattern 3 <Britni Robbins NP - Last Filed: 06/10/21 10:47> Microbiology Microbiology Results: Microbiology 06/04/21 10:45 Blood Culture - Final Blood - Venous No growth after 5 days. 06/04/21 10:30 Blood Culture - Final Blood - Venous No growth after 5 days. 06/06/21 Unknown Gram Stain - Final Cerebrospinal Fluid CSF Examination - Final Fluid Description - Final CSF Culture - Final No growth after 3 days. <Britni Robbins NP - Last Filed: 06/10/21 10:47> Assessment and Plan (1) Encephalopathy: Plan This is a 70-year-old male with a past medical history of hypertension, hyperlipidemia, diabetes, CHF, obesity, paroxysmal AFib, history of off mitral valve replacement/ aortic valve replacement-on Coumadin; history of COVID-19 infection who presented to the hospital today with a chief complaint of confusion found to have hypoglycemia. Evaluated by psych team - NOT competent to make medical decisions, HCP invoked Encephalopathy. Increase in confusion in the past 3-4 weeks, uncertain cause, workup in progress, possibly superimposed underlying dementia no evidence of infection, UA, CXR negative; brain CT negative for acute intrac ranial pathology, tox screen negative, previous admission for encephalopathy earlier this month, TSH, B12, folate wnl; eeg showed generalized slowing no seizure activity , brain MRI with contrast not showing enhancement continue keprra 500 mg bid, repeat EEG pending LP essentially negative, EEG negative Meningoencephalitis negative work up for autoimmune versus paraneoplastic process chest and abdominal CT negative for malignancy LINDA negative, titer pending Mechanical mitral/aortic valves follow INR daily, almost at therapeutic level continue lovenox bridge with coumadin until INR therapeutic pulmonary nodules seen on chest CT outpatient followup Chronic Diabetes with hypoglycemia that has resolved Continue POCs, SSI hyponatremia. resolved Coagulopathy secondary to Coumadin use. Resolved. no evidence acute bleeding HLD continue statin Hypothyroidism TSH within normal limits Continue levothyroxine Hypertension Blood pressure control Continue lisinopril dvt ppx - coumadin (inr elevated); boots code status - full code attending Dr. Mrate Daughter Risa [phone], HCP , she is aware that Luca does not have capacity to make medical decisions and she is agreeable to be primary contact and HCP. Patient requires continued hospitalization due to continued workup for acute encephalopathy, no definitive diagnosis. Awaiting results from LINDA titer and NMDAR. plan would be to sent to a [place] facility however there is no ability to obtain a prior authorization over the weekend therefore Friday the attempt will be made. <Britni Robbins NP - Last Filed: 06/10/21 10:47> Quality Stroke Does the patient have a stroke diagnosis?: No <Britni Robbins NP - Last Filed: 06/10/21 10:47> VTE Prior VTE?: No <Britni Robbins NP - Last Filed: 06/10/21 10:47> VTE Risk Level:: Medical - moderate - high <Britni Robbins NP - Last Filed: 06/10/21 10:47> VTE Device Contraindication: N/A - Device Ordered <Britni Robbins NP - Last Filed: 06/10/21 10:47> VTE Drug Contraindication: N/A - Med Ordered <Britni Robbins NP - Last Filed: 06/10/21 10:47>
[2021-06-10 11:07] VITALS: BP 139/79; PULSE 91; RESP 18; TEMP 37; O2SAT 96
[2021-06-10 11:23] LABS: Troponin-I High Sensitivity 10.7 ng/L (<3.5-35.0)
[2021-06-10 11:27] LABS: Glucose, Whole Blood 251 mg/dL (60-115)
[2021-06-10 15:09] VITALS: BP 142/68; PULSE 80; RESP 16; TEMP 36.4; O2SAT 97
[2021-06-10 15:41] LABS: Glucose, Whole Blood 281 mg/dL (60-115)
[2021-06-10] MEDS: Warfarin Sodium 5 MG TABLET PO (18:05)
[2021-06-10 18:45] VITALS: BP 154/76; PULSE 93; RESP 16; TEMP 36.2; O2SAT 99
[2021-06-10 19:44] LABS: Glucose, Whole Blood 278 mg/dL (60-115)
[2021-06-10] MEDS: Atorvastatin Calcium 40 MG TABLET PO (20:04)
[2021-06-10 21:23] LABS: Glucose, Whole Blood 263 mg/dL (60-115)
[2021-06-10 23:17] VITALS: BP 126/74; PULSE 85; RESP 18; TEMP 36.8; O2SAT 98
[2021-06-11 03:20] VITALS: BP 166/95; PULSE 91; RESP 18; TEMP 36.7; O2SAT 97
[2021-06-11 07:18] LABS: INTERNATIONAL NORM RATIO 2.8 (0.9-1.1); Prothrombin Time 32.7 SEC (9.9-13.0)
[2021-06-11 07:20] LABS: Glucose, Whole Blood 191 mg/dL (60-115)
[2021-06-11 07:28] VITALS: BP 156/72; PULSE 99; RESP 20; TEMP 36.7; O2SAT 99
[2021-06-11] MEDS: Insulin Lispro 100 UNIT/ML 3 ML VIAL SUBCUT ×2 (08:01→11:48)
[2021-06-11] MEDS: 0.9 % Sodium Chloride Flush 3 ML SYRINGE IVFLUSH (08:01)
[2021-06-11 08:58] VITALS: BP 156/72; PULSE 99; O2SAT 99
[2021-06-11] MEDS: Docusate Sodium 100 MG CAPSULE PO (10:09)
[2021-06-11] MEDS: Levothyroxine Sodium 50 MCG TABLET PO (10:09)
[2021-06-11] MEDS: Insulin Glargine,Hum.rec.anlog 100 UNIT/ML 10 ML VIAL 15 UNIT SUBCUT (10:09)
[2021-06-11] MEDS: levETIRAcetam 500 MG TABLET PO (10:09)
[2021-06-11] MEDS: lisinopriL 20 MG TABLET PO (10:09)
[2021-06-11] MEDS: polyethylene glycoL 3350 17 GM POWD.PACK PO (10:09)
[2021-06-11] MEDS: Enoxaparin Sodium 100 MG/ML SYRINGE SUBCUT (10:10)
[2021-06-11 10:46] LABS: Glucose, Whole Blood 301 mg/dL (60-115)
[2021-06-11 10:57] VITALS: BP 161/77; PULSE 85; RESP 20; TEMP 36.9; O2SAT 97
--- NOTE | 2021-06-11 12:36 | P.CDIC_ITS ---
CDI Concurrent Query Documentation Clarification: PHYSICIAN'S DOCUMENTATION REQUEST Date of Query: 06/11/21 1236 Patient Name: Luca Hutson Admit Date: 05/31/21 Dear Doctor, A review of the medical record indicates additional documentation may be needed. Please review below and update the documentation accordingly. Clinical Indicators: Risk Factors/Clinical Indicators/Treatments Patient with confusion worsening over weeks, altered mental status, encepalopathy possibly superimposed underlying Dementia/cognitive impairment. Vague historian. Based on the above, could you clarify in the Progress Notes which, if any of the following, is the most likely etiology of the confusion/altered mental status? * Dementia - indicate type of dementia, such as Alzheimer's, senile, vascular, Lewy body, etc.. * Baseline dementia - indicate type, such as Alzheimer's, senile, vascular, Lewy body, etc., and any associated behavioral disturbances (aggressive, combative, or violent behavior) * Acute or subacute confusional state due to (specify known or suspected etiology) * Other etiology (please specify) * Unable to determine Use of terms such as suspected, likely, concern for, or probable (associated with a specific diagnosis that is being evaluated, monitored, or treated as if it exists) are acceptable and can be coded in the inpatient setting, when documented at the time of discharge. Thank you, Lesli Malcolm [facility], CDIS Extension: [phone] Please use your independent medical judgment in providing your response. THIS QUERY IS PART OF THE PERMANENT MEDICAL RECORD Provider Response: Other (unable to determine ) Other Diagnosis: unable to determine
--- NOTE | 2021-06-11 13:23 | MHC.CM.PN ---
pt denied by [facility], he [facility] he [facility] have [facility] ..dgter would like to take him katie esmarie will be there pt recommending home with pt md kirby and will speak with family
--- NOTE | 2021-06-11 14:42 | HO.PM.IMPN ---
Subjective Subjective Date of Service: 06/11/21 Review of Systems no overnight events denies any specific complaints awake, alert; no change in mental status, pleasantly confused Other systems reviewed and are negative Physical Exam Vital Signs: Vital Signs: Last Vital Signs Temp 98.4 F 06/11/21 10:57 Pulse 85 06/11/21 10:57 Resp 20 06/11/21 10:57 BP 161/77 H 06/11/21 10:57 Pulse Ox 97 06/11/21 10:57 BMI result Body Mass Index 31.1 Appearing in no acute distress lung sounds are clear to auscultation heart regular rate rhythm, clear S1, S2 positive bowel sounds, abdomen is soft, nontender neuro patient is alert x3, confused Objective Data Active Medications Acetaminophen (Acetaminophen 325 Mg Tablet) 650 mg PO Q6H PRN PRN Reason: Pain, Mild (Pain Scale 1-3) Last Admin: 06/05/21 21:02 Dose: 650 mg Documented by: LIANG Atorvastatin Calcium (Atorvastatin Calcium 40 Mg Tablet) 40 mg PO BEDTIME [facility] Last Admin: 06/10/21 20:04 Dose: 40 mg Documented by: VIDYAOIC Dextrose (Dextrose 50 % 25 Gm/50 Ml Vial) 25 gm IVPUSH Q15M PRN; Protocol PRN Reason: per Hypoglycemia Standing Ord. Docusate Sodium (Docusate Sodium 100 Mg Capsule) 100 mg PO DAILY [facility] Last Admin: 06/11/21 10:09 Dose: 100 mg Documented by: ANAT Enoxaparin Sodium (Enoxaparin Sodium 100 Mg/Ml Syringe) 100 mg SUBCUT Q12H [facility] Last Admin: 06/11/21 10:10 Dose: 100 mg Documented by: ANAT Glucose (Glucose Gel 15 Gm Gel..Gram.) 15 gm PO Q15M PRN; Protocol PRN Reason: per Hypoglycemia Standing Ord. Insulin Glargine (Insulin Glargine,Hum.Rec.Anlog 100 Unit/Ml 10 Ml Vial) 15 unit SUBCUT BID [facility] Last Admin: 06/11/21 10:09 Dose: 15 unit Documented by: ANAT Insulin Human Lispro (Insulin Lispro 100 Unit/Ml 3 Ml Vial) 0 unit SUBCUT QIDACHS [facility]; Protocol Last Admin: 06/11/21 11:48 Dose: 6 unit Documented by: ANAT Levetiracetam (Levetiracetam 500 Mg Tablet) 500 mg PO BID [facility] Last Admin: 06/11/21 10:09 Dose: 500 mg Documented by: ANAT Levothyroxine Sodium (Levothyroxine Sodium 50 Mcg Tablet) 50 mcg PO DAILY [facility] Last Admin: 06/11/21 10:09 Dose: 50 mcg Documented by: ANAT Lisinopril (Lisinopril 20 Mg Tablet) 20 mg PO DAILY [facility]; Protocol Last Admin: 06/11/21 10:09 Dose: 20 mg Documented by: ANAT Ondansetron HCl (Ondansetron Hcl 4 Mg/2 Ml Vial) 4 mg IVPUSH Q8H PRN PRN Reason: Nausea and Vomiting Polyethylene Glycol (Polyethylene Glycol 3350 17 Gm Powd.Pack) 17 gm PO DAILY [facility] Last Admin: 06/11/21 10:09 Dose: 17 gm Documented by: ANAT Senna (Sennosides 8.6 Mg Tablet) 8.6 mg PO BEDTIME PRN PRN Reason: constipation Last Admin: 06/08/21 16:32 Dose: 8.6 mg Documented by: ROSHNI Sodium Chloride (0.9 % Sodium Chloride Flush 3 Ml Syringe) 3 ml IVFLUSH QSHIFT ON [facility] Last Admin: 06/11/21 08:01 Dose: 3 ml Documented by: ANAT Warfarin Sodium (Warfarin Sodium 5 Mg Tablet) 5 mg PO DAILY@1800 [facility] Last Admin: 06/10/21 18:05 Dose: 5 mg Documented by: MITCH Labs CBC & Chem 7: 06/06/21 16:04 06/06/21 16:04 Labs: Laboratory Results - last 24 hr 06/10/21 06/10/21 06/10/21 15:35 19:33 21:18 PT INR POC Glucose 281 H 278 H 263 H 06/11/21 06/11/21 06/11/21 06:26 07:17 10:42 PT 32.7 H INR 2.8 H POC Glucose 191 H 301 H Quality Stroke Does the patient have a stroke diagnosis?: No VTE Prior VTE?: No VTE Risk Level:: Medical - moderate - high VTE Device Contraindication: N/A - Device Ordered VTE Drug Contraindication: N/A - Med Ordered
--- NOTE | 2021-06-11 14:53 | PM.DS ---
DS: Providers Provider Date of Service: 06/11/21 Date of admission: 05/31/21 14:37 Primary care physician: OJELLE Street Consults: 05/31/21 14:46 Consult to Neurology Routine Consulting Provider: [facility] Reason for consultation: encephalopathy; mild left arm weakness Has provider been notified: No 06/02/21 10:35 Consult to Psychiatry Routine Consulting Provider: Psych Covering Reason for consultation: competency eval Has provider been notified: No Attending physician on discharge: Flip Starr Discharging clinician: Britni Robbins DS: Diagnosis Discharge Diagnosis (1) Encephalopathy: Status: Acute DS: Summary Hospital Course Hospital Course: From H&P on day of admission This is a 70-year-old male who presents to the emergency department with confusion and question of left-sided weakness.? He is awake, alert but is a vague historian and unable to provide any significant history including why he came to the emergency room.? He is unsure if he has been taking his medication.? He has no specific complaints at this time.? Brain CT was obtained showing no acute intracranial abnormalities.? Lab work was significant for leukocytosis of 12.8, point of care glucose of 50. He was given OJ and repeat POCs were obtained and were 63, 78. Chest xray showed chronic changes and no UA was obtained at this time. The hospitalists were asked to see him for evaluation and admission for further management. Encephalopathy. Patient was admitted to the hospital for an increase in confusion in the past 3-4 weeks. Encephalopathy like superimposed on some degree of underlying cognitive impairment. Patient had extensive workup during hospitalization. There was no evidence of infection, UA, CXR were negative. brain CT was negative for acute intracranial pathology, tox screen negative, previous admission for encephalopathy earlier TSH, B12, folate wnl; eeg showed generalized slowing no seizure activity. Patient was seen by neurology and started on keprra 500 mg bid, repeat EEG again showed generalized slowing but no seizure activity. Brain MRI showed mild edema in the hippocampus sometimes seen with postictal changes or autoimmune encephalitis although typically more common with bilateral imaging findings. He underwent LP which was essentially negative, protein was slightly elevated. Meningoencephalitis panel was negative. MRI was repeated with contrast and showed no abnormal enhancement even in the area of signal abnormality on prior MRI. Chest and abdominal CT showed no evidence of malignancy. LINDA pending at the time of discharge. CSF fluid for autoimmune panel was also sent out and is pending at the time of discharge. Patient was seen by psychiatric team who did not feel like he had capacity to make medical decisions. His daughter Risa will be taking him home and caring for him until she can find a care home care facility. ? Mechanical mitral/aortic valves. Initially patient's INR was elevated at 5.2. There was no evidence of any bleeding. His coumadin was held due to coagulopathy and then due to need for lumbar puncture. After LP he was started on lovenox bridge and coumadin was resumed. His INR today is 1.4. INR should be followed daily until therapeutic between 2.5-3.5. Therapeutic Lovenox bridge. INR up to 2.8 on day of DC. Then monitor INR per protocol with goal INR between 2.5 and 3.5. Monitor for signs of bleeding. Diabetes with hypoglycemia. Initially patient had hypoglycemic episodes with BS as low as 30. Unclear if patient was taking insulin appropriately as outpatient. Initially his insulin was placed on hold. Blood sugar with monitor closely and eventually rebounded. His 75/25 mix of insulin was non formulary and this was converted to Lantus while in the hospital. He was started at equivalent of approximately 50% of his outpatient insulin dose and covered with sliding scale. He will be discharged home on 50% of his outpatient 75/25 mix. This can be uptitrated as needed. Recommend close blood sugar monitoring. Constipation. Imaging of abdomen showed moderate to severe constipation although patient had no abdominal pain or bloating. He was started on a bowel regimen with good effect. mild hyponatremia note. improved to 137 at time of discharge. HLD. continued on statin Hypothyroidism. TSH within normal limits. Patient was Continued on his home dose of levothyroxine Hypertension. Blood pressure remained under control and he was continued on home dose of lisinopril pulmonary nodules. seen on chest CT. Recommend outpatient followup for monitoring. Time Spent with Patient Time attestation: Total time spent providing and/or coordinating discharge services: Discharge coordination time: Greater than 30 minutes Quality: Stroke Does the patient have a stroke diagnosis?: No Physical Exam Vital Signs: Vital Signs: Last Vital Signs Temp 98.4 F 06/11/21 10:57 Pulse 85 06/11/21 10:57 Resp 20 06/11/21 10:57 BP 161/77 H 06/11/21 10:57 Pulse Ox 97 06/11/21 10:57 BMI result Body Mass Index 31.1 Appearing in no acute distress head is normocephalic atraumatic eyes pupils are PERRLA sclera is anicteric mouth throat mucous membranes are intact and moist neck is supple no lymphadenopathy, no JVD noted lung sounds are clear to auscultation heart regular rate rhythm, clear S1, S2 positive bowel sounds, abdomen is soft, nontender neuro patient is alert , confused DS: Data Data Completed and Pending Labs on day of discharge: Laboratory Results - last 24 hr 06/10/21 06/10/21 06/10/21 15:35 19:33 21:18 PT INR POC Glucose 281 H 278 H 263 H 06/11/21 06/11/21 06/11/21 06:26 07:17 10:42 PT 32.7 H INR 2.8 H POC Glucose 191 H 301 H Discharge Plan Discharge Anticipated Discharge Date/Time: 06/11/21 15:07 Patient Disposition: Home Health Service Discharge Diagnosis: Encephalopathy Referrals: [facility] [Other] - 1 Week Matt Avendaño FNP-BARI [Primary Care Provider] - 1 Week Ambar Davenport MD [Physician] - 1 Week Discharge Medications: New polyethylene glycol 3350 17 gram Powder In Packet 17 g PO DAILY Qty: 1 0RF levetiracetam 500 mg Tablet 500 mg PO BID Qty: 1 0RF docusate sodium 100 mg Capsule 100 mg PO DAILY Qty: 1 0RF Continued Jardiance 25 mg tablet 25 mg PO QAM Qty: 30 4RF levothyroxine 50 mcg tablet 50 mcg PO DAILY Qty: 90 0RF warfarin 2 mg Tablet 4 mg PO DAILY 0RF Protocol: Dose Management Condition: Friday Dose/Route: 4 mg Instruction: 2 x 2 mg tablets Condition: Friday Dose/Route: 4 mg Instruction: 2 x 2 mg tablets Condition: Friday Dose/Route: 4 mg Instruction: 2 x 2 mg tablets Condition: Friday Dose/Route: 4 mg Instruction: 2 x 2 mg tablets Condition: Dose/Route: 4 mg Instruction: 2 x 2 mg tablets Condition: Friday Dose/Route: 4 mg Instruction: 2 x 2 mg tablets Condition: Friday Dose/Route: 4 mg Instruction: 2 x 2 mg tablets Protocol Text: Adjustment Start Date: Friday05/14/21 INR Value: 3.4 INR Date: 05/14/21 Additional Instructions: pt d/c to home with VNA services will have repeat INR this week schedule for 05/17/21 atorvastatin 40 mg tablet 40 mg PO BEDTIME 0RF lisinopril 20 mg tablet 20 mg PO DAILY 0RF Changed insulin lispro protamin-lispro 100 unit/mL (75-25) insulin pen 30 unit subcut DAILY Qty: 0 0RF insulin lispro protamin-lispro [Humalog Mix 75-25 KwikPen] 100 unit/mL (75-25) insulin pen 20 unit subcut BEDTIME Qty: 0 0RF No Action (DME) pen needle, diabetic 31 gauge x 5/16 needle See Rx Instructions ea subcut BID Qty: 100 11RF Rx Instructions: As directed Discharge Orders: Discharge Order (Routine); Ordered 06/11/21 Ordered By: Britni Robbins Diet: advance to usual diet Activity on Discharge: As tolerated Stand Alone Forms: Patient Portal Discharge page Care Plan Goals: See below Health Concerns: Encephalopathy Plan of Treatment: patient does not have capacity to make medical decisions and HCP has been invoked Follow INR daily and continue coumadin as prescribed for anticoagulation due to mechanical aortic and mitral valve Camppra has been started as a new medication Call to schedule outpatient follow up with neurology Assessment: See discharge summary
--- NOTE | 2021-06-11 15:24 | MHC.CM.PN ---
pt dcd home with [facility] and 28/10 family support
--- NOTE | 2021-06-11 15:31 | P.F2F_ITS ---
Service Date Service Date: 06/11/21 Encounter Date of encounter: 06/11/21 Reasons for Services Signs and symptoms assessed: Encephalopathy Reason for chcf: CV/CP assess and/or care and monitoring of PT/INR Homebound: Leaving the home is medically contraindicated at this time without the asist of a device and/or another person due th the listed conditions above and below. Reason homebound: unsteady gait / fall risk and psychologically impaired / unsafe Certification: Based on the above findings, I certify that this patient is confined to the home and needs intermittent chcf care, physical therapy and/or speech therapy, or continues to need occupational therapy. The patient is under my care, and I have initiated the establishment of the plan of care. The patient will be followed by a physician who will periodically review the plan of care.
--- NOTE | 2021-06-11 15:56 | MHC.CM.PN ---
[facility] will be doing inrs tomorrow for
== END 2021-06-11 16:10 | disposition home health service (06) | DRG 637 ==
LOC: HO.ED 14:32 → HO.EDOVER 14:44 → HO.IMC 06-02 18:54
PROVIDERS: Family Medicine; Internal Medicine; Admitting Provider Physician Assistant Medical; Emergency Provider Emergency Medicine; PCP Nurse Practitioner Family; Visit Provider Nurse Practitioner Acute Care
DX: E11.649 Type 2 diabetes mellitus with hypoglycemia without coma (principal); G93.41 Metabolic encephalopathy; G81.94 Hemiplegia, unspecified affecting left nondominant side; E87.1 Hypo-osmolality and hyponatremia; K59.00 Constipation, unspecified; E11.40 Type 2 diabetes mellitus with diabetic neuropathy, unspecified; E78.5 Hyperlipidemia, unspecified; R91.8 Other nonspecific abnormal finding of lung field; E03.9 Hypothyroidism, unspecified; I11.0 Hypertensive heart disease with heart failure; I50.9 Heart failure, unspecified; E66.9 Obesity, unspecified; Z68.31 Body mass index [BMI] 31.0-31.9, adult; Z20.822 Contact with and (suspected) exposure to COVID-19; Z95.2 Presence of prosthetic heart valve; Z79.4 Long term (current) use of insulin; Z79.01 Long term (current) use of anticoagulants; Z79.890 Hormone replacement therapy; Z79.899 Other long term (current) drug therapy
CPT/HCPCS: 36415; 62328; 70450; 70551; 70552; 71045; 71250; 74176; 80048; 80076; 80307; 81001; 82550; 82607; 82746; 82945; 82947; 84157; 84484; 85025; 85027; 85610; 85730; 86038; 86039; 86255; 87015; 87040; 87070; 87205; 87483; 87635; 89051; 93005; 95816; 96374; 97112; 97116; 97162; 99285; A9585; J1650

== ENCOUNTER 2021-06-11 19:50 | Emergency (ER) | payer OTHER, MEDICARE, MEDICAID, SELFPAY ==
[2021-06-11 20:13] VITALS: BP 157/79; PULSE 100; RESP 18; TEMP 36.5; O2SAT 97; BMI 27.8
[2021-06-12] VITALS: BP 124/70; PULSE 88; RESP 16; TEMP 36.8; O2SAT 95
[2021-06-12 01:37] LABS: Glucose, Whole Blood 240 mg/dL (60-115)
--- NOTE | 2021-06-12 01:59 | ED.GENADULT ---
HPI - General Adult General Chief complaint: General Medical Stated complaint: re-admission, dementia Time Seen by Provider: 06/12/21 01:07 Source: patient and family (Daughter) Mode of arrival: ambulatory History of Present Illness HPI narrative: 71-year-old male who was recently discharged today from [facility] and the plan was for his daughter to assist him in his daily care to include the medications but then patient continued to exhibit the confusion and emotional swings that prompted the daughter to bring him back and stating ?I am overwhelmed and was unprepared for this, I do not think I can care for him at home so I thigh bring him back?. The patient has no complaints of headache, dizziness, shortness of breath, chest pain/palpitations, abdominal symptoms. He continues to state that his daughter is doing an amazing job. Related Data Home Medications Medication Instructions Recorded Confirmed lisinopril 20 mg tablet 20 mg PO DAILY 06/05/20 06/12/21 atorvastatin 40 mg tablet 40 mg PO BEDTIME 05/11/21 06/12/21 warfarin 2 mg tablet 4 mg PO DAILY 05/11/21 06/12/21 Previous Rx's Medication Instructions Recorded pen needle, diabetic 31 gauge x #100 ea 02/08/21 5 empagliflozin 25 mg tablet 25 mg PO QAM #30 tab 03/19/21 (Jardiance) levothyroxine 50 mcg tablet 50 mcg PO DAILY #90 tab 05/15/21 docusate sodium 100 mg capsule 100 mg PO DAILY #1 cap 06/08/21 insulin lispro protamine-lispro 30 unit (0.3 mL) SUBCUT DAILY #0 ml 06/08/21 100 unit/mL (75-25) subcutaneous pen insulin lispro protamine-lispro 20 unit (0.2 mL) SUBCUT BEDTIME #0 06/08/21 100 unit/mL (75-25) subcutaneous ml pen (Humalog Mix 75-25 KwikPen) levetiracetam 500 mg tablet 500 mg PO BID #1 tab 06/08/21 polyethylene glycol 3350 17 gram 17 g PO DAILY #1 ea 06/08/21 oral powder packet Allergies Allergy/AdvReac Type Severity Reaction Status Date / Time exenatide [From BYETTA] Allergy Intermediate AFFECTED Verified 06/11/21 20:13 PANCREAS Review of Systems Review of Systems: Pertinent positives and negatives as stated in HPI and 10 point review of systems is otherwise negative. [facility] Past Medical History Source: nursing notes reviewed Medical History BMI 34.0-34.9,adult BPH (benign prostatic hyperplasia) Chronic kidney disease Cognitive impairment Diabetes mellitus Gallstones Gout Heart failure, unspecified HTN (hypertension) Hyperlipidemia Obesity due to excess calories Osteomyelitis Paroxysmal atrial fibrillation Prosthetic valve dysfunction Spinal stenosis, lumbar Type 2 diabetes mellitus with diabetic neuropathy, unspecified Type 2 diabetes mellitus with hyperglycemia, with long-term current use of insulin Surgical History Hx of aortic valve replacement Hx of colonoscopy Hx of endoscopy Hx of exploratory laparotomy Hx of laparoscopy Mitral valve replaced Family History Family History Father CVD (cardiovascular disease) Mother CVD (cardiovascular disease) Social History Social History Household Members: Friend(s) Housing: House Do you presently have visiting nurse or other home services: No Unable to assess alcohol history related to: Unknown Alcohol intake: never Patient Tobacco Use Status: Never used Tobacco Advance Directives: No service: Yes Current occupational status: retired Physical Exam ED Vital Signs: Vital Signs - 24 hr 06/11/21 20:13 06/12/21 00:00 Temperature 97.7 F 98.3 F Pulse Rate 100 88 Respiratory Rate 18 16 Blood Pressure 157/79 H 124/70 Pulse Oximetry 97 95 BMI result Body Mass Index 27.8 VITAL SIGNS: Reviewed. GENERAL: Well developed, well nourished, in no acute distress. HEAD: Normocephalic/atraumatic EYES: PERRLA, EOMI EARS: Ext canals without abnormality OROPHARYNX: no oral lesions noted, posterior pharynx clear LUNGS: Normal breath sounds. No adventitious sounds or accessory muscle use. SpO2<97> CARDIOVASCULAR: Regular rate and rhythm without noted murmurs, no JVD or lower extremity edema. ABDOMEN: Soft, non-tender, non-distended with bowel sounds. MUSCULOSKELETAL: No tenderness, deformities, or effusions noted on gross inspection. EXTREMITIES: No cyanosis, clubbing or edema. SKIN: Inspection of the skin reveals no rashes NEUROLOGIC: Alert and strength and sensation to light touch were grossly intact x 4. 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 This was discussed with the patient and his daughter at bedside. Although the daughter clearly feels emotional about needing help to care for her father both she and the patient agree for evaluation and of placement in rehab. Patient received his evening dose of Keppra, he has no acute medical complaints and is otherwise hemodynamically stable and medically optimized for further evaluation by case management and physical therapy. Reevaluation(s) Reevaluation #1: Patient placed in physician observation because the patient needed more time for placement evaluation by case management and physical therapy. At the time observation was started the patient's vital signs were stable, patient is alert and oriented, neuro: Nonfocal, CV RRR, lungs clear Time: 02:27 Medical Decision Making Lab Data Result diagrams: 06/12/21 02:34 06/12/21 02:34 Labs: Lab Results 06/12/21 06/12/21 06/12/21 Range/Units 01:30 01:41 02:34 WBC 10.0 (4.8-10.8) X10*3/uL RBC 3.65 L (4.60-5.80) X10*6/uL Hgb 11.6 L (14.0-18.0) g/dl Hct 33.6 L (42.0-52.0) % MCV 92.1 (80.0-98.0) fL MCH 31.8 (27.0-33.0) pg MCHC 34.5 (31.0-36.0) g/dl RDW 13.4 (11.0-16.0) % Plt Count 226 (160-400) X10*3/uL MPV 10.6 (9.4-12.4) fL Immature Gran % (Auto) 0.6 H (0.0-0.4) % Neut % (Auto) 63.4 (45-73) % Lymph % (Auto) 20.1 (20-40) % [place] % (Auto) 12.2 H (2-11) % Eos % (Auto) 3.3 (0-4) % Baso % (Auto) 0.4 (0-2) % Lymph # (Auto) 2.0 (1.2-4.9) X10*3/uL [place] # (Auto) 1.2 (0.1-1.2) X10*3/uL Eos # (Auto) 0.3 (0.0-0.4) X10*3/uL Baso # (Auto) 0.0 (0.0-0.2) X10*3/uL Abs Immat Gran (auto) 0.06 H (0.00-0.03) X10*3/uL Absolute Neuts (auto) 6.3 (2.0-8.3) x10*3/uL Absolute Nucleated RBC 0.000 (0.0-0.012) X10*3/uL Nucleated RBC % (auto) 0.0 (0.0-0.2) /100WBC Sodium (135-145) mmol/L Potassium (3.3-5.1) mmol/L Chloride (96-108) mmol/L Carbon Dioxide (22-29) mmol/L Anion Gap (12-20) BUN (9-16) mg/dL Creatinine (0.5-1.4) mg/dL Estim Creat Clear Calc Estimated GFR POC Glucose 240 H (60-115) mg/dL Random Glucose (60-115) mg/dL Calcium (8.4-10.2) mg/dL Total Bilirubin (0.0-1.0) mg/dL AST (5-37) U/L ALT (0-40) U/L Alkaline Phosphatase (39-117) U/L Total Protein (6.5-8.0) g/dL Albumin (3.5-5.0) g/dL COVID-19 (DYLAN) Negative (Negative) COVID-19 Clin Com See Note 06/12/21 Range/Units 02:34 WBC (4.8-10.8) X10*3/uL RBC (4.60-5.80) X10*6/uL Hgb (14.0-18.0) g/dl Hct (42.0-52.0) % MCV (80.0-98.0) fL MCH (27.0-33.0) pg MCHC (31.0-36.0) g/dl RDW (11.0-16.0) % Plt Count (160-400) X10*3/uL MPV (9.4-12.4) fL Immature Gran % (Auto) (0.0-0.4) % Neut % (Auto) (45-73) % Lymph % (Auto) (20-40) % [place] % (Auto) (2-11) % Eos % (Auto) (0-4) % Baso % (Auto) (0-2) % Lymph # (Auto) (1.2-4.9) X10*3/uL [place] # (Auto) (0.1-1.2) X10*3/uL Eos # (Auto) (0.0-0.4) X10*3/uL Baso # (Auto) (0.0-0.2) X10*3/uL Abs Immat Gran (auto) (0.00-0.03) X10*3/uL Absolute Neuts (auto) (2.0-8.3) x10*3/uL Absolute Nucleated RBC (0.0-0.012) X10*3/uL Nucleated RBC % (auto) (0.0-0.2) /100WBC Sodium 128 L (135-145) mmol/L Potassium 4.9 (3.3-5.1) mmol/L Chloride 96 (96-108) mmol/L Carbon Dioxide 25 (22-29) mmol/L Anion Gap 12 (12-20) BUN 18 H (9-16) mg/dL Creatinine 0.97 (0.5-1.4) mg/dL Estim Creat Clear Calc 78.1 Estimated GFR > 60 POC Glucose (60-115) mg/dL Random Glucose 268 H D (60-115) mg/dL Calcium 9.0 (8.4-10.2) mg/dL Total Bilirubin 0.7 (0.0-1.0) mg/dL AST 27 (5-37) U/L ALT 38 (0-40) U/L Alkaline Phosphatase 72 (39-117) U/L Total Protein 6.5 (6.5-8.0) g/dL Albumin 3.5 (3.5-5.0) g/dL COVID-19 (DYLAN) (Negative) COVID-19 Clin Com Discharge Plan Discharge Clinical Impression: Diabetes, Encephalopathy Patient Disposition: Still a Patient Prescriptions: No Action (DME) pen needle, diabetic 31 gauge x 5/16 needle See Rx Instructions ea subcut BID Qty: 100 11RF Rx Instructions: As directed Jardiance 25 mg tablet 25 mg PO QAM Qty: 30 4RF levothyroxine 50 mcg tablet 50 mcg PO DAILY Qty: 90 0RF warfarin 2 mg Tablet 4 mg PO DAILY 0RF Protocol: Dose Management Condition: Friday Dose/Route: 4 mg Instruction: 2 x 2 mg tablets Condition: Friday Dose/Route: 4 mg Instruction: 2 x 2 mg tablets Condition: Friday Dose/Route: 4 mg Instruction: 2 x 2 mg tablets Condition: Friday Dose/Route: 4 mg Instruction: 2 x 2 mg tablets Condition: Dose/Route: 4 mg Instruction: 2 x 2 mg tablets Condition: Friday Dose/Route: 4 mg Instruction: 2 x 2 mg tablets Condition: Friday Dose/Route: 4 mg Instruction: 2 x 2 mg tablets Protocol Text: Adjustment Start Date: Friday05/14/21 INR Value: 3.4 INR Date: 05/14/21 Additional Instructions: pt d/c to home with VNA services will have repeat INR this week schedule for 05/17/21 atorvastatin 40 mg tablet 40 mg PO BEDTIME 0RF polyethylene glycol 3350 17 gram Powder In Packet 17 g PO DAILY Qty: 1 0RF levetiracetam 500 mg Tablet 500 mg PO BID Qty: 1 0RF docusate sodium 100 mg Capsule 100 mg PO DAILY Qty: 1 0RF insulin lispro protamin-lispro 100 unit/mL (75-25) insulin pen 30 unit subcut DAILY Qty: 0 0RF insulin lispro protamin-lispro [Humalog Mix 75-25 KwikPen] 100 unit/mL (75-25) insulin pen 20 unit subcut BEDTIME Qty: 0 0RF lisinopril 20 mg tablet 20 mg PO DAILY 0RF
[2021-06-12 02:07] LABS: COVID-19 Test Negative (Negative)
[2021-06-12] MEDS: levETIRAcetam 500 MG TABLET PO ×3 (02:38→21:27)
[2021-06-12 02:40] LABS: Basophils Percent Auto 0.4 % (0-2); Eosinophils Absolute Auto 0.3 X10*3/uL (0.0-0.4); Eosinophils Percent Auto 3.3 % (0-4); Hematocrit 33.6 % (42.0-52.0); Hemoglobin 11.6 g/dl (14.0-18.0); Imm Gran Abs Auto 0.06 X10*3/uL (0.00-0.03); Imm Gran Pct Auto 0.6 % (0.0-0.4); Lymphocytes Percent Auto 20.1 % (20-40); MANUAL DIFF FLAG NO; Mean Corpuscular HGB Conc 34.5 g/dl (31.0-36.0); Mean Corpuscular Hemoglobin 31.8 pg (27.0-33.0); Mean Corpuscular Volume 92.1 fL (80.0-98.0); Mean Platelet Volume 10.6 fL (9.4-12.4); Monocytes Absolute Auto 1.2 X10*3/uL (0.1-1.2); Monocytes Percent Auto 12.2 % (2-11); Neutrophils Absolute Auto 6.3 x10*3/uL (2.0-8.3); Neutrophils Percent Auto 63.4 % (45-73); Platelet Count 226 X10*3/uL (160-400); Red Blood Count 3.65 X10*6/uL (4.60-5.80); Red Cell Distribution Width 13.4 % (11.0-16.0)
[2021-06-12 02:54] LABS: Alanine Aminotransferase 38 U/L (0-40); Albumin Level 3.5 g/dL (3.5-5.0); Alkaline Phosphatase 72 U/L (39-117); Anion Gap 12 (12-20); Aspartate Amino Transferase 27 U/L (5-37); Bilirubin Total 0.7 mg/dL (0.0-1.0); Blood Urea Nitrogen 18 mg/dL (9-16); Carbon Dioxide 25 mmol/L (22-29); Chloride 96 mmol/L (96-108); Creatinine Clr Calc Pharmacy 78.1; Estimated Glomerular Filt Rate > 60; Glucose Random 268 mg/dL (60-115); Potassium 4.9 mmol/L (3.3-5.1); Sodium 128 mmol/L (135-145); Total Protein 6.5 g/dL (6.5-8.0)
[2021-06-12 05:57] VITALS: BP 128/78; PULSE 91; RESP 16; TEMP 36.9; O2SAT 95
--- NOTE | 2021-06-12 07:17 | PHA.MEDREC ---
Pharmacy Consult ? Medication Reconciliation Pharmacy has reviewed the medication reconciliation compelted overnight. Patient was just [place] yesterday, [facility]/11/[place] [facility] Farida Mcguire, SaiD
[2021-06-12 07:56] VITALS: BP 128/78; PULSE 91; O2SAT 95
[2021-06-12] MEDS: Levothyroxine Sodium 50 MCG TABLET PO (09:02)
[2021-06-12] MEDS: lisinopriL 20 MG TABLET PO (09:02)
[2021-06-12] MEDS: Docusate Sodium 100 MG CAPSULE PO (09:02)
[2021-06-12] MEDS: polyethylene glycoL 3350 17 GM POWD.PACK PO (09:03)
[2021-06-12 11:40] VITALS: BP 137/61; PULSE 88; RESP 16; O2SAT 98
[2021-06-12 11:51] LABS: Glucose, Whole Blood 289 mg/dL (60-115)
[2021-06-12] MEDS: Insulin Glargine,Hum.rec.anlog 100 UNIT/ML 10 ML VIAL 15 UNIT SUBCUT ×2 (11:53→21:28)
[2021-06-12 12:04] LABS: INTERNATIONAL NORM RATIO 2.3 (0.9-1.1)
--- NOTE | 2021-06-12 12:30 | PC.NURSE ---
pt alert, vss, denies pain. meds given as documented, meal given. no complaints. Pt case management pending rehab placement. will continue to monitor.
--- NOTE | 2021-06-12 13:54 | MHC.CM.ED ---
Received case management consult overnight. Patient was discharged from [facility] on 06/11 to family at home. Patient returned because family was not able to care for him. Physical therapy eval completed. Short term rehab is recommended. Spoke with patient's daughter, Risa via telephone at [phone]. List of facilities provided via email from [facility]. Risa's choices: 1)[facility] 2)[facility] 3)[facility] 4)[facility]. [facility] is able to offer a bed and is in the process of obtaining insurance auth. Continue to monitor for d/c needs.
[2021-06-12] MEDS: Insulin Lispro 100 UNIT/ML 3 ML VIAL SUBCUT ×3 (14:13→21:29)
--- NOTE | 2021-06-12 15:11 | MHC.CM.ED ---
Patient remains in ER. Waiting for ins auth to be obtained by Anish Hollings[facility]. Patient's daughter, Risa made aware via telephone at [phone]. Continue to monitor for d/c needs.
[2021-06-12 17:23] LABS: Glucose, Whole Blood 246 mg/dL (60-115)
[2021-06-12] MEDS: Warfarin Sodium 4 MG TABLET PO (18:12)
--- NOTE | 2021-06-12 18:26 | MHC.CM.ED ---
Received authorization from [place]. Contacted them at [phone]. Pt aware. Will book transportation for the morning if CM doesn't hear from liason. Pt agreeable to transport in the morning. CM to follow for d/c needs.
--- NOTE | 2021-06-12 18:59 | MHC.CM.ED ---
Addendum entered by Yuli Faria 06/12/21 19:02: ADDI Blakely and Tomi blevins. Original Note: Transportation booked for 9am on 06/13/[address] [facility]. Pt aware and agreeable. Message left in [facility]. Med Nec on pt chart. Pt daughter, Risa ([phone]) called and message left.
[2021-06-12 21:07] LABS: Glucose, Whole Blood 300 mg/dL (60-115)
[2021-06-12] MEDS: Atorvastatin Calcium 40 MG TABLET PO (21:28)
[2021-06-12 23:50] VITALS: BP 135/65; PULSE 80; RESP 14; O2SAT 96
[2021-06-13 01:32] VITALS: BP 109/60; PULSE 88; RESP 16; O2SAT 99
[2021-06-13 07:17] LABS: Glucose, Whole Blood 228 mg/dL (60-115)
[2021-06-13 07:21] VITALS: RESP 20
[2021-06-13] MEDS: Insulin Lispro 100 UNIT/ML 3 ML VIAL SUBCUT (07:21)
[2021-06-13 08:26] VITALS: BP 102/56; PULSE 89; RESP 18; TEMP 36.5; O2SAT 99
[2021-06-13] MEDS: lisinopriL 20 MG TABLET PO (08:29)
[2021-06-13] MEDS: Insulin Glargine,Hum.rec.anlog 100 UNIT/ML 10 ML VIAL 15 UNIT SUBCUT (08:29)
[2021-06-13] MEDS: levETIRAcetam 500 MG TABLET PO (08:29)
[2021-06-13] MEDS: Levothyroxine Sodium 50 MCG TABLET PO (08:30)
== END 2021-06-13 09:12 | disposition skilled nursing facility (03) ==
PROVIDERS: Physician Assistant; Emergency Provider Student in an Organized Health Care Education/Training Program; PCP Nurse Practitioner Family
DX: E11.9 Type 2 diabetes mellitus without complications (principal); G93.40 Encephalopathy, unspecified; I10 Essential (primary) hypertension; E78.5 Hyperlipidemia, unspecified; I48.0 Paroxysmal atrial fibrillation; Z79.01 Long term (current) use of anticoagulants; Z95.2 Presence of prosthetic heart valve; Z20.822 Contact with and (suspected) exposure to COVID-19
CPT/HCPCS: 36415; 80053; 82947; 85025; 85610; 87635; 97162; 99284; 99285